=== PATIENT | female | born 1965 | race Caucasian/White ===

== ENCOUNTER 2018-08-03 13:48 | Emergency (ER) | payer MEDICAID, SELFPAY ==
[2018-08-03 13:51] VITALS: BP 125/51; PULSE 68; RESP 16; TEMP 36.7; O2SAT 100
--- NOTE | 2018-08-03 14:12 | DI.CT_ITS ---
SYMPTOMS/DIAGNOSIS: S/P HYSTERECTOMY 07/28 WITH NEW BULGE TO RLQ ABDOMINAL AND PELVIC CT: CT examination of the abdomen and pelvis was performed with a bolus infusion of 100 cc's of Omnipaque 350. The lung bases are clear. The requisition raises the question of an abdominal wall hernia and no significant abdominal wall hernia is seen. Note is made of an IVC filter. There is right hydronephrosis and hydroureter to the level of the distal third of the ureter where there is an obstructing 3 mm stone. No additional urinary tract calcifications seen. No left ureteral obstruction seen. Hepatic parenchyma contains geographic areas of marked heterogeneity involving portions of the right hepatic lobe. There are quite low attenuation areas which appear to approach that of intra-abdominal fat. The findings as described could represent atypical hepatic steatosis, however, the possibility of metastatic disease in a patient with a known history of previous neoplasm would have to be raised. Additionally the possibility of primary hepatocellular carcinoma would have to be considered. Additional evaluation with MRI including pre and post contrast imaging and in and out of phase chemical shift imaging would be recommended. The spleen is unremarkable in appearance. No gross abdominal or pelvic adenopathy. The appendix is normal. No colonic obstruction or diverticulitis. The abdominal aorta is of normal diameter. CONCLUSION: 1. No abdominal wall hernia. 2. Obstructing 3 mm right ureteral calculus. 3. Geographic areas of heterogeneity of hepatic parenchyma predominantly involving right lobe. The differential includes atypical hepatic steatosis or primary vs metastatic neoplasm. Correlation with hepatic MRI recommended as described above.
[2018-08-03 14:25] LABS: Abs Immature Grans 0.12 k/cumm (0.0-0.09); Absolute Basophil Count 0.04 k/cumm (0.0-0.2); Absolute Eosinophil Count 0.34 k/cumm (0.0-0.7); Absolute Lymphocyte Count 1.53 k/cumm (1.2-3.4); Absolute Monocyte Count 0.85 k/cumm (0.11-0.7); Absolute Neutrophil Count 4.73 k/cumm (1.2-6.7); Basophils % 0.5; Eosinophils % 4.5; HCT 35.8 % (36.0-46.0); HGB 11.1 g/dL (12.0-15.5); Immature Grans % 1.6; Lymphocytes % 20.1; Mean Corpuscular Hemoglobin 29.8 pg (27.0-33.0); Mean Platelet Volume 9.1 fL (8.0-11.0); Monocytes % 11.2; Neutrophils % 62.1; Platelet Count 246 x1000/uL (130-400); RBC 3.73 m/cumm (4.00-5.20); RBC Distribution Width 14.7 % (11.7-14.6); White Blood Cell Count 7.61 k/cumm (4.4-10.8)
[2018-08-03 14:34] LABS: ALT 68 U/L (12-78); AST 74 U/L (15-37); Albumin 3.1 g/dL (3.4-5.0); Alkaline Phosphatase 111 U/L (46-116); Anion Gap 8.7 mmol/L (3-11); BUN 18 mg/dL (7-18); Bilirubin, Total 0.4 mg/dL (0.2-1.0); CO2 28.3 mmol/L (21.0-32.0); CREATININE 0.92 mg/dL (0.55-1.02); Calcium 9.2 mg/dL (8.5-10.1); Chloride 104 mmol/L (98-107); Glucose 132 mg/dL (70-100); Sodium 141 mmol/L (136-145); Total Protein 6.6 g/dL (6.4-8.2)
[2018-08-03] MEDS: Omnipaque 350 MG/ML 100 ML BTL IJ (15:12)
--- NOTE | 2018-08-03 15:12 | ED.GENADUL_ITS ---
Discharge Plan Disposition Patient Disposition: HOME Condition: Fair Discharge Details Chief Complaint: Abd Prob Clinical Impression: Right nephrolithiasis, Postoperative abdominal pain Primary Care Provider: Joshua Nunes ED Provider: [place] [facility] Home Meds and New Rx's Prescriptions: Continue blood-glucose meter [OneTouch UltraMini] 1 EACH kit 1 ea Miscellaneous ONCE Qty: 1 RF: 0 acetaminophen [Tylenol Extra Strength] 500 MG tablet 2 tab PO TID RF: 0 lancets [OneTouch UltraSoft Lancets] 1 EACH misc 1 ea Miscellaneous 2-3x/day Qty: 300 RF: 11 dimethicone-zinc oxide [Huan Protect] 57 GM cream 57 gm Topical BID Qty: 1 RF: 12 nystatin 60 GM powder 60 gm Topical DAILY Qty: 60 RF: 6 cetirizine [Zyrtec] 10 MG capsule 10 mg PO DAILY Qty: 90 RF: 4 insulin glargine [Lantus Solostar U-100 Insulin] 100 UNIT/1 ML insulin pen 80 unit SQ QAM Qty: 5 RF: 6 pen needle, diabetic [BD Ultra-Fine Dorie Pen Needle] 1 EACH needle 1 ea Sub-Q QID Qty: 360 RF: 6 ibuprofen 600 MG tablet 600 mg PO BID Qty: 120 RF: 6 metformin 500 MG tablet 500 mg PO BID Qty: 180 RF: 4 rosuvastatin [Crestor] 10 MG tablet 10 mg PO HS Qty: 90 RF: 4 zinc oxide 28 GM ointment 28 gm Topical BID Qty: 1 RF: 1 insulin aspart U-100 [Novolog Flexpen U-100 Insulin] 100 UNIT/1 ML insulin pen 20 u Sub-Q 0800,1200,1700 Qty: 3 RF: 4 doxycycline monohydrate 100 MG capsule 100 mg PO BID Qty: 14 RF: 0 multivitamin 1 EACH tablet 1 ea PO DAILY Qty: 100 RF: 3 famotidine [Pepcid AC] 20 MG tablet 20 mg PO BID PRNQty: 180 RF: 4 lisinopril 10 MG tablet 10 mg PO DAILY Qty: 90 RF: 3 oxybutynin chloride 5 MG tablet 5 mg PO BID Qty: 180 RF: 4 cholecalciferol (vitamin D3) 1,000 UNIT capsule 1,000 unit PO DAILY Qty: 90 RF: 3 bupropion HCl [Wellbutrin XL] 300 MG tablet extended release 24 hr 300 mg PO DAILY Qty: 90 RF: 4 Metoprolol Succinate 25 MG TAB.ER.24H 25 mg PO DAILY Qty: 90 RF: 3 gabapentin 800 MG tablet 800 mg PO BID Qty: 90 RF: 3 ONETOUCH ULTRA TEST STRIPS 1 EACH strip 1 ea Miscellaneous TID Qty: 300 RF: 4 Discharge Instructions Instructions: Kidney Stones (ED), Abdominal Pain (ED) Additional Instructions: You have a right kidney stone. Please encourage water intake. Tylenol as needed for discomfort and pain medication as previously prescribed. I have asked her regular senior care provider to help facilitate follow-up with urologist. If you develop fever/chills, increased pain, change in urinary habits or other new/ worsening symptoms please seek care urgently once again. Surgeon at [facility] feels that the bulge on the right side is a postoperative change and will resolve and is benign. Please keep upcoming appointment with the surgeon. Please follow-up with primary care in 1 week for reevaluation of your abdomen, discuss any ongoing pain and discussed CT findings of your liver. You will likely need further imaging of your liver. Please encourage hydration. Please follow-up with primary care in the next week , please call tomorrow to schedule appointment. Keep upcoming appointment surgeon. respite coordinator will contact you regarding urology follow-up. Referrals: Joshua Nunes DO [Primary Care Provider] - Discharge Data Discharge Date/Time-TO BE ENTERED AT DEPARTURE: 08/03/18 17:44 Medical Decision Making Patient presents today with chief complaint of abdominal pain. Patient underwent total hysterectomy last week at [facility]. Her concern at today's visit is that she developed a bulge on the right side of the abdomen. She does have a notable bulge in the right side of her pannus near the pannus meets the edge of the bed. Patient is nonambulatory at baseline. Symptoms been having some abdominal discomfort since the time of surgery. On exam, she is having fairly diffuse discomfort. She is also endorsing some lower back pain which also began this morning. Lower back pain is low central over the area of the coccyx. No step-off, signs of trauma noted. No discoloration skin. Incisions appear to be healing well with no signs of infection. Plan to obtain laboratory evaluation, CT and consult with [facility]. Review documentation from [facility]. Patient had a robot-assisted hysterectomy with bilateral oophorectomy. They advised postoperative course was complicated briefly by DKA which seemed to resolve on postop day 1. Advised she was tolerating food well and patient was discharged on postop day 3 with [facility]NA care. Patient was discharged on NovoLog which she reports she is still taking CT reviewed by radiologist as well as myself. In particular, I discussed the radiologist I am unable to visualize the area of swelling on the scan secondary to the patient's body habitus and the limitations of the scan. He advised that the findings on the physical exam would need to be in the skin or subcutaneous tissue as there is no acute abnormality noted to support the physical exam findings. He advised that the liver is noted to be heterogeneous advised that this was concerning for fatty infiltrate versus metastasis. He advised MRI with post phase imaging to determine if that versus tumor. Advised that this MRI would need to be completed at [facility] given the limitations of our own equipment. He also advised that there is an obstructing stone on the right side that is 3 mm with associated hydronephrosis. We will obtain a urinalysis to evaluate for the obstructed stone and rule out infected kidney stone. Patient continues to decline CVA tenderness. Has not noted any hematuria. No history of nephrolithiasis. Laboratory evaluation significant for hemoglobin 11.1. This is unchanged from patient's baseline. No leukocytosis. Consulted with Dr. Montanez at [facility]. She reviewed the patient's recent case. 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 No other pathology was noted. She advised that the heterogeneous findings of the liver were non- concerning for metastatic disease given the surgical pathology noted. We discussed the soft bulge noted on exam in the patient's pannus. She advised that this was likely subcu tracking of gas from placement of trocar versus subcutaneous hematoma. She reports that typically the right side is more affected after this type of surgery did not feel that the patient needed any intervention or urgent follow-up. Urinalysis significant for blood, no findings to suggest acute infection. Patient diagnosed with abdominal pain postoperatively, likely associated with subcutaneous tracking of gas or hematoma from trocar placement per surgeon's report. He also noted to have an obstructing right ureteral stone. Stone is 3 mm in diameter. No signs of infection on laboratory evaluation. Patient denies any fevers or chills at home. Also noted to have heterogeneous liver. I did discuss this with the surgeon as there was concern for this potentially being tumor. Surgeon does not believe that this is metastases given the findings on surgical pathology. However, I have recommended the patient discuss this further with primary care. Radiologist did recommend MRI to evaluate this further. Patient will contact primary care to schedule follow-up this week. Encourage hydration. I have asked her regular senior care provider to help facilitate follow-up with urology. Advised she may continue with her Tylenol as needed for discomfort. She was given strict return precautions. All of her questions and concerns were addressed and she is in agreement with this plan. HPI General Mode of arrival: EMS . Date/Time Provider Initiated Documentation: 08/03/18 14:05 . Limitations to Documentation: no limitations . Information obtained by: patient . History of Present Illness 53 year old F presents to the emergency department with the chief complaint of Bulge right side of abdomen, described as severe, with intensity rated at 9. Quality is described as burning, aching and sharp, and is localized to the abdomen. Patient reports radiation to back. Patient started experiencing this hour(s) (3) and it has been constant. No relieving factors improve symptom(s), No exacerbating factors reported . Patient notes no other symptoms.; denies chest pain, cough, fever/chills, loss of appetite, nausea/vomiting, rash and shortness of breath. Patient did receive the following treatments prior to arrival, none Related Data Home Medications Medication Instructions Recorded Confirmed blood-glucose meter [OneTouch #1 kit 10/28/13 UltraMini] acetaminophen [Tylenol Extra 2 tab PO TID 03/09/15 08/03/18 Strength] lancets [OneTouch UltraSoft #300 ea 08/17/15 Lancets] dimethicone-zinc oxide [Huan 57 gm TOPICAL BID #1 tube 06/14/16 08/03/18 Protect] nystatin 60 gm TOPICAL DAILY #60 applic 03/14/17 08/03/18 cetirizine [Zyrtec] 10 mg PO DAILY #90 tab-cap 10/07/17 08/03/18 insulin glargine [Lantus Solostar 80 unit SQ QAM #5 box 12/23/17 08/03/18 U-100 Insulin] pen needle, diabetic [BD #360 pen 01/13/18 Ultra-Fine Dorie Pen Needle] ibuprofen 600 mg PO BID #120 tab-cap 02/27/18 08/03/18 metformin 500 mg PO BID #180 tab-cap 04/28/18 08/03/18 rosuvastatin [Crestor] 10 mg PO HS #90 tab-cap 04/28/18 08/03/18 zinc oxide 28 gm TOPICAL BID #1 tube 05/15/18 08/03/18 insulin aspart U-100 [Novolog 20 u SUB-Q 0800,1200,1700 #3 pen 06/01/18 08/03/18 Flexpen U-100 Insulin] doxycycline monohydrate 100 mg PO BID #14 tab-cap 06/08/18 08/03/18 bupropion HCl [Wellbutrin XL] 300 mg PO DAILY #90 tab-cap 06/23/18 08/03/18 cholecalciferol (vitamin D3) 1,000 unit PO DAILY #90 tab-cap 06/23/18 08/03/18 famotidine [Pepcid AC] 20 mg PO BID PRN #180 tab 06/23/18 08/03/18 gabapentin 800 mg PO BID #90 tab-cap 06/23/18 08/03/18 lisinopril 10 mg PO DAILY #90 tab-cap 06/23/18 08/03/18 multivitamin 1 ea PO DAILY #100 tab-cap 06/23/18 08/03/18 oxybutynin chloride 5 mg PO BID #180 tab-cap 06/23/18 08/03/18 Previous Rx's Medication Instructions Recorded cetirizine [Zyrtec] 10 mg PO DAILY #90 tab-cap 10/07/17 insulin glargine [Lantus Solostar 80 unit SQ QAM #5 box 12/23/17 U-100 Insulin] pen needle, diabetic [BD #360 pen 01/13/18 Ultra-Fine Dorie Pen Needle] ibuprofen 600 mg PO BID #120 tab-cap 02/27/18 metformin 500 mg PO BID #180 tab-cap 04/28/18 rosuvastatin [Crestor] 10 mg PO HS #90 tab-cap 04/28/18 zinc oxide 28 gm TOPICAL BID #1 tube 05/15/18 insulin aspart U-100 [Novolog 20 u SUB-Q 0800,1200,1700 #3 pen 06/01/18 Flexpen U-100 Insulin] doxycycline monohydrate 100 mg PO BID #14 tab-cap 06/08/18 bupropion HCl [Wellbutrin XL] 300 mg PO DAILY #90 tab-cap 06/23/18 cholecalciferol (vitamin D3) 1,000 unit PO DAILY #90 tab-cap 06/23/18 gabapentin 800 mg PO BID #90 tab-cap 06/23/18 lisinopril 10 mg PO DAILY #90 tab-cap 06/23/18 multivitamin 1 ea PO DAILY #100 tab-cap 06/23/18 oxybutynin chloride 5 mg PO BID #180 tab-cap 06/23/18 Allergies Allergy/AdvReac Type Severity Reaction Status Date / Time cefazolin Allergy HIVES Unverified 08/03/18 13:55 oxacillin [Oxacillin] Allergy HIVES Unverified 08/03/18 13:55 Penicillins Allergy HIVES Unverified 08/03/18 13:55 gemfibrozil AdvReac INCREASED Unverified 08/03/18 13:55 LFT'S morphine AdvReac NAUSEA Unverified 08/03/18 13:55 General Stated Complaint: Abd Prob DANIAL: 3 Review of Systems Constitutional Reports as per HPI, Denies chills, Denies fever(s), Denies headache(s) and Reports poor appetite (reports that she has had diminished appetite since the time of surgery, no recent change) ENT Denies headache(s) Cardiovascular Denies chest pain, Denies chest pain with activity, Denies palpitations, Denies dyspnea and Denies dyspnea on exertion Respiratory Denies chest congestion, Denies cough, Denies dyspnea and Denies dyspnea on exertion Gastrointestinal Reports as per HPI, Reports abdominal pain, Denies change in bowel habits, Denies nausea and Denies vomiting Genitourinary Denies dysuria, Denies flank pain and Denies urinary urgency Musculoskeletal Reports back pain (low central back pain, she associates with abdominal pain) Integumentary/Breasts Reports as per HPI (multiple incisions from robot assisted total hysterectomy 6 days ago. Denies erythema, discharge) Neurologic Denies headache(s) Endocrine Denies palpitations PFSH Family History Mother No problems noted. Father No problems noted. Sister No problems noted. Sister No problems noted. Sister No problems noted. Brother No problems noted. Grandfather No problems noted. Grandfather No problems noted. Grandmother No problems noted. Grandmother No problems noted. Son No problems noted. Medical History Amputated right leg Immobility Social History Smoking/Tobacco Use Status: Former Tobacco Use Surgical History Dilation and curettage (06/25/18) Fracture, Open Treatment Replacement of total knee joint (~1998) Exam Const General: cooperative, comfortable and no acute distress Nutritional Appearance: obese Orientation: alert and awake Eyes General: appearance normal, both eyes and all related structures Resp Effort & Inspection: normal respiratory effort, able to speak in complete sentences and no respiratory distress Auscultation: clear to auscultation bilaterally Cardio Rate: regular rate Rhythm: regular rhythm Heart Sounds: S1 normal and S2 normal GI Inspection: abdominal wall ecchymosis (Patient has ecchymosis around incisions and injection sites), no edema, incision (Patient has 4 incisions, appear to be healing well. No surrounding erythema, warmth or drainage), large pannus, obesity, scar and no visible herniation Palpation: soft, no hepatosplenomegaly (none palpable although this is limited from body habitus), not firm, no guarding, no masses (Patient has a visible area of localized swelling to right side of pannus near where pannus meets the edge of the bed. Appears swollen 19cm x 8cm. No discoloration. No definitive area of fluctuace, area is soft. ), not rigid and tender (diffuse discomfort with palpation. Only minmal palpation with over the area of swelling) Auscultation: normal bowel sounds Back/Spine/Pelvis Back: no CVA tenderness and other (patient has discomfort with palpation over the low central back. Pain minimal. No step off, no signs of trauma or deformity) Back/spine/pelvis image: 2 1. Skin General skin exam: ecchymosis, no erythema, no jaundice, no petechiae and scars (fresh incisions which appear to be healing well) Neuro General: alert, awake and oriented x3 Cognition: normal cognition Speech: speech normal Gait: gait abnormal (patient does not ambulate, has a right amp leading to patient being bed bound) Psych Appearance: grossly normal Mental Status: mental status grossly normal Speech and Movement: speech and movement normal Mood: congruent mood Course Vital Signs Temperature 36.7 C 08/03/18 13:51 Pulse 68 08/03/18 13:51 Respiratory Rate 16 08/03/18 13:51 Blood Pressure 125/51 L 08/03/18 13:51 Pulse Oximetry 100 08/03/18 13:51 Temperature 36.7 C 08/03/18 13:51 Temperature Source Skin 08/03/18 13:51 Pulse 68 08/03/18 13:51 Respiratory Rate 16 08/03/18 13:51 Respiratory Effort Non-Labored 08/03/18 13:51 Blood Pressure 125/51 L 08/03/18 13:51 Blood Pressure Position Supine 08/03/18 13:51 Pulse Oximetry 100 08/03/18 13:51 Oxygen Delivery Method Room Air 08/03/18 13:51 Oxygen Flow Rate 0 08/03/18 13:51 Pain Level 10 08/03/18 13:51 Lab/Test Results Lab/Test Results: Laboratory Tests Range/Units 08/03/18 08/03/18 14:15 14:15 WBC (4.4-10.8) k/cumm 7.61 RBC (4.00-5.20) m/cumm 3.73 L Hgb (12.0-15.5) g/dL 11.1 L Hct (36.0-46.0) % 35.8 L MCV (80-95) fL 96.0 H MCH (27.0-33.0) pg 29.8 MCHC (32.0-36.0) g/dL 31.0 L RDW (11.7-14.6) % 14.7 H Plt Count (130-400) x1000/uL 246 MPV (8.0-11.0) fL 9.1 Immature Gran % 1.6 Neutrophils % 62.1 Lymphocytes % 20.1 Monocytes % 11.2 Eosinophils % 4.5 Basophils % 0.5 Absolute Neutrophils (1.2-6.7) k/cumm 4.73 Absolute Lymphocytes (1.2-3.4) k/cumm 1.53 Absolute Monocytes (0.11-0.7) k/cumm 0.85 H Absolute Eosinophils (0.0-0.7) k/cumm 0.34 Absolute Basophils (0.0-0.2) k/cumm 0.04 Sodium (136-145) mmol/L 141 Potassium (3.5-5.1) mmol/L 4.0 Chloride (98-107) mmol/L 104 Carbon Dioxide (21.0-32.0) mmol/L 28.3 Anion Gap (3-11) mmol/L 8.7 BUN (7-18) mg/dL 18 Creatinine (0.55-1.02) mg/dL 0.92 Estimated GFR/1.73 m2 (mL/min/1.73m2) >= 60.00 Glucose (70-100) mg/dL 132 H Calcium (8.5-10.1) mg/dL 9.2 Total Bilirubin (0.2-1.0) mg/dL 0.4 AST (15-37) U/L 74 H ALT (12-78) U/L 68 Alkaline Phosphatase (46-116) U/L 111 Total Protein (6.4-8.2) g/dL 6.6 Albumin (3.4-5.0) g/dL 3.1 L
[2018-08-03] MEDS: Ondansetron 4 MG/2 ML VIAL IVP (16:11)
[2018-08-03 16:19] LABS: Bilirubin Negative (Negative); Blood Moderate (Negative); Clarity Sl Cloudy; Glucose Negative (Negative); Ketones Negative (Negative); Leukocyte Esterase Negative (Negative); Nitrite Negative (Negative); Urobilinogen 0.2 EU/dL (Up TO 0.2); pH 5.5 (5-8)
[2018-08-03] MEDS: Acetaminophen 500 MG TAB 1000 MG (16:25)
[2018-08-03] MEDS: Lidocaine 5% Patch 1 PATCH TP (17:04)
[2018-08-03 17:05] LABS: Bacteria Negative HPF (Negative); C & S Indicated? No/Sq. Contamination; Casts Negative LPF (Negative); Crystals Negative HPF (Negative); Epithelial Cells Many HPF (Negative); Mucus Negative (Negative); Other Cells Moderate Renal (Negative); RBC 20-50 (0-2)
[2018-08-03 17:44] VITALS: BP 125/51; PULSE 68; RESP 16; TEMP 36.7; O2SAT 100
--- NOTE | 2018-08-03 17:45 | NUR.NOTE ---
Nursing Note: Spoke with Brianda, Care Management. Patient is going home via [facility] with a wheelchair from [facility]. [facility] said that they would return the wheelchair tomorrow. Jada Wayne.
--- NOTE | 2018-08-04 10:47 | PDOC.ERCMPRO ---
Care Management Progress Note 08/04/18-Pt seen on 08/03/18 for obstructing kidney stone by MARLEN Muñoz. Referral f/u to Urology.
== END 2018-08-03 17:44 | disposition home or self-care (01) ==
PROVIDERS: Emergency Provider Physician Assistant; PCP Emergency Medicine
DX: N20.0 Calculus of kidney (principal); G89.18 Other acute postprocedural pain; Z90.710 Acquired absence of both cervix and uterus; R93.2 Abnormal findings on diagnostic imaging of liver and biliary tract; E11.8 Type 2 diabetes mellitus with unspecified complications; Z79.4 Long term (current) use of insulin
CPT/HCPCS: 80053; 96374; 99285; 74177; 81003; 81015; 85025; J2405; J3490

== ENCOUNTER 2018-09-18 10:39 | Outpatient (CLI) | payer MEDICAID, SELFPAY ==
[2018-09-18 13:12] LABS: Hemoglobin A1C 6.1 % (4.5-6.2)
== END 2018-09-18 10:59 ==
PROVIDERS: PCP Emergency Medicine; Visit Provider Emergency Medicine
DX: E11.9 Type 2 diabetes mellitus without complications (principal)
CPT/HCPCS: 36415; 83036

== ENCOUNTER 2018-09-20 10:24 | Emergency (ER) | payer MEDICAID, SELFPAY ==
[2018-09-20 10:27] VITALS: BP 149/54; PULSE 65; RESP 18; TEMP 36.8; O2SAT 98
--- NOTE | 2018-09-20 11:01 | W.ED.GENAD ---
Discharge Plan Disposition Patient Disposition: HOME Condition: Improving Discharge Details Chief Complaint: Nausea/Vomit/Diar Clinical Impression: Nausea vomiting and diarrhea Reason For Visit: EZIO Primary Care Provider: Joshua Nunes ED Provider: Yen Shell Home Meds and New Rx's Prescriptions: New prochlorperazine maleate [Compazine] 10 mg tablet 10 mg PO Q8H PRN (Reason: nausea and vomiting) Qty: 4 RF: 0 Continue blood-glucose meter [OneTouch UltraMini] 1 EACH kit 1 ea Miscellaneous ONCE Qty: 1 RF: 0 acetaminophen [Tylenol Extra Strength] 500 MG tablet 2 tab PO TID RF: 0 lancets [OneTouch UltraSoft Lancets] 1 EACH misc 1 ea Miscellaneous 2-3x/day Qty: 300 RF: 11 dimethicone-zinc oxide [Huan Protect] 57 GM cream 57 gm Topical BID Qty: 1 RF: 12 nystatin 60 GM powder 60 gm Topical DAILY Qty: 60 RF: 6 cetirizine [Zyrtec] 10 MG capsule 10 mg PO DAILY Qty: 90 RF: 4 insulin glargine [Lantus Solostar U-100 Insulin] 100 UNIT/1 ML insulin pen 80 unit SQ QAM Qty: 5 RF: 6 pen needle, diabetic [BD Ultra-Fine Dorie Pen Needle] 1 EACH needle 1 ea Sub-Q QID Qty: 360 RF: 6 zinc oxide 28 GM ointment 28 gm Topical BID Qty: 1 RF: 1 insulin aspart U-100 [Novolog Flexpen U-100 Insulin] 100 UNIT/1 ML insulin pen 20 u Sub-Q 0800,1200,1700 Qty: 3 RF: 4 multivitamin 1 EACH tablet 1 ea PO DAILY Qty: 100 RF: 3 famotidine [Pepcid AC] 20 MG tablet 20 mg PO BID PRNQty: 180 RF: 4 lisinopril 10 MG tablet 10 mg PO DAILY Qty: 90 RF: 3 oxybutynin chloride 5 MG tablet 5 mg PO BID Qty: 180 RF: 4 cholecalciferol (vitamin D3) 1,000 UNIT capsule 1,000 unit PO DAILY Qty: 90 RF: 3 bupropion HCl [Wellbutrin XL] 300 MG tablet extended release 24 hr 300 mg PO DAILY Qty: 90 RF: 4 Metoprolol Succinate 25 MG TAB.ER.24H 25 mg PO DAILY Qty: 90 RF: 3 gabapentin 800 MG tablet 800 mg PO BID Qty: 90 RF: 3 ONETOUCH ULTRA TEST STRIPS 1 EACH strip 1 ea Miscellaneous TID Qty: 300 RF: 4 metformin 500 mg tablet 500 mg PO BID Qty: 60 RF: 11 rosuvastatin [Crestor] 10 mg tablet 10 mg PO HS Qty: 30 RF: 11 ibuprofen 600 mg tablet 600 mg PO BID Qty: 120 RF: 6 Discharge Instructions Instructions: Acute Nausea and Vomiting (ED), Acute Diarrhea (ED) Additional Instructions: Drink plenty of fluids and get plenty of rest. Take the Compazine as needed and directed for any nausea or vomiting. Follow a bland diet of bananas, rice, applesauce and toast. Follow up with a primary care doctor in 1 week for reevaluation as needed. Return to the emergency department with any worsening or new concerning symptoms. Discharge Data Discharge Date/Time-TO BE ENTERED AT DEPARTURE: 09/20/18 16:18 Discharge Physician: Yen Shell Medical Decision Making 53yo F with history of diabetes, GERD, hypertension, obesity who presents for vomiting and diarrhea since yesterday. No fever, abdominal pain, urinary symptoms, chest pain, shortness of breath, recent travel, recent antibiotics or sick contacts. Blood pressure mildly hypertensive, otherwise vitals within normal limits. Patient appears nontoxic and in no acute distress. Abdomen soft nontender. Lungs clear to auscultation. Diagnosis includes electrolyte abnormality, DKA, gastroenteritis, dehydration. Will place an IV, bolus IV fluids, labs, urinalysis and give a dose of Compazine. 1300 -- Patient states her nausea is improved. Labs reviewed and note a white blood cell count of 8, magnesium 1.2. Glucose 224. Anion gap 12. Bicarb 26.5. Urinalysis notes positive nitrite but 0-2 WBCs and negative leukocyte esterase. With no UTI symptoms, urine culture sent and will hold on antibiotics at this time. Magnesium repletion ordered. Patient states she feels hungry, will order a tray of food and reassess, if able to tolerate p.o., okay to discharge home. 1500 -- patient feels much better and was able to drink water and eat food and no further nausea or vomiting. Patient feels good to go home. Patient instructed that her symptoms could be viral in nature. I do not see any indication for antibiotics for diarrhea as there is no fever or bloody diarrhea. Will give 2 tabs of Compazine for home and prescription to go. She was instructed to follow-up with the primary care doctor for reevaluation and to return here if worse. HPI General Mode of arrival: ambulatory. Date/Time Provider Initiated Documentation: 09/20/18 10:59. Limitations to Documentation: no limitations. Information obtained by: patient. HPI Narrative: Patient is a 53-year-old female who presents with vomiting and diarrhea since yesterday. States she vomited 3 times total, last this morning which was mainly clear and with some bile. Admits to 3-4 episodes of diarrhea, last occurring this morning, which is been watery and brown but denies any bleeding. She denies known fever, chest pain, shortness of breath, abdominal pain, recent travel, recent antibiotics, sick contacts, recent hospital admission, urinary symptoms or rash. Past medical history: Diabetes, GERD, hypertension, hyperlipidemia, obesity, DVT, chronic pain syndrome Surgical history: Right leg BKA, hip replacement Social history: Former smoker, rare alcohol, denies drugs Medications: See list Allergies: See list Related Data Home Medications Medication Instructions Recorded Confirmed blood-glucose meter [OneTouch #1 kit 10/28/13 09/18/18 UltraMini] acetaminophen [Tylenol Extra 2 tab PO TID 03/09/15 09/18/18 Strength] lancets [OneTouch UltraSoft #300 ea 08/17/15 09/18/18 Lancets] dimethicone-zinc oxide [Huan 57 gm TOPICAL BID #1 tube 06/14/16 09/18/18 Protect] nystatin 60 gm TOPICAL DAILY #60 applic 03/14/17 09/18/18 cetirizine [Zyrtec] 10 mg PO DAILY #90 tab-cap 10/07/17 09/18/18 insulin glargine [Lantus Solostar 80 unit SQ QAM #5 box 12/23/17 09/18/18 U-100 Insulin] pen needle, diabetic [BD #360 pen 01/13/18 09/18/18 Ultra-Fine Dorie Pen Needle] zinc oxide 28 gm TOPICAL BID #1 tube 05/15/18 09/18/18 insulin aspart U-100 [Novolog 20 u SUB-Q 0800,1200,1700 #3 pen 06/01/18 09/18/18 Flexpen U-100 Insulin] bupropion HCl [Wellbutrin XL] 300 mg PO DAILY #90 tab-cap 06/23/18 09/18/18 cholecalciferol (vitamin D3) 1,000 unit PO DAILY #90 tab-cap 06/23/18 09/18/18 famotidine [Pepcid AC] 20 mg PO BID PRN #180 tab 06/23/18 09/18/18 gabapentin 800 mg PO BID #90 tab-cap 06/23/18 09/18/18 lisinopril 10 mg PO DAILY #90 tab-cap 06/23/18 09/18/18 multivitamin 1 ea PO DAILY #100 tab-cap 06/23/18 09/18/18 oxybutynin chloride 5 mg PO BID #180 tab-cap 06/23/18 09/18/18 metformin 500 mg tablet 500 mg PO BID #60 tab-cap 08/04/18 09/18/18 rosuvastatin 10 mg tablet 10 mg PO HS #30 tab-cap 08/04/18 09/18/18 ibuprofen 600 mg tablet 600 mg PO BID #120 tab-cap 08/19/18 09/18/18 prochlorperazine maleate 10 mg PO Q8H PRN #4 tab 09/20/18 [Compazine] Previous Rx's Medication Instructions Recorded cetirizine [Zyrtec] 10 mg PO DAILY #90 tab-cap 10/07/17 insulin glargine [Lantus Solostar 80 unit SQ QAM #5 box 12/23/17 U-100 Insulin] pen needle, diabetic [BD #360 pen 01/13/18 Ultra-Fine Dorie Pen Needle] zinc oxide 28 gm TOPICAL BID #1 tube 05/15/18 insulin aspart U-100 [Novolog 20 u SUB-Q 0800,1200,1700 #3 pen 06/01/18 Flexpen U-100 Insulin] bupropion HCl [Wellbutrin XL] 300 mg PO DAILY #90 tab-cap 06/23/18 cholecalciferol (vitamin D3) 1,000 unit PO DAILY #90 tab-cap 06/23/18 gabapentin 800 mg PO BID #90 tab-cap 06/23/18 lisinopril 10 mg PO DAILY #90 tab-cap 06/23/18 multivitamin 1 ea PO DAILY #100 tab-cap 06/23/18 oxybutynin chloride 5 mg PO BID #180 tab-cap 06/23/18 metformin 500 mg tablet 500 mg PO BID #60 tab-cap 08/04/18 rosuvastatin 10 mg tablet 10 mg PO HS #30 tab-cap 08/04/18 ibuprofen 600 mg tablet 600 mg PO BID #120 tab-cap 08/19/18 prochlorperazine maleate 10 mg PO Q8H PRN #4 tab 09/20/18 [Compazine] Allergies Allergy/AdvReac Type Severity Reaction Status Date / Time cefazolin Allergy HIVES Verified 09/18/18 10:16 oxacillin [Oxacillin] Allergy HIVES Verified 09/18/18 10:16 Penicillins Allergy HIVES Verified 09/18/18 10:16 gemfibrozil AdvReac INCREASED Verified 09/18/18 10:16 LFT'S morphine AdvReac NAUSEA Verified 09/18/18 10:16 General Stated Complaint: Nausea/Vomit/Diar DANIAL: 3 Review of Systems Review of Systems All systems reviewed & are unremarkable except as noted in HPI and below Constitutional Reports as per HPI, Denies chills and Denies fever(s) Eyes Denies blurry vision ENT Denies dizziness, Denies sore throat and Denies throat swelling Cardiovascular Denies chest pain and Denies dyspnea Respiratory Denies dyspnea Gastrointestinal Denies abdominal pain, Reports diarrhea and Reports vomiting Genitourinary Denies hematuria and Denies dysuria Musculoskeletal Denies back pain and Denies numbness Integumentary/Breasts Denies lesions and Denies rash Neurologic Denies dizziness and Denies numbness Allergic/Immunologic Denies throat swelling PFSH Family History Mother No problems noted. Father No problems noted. Sister No problems noted. Sister No problems noted. Sister No problems noted. Brother No problems noted. Grandfather No problems noted. Grandfather No problems noted. Grandmother No problems noted. Grandmother No problems noted. Son No problems noted. Medical History Amputated right leg Immobility Social History Smoking/Tobacco Use Status: Former Tobacco Use Surgical History Dilation and curettage (06/25/18) Fracture, Open Treatment Replacement of total knee joint (~1998) Exam Const General: cooperative and healthy appearing Orientation: alert and awake [facility] Head: normal to inspection Ears: hearing grossly normal bilaterally and external ears normal General nose exam: external nose normal Face and sinus: normal facial exam Mouth: oral mucosae normal Eyes General: appearance normal, both eyes and all related structures Eyelids: eyelids normal EOM: EOM intact bilaterally Neck Neck: normal visual inspection Lymphatic: no lymphadenopathy noted Chest Chest: normal inspection of the chest Resp Effort & Inspection: normal respiratory effort and able to speak in complete sentences Auscultation: clear to auscultation bilaterally Cardio Rate: regular rate Rhythm: regular rhythm GI Inspection: normal to inspection Palpation: soft, not firm, no guarding, no hepatosplenomegaly, no masses and nontender Auscultation: normal bowel sounds Back/Spine/Pelvis Back: no CVA tenderness Skin General skin exam: no rashes or lesions noted Neuro General: alert and awake Cognition: normal cognition Speech: speech normal Gait: normal gait Motor: muscle tone normal throughout Sensory Exam: no sensory deficits noted Extrem General: normal to inspection, full ROM, normal capillary refill and other (R leg amputation) Psych Appearance: grossly normal Mental Status: mental status grossly normal Speech and Movement: speech and movement normal Affect: normal affect Thought Process: normal Course Vital Signs Temperature 98.2 F 09/20/18 10:27 Pulse 65 09/20/18 10:27 Respiratory Rate 18 09/20/18 10:27 Blood Pressure 149/54 H 09/20/18 10:27 Pulse Oximetry 98 09/20/18 10:27 Temperature 98.2 F 09/20/18 10:27 Temperature Source Temporal Artery Scan 09/20/18 10:27 Pulse 65 09/20/18 10:27 Respiratory Rate 18 09/20/18 10:27 Respiratory Effort 09/20/18 10:30 Blood Pressure 149/54 H 09/20/18 10:27 Blood Pressure Position Sitting 09/20/18 10:27 Pulse Oximetry 98 09/20/18 10:27 Oxygen Delivery Method Room Air 09/20/18 10:27 Oxygen Flow Rate 0 09/20/18 10:27 Pain Level 6 09/20/18 10:27
[2018-09-20 11:45] LABS: Abs Immature Grans 0.03 k/cumm (0.0-0.09); Absolute Basophil Count 0.02 k/cumm (0.0-0.2); Absolute Eosinophil Count 0.24 k/cumm (0.0-0.7); Absolute Lymphocyte Count 1.32 k/cumm (1.2-3.4); Absolute Monocyte Count 0.62 k/cumm (0.11-0.7); Absolute Neutrophil Count 5.78 k/cumm (1.2-6.7); Basophils % 0.2; HCT 36.4 % (36.0-46.0); HGB 11.5 g/dL (12.0-15.5); Immature Grans % 0.4; Lymphocytes % 16.5; Mean Corp. HGB Concentration 31.6 g/dL (32.0-36.0); Mean Platelet Volume 9.3 fL (8.0-11.0); Monocytes % 7.7; Neutrophils % 72.2; Platelet Count 265 x1000/uL (130-400); RBC 3.83 m/cumm (4.00-5.20); RBC Distribution Width 15.3 % (11.7-14.6); White Blood Cell Count 8.01 k/cumm (4.4-10.8)
[2018-09-20] MEDS: Normal Saline 1,000 ML 1000 ML IV (11:57)
[2018-09-20] MEDS: Prochlorperazine 10 MG/2 ML VIAL IVP (11:57)
[2018-09-20 12:00] LABS: Bilirubin Negative (Negative); Blood Trace-intact (Negative); Clarity Sl Cloudy; Glucose Negative (Negative); Ketones 15 mg/dL (Negative); Leukocyte Esterase Negative (Negative); Nitrite Positive (Negative); Specific Gravity >= 1.030 (1.005-1.025); Urobilinogen 0.2 EU/dL (Up TO 0.2); pH 5.5 (5-8)
[2018-09-20 12:07] LABS: WBC 0-2 HPF (0-5)
[2018-09-20 12:08] LABS: Epithelial Cells Few HPF (Negative)
[2018-09-20 12:09] LABS: Bacteria Many HPF (Negative); C & S Indicated? Yes; Casts Negative LPF (Negative); Crystals Negative HPF (Negative); Mucus Trace (Negative); Other Cells Few Renal (Negative)
[2018-09-20 12:16] LABS: ALT 37 U/L (12-78); AST 58 U/L (15-37); Albumin 3.9 g/dL (3.4-5.0); Alkaline Phosphatase 100 U/L (46-116); Anion Gap 12.5 mmol/L (3-11); BUN 27 mg/dL (7-18); Bilirubin, Total 0.5 mg/dL (0.2-1.0); CO2 26.5 mmol/L (21.0-32.0); CREATININE 0.97 mg/dL (0.55-1.02); Calcium 9.4 mg/dL (8.5-10.1); Chloride 97 mmol/L (98-107); Estimated GFR 59.62 (mL/min/1.73m2); Glucose 224 mg/dL (70-100); Magnesium 1.2 mg/dL (1.8-2.4); Potassium 4.4 mmol/L (3.5-5.1); Sodium 136 mmol/L (136-145); Total Protein 7.5 g/dL (6.4-8.2)
[2018-09-20 12:21] LABS: Troponin I < 0.02 ng/mL (0.00-0.06)
[2018-09-20] MEDS: MAGNESIUM SULFATE 2 GM/50 ML BAG IVPB (13:00)
[2018-09-20 13:44] VITALS: BP 110/51; PULSE 68; RESP 18; TEMP 36.7; O2SAT 96
[2018-09-20] MEDS: Prochlorperazine 10 MG TAB PO (15:01)
[2018-09-20 15:02] VITALS: BP 136/66; PULSE 64; RESP 16; TEMP 36.8; O2SAT 97
== END 2018-09-20 16:18 | disposition home or self-care (01) ==
PROVIDERS: Emergency Provider Physician Assistant; PCP Emergency Medicine
DX: R11.2 Nausea with vomiting, unspecified (principal); R19.7 Diarrhea, unspecified; I10 Essential (primary) hypertension; E11.9 Type 2 diabetes mellitus without complications; Z79.4 Long term (current) use of insulin
CPT/HCPCS: 36415; 80053; 81025; 87077; 96361; 96365; 96366; 96375; 99284; 81003; 81015; 83735; 84484; 85025; 87086; 87186; J0780

== ENCOUNTER 2018-09-21 15:41 | Emergency (ER) | payer MEDICAID, SELFPAY ==
[2018-09-21] VITALS (74 sets, daily range): BP systolic 112–133; BP diastolic 47–54; PULSE 85–86; RESP 13–16; TEMP 37–37.2; O2SAT 91–98
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
[2018-09-21] MEDS: Normal Saline 1,000 ML 1000 ML IV (17:05)
[2018-09-21 17:07] LABS: Abs Immature Grans 0.11 k/cumm (0.0-0.09); Absolute Basophil Count 0.02 k/cumm (0.0-0.2); Absolute Eosinophil Count 0.04 k/cumm (0.0-0.7); Absolute Monocyte Count 0.75 k/cumm (0.11-0.7); Absolute Neutrophil Count 7.31 k/cumm (1.2-6.7); Basophils % 0.2; Eosinophils % 0.4; HCT 37.3 % (36.0-46.0); Immature Grans % 1.2; Lymphocytes % 12.7; Mean Corp. HGB Concentration 32.2 g/dL (32.0-36.0); Mean Corpuscular Volume 93.3 fL (80-95); Mean Platelet Volume 9.5 fL (8.0-11.0); Neutrophils % 77.5; Platelet Count 307 x1000/uL (130-400); RBC Distribution Width 14.8 % (11.7-14.6); White Blood Cell Count 9.43 k/cumm (4.4-10.8)
[2018-09-21 17:23] LABS: ALT 43 U/L (12-78); AST 51 U/L (15-37); Albumin 4.1 g/dL (3.4-5.0); Alkaline Phosphatase 105 U/L (46-116); Anion Gap 9.5 mmol/L (3-11); BUN 23 mg/dL (7-18); Bilirubin, Total 0.4 mg/dL (0.2-1.0); CO2 29.5 mmol/L (21.0-32.0); CREATININE 0.77 mg/dL (0.55-1.02); Calcium 9.5 mg/dL (8.5-10.1); Chloride 99 mmol/L (98-107); Glucose 112 mg/dL (70-100); Lipase 103 U/L (73-393); Potassium 3.7 mmol/L (3.5-5.1); Sodium 138 mmol/L (136-145); Total Protein 7.9 g/dL (6.4-8.2)
[2018-09-21 17:28] LABS: Bilirubin Negative (Negative); Blood Small (Negative); Clarity Clear; Glucose Negative (Negative); Ketones 80 mg/dL (Negative); Leukocyte Esterase Trace (Negative); Nitrite Positive (Negative)
[2018-09-21 17:34] LABS: Epithelial Cells Few HPF (Negative)
[2018-09-21 17:35] LABS: Bacteria Many HPF (Negative); C & S Indicated? Yes; Casts Negative LPF (Negative); Crystals Negative HPF (Negative); Mucus Heavy (Negative); Other Cells Few Renal (Negative)
[2018-09-21 17:36] LABS: Troponin I < 0.02 ng/mL (0.00-0.06)
--- NOTE | 2018-09-21 18:13 | DI.RAD_ITS ---
SYMPTOM/DIAGNOSIS: VOMITING, R/O ACUTE DISEASE PA AND LATERAL CHEST: The lungs are free of infiltrate. There is chronic elevation of the right hemidiaphragm, unchanged. There is no pleural effusion or pneumothorax. The heart is somewhat enlarged. No bony abnormality is seen. SUMMARY: No evidence of acute cardiopulmonary disease.
--- NOTE | 2018-09-21 18:13 | DI.CT_ITS ---
SYMPTOM/DIAGNOSIS: EPIGASTRIC ABD PAIN, VOMITING, DIARRHEA ABDOMINAL AND PELVIC CT: The study was conducted according to the usual protocol with intravenous contrast enhancement. In the lower chest a small hiatus hernia is demonstrated. No acute finding. In the liver, again demonstrated are a number of small areas of diminished absorption, previously described. The differential includes metastatic disease or hepatocellular malignancy. The pancreas is normal. There is no ductal dilatation. The spleen is normal. The adrenals are normal. Regions of bowel wall thickening in the right colon may represent colitis. Correlation with the patient's clinical status is necessary. There is no evidence of an acute appendix. The bladder is intact. The reproductive organs as visualized are intact. There is no evidence of free air or free fluid in the intraperitoneal space. Note is made of a deformity of the pubic symphysis with internal fixation device affixed to the left hip. Also a healed right inferior pubic ramus fracture is noted. The patient is status post total right hip replacement. Soft tissue densities in the subcutaneous fat may be secondary to recent injection sites. A caval filter is identified and ends at the level of the renal veins. There is no lymphadenopathy. SUMMARY: Bowel wall thickening in the right colon may represent colitis in the appropriate clinical setting. Note is again made of multiple low areas of diminished absorption in the liver which were described on the prior study. The differential does include metastatic disease and/or hepatocellular carcinoma Again noted are low attenuation areas in the left kidney unchanged. These findings to all be correlated with the patient's clinical status and prior imaging results.
[2018-09-21] MEDS: Omnipaque 350 MG/ML 100 ML BTL IJ (19:05)
--- NOTE | 2018-09-21 19:42 | DI.VRAD_ITS ---
EXAM: CT Abdomen and Pelvis With Intravenous Contrast EXAM DATE/TIME: 09/21/2018 6:14 PM CLINICAL HISTORY: 53 years old, female; Pain and signs and symptoms; Vomiting; Abdominal pain; Epigastric; Patient HX: Epigastric abd pain, vomiting, diarrhea; Additional info: R/O acute abd process TECHNIQUE: Axial computed tomography images of the abdomen and pelvis with intravenous contrast. Coronal and sagittal reformatted images were created and reviewed. COMPARISON: CT Abdomen^ROUTINE ABDOMEN PELVIS WITH CONTRAST (Adult) 08/03/2018 2:45 PM FINDINGS: Lower thorax: Small hiatal hernia ABDOMEN: Liver: Again demonstrated are multiple low attenuation areas in the liver. They were described on the prior report. Differential includes metastatic disease and hepatocellular carcinoma. Gallbladder and bile ducts: Normal. No calcified stones. No ductal dilation. Pancreas: Normal. No ductal dilation. Spleen: Normal. No splenomegaly. Adrenals: Normal. No mass. Kidneys and ureters: Again noted are low attenuation areas in the left kidney. They were present on the prior study. Stomach and bowel: Bowel wall thickening in the right colon may represent colitis in the appropriate clinical setting. Appendix: No evidence of appendicitis. PELVIS: Bladder: See Liver Finding. Reproductive: Unremarkable as visualized. ABDOMEN and PELVIS: Intraperitoneal space: Normal. No free air. No significant fluid collection. Bones/joints: Stable deformity in the pubic symphysis bilaterally Internal fixation device in the left hip. Healed right inferior pubic ramus fracture. Right total hip replacement Soft tissues: Soft tissue densities in the subcutaneous fat may be secondary to recent injections . Vasculature: Inferior vena cava filter distal to the renal veins. Lymph nodes: Normal. No enlarged lymph nodes. IMPRESSION: 1. Bowel wall thickening in the right colon may represent colitis in the appropriate clinical setting. 2. Again demonstrated are multiple low attenuation areas in the liver. They were described on the prior report. Differential includes metastatic disease and hepatocellular carcinoma. 3. Again noted are low attenuation areas in the left kidney. They were present on the prior study. Dictated and Authenticated by: Ratna Garcia MD. Ordering:HAWA BLACKBURN MD
--- NOTE | 2018-09-21 19:43 | DI.VRAD_ITS ---
EXAM: XR Chest, 2 Views EXAM DATE/TIME: 09/21/2018 6:14 PM CLINICAL HISTORY: 53 years old, female; Signs and symptoms; Other: Vomiting; Additional info: R/O acute disease TECHNIQUE: XR of the chest, 2 views. COMPARISON: CR (CHEST, RT) 07/05/2016 9:42 PM FINDINGS: Lungs: No focal consolidation. Pleural space: Unremarkable. No pleural effusion. No pneumothorax. Heart/Mediastinum: Cardiomegaly Upper abdomen: Elevated right hemidiaphragm Bones/joints: Unremarkable. IMPRESSION: No focal consolidation. Dictated and Authenticated by: Ratna Garcia MD. Ordering:HAWA BLACKBURN MD
--- NOTE | 2018-09-21 21:16 | NUR.NOTE ---
Nursing Note: unable to verify PT meds. PT does not know any of her meds and reveaves them pre packaged from pharmacy. however med were verified at previous visit 2 days ago
[2018-09-21] MEDS: Ciprofloxacin 250 MG TAB PO ×2 (22:11→22:12)
[2018-09-21] MEDS: Promethazine 25 MG TAB PO (22:47)
== END 2018-09-21 23:02 | disposition home or self-care (01) ==
PROVIDERS: Student in an Organized Health Care Education/Training Program; Emergency Provider Physician Assistant; PCP Emergency Medicine
DX: R10.13 Epigastric pain (principal); R19.7 Diarrhea, unspecified; R11.2 Nausea with vomiting, unspecified; K52.9 Noninfective gastroenteritis and colitis, unspecified; N39.0 Urinary tract infection, site not specified; B96.20 Unspecified Escherichia coli [E. coli] as the cause of diseases classified elsewhere; R93.2 Abnormal findings on diagnostic imaging of liver and biliary tract; E11.9 Type 2 diabetes mellitus without complications; Z79.4 Long term (current) use of insulin; I10 Essential (primary) hypertension
CPT/HCPCS: 36415; 80053; 83690; 87077; 93005; 96360; 96361; 99285; 71046; 74177; 81003; 81015; 84484; 85025; 87086; 87186; 93010; J3490

== ENCOUNTER 2018-10-07 00:29 | Outpatient (CLI) | payer MEDICAID, SELFPAY ==
--- NOTE | 2018-10-07 10:51 | DI.US_ITS ---
SYMPTOMS/DIAGNOSIS: COLITIS, ABNORMAL CT OF LIVER, R93.2 ABDOMINAL ULTRASOUND: Comparison is made with a CT of the abdomen dated September,, which showed multiple low attenuation regions in the liver. The exam is limited by the patient's body habitus. The liver shows fatty infiltration. The lesions noted on CT are not visualized by ultrasound. No biliary dilatation is seen. The gallbladder is unremarkable. The pancreas could not be visualized. The kidneys and spleen are unremarkable. There is no ascites. IMPRESSION: Exam is limited by the patient's body habitus. The liver shows diffuse increased echogenicity consistent with fatty infiltration. The lesions noted on CT in the liver were not visualized by ultrasound. Biopsy could be considered for further evaluation.
== END 2018-10-07 00:49 ==
PROVIDERS: PCP Emergency Medicine; Visit Provider Nurse Practitioner Family
DX: K52.9 Noninfective gastroenteritis and colitis, unspecified (principal); R93.2 Abnormal findings on diagnostic imaging of liver and biliary tract; K76.0 Fatty (change of) liver, not elsewhere classified
CPT/HCPCS: 76700

== ENCOUNTER 2018-10-29 10:08 | Outpatient (REF) | payer MEDICAID, SELFPAY ==
[2018-10-29 12:51] LABS: Anion Gap 12.1 mmol/L (3-11); BUN 35 mg/dL (7-18); CO2 22.9 mmol/L (21.0-32.0); CREATININE 1.05 mg/dL (0.55-1.02); Calcium 9.4 mg/dL (8.5-10.1); Chloride 102 mmol/L (98-107); Cholesterol 163 mg/dL (50-200); Estimated GFR 54.41 (mL/min/1.73m2); Glucose 234 mg/dL (70-100); HDL Cholesterol 43 mg/dL (40-60); LDL CHOLESTEROL 45 mg/dL (<100); Potassium 4.8 mmol/L (3.5-5.1); Sodium 137 mmol/L (136-145); Triglyceride 610 mg/dL (30-150)
== END 2018-10-29 10:28 ==
LOC: LBN 10:08
PROVIDERS: PCP Emergency Medicine; Visit Provider Emergency Medicine
DX: E78.5 Hyperlipidemia, unspecified (principal); E11.9 Type 2 diabetes mellitus without complications; E03.9 Hypothyroidism, unspecified
CPT/HCPCS: 80048; 80061; 83721; 83036

== ENCOUNTER 2018-11-20 09:14 | Emergency (ER) | payer MEDICAID, SELFPAY ==
[2018-11-20 09:16] VITALS: BP 134/51; PULSE 74; RESP 18; TEMP 36.6; O2SAT 97
--- NOTE | 2018-11-20 09:29 | W.ED.GENAD ---
Discharge Plan Disposition Patient Disposition: HOME Condition: Stable Discharge Details Chief Complaint: Nausea/Vomit/Diar Clinical Impression: UTI (urinary tract infection), Nausea vomiting and diarrhea, Abdominal pain Reason For Visit: Andrea Fried Primary Care Provider: Joshua Nunes ED Provider: Srinivas Polk Home Meds and New Rx's Prescriptions: New ciprofloxacin HCl 250 mg tablet 250 mg PO BID Qty: 10 RF: 0 promethazine 25 mg tablet 25 mg PO Q6H PRN (Reason: nausea and vomiting) Qty: 10 RF: 0 Continued fenofibrate nanocrystallized [Tricor] 48 mg tablet 48 mg PO DAILY Qty: 90 RF: 4 blood-glucose meter [MashMe.TVuch UltraMini] 1 EACH kit 1 ea Miscellaneous ONCE Qty: 1 RF: 0 acetaminophen [Tylenol Extra Strength] 500 MG tablet 2 tab PO TID RF: 0 lancets [InsideMapsTouch UltraSoft Lancets] 1 EACH misc 1 ea Miscellaneous 2-3x/day Qty: 300 RF: 11 Huan Protect 57 GM cream 57 gm Topical BID Qty: 1 RF: 12 nystatin 60 GM powder 60 gm Topical DAILY Qty: 60 RF: 6 Lantus Solostar U-100 Insulin 100 UNIT/1 ML insulin pen 80 unit SQ QAM Qty: 5 RF: 6 pen needle, diabetic [BD Ultra-Fine Dorie Pen Needle] 1 EACH needle 1 ea Sub-Q QID Qty: 360 RF: 6 zinc oxide 28 GM ointment 28 gm Topical BID Qty: 1 RF: 1 Novolog Flexpen U-100 Insulin 100 UNIT/1 ML insulin pen 20 u Sub-Q 0800,1200,1700 Qty: 3 RF: 4 multivitamin 1 EACH tablet 1 ea PO DAILY Qty: 100 RF: 3 famotidine [Pepcid AC] 20 MG tablet 20 mg PO BID PRNQty: 180 RF: 4 lisinopril 10 MG tablet 10 mg PO DAILY Qty: 90 RF: 3 oxybutynin chloride 5 MG tablet 5 mg PO BID Qty: 180 RF: 4 cholecalciferol (vitamin D3) 1,000 UNIT capsule 1,000 unit PO DAILY Qty: 90 RF: 3 bupropion HCl [Wellbutrin XL] 300 MG tablet extended release 24 hr 300 mg PO DAILY Qty: 90 RF: 4 Metoprolol Succinate 25 MG TAB.ER.24H 25 mg PO DAILY Qty: 90 RF: 3 gabapentin 800 MG tablet 800 mg PO BID Qty: 90 RF: 3 ONETOUCH ULTRA TEST STRIPS strip .ROUTE .MEDSUPPLY Qty: 400 RF: 4 metformin 500 mg tablet 500 mg PO BID Qty: 60 RF: 11 rosuvastatin [Crestor] 10 mg tablet 10 mg PO HS Qty: 30 RF: 11 ibuprofen 600 mg tablet 600 mg PO BID Qty: 120 RF: 6 Zyrtec 10 mg capsule 10 mg PO DAILY Qty: 90 RF: 4 Blood Glucose Test strip .ROUTE .MEDSUPPLY Qty: 400 RF: 5 prochlorperazine maleate [Compazine] 10 mg tablet 10 mg PO Q8H PRN (Reason: nausea and vomiting) Qty: 4 RF: 0 promethazine 25 mg tablet 25 mg PO Q6H PRN (Reason: nausea and vomiting) Qty: 5 RF: 0 Discharge Instructions Instructions: Urinary Tract Infection in Women (ED), Acute Nausea and Vomiting (ED), Abdominal Pain (ED) Additional Instructions: Please take your medication as prescribed and return to the emergency department for any new or significant worsening symptoms otherwise follow-up with your primary care provider if not improving over the next week. You may advance your diet as tolerated by nausea and vomiting and please take your antibiotics until fully complete and gone. Referrals: Joshua Nunes, [Primary Care Provider] - (As needed for reassessment) Discharge Data Discharge Date/Time-TO BE ENTERED AT DEPARTURE: 11/20/18 15:20 Medical Decision Making Patient presenting to the emergency department for chief complaint of abdominal pain, nausea vomiting diarrhea. Patient states that this is been going on the past couple days. Patient denies any spoiled food intake, other sick contacts, change in medication, or abnormal blood sugars. Home health nurse did call and stated that aide noticed green diarrhea this morning along with one episode of bloody emesis. EMS stated that they were informed that this was bright red but was not observed. Patient denies any further episodes of vomiting, food intake this morning including anything with red coloring, patient denies fever chills or other medical complaints. Physical exam shows a soft initially nontender abdomen but then with further palpation patient states diffuse nonfocal abdominal discomfort. No specific exam findings are noted. Plan to do labs, IV access, give IV fluids, and continue to monitor. Pending results patient stating having some nausea so Phenergan was ordered p.o. Review of labs were overall unremarkable and not much change from patient's baseline. Patient reassessed and stated that she was doing better. Review of urinalysis does show findings worrisome for urinary tract infection. Patient placed up on Cipro and given first dose of p.o. medication in emergency department along with p.o. challenge. Patient did state that she was continuing to do better and tolerating p.o. intake. Pending arrangement of transportation home patient did have an episode of vomiting with movement. Patient was given single dose of ODT Zofran but she still stated that she felt improved and that she would prefer to go home. CT scan reviewed with radiologist and shows no acute findings. Patient reassessed and had one more episode of vomiting without any blood noted on either episode of vomiting in the emergency department and she still prefers to go home. I do feel that patient is able to be safely discharged home with anti-emetics and to continue the Cipro for a UTI which may be causing some of her symptoms of feeling ill. I did discuss patient's case with primary care provider Dr. Nunes and case management contacted [facility]. Patient was informed to return for any new or worsening symptoms otherwise to continue medication. Antiemetic prescribed was Phenergan. After discussion of diagnosis and plan of care patient has no further needs, questions, or concerns and states clear understanding to return to the emergency department for any worsening symptoms. HPI General Mode of arrival: EMS. Date/Time Provider Initiated Documentation: 11/20/18 09:16. Limitations to Documentation: no limitations. Information obtained by: patient, RN/MD and RN notes reviewed. History of Present Illness 53 year old F presents to the emergency department with the chief complaint of Abdominal pain nausea vomiting diarrhea, described as moderate, with intensity rated at 8. Quality is described as aching, and is localized to the abdomen. Patient started experiencing this day(s) (2) and it has been constant. No relieving factors improve symptom(s), No exacerbating factors reported . Patient notes no other symptoms.. Patient did receive the following treatments prior to arrival, none Related Data Home Medications Medication Instructions Recorded Confirmed blood-glucose meter [InsideMapsTouch #1 kit 10/28/13 10/29/18 UltraMini] acetaminophen [Tylenol Extra 2 tab PO TID 03/09/15 11/20/18 Strength] lancets [OneTouch UltraSoft #300 ea 08/17/15 10/29/18 Lancets] Huan Protect 57 gm TOPICAL BID #1 tube 06/14/16 11/20/18 nystatin 60 gm TOPICAL DAILY #60 applic 03/14/17 11/20/18 Lantus Solostar U-100 Insulin 80 unit SQ QAM #5 box 12/23/17 11/20/18 pen needle, diabetic [BD #360 pen 01/13/18 10/29/18 Ultra-Fine Dorie Pen Needle] zinc oxide 28 gm TOPICAL BID #1 tube 05/15/18 11/20/18 Novolog Flexpen U-100 Insulin 20 u SUB-Q 0800,1200,1700 #3 pen 06/01/18 11/20/18 bupropion HCl [Wellbutrin XL] 300 mg PO DAILY #90 tab-cap 06/23/18 11/20/18 cholecalciferol (vitamin D3) 1,000 unit PO DAILY #90 tab-cap 06/23/18 11/20/18 famotidine [Pepcid AC] 20 mg PO BID PRN #180 tab 06/23/18 11/20/18 gabapentin 800 mg PO BID #90 tab-cap 06/23/18 11/20/18 lisinopril 10 mg PO DAILY #90 tab-cap 06/23/18 11/20/18 multivitamin 1 ea PO DAILY #100 tab-cap 06/23/18 11/20/18 oxybutynin chloride 5 mg PO BID #180 tab-cap 06/23/18 11/20/18 metformin 500 mg tablet 500 mg PO BID #60 tab-cap 08/04/18 11/20/18 rosuvastatin 10 mg tablet 10 mg PO HS #30 tab-cap 08/04/18 11/20/18 ibuprofen 600 mg tablet 600 mg PO BID #120 tab-cap 08/19/18 11/20/18 prochlorperazine maleate 10 mg PO Q8H PRN #4 tab 09/20/18 11/20/18 [Compazine] promethazine 25 mg PO Q6H PRN #5 tab 09/21/18 11/20/18 cetirizine 10 mg capsule 10 mg PO DAILY #90 tab-cap 10/13/18 11/20/18 fenofibrate nanocrystallized 48 mg 48 mg PO DAILY #90 tab 10/29/18 11/20/18 tablet blood sugar diagnostic strips #400 each 11/02/18 ciprofloxacin HCl 250 mg PO BID #10 tab 11/20/18 promethazine 25 mg PO Q6H PRN #10 tab 11/20/18 Previous Rx's Medication Instructions Recorded Lantus Solostar U-100 Insulin 80 unit SQ QAM #5 box 12/23/17 pen needle, diabetic [BD #360 pen 01/13/18 Ultra-Fine Dorie Pen Needle] zinc oxide 28 gm TOPICAL BID #1 tube 05/15/18 Novolog Flexpen U-100 Insulin 20 u SUB-Q 0800,1200,1700 #3 pen 06/01/18 bupropion HCl [Wellbutrin XL] 300 mg PO DAILY #90 tab-cap 06/23/18 cholecalciferol (vitamin D3) 1,000 unit PO DAILY #90 tab-cap 06/23/18 gabapentin 800 mg PO BID #90 tab-cap 06/23/18 lisinopril 10 mg PO DAILY #90 tab-cap 06/23/18 multivitamin 1 ea PO DAILY #100 tab-cap 06/23/18 oxybutynin chloride 5 mg PO BID #180 tab-cap 06/23/18 metformin 500 mg tablet 500 mg PO BID #60 tab-cap 08/04/18 rosuvastatin 10 mg tablet 10 mg PO HS #30 tab-cap 08/04/18 ibuprofen 600 mg tablet 600 mg PO BID #120 tab-cap 08/19/18 prochlorperazine maleate 10 mg PO Q8H PRN #4 tab 09/20/18 [Compazine] promethazine 25 mg PO Q6H PRN #5 tab 09/21/18 cetirizine 10 mg capsule 10 mg PO DAILY #90 tab-cap 10/13/18 fenofibrate nanocrystallized 48 mg 48 mg PO DAILY #90 tab 10/29/18 tablet blood sugar diagnostic strips #400 each 11/02/18 ciprofloxacin HCl 250 mg PO BID #10 tab 11/20/18 promethazine 25 mg PO Q6H PRN #10 tab 11/20/18 Allergies Allergy/AdvReac Type Severity Reaction Status Date / Time cefazolin Allergy HIVES Verified 11/20/18 09:21 oxacillin [Oxacillin] Allergy HIVES Verified 11/20/18 09:21 Penicillins Allergy HIVES Verified 11/20/18 09:21 gemfibrozil AdvReac INCREASED Verified 11/20/18 09:21 LFT'S morphine AdvReac NAUSEA Verified 11/20/18 09:21 General Stated Complaint: Nausea/Vomit/Diar DANIAL: 3 Review of Systems Constitutional Denies chills, Denies fatigue, Denies fever(s) and Denies malaise Cardiovascular Denies chest pain, Denies diaphoresis and Denies dyspnea Respiratory Denies cough, Denies hemoptysis and Denies dyspnea Gastrointestinal Reports as per HPI, Reports abdominal pain, Denies melena, Denies hematochezia, Denies coffee ground emesis, Denies constipation, Reports diarrhea, Reports loose stools, Reports nausea, Reports vomiting and Reports hematemesis Genitourinary Denies urinary frequency, Denies urinary incontinence, Denies urinary hesitancy and Denies urinary urgency Musculoskeletal Denies joint swelling Integumentary/Breasts Denies rash Endocrine Denies fatigue [facility] Medical History Amputated right leg Immobility Surgical History Dilation and curettage (06/25/18) Fracture, Open Treatment Replacement of total knee joint (~1998) Family History Mother No problems noted. Father No problems noted. Sister No problems noted. Sister No problems noted. Sister No problems noted. Brother No problems noted. Grandfather No problems noted. Grandfather No problems noted. Grandmother No problems noted. Grandmother No problems noted. Son No problems noted. Social History Smoking/Tobacco Use Status: Former Tobacco Use Exam Const General: cooperative, comfortable and no acute distress Orientation: alert, awake and oriented x3 Neck Neck: normal visual inspection, full ROM, no lymphadenopathy, meningismus present and no JVD Resp Effort & Inspection: normal respiratory effort and able to speak in complete sentences Auscultation: clear to auscultation bilaterally Cardio Rate: regular rate Rhythm: regular rhythm Heart Sounds: S1 normal and S2 normal GI Inspection: normal to inspection Palpation: soft, no hepatosplenomegaly, not firm, no guarding, no hernias, no masses, no pulsatile masses, not rigid and tender other (Diffuse nonfocal); not at McBurney's point, Byrd's sign negative, psoas sign negative, with no rebound tenderness and Rovsing's sign negative Auscultation: normal bowel sounds Rectal Exam - female: visual inspection normal Skin General skin exam: no rashes or lesions noted and dry skin Rashes: no rashes Neuro General: alert and awake Course Vital Signs Temperature 36.6 C 11/20/18 09:16 Pulse 74 11/20/18 09:16 Respiratory Rate 18 11/20/18 09:16 Blood Pressure 134/51 L 11/20/18 09:16 Pulse Oximetry 97 11/20/18 09:16 Temperature 36.6 C 11/20/18 09:16 Temperature Source Temporal Artery Scan 11/20/18 09:16 Pulse 74 11/20/18 09:16 Respiratory Rate 18 11/20/18 09:16 Respiratory Effort Non-Labored 11/20/18 09:20 Blood Pressure 134/51 L 11/20/18 09:16 Blood Pressure Position Supine 11/20/18 09:16 Pulse Oximetry 97 11/20/18 09:16 Oxygen Delivery Method Room Air 11/20/18 09:16 Oxygen Flow Rate 0 11/20/18 09:16 Pain Level 8 11/20/18 09:16
--- NOTE | 2018-11-20 09:34 | ED.GENADUL_ITS ---
Discharge Plan Disposition Patient Disposition: HOME Condition: Stable Discharge Details Chief Complaint: Nausea/Vomit/Diar Clinical Impression: UTI (urinary tract infection), Nausea vomiting and diarrhea, Abdominal pain Reason For Visit: Andrea Fried Primary Care Provider: Joshua Nunes ED Provider: Srinivas Polk Home Meds and New Rx's Prescriptions: New ciprofloxacin HCl 250 mg tablet 250 mg PO BID Qty: 10 RF: 0 promethazine 25 mg tablet 25 mg PO Q6H PRN (Reason: nausea and vomiting) Qty: 10 RF: 0 Continued fenofibrate nanocrystallized [Tricor] 48 mg tablet 48 mg PO DAILY Qty: 90 RF: 4 blood-glucose meter [SweetIQ Analyticsuch UltraMini] 1 EACH kit 1 ea Miscellaneous ONCE Qty: 1 RF: 0 acetaminophen [Tylenol Extra Strength] 500 MG tablet 2 tab PO TID RF: 0 lancets [HipuiTouch UltraSoft Lancets] 1 EACH misc 1 ea Miscellaneous 2-3x/day Qty: 300 RF: 11 Huan Protect 57 GM cream 57 gm Topical BID Qty: 1 RF: 12 nystatin 60 GM powder 60 gm Topical DAILY Qty: 60 RF: 6 Lantus Solostar U-100 Insulin 100 UNIT/1 ML insulin pen 80 unit SQ QAM Qty: 5 RF: 6 pen needle, diabetic [BD Ultra-Fine Dorie Pen Needle] 1 EACH needle 1 ea Sub-Q QID Qty: 360 RF: 6 zinc oxide 28 GM ointment 28 gm Topical BID Qty: 1 RF: 1 Novolog Flexpen U-100 Insulin 100 UNIT/1 ML insulin pen 20 u Sub-Q 0800,1200,1700 Qty: 3 RF: 4 multivitamin 1 EACH tablet 1 ea PO DAILY Qty: 100 RF: 3 famotidine [Pepcid AC] 20 MG tablet 20 mg PO BID PRNQty: 180 RF: 4 lisinopril 10 MG tablet 10 mg PO DAILY Qty: 90 RF: 3 oxybutynin chloride 5 MG tablet 5 mg PO BID Qty: 180 RF: 4 cholecalciferol (vitamin D3) 1,000 UNIT capsule 1,000 unit PO DAILY Qty: 90 RF: 3 bupropion HCl [Wellbutrin XL] 300 MG tablet extended release 24 hr 300 mg PO DAILY Qty: 90 RF: 4 Metoprolol Succinate 25 MG TAB.ER.24H 25 mg PO DAILY Qty: 90 RF: 3 gabapentin 800 MG tablet 800 mg PO BID Qty: 90 RF: 3 ONETOUCH ULTRA TEST STRIPS strip .ROUTE .MEDSUPPLY Qty: 400 RF: 4 metformin 500 mg tablet 500 mg PO BID Qty: 60 RF: 11 rosuvastatin [Crestor] 10 mg tablet 10 mg PO HS Qty: 30 RF: 11 ibuprofen 600 mg tablet 600 mg PO BID Qty: 120 RF: 6 Zyrtec 10 mg capsule 10 mg PO DAILY Qty: 90 RF: 4 Blood Glucose Test strip .ROUTE .MEDSUPPLY Qty: 400 RF: 5 prochlorperazine maleate [Compazine] 10 mg tablet 10 mg PO Q8H PRN (Reason: nausea and vomiting) Qty: 4 RF: 0 promethazine 25 mg tablet 25 mg PO Q6H PRN (Reason: nausea and vomiting) Qty: 5 RF: 0 Discharge Instructions Instructions: Urinary Tract Infection in Women (ED), Acute Nausea and Vomiting (ED), Abdominal Pain (ED) Additional Instructions: Please take your medication as prescribed and return to the emergency department for any new or significant worsening symptoms otherwise follow-up with your primary care provider if not improving over the next week. You may advance your diet as tolerated by nausea and vomiting and please take your antibiotics until fully complete and gone. Referrals: Joshua Nunes, [Primary Care Provider] - (As needed for reassessment) Discharge Data Discharge Date/Time-TO BE ENTERED AT DEPARTURE: 11/20/18 15:20 Medical Decision Making Patient presenting to the emergency department for chief complaint of abdominal pain, nausea vomiting diarrhea. Patient states that this is been going on the past couple days. Patient denies any spoiled food intake, other sick contacts, change in medication, or abnormal blood sugars. Home health nurse did call and stated that aide noticed green diarrhea this morning along with one episode of bloody emesis. EMS stated that they were informed that this was bright red but was not observed. Patient denies any further episodes of vomiting, food intake this morning including anything with red coloring, patient denies fever chills or other medical complaints. Physical exam shows a soft initially nontender abdomen but then with further palpation patient states diffuse nonfocal abdominal discomfort. No specific exam findings are noted. Plan to do labs, IV access, give IV fluids, and continue to monitor. Pending results patient stating having some nausea so Phenergan was ordered p.o. Review of labs were overall unremarkable and not much change from patient's baseline. Patient reassessed and stated that she was doing better. Review of urinalysis does show findings worrisome for urinary tract infection. Patient placed up on Cipro and given first dose of p.o. medication in emergency department along with p.o. challenge. Patient did state that she was continuing to do better and tolerating p.o. intake. Pending arrangement of transportation home patient did have an episode of vomiting with movement. Patient was given single dose of ODT Zofran but she still stated that she felt improved and that she would prefer to go home. CT scan reviewed with radiologist and shows no acute findings. Patient reassessed and had one more episode of vomiting without any blood noted on either episode of vomiting in the emergency department and she still prefers to go home. I do feel that patient is able to be safely discharged home with anti- emetics and to continue the Cipro for a UTI which may be causing some of her symptoms of feeling ill. I did discuss patient's case with primary care provider Dr. Nunes and case management contacted [facility]. Patient was informed to return for any new or worsening symptoms otherwise to continue medication. Antiemetic prescribed was Phenergan. After discussion of diagnosis and plan of care patient has no further needs, questions, or concerns and states clear understanding to return to the emergency department for any worsening symptoms. HPI General Mode of arrival: EMS . Date/Time Provider Initiated Documentation: 11/20/18 09:16 . Limitations to Documentation: no limitations . Information obtained by: patient, RN/MD and RN notes reviewed . History of Present Illness 53 year old F presents to the emergency department with the chief complaint of Abdominal pain nausea vomiting diarrhea, described as moderate, with intensity rated at 8. Quality is described as aching, and is localized to the abdomen. Patient started experiencing this day(s) (2) and it has been constant. No relieving factors improve symptom(s), No exacerbating factors reported . Patient notes no other symptoms.. Patient did receive the following treatments prior to arrival, none Related Data Home Medications Medication Instructions Recorded Confirmed blood-glucose meter [HipuiTouch #1 kit 10/28/13 10/29/18 UltraMini] acetaminophen [Tylenol Extra 2 tab PO TID 03/09/15 11/20/18 Strength] lancets [OneTouch UltraSoft #300 ea 08/17/15 10/29/18 Lancets] Huan Protect 57 gm TOPICAL BID #1 tube 06/14/16 11/20/18 nystatin 60 gm TOPICAL DAILY #60 applic 03/14/17 11/20/18 Lantus Solostar U-100 Insulin 80 unit SQ QAM #5 box 12/23/17 11/20/18 pen needle, diabetic [BD #360 pen 01/13/18 10/29/18 Ultra-Fine Dorie Pen Needle] zinc oxide 28 gm TOPICAL BID #1 tube 05/15/18 11/20/18 Novolog Flexpen U-100 Insulin 20 u SUB-Q 0800,1200,1700 #3 pen 06/01/18 11/20/18 bupropion HCl [Wellbutrin XL] 300 mg PO DAILY #90 tab-cap 06/23/18 11/20/18 cholecalciferol (vitamin D3) 1,000 unit PO DAILY #90 tab-cap 06/23/18 11/20/18 famotidine [Pepcid AC] 20 mg PO BID PRN #180 tab 06/23/18 11/20/18 gabapentin 800 mg PO BID #90 tab-cap 06/23/18 11/20/18 lisinopril 10 mg PO DAILY #90 tab-cap 06/23/18 11/20/18 multivitamin 1 ea PO DAILY #100 tab-cap 06/23/18 11/20/18 oxybutynin chloride 5 mg PO BID #180 tab-cap 06/23/18 11/20/18 metformin 500 mg tablet 500 mg PO BID #60 tab-cap 08/04/18 11/20/18 rosuvastatin 10 mg tablet 10 mg PO HS #30 tab-cap 08/04/18 11/20/18 ibuprofen 600 mg tablet 600 mg PO BID #120 tab-cap 08/19/18 11/20/18 prochlorperazine maleate 10 mg PO Q8H PRN #4 tab 09/20/18 11/20/18 [Compazine] promethazine 25 mg PO Q6H PRN #5 tab 09/21/18 11/20/18 cetirizine 10 mg capsule 10 mg PO DAILY #90 tab-cap 10/13/18 11/20/18 fenofibrate nanocrystallized 48 mg 48 mg PO DAILY #90 tab 10/29/18 11/20/18 tablet blood sugar diagnostic strips #400 each 11/02/18 ciprofloxacin HCl 250 mg PO BID #10 tab 11/20/18 promethazine 25 mg PO Q6H PRN #10 tab 11/20/18 Previous Rx's Medication Instructions Recorded Lantus Solostar U-100 Insulin 80 unit SQ QAM #5 box 12/23/17 pen needle, diabetic [BD #360 pen 01/13/18 Ultra-Fine Dorie Pen Needle] zinc oxide 28 gm TOPICAL BID #1 tube 05/15/18 Novolog Flexpen U-100 Insulin 20 u SUB-Q 0800,1200,1700 #3 pen 06/01/18 bupropion HCl [Wellbutrin XL] 300 mg PO DAILY #90 tab-cap 06/23/18 cholecalciferol (vitamin D3) 1,000 unit PO DAILY #90 tab-cap 06/23/18 gabapentin 800 mg PO BID #90 tab-cap 06/23/18 lisinopril 10 mg PO DAILY #90 tab-cap 06/23/18 multivitamin 1 ea PO DAILY #100 tab-cap 06/23/18 oxybutynin chloride 5 mg PO BID #180 tab-cap 06/23/18 metformin 500 mg tablet 500 mg PO BID #60 tab-cap 08/04/18 rosuvastatin 10 mg tablet 10 mg PO HS #30 tab-cap 08/04/18 ibuprofen 600 mg tablet 600 mg PO BID #120 tab-cap 08/19/18 prochlorperazine maleate 10 mg PO Q8H PRN #4 tab 09/20/18 [Compazine] promethazine 25 mg PO Q6H PRN #5 tab 09/21/18 cetirizine 10 mg capsule 10 mg PO DAILY #90 tab-cap 10/13/18 fenofibrate nanocrystallized 48 mg 48 mg PO DAILY #90 tab 10/29/18 tablet blood sugar diagnostic strips #400 each 11/02/18 ciprofloxacin HCl 250 mg PO BID #10 tab 11/20/18 promethazine 25 mg PO Q6H PRN #10 tab 11/20/18 Allergies Allergy/AdvReac Type Severity Reaction Status Date / Time cefazolin Allergy HIVES Verified 11/20/18 09:21 oxacillin [Oxacillin] Allergy HIVES Verified 11/20/18 09:21 Penicillins Allergy HIVES Verified 11/20/18 09:21 gemfibrozil AdvReac INCREASED Verified 11/20/18 09:21 LFT'S morphine AdvReac NAUSEA Verified 11/20/18 09:21 General Stated Complaint: Nausea/Vomit/Diar DANIAL: 3 Review of Systems Constitutional Denies chills, Denies fatigue, Denies fever(s) and Denies malaise Cardiovascular Denies chest pain, Denies diaphoresis and Denies dyspnea Respiratory Denies cough, Denies hemoptysis and Denies dyspnea Gastrointestinal Reports as per HPI, Reports abdominal pain, Denies melena, Denies hematochezia, Denies coffee ground emesis, Denies constipation, Reports diarrhea, Reports loose stools, Reports nausea, Reports vomiting and Reports hematemesis Genitourinary Denies urinary frequency, Denies urinary incontinence, Denies urinary hesitancy and Denies urinary urgency Musculoskeletal Denies joint swelling Integumentary/Breasts Denies rash Endocrine Denies fatigue [facility] Medical History Amputated right leg Immobility Surgical History Dilation and curettage (06/25/18) Fracture, Open Treatment Replacement of total knee joint (~1998) Family History Mother No problems noted. Father No problems noted. Sister No problems noted. Sister No problems noted. Sister No problems noted. Brother No problems noted. Grandfather No problems noted. Grandfather No problems noted. Grandmother No problems noted. Grandmother No problems noted. Son No problems noted. Social History Smoking/Tobacco Use Status: Former Tobacco Use Exam Const General: cooperative, comfortable and no acute distress Orientation: alert, awake and oriented x3 Neck Neck: normal visual inspection, full ROM, no lymphadenopathy, meningismus present and no JVD Resp Effort & Inspection: normal respiratory effort and able to speak in complete sentences Auscultation: clear to auscultation bilaterally Cardio Rate: regular rate Rhythm: regular rhythm Heart Sounds: S1 normal and S2 normal GI Inspection: normal to inspection Palpation: soft, no hepatosplenomegaly, not firm, no guarding, no hernias, no masses, no pulsatile masses, not rigid and tender other (Diffuse nonfocal); not at McBurney's point, Byrd's sign negative, psoas sign negative, with no rebound tenderness and Rovsing's sign negative Auscultation: normal bowel sounds Rectal Exam - female: visual inspection normal Skin General skin exam: no rashes or lesions noted and dry skin Rashes: no rashes Neuro General: alert and awake Course Vital Signs Temperature 36.6 C 11/20/18 09:16 Pulse 74 11/20/18 09:16 Respiratory Rate 18 11/20/18 09:16 Blood Pressure 134/51 L 11/20/18 09:16 Pulse Oximetry 97 11/20/18 09:16 Temperature 36.6 C 11/20/18 09:16 Temperature Source Temporal Artery Scan 11/20/18 09:16 Pulse 74 11/20/18 09:16 Respiratory Rate 18 11/20/18 09:16 Respiratory Effort Non-Labored 11/20/18 09:20 Blood Pressure 134/51 L 11/20/18 09:16 Blood Pressure Position Supine 11/20/18 09:16 Pulse Oximetry 97 11/20/18 09:16 Oxygen Delivery Method Room Air 11/20/18 09:16 Oxygen Flow Rate 0 11/20/18 09:16 Pain Level 8 11/20/18 09:16
[2018-11-20 09:47] LABS: Abs Immature Grans 0.06 k/cumm (0.0-0.09); Absolute Basophil Count 0.01 k/cumm (0.0-0.2); Absolute Eosinophil Count 0.02 k/cumm (0.0-0.7); Absolute Lymphocyte Count 0.82 k/cumm (1.2-3.4); Absolute Monocyte Count 0.86 k/cumm (0.11-0.7); Absolute Neutrophil Count 8.55 k/cumm (1.2-6.7); Basophils % 0.1; Eosinophils % 0.2; HCT 36.7 % (36.0-46.0); HGB 11.8 g/dL (12.0-15.5); Immature Grans % 0.6; Lymphocytes % 7.9; Mean Corp. HGB Concentration 32.2 g/dL (32.0-36.0); Mean Corpuscular Hemoglobin 30.2 pg (27.0-33.0); Mean Corpuscular Volume 93.9 fL (80-95); Mean Platelet Volume 9.5 fL (8.0-11.0); Monocytes % 8.3; Neutrophils % 82.9; Platelet Count 291 x1000/uL (130-400); RBC 3.91 m/cumm (4.00-5.20); RBC Distribution Width 13.8 % (11.7-14.6); White Blood Cell Count 10.32 k/cumm (4.4-10.8)
[2018-11-20] MEDS: Normal Saline 1,000 ML 1000 ML IV (09:47)
[2018-11-20 09:51] LABS: Bilirubin Small (Negative); Blood Negative (Negative); Clarity Cloudy; Glucose Negative (Negative); Ketones 40 mg/dL (Negative); Leukocyte Esterase Small (Negative); Nitrite Negative (Negative); Specific Gravity 1.025 (1.005-1.025)
--- NOTE | 2018-11-20 09:53 | NUR.NOTE ---
Nursing Note: Pt in no acute distress. awaiting results of labs and urine. pt resting comfortably in bed listening to therapy music provided by hospital. no loose stool noted on exam. abdomen obese non-tender, reports vomiting at home no episodes here in ER thus far. groin area reddened, cleaned by staff. will continue to monitor, IVF infusing, call light in reach.
[2018-11-20 10:03] LABS: WBC >50 HPF (0-5)
[2018-11-20 10:03] LABS: ALT 28 U/L (12-78); AST 34 U/L (15-37); Albumin 3.7 g/dL (3.4-5.0); Alkaline Phosphatase 99 U/L (46-116); Anion Gap 11.8 mmol/L (3-11); BUN 32 mg/dL (7-18); Bilirubin, Total 0.3 mg/dL (0.2-1.0); CO2 29.2 mmol/L (21.0-32.0); CREATININE 0.94 mg/dL (0.55-1.02); Calcium 9.7 mg/dL (8.5-10.1); Chloride 98 mmol/L (98-107); Glucose 233 mg/dL (70-100); Lipase 91 U/L (73-393); Magnesium 1.6 mg/dL (1.8-2.4); Potassium 3.7 mmol/L (3.5-5.1); Sodium 139 mmol/L (136-145); Total Protein 7.4 g/dL (6.4-8.2)
[2018-11-20 10:04] LABS: Bacteria Many HPF (Negative); C & S Indicated? Yes; Casts 3-5 Coarse Granular LPF (Negative); Crystals Negative HPF (Negative); Epithelial Cells Few HPF (Negative); Mucus Negative (Negative)
[2018-11-20 10:33] VITALS: BP 144/53; PULSE 73; RESP 18; TEMP 37.1; O2SAT 96
--- NOTE | 2018-11-20 10:33 | DI.CT_ITS ---
SYMPTOMS/DIAGNOSIS: ABD PAIN, NAUSEA, VOMITING CT SCAN OF THE ABDOMEN AND PELVIS: CT scan of the abdomen and pelvis was performed following the uneventful administration of intravenous contrast material. Comparison examination is 09/21/18. The visualized lung bases show no acute abnormality. There are again seen multiple low attenuation lesions within the liver which appear grossly unchanged. They are described on the prior examination. No new hepatic lesions are seen. The portal, superior mesenteric and splenic veins are patent. The gallbladder is negative. No biliary ductal dilatation is seen. The pancreas, spleen and adrenal glands are unremarkable. The kidneys show normal and symmetric enhancement. There are left renal cysts again noted. No solid mass is seen in the kidneys. The urinary bladder is intact. The reproductive organs are grossly unremarkable as visualized. The bowel shows no evidence of obstruction or inflammation. There is a normal appendix present. The abdominal aorta is of normal caliber. No aneurysmal dilatation is seen. There is atherosclerosis present. There is an IVC filter in place. No significant abdominal or pelvic adenopathy, ascites or pneumoperitoneum is present. There is again seen a right total hip replacement. Orthopedic hardware with screws and intramedullary nail are seen in the proximal left femur. Degenerative changes are seen in the spine. IMPRESSION: 1. No acute abnormality. 2. Chronic findings in the abdomen and pelvis as described above. The findings were discussed with Ortiz Polk NP of the emergency department on the date of the examination.
[2018-11-20] MEDS: Omnipaque 350 MG/ML 100 ML BTL IJ (11:03)
[2018-11-20] MEDS: Ciprofloxacin 250 MG TAB PO (12:18)
[2018-11-20 12:19] VITALS: BP 131/57; PULSE 75; RESP 18; TEMP 37.2; O2SAT 95
--- NOTE | 2018-11-20 12:52 | NUR.NOTE ---
Nursing Note: Meal tray ordered, no changes. cleaned of urinary incontinence
--- NOTE | 2018-11-20 13:52 | PDOC.ERCMPRO ---
Care Management Progress Note 11/20-Pushpa needs transportation home. She uses [facility] van for transport. Called [facility] and spoke with Nilda. Nilda stated they would pick Pushpa up at 2:30 to transport home. Dee RN and Ortiz HERNÁNDEZ are aware of the above.
[2018-11-20] MEDS: Promethazine 25 MG TAB PO (14:07)
[2018-11-20 14:08] VITALS: PULSE 90; RESP 18; TEMP 37.4; O2SAT 95
[2018-11-20] MEDS: Ondansetron O.D.T. 4 MG TABEF PO (15:13)
[2018-11-20 15:15] VITALS: PULSE 89; RESP 18; TEMP 37.2; O2SAT 95
[2018-11-20 15:17] VITALS: PULSE 89; RESP 18; TEMP 37.2; O2SAT 95
== END 2018-11-20 15:20 | disposition home or self-care (01) ==
PROVIDERS: Emergency Provider Nurse Practitioner Family; PCP Emergency Medicine
DX: N39.0 Urinary tract infection, site not specified (principal); R11.0 Nausea; R19.7 Diarrhea, unspecified; R10.9 Unspecified abdominal pain; B96.20 Unspecified Escherichia coli [E. coli] as the cause of diseases classified elsewhere
CPT/HCPCS: 80053; 83690; 87077; 96360; 99285; 74177; 81003; 81015; 83735; 85025; 87086; 87186; 99284; J3490

== ENCOUNTER 2018-12-15 11:37 | Outpatient (CLI) | payer MEDICAID, SELFPAY ==
[2018-12-15 13:10] LABS: Cholesterol 164 mg/dL (50-200); HDL Cholesterol 43 mg/dL (40-60); LDL CHOLESTEROL 44 mg/dL (<100); Triglyceride 625 mg/dL (30-150)
== END 2018-12-15 11:57 ==
PROVIDERS: PCP Emergency Medicine; Visit Provider Emergency Medicine
DX: E11.9 Type 2 diabetes mellitus without complications (principal)
CPT/HCPCS: 36415; 80061; 83721

== ENCOUNTER 2018-12-21 11:45 | Outpatient (REF) | payer MEDICAID, SELFPAY ==
[2018-12-21 13:15] LABS: Triglyceride 620 mg/dL (30-150)
== END 2018-12-21 12:05 ==
LOC: LBN 11:45
PROVIDERS: PCP Emergency Medicine; Visit Provider Emergency Medicine
DX: E78.5 Hyperlipidemia, unspecified (principal)
CPT/HCPCS: 84478

== ENCOUNTER 2019-01-18 18:37 | Emergency (ER) | payer MEDICAID, SELFPAY ==
[2019-01-18] VITALS (23 sets, daily range): BP systolic 118–133; BP diastolic 50–63; PULSE 87–99; RESP 15–21; TEMP 37.1–37.2; O2SAT 96
--- NOTE | 2019-01-18 18:55 | W.ED.GENAD ---
Discharge Plan Disposition Patient Disposition: HOME Condition: Improving Discharge Details Chief Complaint: Nausea/Vomit/Diar Clinical Impression: Urinary tract infection Reason For Visit: EZIO Primary Care Provider: Joshua Nunes ED Provider: Tho Carcamo Home Meds and New Rx's Prescriptions: New ciprofloxacin HCl [Cipro] 250 mg tablet 250 mg PO BID Qty: 10 RF: 0 Continued cholecalciferol (vitamin D3) 1,000 unit capsule 1,000 unit PO DAILY Qty: 28 RF: 5 famotidine [Pepcid AC] 20 mg tablet 20 mg PO BID Qty: 56 RF: 5 Lantus Solostar U-100 Insulin 100 unit/mL (3 mL) insulin pen 80 unit subcut QAM Qty: 5 RF: 5 Novolog Flexpen U-100 Insulin 100 unit/mL insulin pen 20 unit Sub-Q 0800,1200,1700 Qty: 3 RF: 5 metformin 500 mg tablet 500 mg PO BID Qty: 56 RF: 5 oxybutynin chloride 5 mg tablet 5 mg PO BID Qty: 56 RF: 5 rosuvastatin [Crestor] 10 mg tablet 10 mg PO HS Qty: 28 RF: 5 bupropion HCl [Wellbutrin XL] 300 mg tablet extended release 24 hr 300 mg PO DAILY Qty: 28 RF: 5 lisinopril 10 mg tablet 10 mg PO DAILY Qty: 28 RF: 5 metoprolol succinate 25 mg tablet extended release 24 hr 25 mg PO DAILY Qty: 28 RF: 5 multivitamin tablet 1 tab PO DAILY Qty: 28 RF: 5 blood-glucose meter [OneTouch UltraMini] 1 EACH kit 1 ea Miscellaneous ONCE Qty: 1 RF: 0 acetaminophen [Tylenol Extra Strength] 500 MG tablet 2 tab PO TID RF: 0 lancets [OneTouch UltraSoft Lancets] 1 EACH misc 1 ea Miscellaneous 2-3x/day Qty: 300 RF: 11 Huan Protect 57 GM cream 57 gm Topical BID Qty: 1 RF: 12 nystatin 60 GM powder 60 gm Topical DAILY Qty: 60 RF: 6 pen needle, diabetic [BD Ultra-Fine Dorie Pen Needle] 1 EACH needle 1 ea Sub-Q QID Qty: 360 RF: 6 zinc oxide 28 GM ointment 28 gm Topical BID Qty: 1 RF: 1 gabapentin 800 MG tablet 800 mg PO BID Qty: 90 RF: 3 ONETOUCH ULTRA TEST STRIPS strip .Route .MEDSUPPLY Qty: 400 RF: 4 ibuprofen 600 mg tablet 600 mg PO BID Qty: 120 RF: 6 Zyrtec 10 mg capsule 10 mg PO DAILY Qty: 90 RF: 4 Blood Glucose Test strip .ROUTE .MEDSUPPLY Qty: 400 RF: 5 fenofibrate nanocrystallized [Tricor] 48 mg tablet 48 mg PO BID Qty: 180 RF: 4 prochlorperazine maleate [Compazine] 10 mg tablet 10 mg PO Q8H PRN (Reason: nausea and vomiting) Qty: 4 RF: 0 promethazine 25 mg tablet 25 mg PO Q6H PRN (Reason: nausea and vomiting) Qty: 10 RF: 0 Discharge Instructions Instructions: Urinary Tract Infection in Women (ED) Additional Instructions: Please follow-up with Dr. Nunes for recheck in the next 3-5 days time. Call for an appointment. Take medications as prescribed and continue your regular medications. Return to the emergency department for any acute concern. Medical Decision Making 53-year-old female presents from home with 2 episodes of nausea and vomiting today with associated dark urine. She arrives with normal vital signs, her abdominal exam is reassuring. She does appear mildly dehydrated and has not been able to take liquids by mouth. Therefore, IV placed, labs obtained, patient given antiemetic and fluids. Referred for laboratory testing. Labs reveal white count 9, hematocrit 35, platelets 242. Sodium 133, potassium 4.6, BUN 30, creatinine 1.0, LFTs unremarkable. Magnesium 1.5 and supplemented in the emergency department. Urine consistent with acute urinary tract infection. Reviewed recent culture results that show E. coli sensitive to most antibiotics except nitrofurantoin. Patient with allergies to cefazolin and penicillins. Patient given ciprofloxacin IV. She did have some improvement with fluids. Taking liquids by mouth. I will place her on a course of ciprofloxacin. She is stable for outpatient management Lab Data Lab results reviewed: Yes I reviewed the patient's lab results. Laboratory Results - last 24 hr 01/18/19 01/18/19 19:13 19:13 WBC 9.75 RBC 3.76 L Hgb 11.1 L Hct 35.4 L MCV 94.1 MCH 29.5 MCHC 31.4 L RDW 14.1 Plt Count 242 MPV 9.6 Immature Gran % 0.5 Neutrophils % 85.0 Lymphocytes % 6.3 Monocytes % 7.7 Eosinophils % 0.3 Basophils % 0.2 Absolute Neutrophils 8.29 H Absolute Lymphocytes 0.61 L Absolute Monocytes 0.75 H Absolute Eosinophils 0.03 Absolute Basophils 0.02 Sodium 133 L Potassium 4.6 Chloride 99 Carbon Dioxide 24.7 Anion Gap 9.3 BUN 30 H Creatinine 1.09 H Estimated GFR/1.73 m2 52.11 Glucose 243 H Calcium 9.5 Magnesium 1.5 L Total Bilirubin 0.4 AST 46 H ALT 31 Alkaline Phosphatase 81 Troponin I < 0.02 Total Protein 7.5 Albumin 3.7 Lipase 114 ECG Data Attestation: I personally reviewed and interpreted this ECG (s) as follows: Interpretation: Normal sinus rhythm with a rate of 91, there is ST segments that are flat with nonspecific changes to the T waves throughout. HPI General Mode of arrival: ambulatory. Date/Time Provider Initiated Documentation: 01/18/19 18:46. Limitations to Documentation: no limitations. Information obtained by: patient. History of Present Illness 53 year old F presents to the emergency department with the chief complaint of Nausea and vomiting x2, dark urine, described as moderate, Quality is described as dull, and is localized to the abdomen. Patient reports no radiation. Patient started experiencing this hour(s) and it has been intermittent. No relieving factors improve symptom(s), No exacerbating factors reported . Patient notes nausea/vomiting. Patient did receive the following treatments prior to arrival, none Related Data Home Medications Medication Instructions Recorded Confirmed blood-glucose meter [OneTouch #1 kit 10/28/13 12/15/18 UltraMini] acetaminophen [Tylenol Extra 2 tab PO TID 03/09/15 12/15/18 Strength] lancets [OneTouch UltraSoft #300 ea 08/17/15 12/15/18 Lancets] Huan Protect 57 gm TOPICAL BID #1 tube 06/14/16 12/15/18 nystatin 60 gm TOPICAL DAILY #60 applic 03/14/17 01/18/19 pen needle, diabetic [BD #360 pen 01/13/18 12/15/18 Ultra-Fine Dorie Pen Needle] zinc oxide 28 gm TOPICAL BID #1 tube 05/15/18 01/18/19 gabapentin 800 mg PO BID #90 tab-cap 06/23/18 01/18/19 ibuprofen 600 mg tablet 600 mg PO BID #120 tab-cap 08/19/18 01/18/19 prochlorperazine maleate 10 mg PO Q8H PRN #4 tab 09/20/18 12/15/18 [Compazine] cetirizine 10 mg capsule 10 mg PO DAILY #90 tab-cap 10/13/18 12/15/18 blood sugar diagnostic strips #400 each 11/02/18 12/15/18 promethazine 25 mg PO Q6H PRN #10 tab 11/20/18 12/15/18 bupropion HCl XL 300 mg 24 hr 300 mg PO DAILY #28 tab-cap 12/16/18 12/16/18 tablet, extended release cholecalciferol (vitamin D3) 1,000 1,000 unit PO DAILY #28 cap 12/16/18 12/16/18 unit capsule famotidine 20 mg tablet 20 mg PO BID #56 tab 12/16/18 01/18/19 insulin aspart U- 100 100 unit/mL 20 unit SUB-Q 0800,1200,1700 #3 ml 12/16/18 01/18/19 subcutaneous pen insulin glargine (U-100) 100 80 unit SUBCUT QAM #5 box 12/16/18 01/18/19 unit/mL (3 mL) subcutaneous pen lisinopril 10 mg tablet 10 mg PO DAILY #28 tab-cap 12/16/18 01/18/19 metformin 500 mg tablet 500 mg PO BID #56 tab-cap 12/16/18 01/18/19 metoprolol succinate ER 25 mg 25 mg PO DAILY #28 tab 12/16/18 01/18/19 tablet,extended release 24 hr multivitamin tablet 1 tab PO DAILY #28 tab-cap 12/16/18 01/18/19 oxybutynin chloride 5 mg tablet 5 mg PO BID #56 tab-cap 12/16/18 01/18/19 rosuvastatin 10 mg tablet 10 mg PO HS #28 tab-cap 12/16/18 01/18/19 fenofibrate nanocrystallized 48 mg 48 mg PO BID #180 tab 12/22/18 tablet ciprofloxacin HCl [Cipro] 250 mg PO BID #10 tab 01/18/19 Previous Rx's Medication Instructions Recorded pen needle, diabetic [BD #360 pen 01/13/18 Ultra-Fine Dorie Pen Needle] zinc oxide 28 gm TOPICAL BID #1 tube 05/15/18 gabapentin 800 mg PO BID #90 tab-cap 06/23/18 ibuprofen 600 mg tablet 600 mg PO BID #120 tab-cap 08/19/18 prochlorperazine maleate 10 mg PO Q8H PRN #4 tab 09/20/18 [Compazine] cetirizine 10 mg capsule 10 mg PO DAILY #90 tab-cap 10/13/18 blood sugar diagnostic strips #400 each 11/02/18 promethazine 25 mg PO Q6H PRN #10 tab 11/20/18 bupropion HCl XL 300 mg 24 hr 300 mg PO DAILY #28 tab-cap 12/16/18 tablet, extended release cholecalciferol (vitamin D3) 1,000 1,000 unit PO DAILY #28 cap 12/16/18 unit capsule famotidine 20 mg tablet 20 mg PO BID #56 tab 12/16/18 insulin aspart U- 100 100 unit/mL 20 unit SUB-Q 0800,1200,1700 #3 ml 12/16/18 subcutaneous pen insulin glargine (U-100) 100 80 unit SUBCUT QAM #5 box 12/16/18 unit/mL (3 mL) subcutaneous pen lisinopril 10 mg tablet 10 mg PO DAILY #28 tab-cap 12/16/18 metformin 500 mg tablet 500 mg PO BID #56 tab-cap 12/16/18 metoprolol succinate ER 25 mg 25 mg PO DAILY #28 tab 12/16/18 tablet,extended release 24 hr multivitamin tablet 1 tab PO DAILY #28 tab-cap 12/16/18 oxybutynin chloride 5 mg tablet 5 mg PO BID #56 tab-cap 12/16/18 rosuvastatin 10 mg tablet 10 mg PO HS #28 tab-cap 12/16/18 fenofibrate nanocrystallized 48 mg 48 mg PO BID #180 tab 12/22/18 tablet ciprofloxacin HCl [Cipro] 250 mg PO BID #10 tab 01/18/19 Allergies Allergy/AdvReac Type Severity Reaction Status Date / Time cefazolin Allergy HIVES Verified 01/18/19 18:46 oxacillin [Oxacillin] Allergy HIVES Verified 01/18/19 18:46 Penicillins Allergy HIVES Verified 01/18/19 18:46 gemfibrozil AdvReac INCREASED Verified 01/18/19 18:46 LFT'S morphine AdvReac NAUSEA Verified 01/18/19 18:46 General Stated Complaint: Nausea/Vomit/Diar DANIAL: 3 Review of Systems Review of Systems Dark colored urine, no diarrhea, no known sick contacts. 6 systems reviewed and otherwise - [facility] Medical History Amputated right leg Immobility Surgical History Dilation and curettage (06/25/18) Fracture, Open Treatment Replacement of total knee joint (~1998) Family History Mother No problems noted. Father No problems noted. Sister No problems noted. Sister No problems noted. Sister No problems noted. Brother No problems noted. Grandfather No problems noted. Grandfather No problems noted. Grandmother No problems noted. Grandmother No problems noted. Son No problems noted. Social History Smoking/Tobacco Use Status: Former Tobacco Use Drug use: Never Do you feel safe in your relationship?: Yes Exam Narrative Exam Narrative: GEN: awake, alert, oriented 3. Pleasant, well groomed, interactive. HEAD: Normocephalic, atraumatic ENT: Mucous membranes dry, oropharynx unremarkable, External ear exam unremarkable EYES: PERRL, EOMI NECK: Full ROM, no JIM, no menigismus CHEST/RESP: Nontender, clear to auscultation bilateral, no wheeze/rhonchi/rales CARDIOVASCULAR: RRR, no murmur, rub carlito. 2+ Rad pulse bilateral ABDOMEN: Soft, nontender, no mass. +Bowel sounds EXT right [id number] amputation. Left lower extremity nontender Neuro: Grossly normal neurologic exam, conversant, interactive. Psych: Speech fluent, thoughts congruent, affect normal Course Vital Signs Temperature 37.1 C 01/18/19 18:44 Pulse 89 01/18/19 18:44 Respiratory Rate 18 01/18/19 18:44 Blood Pressure 133/63 01/18/19 18:44 Pulse Oximetry 96 01/18/19 18:44 Temperature 37.1 C 01/18/19 18:44 Temperature Source Skin 01/18/19 18:44 Pulse 89 01/18/19 18:44 Respiratory Rate 18 01/18/19 18:44 Blood Pressure 133/63 01/18/19 18:44 Blood Pressure Position Sitting 01/18/19 18:44 Pulse Oximetry 96 01/18/19 18:44 Oxygen Delivery Method Room Air 01/18/19 18:44 Oxygen Flow Rate 0 01/18/19 18:44 Pain Level 10 01/18/19 18:44 Comment 01/18/19 18:44
[2019-01-18] MEDS: Normal Saline 1,000 ML 150 ML IV (19:14)
[2019-01-18] MEDS: Ondansetron 4 MG/2 ML VIAL IVP (19:14)
[2019-01-18 19:38] LABS: Abs Immature Grans 0.05 k/cumm (0.0-0.09); Absolute Basophil Count 0.02 k/cumm (0.0-0.2); Absolute Eosinophil Count 0.03 k/cumm (0.0-0.7); Absolute Lymphocyte Count 0.61 k/cumm (1.2-3.4); Absolute Monocyte Count 0.75 k/cumm (0.11-0.7); Absolute Neutrophil Count 8.29 k/cumm (1.2-6.7); Basophils % 0.2; Eosinophils % 0.3; HCT 35.4 % (36.0-46.0); HGB 11.1 g/dL (12.0-15.5); Immature Grans % 0.5; Lymphocytes % 6.3; Mean Corp. HGB Concentration 31.4 g/dL (32.0-36.0); Mean Corpuscular Hemoglobin 29.5 pg (27.0-33.0); Mean Corpuscular Volume 94.1 fL (80-95); Mean Platelet Volume 9.6 fL (8.0-11.0); Monocytes % 7.7; Platelet Count 242 x1000/uL (130-400); RBC 3.76 m/cumm (4.00-5.20); RBC Distribution Width 14.1 % (11.7-14.6); White Blood Cell Count 9.75 k/cumm (4.4-10.8)
[2019-01-18 19:43] LABS: ALT 31 U/L (12-78); AST 46 U/L (15-37); Albumin 3.7 g/dL (3.4-5.0); Alkaline Phosphatase 81 U/L (46-116); Anion Gap 9.3 mmol/L (3-11); BUN 30 mg/dL (7-18); Bilirubin, Total 0.4 mg/dL (0.2-1.0); CO2 24.7 mmol/L (21.0-32.0); CREATININE 1.09 mg/dL (0.55-1.02); Calcium 9.5 mg/dL (8.5-10.1); Chloride 99 mmol/L (98-107); Estimated GFR 52.11 (mL/min/1.73m2); Glucose 243 mg/dL (70-100); Lipase 114 U/L (73-393); Magnesium 1.5 mg/dL (1.8-2.4); Potassium 4.6 mmol/L (3.5-5.1); Sodium 133 mmol/L (136-145); Total Protein 7.5 g/dL (6.4-8.2); Troponin I < 0.02 ng/mL (0.00-0.06)
[2019-01-18] MEDS: MAGNESIUM SULFATE 1 GM/100 ML BAG IVPB (20:18)
[2019-01-18 20:23] LABS: Bilirubin Negative (Negative); Blood Moderate (Negative); Clarity Cloudy; Glucose 100 mg/dL (Negative); Ketones 15 mg/dL (Negative); Leukocyte Esterase Large (Negative); Nitrite Positive (Negative); Specific Gravity 1.025 (1.005-1.025); Urobilinogen 0.2 EU/dL (Up TO 0.2); pH 6.5 (5-8)
[2019-01-18 20:29] LABS: Bacteria Many HPF (Negative); C & S Indicated? Yes; Casts Negative LPF (Negative); Crystals Negative HPF (Negative); Epithelial Cells Negative HPF (Negative); Mucus Negative (Negative); RBC >50 (0-2); WBC >50 HPF (0-5)
[2019-01-18] MEDS: CIPROFLOXACIN 400 MG/200 ML BAG 200 MG IVPB (21:05)
[2019-01-18] MEDS: Gabapentin 800 MG TAB PO (22:36)
== END 2019-01-18 22:48 | disposition home or self-care (01) ==
PROVIDERS: Emergency Provider Emergency Medicine; PCP Emergency Medicine
DX: N39.0 Urinary tract infection, site not specified (principal); B96.89 Other specified bacterial agents as the cause of diseases classified elsewhere; Z16.29 Resistance to other single specified antibiotic; Z88.0 Allergy status to penicillin; Z88.1 Allergy status to other antibiotic agents
CPT/HCPCS: 36415; 80053; 83690; 87077; 93005; 96361; 96365; 96368; 96375; 99284; 81003; 81015; 83735; 84484; 85025; 87086; 87186; 93010; 99283; J0744; J2405; J3475

== ENCOUNTER 2019-03-13 09:28 | Emergency (ER) | payer MEDICAID, SELFPAY ==
[2019-03-13 09:28] VITALS: BP 159/59; PULSE 93; RESP 15; TEMP 36.5; O2SAT 97
--- NOTE | 2019-03-13 09:54 | W.ED.GENAD ---
Discharge Plan Disposition Patient Disposition: HOME Condition: Improving Discharge Details Chief Complaint: Nausea/Vomit/Diar Clinical Impression: UTI (urinary tract infection), Acute hyperglycemia, Vomiting, Diarrhea Primary Care Provider: Joshua Nunes ED Provider: Lamin Drake Home Meds and New Rx's Prescriptions: No Action cholecalciferol (vitamin D3) 1,000 unit capsule 1,000 unit PO DAILY Qty: 28 RF: 5 famotidine [Pepcid AC] 20 mg tablet 20 mg PO BID Qty: 56 RF: 5 Lantus Solostar U-100 Insulin 100 unit/mL (3 mL) insulin pen 80 unit subcut QAM Qty: 5 RF: 5 Novolog Flexpen U-100 Insulin 100 unit/mL insulin pen 20 unit Sub-Q 0800,1200,1700 Qty: 3 RF: 5 metformin 500 mg tablet 500 mg PO BID Qty: 56 RF: 5 oxybutynin chloride 5 mg tablet 5 mg PO BID Qty: 56 RF: 5 rosuvastatin [Crestor] 10 mg tablet 10 mg PO HS Qty: 28 RF: 5 bupropion HCl [Wellbutrin XL] 300 mg tablet extended release 24 hr 300 mg PO DAILY Qty: 28 RF: 5 lisinopril 10 mg tablet 10 mg PO DAILY Qty: 28 RF: 5 metoprolol succinate 25 mg tablet extended release 24 hr 25 mg PO DAILY Qty: 28 RF: 5 multivitamin tablet 1 tab PO DAILY Qty: 28 RF: 5 blood-glucose meter [OneTouch UltraMini] 1 EACH kit 1 ea Miscellaneous ONCE Qty: 1 RF: 0 acetaminophen [Tylenol Extra Strength] 500 MG tablet 2 tab PO TID RF: 0 lancets [OneTouch UltraSoft Lancets] 1 EACH misc 1 ea Miscellaneous 2-3x/day Qty: 300 RF: 11 Huan Protect 57 GM cream 57 gm Topical BID Qty: 1 RF: 12 nystatin 60 GM powder 60 gm Topical DAILY Qty: 60 RF: 6 pen needle, diabetic [BD Ultra-Fine Dorie Pen Needle] 1 EACH needle 1 ea Sub-Q QID Qty: 360 RF: 6 zinc oxide 28 GM ointment 28 gm Topical BID Qty: 1 RF: 1 gabapentin 800 MG tablet 800 mg PO BID Qty: 90 RF: 3 NanochipTOUCH ULTRA TEST STRIPS strip .Route .MEDSUPPLY Qty: 400 RF: 4 ibuprofen 600 mg tablet 600 mg PO BID Qty: 120 RF: 6 Zyrtec 10 mg capsule 10 mg PO DAILY Qty: 90 RF: 4 Blood Glucose Test strip .ROUTE .MEDSUPPLY Qty: 400 RF: 5 fenofibrate nanocrystallized [Tricor] 48 mg tablet 48 mg PO BID Qty: 180 RF: 4 prochlorperazine maleate [Compazine] 10 mg tablet 10 mg PO Q8H PRN (Reason: nausea and vomiting) Qty: 4 RF: 0 promethazine 25 mg tablet 25 mg PO Q6H PRN (Reason: nausea and vomiting) Qty: 10 RF: 0 ciprofloxacin HCl [Cipro] 250 mg tablet 250 mg PO BID Qty: 10 RF: 0 Discharge Instructions Additional Instructions: Her is going to [facility] medications [facility] please begin taking all of your medications as directed. Please return for inability to tolerate oral fluids persistent vomiting shortness of breath chest pain or any other complaint or concern. Referrals: Joshua Nunes DO [Primary Care Provider] - Medical Decision Making 53-year-old female with multiple medical problems and poor baseline functional capacity at home presents with nausea vomiting and diarrhea patient nontoxic in ED tolerating minimal p.o. on arrival concern for gastroenteritis less likely acute abdominal process urinary tract infection versus less likely DKA hyperosmolar syndrome. Will check basic labs give IV fluids check a UA and reassess. 1122 am patient resting comfortably tolerating p.o. labs significant for a small anion gap positive positive ketonuria and hyperglycemia some concern initially for mild DKA but patient appearing well VBG shows no evidence of acidosis . PT hydrated no vomiting in ER no further diarrhea UA positive for infection will begin Keflex today care management will be seeing the patient to help with medication resources. Patient seen by care management her medications are waiting for her [facility] pharmacy $17 and her is agreed to pick them up and pay for them. Will DC patient home with strict return instructions patient understands and agrees to plan and will return for any new or worsening symptoms. ECG Data Attestation: I personally reviewed and interpreted this ECG (s) as follows: (Regular sinus rhythm rate of 81 no axis no ectopy normal intervals no STEMI Non specific t wave inversions) LAURA Pushpa Kelly is a 53-year-old female with a complex medical history that includes hypertension diabetes right lower extremity amputation morbid obesity hyperlipidemia presents with 2 episodes of vomiting and 3-4 episodes of diarrhea that began early a.m. today patient has had similar symptoms in the past few months that she associated with a urinary tract infection. Patient also notes that she has been unable to take her prescription medications including her insulin and oral diabetes medications but believes she will be able to afford them in the next few days. No shortness of breath no chest pain no loss of consciousness no trauma no new medications no other complaints patient's visiting aide sent patient into the ED today for further evaluation. No abdominal pain symptoms are acute intermittent nothing is made them better or worse patient has tolerated p.o. intermittently this morning General Date/Time Provider Initiated Documentation: 03/13/19 09:42. Related Data Home Medications Medication Instructions Recorded Confirmed blood-glucose meter [OneWed (Formerly Nearlyweds)Touch #1 kit 10/28/13 03/13/19 UltraMini] acetaminophen [Tylenol Extra 2 tab PO TID 03/09/15 03/13/19 Strength] lancets [OneWed (Formerly Nearlyweds)Touch UltraSoft #300 ea 08/17/15 03/13/19 Lancets] Huan Protect 57 gm TOPICAL BID #1 tube 06/14/16 03/13/19 nystatin 60 gm TOPICAL DAILY #60 applic 03/14/17 03/13/19 pen needle, diabetic [BD #360 pen 01/13/18 03/13/19 Ultra-Fine Dorie Pen Needle] zinc oxide 28 gm TOPICAL BID #1 tube 05/15/18 03/13/19 gabapentin 800 mg PO BID #90 tab-cap 06/23/18 03/13/19 ibuprofen 600 mg tablet 600 mg PO BID #120 tab-cap 08/19/18 03/13/19 prochlorperazine maleate 10 mg PO Q8H PRN #4 tab 09/20/18 03/13/19 [Compazine] cetirizine 10 mg capsule 10 mg PO DAILY #90 tab-cap 10/13/18 03/13/19 blood sugar diagnostic strips #400 each 11/02/18 03/13/19 promethazine 25 mg PO Q6H PRN #10 tab 11/20/18 03/13/19 bupropion HCl XL 300 mg 24 hr 300 mg PO DAILY #28 tab-cap 12/16/18 03/13/19 tablet, extended release cholecalciferol (vitamin D3) 1,000 1,000 unit PO DAILY #28 cap 12/16/18 03/13/19 unit capsule famotidine 20 mg tablet 20 mg PO BID #56 tab 12/16/18 03/13/19 insulin aspart U- 100 100 unit/mL 20 unit SUB-Q 0800,1200,1700 #3 ml 12/16/18 03/13/19 subcutaneous pen insulin glargine (U-100) 100 80 unit SUBCUT QAM #5 box 12/16/18 03/13/19 unit/mL (3 mL) subcutaneous pen lisinopril 10 mg tablet 10 mg PO DAILY #28 tab-cap 12/16/18 03/13/19 metformin 500 mg tablet 500 mg PO BID #56 tab-cap 12/16/18 03/13/19 metoprolol succinate ER 25 mg 25 mg PO DAILY #28 tab 12/16/18 03/13/19 tablet,extended release 24 hr multivitamin tablet 1 tab PO DAILY #28 tab-cap 12/16/18 03/13/19 oxybutynin chloride 5 mg tablet 5 mg PO BID #56 tab-cap 12/16/18 03/13/19 rosuvastatin 10 mg tablet 10 mg PO HS #28 tab-cap 12/16/18 03/13/19 fenofibrate nanocrystallized 48 mg 48 mg PO BID #180 tab 12/22/18 03/13/19 tablet ciprofloxacin HCl [Cipro] 250 mg PO BID #10 tab 01/18/19 03/13/19 Previous Rx's Medication Instructions Recorded pen needle, diabetic [BD #360 pen 01/13/18 Ultra-Fine Dorie Pen Needle] zinc oxide 28 gm TOPICAL BID #1 tube 05/15/18 gabapentin 800 mg PO BID #90 tab-cap 06/23/18 ibuprofen 600 mg tablet 600 mg PO BID #120 tab-cap 08/19/18 prochlorperazine maleate 10 mg PO Q8H PRN #4 tab 09/20/18 [Compazine] cetirizine 10 mg capsule 10 mg PO DAILY #90 tab-cap 10/13/18 blood sugar diagnostic strips #400 each 11/02/18 promethazine 25 mg PO Q6H PRN #10 tab 11/20/18 bupropion HCl XL 300 mg 24 hr 300 mg PO DAILY #28 tab-cap 12/16/18 tablet, extended release cholecalciferol (vitamin D3) 1,000 1,000 unit PO DAILY #28 cap 12/16/18 unit capsule famotidine 20 mg tablet 20 mg PO BID #56 tab 12/16/18 insulin aspart U- 100 100 unit/mL 20 unit SUB-Q 0800,1200,1700 #3 ml 12/16/18 subcutaneous pen insulin glargine (U-100) 100 80 unit SUBCUT QAM #5 box 12/16/18 unit/mL (3 mL) subcutaneous pen lisinopril 10 mg tablet 10 mg PO DAILY #28 tab-cap 12/16/18 metformin 500 mg tablet 500 mg PO BID #56 tab-cap 12/16/18 metoprolol succinate ER 25 mg 25 mg PO DAILY #28 tab 12/16/18 tablet,extended release 24 hr multivitamin tablet 1 tab PO DAILY #28 tab-cap 12/16/18 oxybutynin chloride 5 mg tablet 5 mg PO BID #56 tab-cap 12/16/18 rosuvastatin 10 mg tablet 10 mg PO HS #28 tab-cap 12/16/18 fenofibrate nanocrystallized 48 mg 48 mg PO BID #180 tab 12/22/18 tablet ciprofloxacin HCl [Cipro] 250 mg PO BID #10 tab 01/18/19 Allergies Allergy/AdvReac Type Severity Reaction Status Date / Time cefazolin Allergy HIVES Verified 03/13/19 09:33 oxacillin [Oxacillin] Allergy HIVES Verified 03/13/19 09:33 Penicillins Allergy HIVES Verified 03/13/19 09:33 gemfibrozil AdvReac INCREASED Verified 03/13/19 09:33 LFT'S morphine AdvReac NAUSEA Verified 03/13/19 09:33 General Stated Complaint: Nausea/Vomit/Diar DANIAL: 3 Review of Systems Review of Systems All systems reviewed & are unremarkable except as noted in HPI and below PFSH Social History Smoking/Tobacco Use Status: Former Tobacco Use Alcohol Intake: former Drug use: Never Substance use type: does not use Do you feel safe at home: Yes Do you feel safe in your relationship?: Yes Exam Narrative Exam Narrative: Pulse oximetry reviewed by me and is normal [] Constitutional: Pt is in no acute distress. she is well appearing. she oriented to person, place, and time. Eyes: conjunctivae are normal. Pupils are equal, round, and reactive to light. No scleral icterus. extraocular muscles are intact Ears/Nose/Mouth/Throat: mucus membranes are moist. Musculoskeletal: neck is supple. normal range of motion in all extremities. +1 left lower extremity pitting edema right lower extremity amputation Cardiovascular: Normal rate and rhythm. No lower extremity edema RRR [] Respiratory: effort is normal . pt exhibits no stridor or respiratory distress. [] L CTA GastrointestinaI: abdomen soft, +BS, nontender, -rebound, -guarding. Neurological: alert and oriented to person, place, and time. he has normal strength, no tremor. Skin: Skin is warm and dry. he is not diaphoretic. Distal perfusion in tact, warm extremities, cap refill ? 2 seconds. Hem/Lymph/Imm: No cervical LAD, no goiter, no conjunctival pallor Psych: normal mood and affect. behavior is normal Triage and nurse notes reviewed.[] Course Vital Signs Temperature 36.5 C 03/13/19 09:28 Pulse 93 H 03/13/19 09:28 Respiratory Rate 15 03/13/19 09:28 Blood Pressure 159/59 H 03/13/19 09:28 Pulse Oximetry 97 03/13/19 09:28 Temperature 36.5 C 03/13/19 09:28 Temperature Source Temporal Artery Scan 03/13/19 09:28 Pulse 93 H 03/13/19 09:28 Respiratory Rate 15 03/13/19 09:28 Respiratory Effort Non-Labored 03/13/19 09:28 Blood Pressure 159/59 H 03/13/19 09:28 Blood Pressure Position Sitting 03/13/19 09:28 Pulse Oximetry 97 03/13/19 09:28 Oxygen Delivery Method Room Air 03/13/19 09:28 Oxygen Flow Rate 0 03/13/19 09:28 Pain Level 5 03/13/19 09:28
[2019-03-13 10:11] LABS: Abs Immature Grans 0.05 k/cumm (0.0-0.09); Absolute Basophil Count 0.03 k/cumm (0.0-0.2); Absolute Eosinophil Count 0.14 k/cumm (0.0-0.7); Absolute Lymphocyte Count 1.57 k/cumm (1.2-3.4); Absolute Monocyte Count 0.83 k/cumm (0.11-0.7); Absolute Neutrophil Count 8.78 k/cumm (1.2-6.7); Basophils % 0.3; Eosinophils % 1.2; HCT 36.3 % (36.0-46.0); HGB 11.5 g/dL (12.0-15.5); Immature Grans % 0.4; Lymphocytes % 13.8; Mean Corp. HGB Concentration 31.7 g/dL (32.0-36.0); Mean Corpuscular Hemoglobin 29.7 pg (27.0-33.0); Mean Corpuscular Volume 93.8 fL (80-95); Mean Platelet Volume 9.8 fL (8.0-11.0); Monocytes % 7.3; Platelet Count 257 x1000/uL (130-400); RBC 3.87 m/cumm (4.00-5.20); RBC Distribution Width 13.9 % (11.7-14.6)
[2019-03-13 10:12] LABS: Bilirubin Negative (Negative); Blood Small (Negative); Clarity Cloudy; Glucose 500 mg/dL (Negative); Ketones 15 mg/dL (Negative); Leukocyte Esterase Moderate (Negative); Nitrite Positive (Negative); Specific Gravity 1.025 (1.005-1.025); Urobilinogen 0.2 EU/dL (Up TO 0.2)
[2019-03-13] MEDS: Normal Saline 1,000 ML 1000 ML IV (10:12)
[2019-03-13 10:23] LABS: ALT 29 U/L (12-78); AST 20 U/L (15-37); Albumin 3.7 g/dL (3.4-5.0); Alkaline Phosphatase 75 U/L (46-116); Anion Gap 11.7 mmol/L (3-11); BUN 23 mg/dL (7-18); Bilirubin, Total 0.5 mg/dL (0.2-1.0); CO2 25.3 mmol/L (21.0-32.0); CREATININE 0.93 mg/dL (0.55-1.02); Calcium 9.2 mg/dL (8.5-10.1); Chloride 98 mmol/L (98-107); Glucose 277 mg/dL (70-100); Lipase 160 U/L (73-393); Magnesium 1.5 mg/dL (1.8-2.4); Potassium 4.3 mmol/L (3.5-5.1); Sodium 135 mmol/L (136-145); Total Protein 7.5 g/dL (6.4-8.2)
[2019-03-13 10:27] LABS: Epithelial Cells Moderate HPF (Negative); RBC 20-50 (0-2); WBC >50 HPF (0-5)
[2019-03-13 10:28] LABS: Bacteria Many HPF (Negative); C & S Indicated? Yes; Casts Negative LPF (Negative); Crystals Negative HPF (Negative); Mucus Negative (Negative)
[2019-03-13 10:49] LABS: BE (Venous) 1.2 mmol/L (-3-3); HCO3 (Venous) 26 mmol/L (22-28); O2 Sat (Venous) 70 % (70-80); TCO2 (Venous) 25 mmol/L (22-29); pCO2 (Venous) 42 mm/Hg (34-47); pO2 (Venous) 35 mm/Hg (28-44)
[2019-03-13] MEDS: Lactated Ringers 1,000 ML 1000 ML IV (10:52)
--- NOTE | 2019-03-13 10:58 | NUR.NOTE ---
Nursing Note: Patient states she is unable to obtain her medication due to costs until the . She stated she had been unable to call [facility]. Has been without medications for a couple days already including blood pressure and diabetic medications. Bgl was 258 by EMS. MD asked for care management to be contacted for assistance. Care management aviation electrical technician informed us that there was nothing the hospital could do at this time and that the patient should contact [facility] on Friday. If patient is discharged, we should send patient home with critical medications to get her through Friday until [facility] can be contacted. Pt's name added to list for [facility] referral on Friday.
--- NOTE | 2019-03-13 11:24 | NUR.NOTE ---
Nursing Note: Patient's will be picking up her medication at [facility].
--- NOTE | 2019-03-13 11:28 | NUR.NOTE ---
Nursing Note: Called in RX for Keflex 500mg po BID x7 days per Dr. Drake to [facility]
[2019-03-13] MEDS: Sulfameth/Trimeth DS TAB 1 TAB PO (12:02)
[2019-03-13 12:08] VITALS: PULSE 87; RESP 16; O2SAT 97
== END 2019-03-13 12:10 | disposition home or self-care (01) ==
PROVIDERS: Emergency Provider Emergency Medicine; PCP Emergency Medicine
DX: N39.0 Urinary tract infection, site not specified (principal); E11.65 Type 2 diabetes mellitus with hyperglycemia; Z79.4 Long term (current) use of insulin; R11.2 Nausea with vomiting, unspecified; R19.7 Diarrhea, unspecified; T50.906A Underdosing of unspecified drugs, medicaments and biological substances, initial encounter; Z91.120 Patient's intentional underdosing of medication regimen due to financial hardship; I10 Essential (primary) hypertension; E66.01 Morbid (severe) obesity due to excess calories; Z68.41 Body mass index [BMI] 40.0-44.9, adult
CPT/HCPCS: 36415; 51701; 80053; 82805; 83690; 93005; 96361; 99284; 81003; 81015; 83735; 85025; 87086; 93010; 99285

== ENCOUNTER 2020-02-07 20:29 | Outpatient (REF) | payer MEDICAID, SELFPAY ==
[2020-02-07 19:45] LABS: Bilirubin Negative (Negative); Blood Negative (Negative); Clarity Cloudy (Clear); Glucose 500 mg/dL (Negative); Ketones Negative (Negative); Leukocyte Esterase Trace (Negative); Nitrite Positive (Negative); Specific Gravity >= 1.030 (1.005-1.025); Urobilinogen 0.2 EU/dL (Up TO 0.2); pH 5.5 (5-8)
[2020-02-07 19:56] LABS: Bacteria Many HPF (Negative); C & S Indicated? Yes; Casts Negative LPF (Negative); Crystals Many Amorphous HPF (Negative); Epithelial Cells Negative HPF (Negative); Mucus Negative (Negative); Other Cells Negative (Negative); RBC Negative HPF (0-2)
== END 2020-02-07 20:49 ==
LOC: LBN 20:29
PROVIDERS: PCP Emergency Medicine; Visit Provider Emergency Medicine
DX: R30.0 Dysuria (principal)
CPT/HCPCS: 87077; 81003; 81015; 87086; 87186

== ENCOUNTER 2020-08-09 10:22 | Inpatient (IN) | payer MEDICAID, SELFPAY ==
[2020-08-09] VITALS (7 sets, daily range): BP systolic 106–120; BP diastolic 60–70; PULSE 84–104; RESP 18–20; TEMP 36.4–38.1; O2SAT 92–100
--- NOTE | 2020-08-09 11:23 | ED.GENADUL_ITS ---
Discharge Plan Disposition Patient Disposition: [facility] INPATIENT Condition: Stable Discharge Details Clinical Impression: Pyelonephritis, Bladder stone, Hydronephrosis Admit Date/Time: 08/09/20 14:23 Admit Provider: Parrish Merino Attending Provider: Parrish Merino Primary Care Provider: Joshua Nunes ED Provider: Yen Shell Discharge Data Discharge Date/Time-TO BE ENTERED AT DEPARTURE: 08/09/20 15:24 Medical Decision Making 1100 -- 55-year-old female with a history of morbid obesity, diabetes, chronic pain syndrome and amputation to right leg who presents for fatigue, generalized weakness and diarrhea for the past few days. Vitals within normal limits. She appears nontoxic. She has tenderness to palpation in the right upper quadrant. Differential diagnosis includes dehydration, UTI, pyelonephritis, cholelithiasis, cholecystitis, electrolyte normality. Will place an IV, bolus IV fluids, screening labs, urinalysis, gallbladder ultrasound and CT abdomen and pelvis and give IV Tylenol and Zofran and reassess. 1220 --labs reviewed. White blood cell count 12. Hemoglobin 10, near baseline. Mag 1.4, will replete. Urinalysis notes UTI. Will treat with antibiotics. Patient reassessed and she still feels fatigued and weak. She states she would prefer to stay in the hospital. Case discussed with Lena from urology and she agrees with plan for treatment for pyelonephritis. No other acute recommendations for possibility of recently passed infected stone. Agrees with plan for admission if patient still not feeling well. Case discussed with hospitalist who accepts patient for admission. Medical Records Medical records reviewed: Yes I reviewed the patient's medical records. Imaging Data Radiologic Study: Radiologist's impression: US ABDOMEN LIMITED CLINICAL HISTORY: RUQ abd pain, nausea, r/o cholecystitis TECHNIQUE: Ultrasound performed using standard protocol. COMPARISON: US US ABDOMEN from 10/07/2018 FINDINGS: Limited scan was obtained due to the patient's acute discomfort. There is min imal gallbladder sludge without evidence of cholelithiasis. No gallbladder wall thickening or pericholecystic fluid collection. No biliary dilatation. IMPRESSION: No evidence of cholelithiasis. No evidence of acute cholecystitis. CT ABDOMEN PELVIS W CLINICAL HISTORY: RUQ abd pain, fatigue, diarrhea, r/o colitis TECHNIQUE: FINDINGS: CT examination abdomen and pelvis was performed with bolus infusion of 100 cc of Omnipaque 350. Images obtained through the lung bases are unremarkable. The liver and spleen appear normal except for question mild hepatic steatosis. Gallbladder and bile ducts are not well visualized due to motion artifact no gross cholelithiasis or biliary dilatation is seen. Pancreas poorly visualized but grossly. Adrenals appear normal. Abdominal aorta and major visceral branches appear intact. There is an IVC filter place. No abdominal or pelvic adenopathy. No significant hernia seen. No evidence of appendicitis or diverticulitis. No focal bowel pathology or evidence of bowel obstruction. No evidence of colitis. Left kidney contains a small non-obstructing stone. No left hydronephrosis. No left ureteral lithiasis. Right kidney shows a perinephric fat edema and the right kidney is slightly larger than the left. There is mild right hydronephrosis and hydroureter to the level of the distal ureter without and evident obstructing stone. There is a small stone in the urinary bladder which could represent recently passed stone. There is mild enhancement of the right ureter which could reflect infectious process. IMPRESSION: Findings suggesting recently passed right ureteral stone with mild residual right hydronephrosis and hydroureter. In the setting of apparent infectious process, possibility of right pyelonephritis is also raised. Lab Data Lab results reviewed: Yes I reviewed the patient's lab results. Labs: 08/09/20 11:55 Urine - Reflex from Ua Urine Culture - Pending Laboratory Tests Range/Units 08/09/20 08/09/20 08/09/20 11:27 11:27 11:27 WBC (4.4-10.8) 10^3/uL 12.87 H RBC (3.93-5.22) 10^6/uL 3.55 L Hgb (11.2-15.7) g/dL 10.6 L Hct (36.0-46.0) % 33.2 L MCV (80-95) fL 93.5 MCH (27.0-33.0) pg 29.9 MCHC (32.0-36.0) % 31.9 L RDW (11.7-14.6) % 14.1 Plt Count (130-400) 10^3/uL 200 MPV (8.0-11.0) fL 8.9 Immature Gran % 0.7 Neutrophils % 86.3 Lymphocytes % 5.7 Monocytes % 6.9 Eosinophils % 0.2 Basophils % 0.2 Nucleated RBC % % 0 Absolute Neutrophils (1.2-6.7) 10^3/uL 11.11 H Absolute Lymphocytes (1.2-3.4) 10^3/uL 0.73 L Absolute Monocytes (0.1-0.8) 10^3/uL 0.89 H Absolute Eosinophils (0.0-0.7) 10^3/uL 0.03 Absolute Basophils (0.0-0.2) 10^3/uL 0.03 PT (9.3-11.0) sec 10.8 INR (0.9-1.1) 1.1 APTT (21.0-31.4) sec 25.0 Sodium (136-145) mmol/L 139 Potassium (3.5-5.1) mmol/L 4.4 Chloride (98-107) mmol/L 103 Carbon Dioxide (21.0-32.0) mmol/L 23.4 Anion Gap (3-11) mmol/L 12.6 H BUN (7-18) mg/dL 24 H Creatinine (0.55-1.02) mg/dL 1.15 H Estimated GFR/1.73 m2 (mL/min/1.73m2) 48.64 Glucose (74-106) mg/dL 241 H Hemoglobin A1c (<5.7) % Calcium (8.5-10.1) mg/dL 9.0 Magnesium (1.8-2.4) mg/dL 1.4 L Total Bilirubin (0.2-1.0) mg/dL 0.4 AST (15-37) U/L 29 ALT (14-59) U/L 31 Alkaline Phosphatase (46-116) U/L 64 Troponin I (<0.06) ng/mL < 0.05 Total Protein (6.4-8.2) g/dL 6.7 Albumin (3.4-5.0) g/dL 3.4 Urine Color (Yellow) Urine Clarity (Clear) Urine pH (5-8) Ur Specific [place] (1.005-1.025) Urine Protein (Negative) mg/dL Urine Ketones (Negative) mg/dL Urine Blood (Negative) Urine Nitrite (Negative) Urine Bilirubin (Negative) Urine Urobilinogen (Up TO 0.2) EU/dL Ur Leukocyte Esterase (Negative) Urine RBC (0-2) HPF Urine WBC (0-5) HPF Ur Epithelial Cells Urine Crystals Urine Bacteria (Negative) HPF Urine Mucus (Negative) Ur Culture Indicated? Urine Glucose (Negative) mg/dL Range/Units 08/09/20 08/09/20 11:27 11:55 WBC (4.4-10.8) 10^3/uL RBC (3.93-5.22) 10^6/uL Hgb (11.2-15.7) g/dL Hct (36.0-46.0) % MCV (80-95) fL MCH (27.0-33.0) pg MCHC (32.0-36.0) % RDW (11.7-14.6) % Plt Count (130-400) 10^3/uL MPV (8.0-11.0) fL Immature Gran % Neutrophils % Lymphocytes % Monocytes % Eosinophils % Basophils % Nucleated RBC % % Absolute Neutrophils (1.2-6.7) 10^3/uL Absolute Lymphocytes (1.2-3.4) 10^3/uL Absolute Monocytes (0.1-0.8) 10^3/uL Absolute Eosinophils (0.0-0.7) 10^3/uL Absolute Basophils (0.0-0.2) 10^3/uL PT (9.3-11.0) sec INR (0.9-1.1) APTT (21.0-31.4) sec Sodium (136-145) mmol/L Potassium (3.5-5.1) mmol/L Chloride (98-107) mmol/L Carbon Dioxide (21.0-32.0) mmol/L Anion Gap (3-11) mmol/L BUN (7-18) mg/dL Creatinine (0.55-1.02) mg/dL Estimated GFR/1.73 m2 (mL/min/1.73m2) Glucose (74-106) mg/dL Hemoglobin A1c (<5.7) % 7.0 H Calcium (8.5-10.1) mg/dL Magnesium (1.8-2.4) mg/dL Total Bilirubin (0.2-1.0) mg/dL AST (15-37) U/L ALT (14-59) U/L Alkaline Phosphatase (46-116) U/L Troponin I (<0.06) ng/mL Total Protein (6.4-8.2) g/dL Albumin (3.4-5.0) g/dL Urine Color (Yellow) Yellow Urine Clarity (Clear) Cloudy Urine pH (5-8) 5.5 Ur Specific [place] (1.005-1.025) 1.025 Urine Protein (Negative) mg/dL Trace H Urine Ketones (Negative) mg/dL Negative Urine Blood (Negative) Moderate H Urine Nitrite (Negative) Positive H Urine Bilirubin (Negative) Negative Urine Urobilinogen (Up TO 0.2) EU/dL 0.2 Ur Leukocyte Esterase (Negative) Large H Urine RBC (0-2) HPF >50 H Urine WBC (0-5) HPF >50 H Ur Epithelial Cells Not Applicable Urine Crystals Not Applicable Urine Bacteria (Negative) HPF Many Urine Mucus (Negative) Heavy Ur Culture Indicated? Yes Urine Glucose (Negative) mg/dL 100 ECG Data Attestation: I personally reviewed and interpreted this ECG (s) as follows: Interpretation: rate of 90, sinus, no acute ST elevation or depression. DE 136. QRS 95. QTc 437. HPI General Mode of arrival: EMS . Date/Time Provider Initiated Documentation: 08/09/20 10:51 . Limitations to Documentation: no limitations . Information obtained by: patient . HPI Narrative: Patient is a 55-year-old female with multiple medical problems including diabetes, morbid obesity, chronic pain syndrome and right leg amputation who presents to the ED with a complaint of fatigue, generalized weakness, nausea and diarrhea for the past few days. She states she has these symptoms when she usually has a urinary tract infection. She states she has intermittent chronic right leg phantom pain. She states she has had 2 episodes of watery brown diarrhea over the past few days. She denies any fever, vomiting, chest pain, shortness of breath. She does also admit to sharp 10/10 right upper quadrant abdominal pain. She also states she is had decreased appetite. Related Data Home Medications Medication Instructions Recorded Confirmed blood-glucose meter [OneTouch #1 kit 10/28/13 08/09/20 UltraMini] acetaminophen [Tylenol Extra 2 tab PO TID 03/09/15 08/09/20 Strength] blood sugar diagnostic #400 each 11/02/18 08/09/20 cetirizine 10 mg capsule 10 mg PO DAILY #90 tab-cap 12/21/19 08/09/20 fenofibrate nanocrystallized 48 mg 48 mg PO BID #180 tab 12/21/19 08/09/20 tablet pen needle, diabetic 32 gauge x #360 pen 12/21/19 08/09/20 prochlorperazine maleate 10 mg 10 mg PO Q8H PRN #4 tab 12/21/19 08/09/20 tablet promethazine 25 mg tablet 25 mg PO Q6H PRN #10 tab 12/21/19 08/09/20 lancets #300 ea 12/23/19 08/09/20 lisinopril 10 mg tablet 10 mg PO DAILY #28 tab-cap 12/23/19 08/09/20 metformin 500 mg tablet 500 mg PO BID #56 tab-cap 12/23/19 08/09/20 metoprolol succinate 25 mg 25 mg PO DAILY #28 tab 12/23/19 08/09/20 tablet,extended release 24 hr ondansetron 8 mg disintegrating 8 mg PO Q8H PRN #20 tab 02/08/20 08/09/20 tablet famotidine 40 mg tablet 40 mg PO DAILY #90 tab 02/09/20 08/09/20 insulin glargine 100 unit/mL (3 80 unit SUBCUT QAM #5 box 04/18/20 08/09/20 mL) subcutaneous pen cholecalciferol (vitamin D3) 25 1,000 unit PO DAILY #28 cap 06/02/20 08/09/20 mcg (1,000 unit) capsule ibuprofen 600 mg tablet 600 mg PO BID PRN #180 tab-cap 06/02/20 08/09/20 multivitamin 1 tab PO DAILY #28 tab-cap 06/02/20 08/09/20 oxybutynin chloride 5 mg tablet 5 mg PO BID #56 tab-cap 06/02/20 08/09/20 rosuvastatin 10 mg tablet 10 mg PO HS #28 tab-cap 06/02/20 08/09/20 bupropion HCl 300 mg 24 hr tablet, 300 mg PO DAILY #28 tab-cap 06/05/20 08/09/20 extended release melatonin 10 mg capsule 10 mg PO HS PRN 06/20/20 08/09/20 gabapentin 800 mg tablet 800 mg PO BID #180 tab-cap 06/30/20 08/09/20 insulin aspart U-100 100 unit/mL 20 unit SUB-Q 0800,1200,1700 #3 ml 08/08/20 08/09/20 (3 mL) subcutaneous pen Previous Rx's Medication Instructions Recorded blood sugar diagnostic #400 each 11/02/18 cetirizine 10 mg capsule 10 mg PO DAILY #90 tab-cap 12/21/19 fenofibrate nanocrystallized 48 mg 48 mg PO BID #180 tab 12/21/19 tablet pen needle, diabetic 32 gauge x #360 pen 12/21/19 prochlorperazine maleate 10 mg 10 mg PO Q8H PRN #4 tab 12/21/19 tablet promethazine 25 mg tablet 25 mg PO Q6H PRN #10 tab 12/21/19 lancets #300 ea 12/23/19 lisinopril 10 mg tablet 10 mg PO DAILY #28 tab-cap 12/23/19 metformin 500 mg tablet 500 mg PO BID #56 tab-cap 12/23/19 metoprolol succinate 25 mg 25 mg PO DAILY #28 tab 12/23/19 tablet,extended release 24 hr ondansetron 8 mg disintegrating 8 mg PO Q8H PRN #20 tab 02/08/20 tablet famotidine 40 mg tablet 40 mg PO DAILY #90 tab 02/09/20 insulin glargine 100 unit/mL (3 80 unit SUBCUT QAM #5 box 04/18/20 mL) subcutaneous pen cholecalciferol (vitamin D3) 25 1,000 unit PO DAILY #28 cap 06/02/20 mcg (1,000 unit) capsule ibuprofen 600 mg tablet 600 mg PO BID PRN #180 tab-cap 06/02/20 multivitamin 1 tab PO DAILY #28 tab-cap 06/02/20 oxybutynin chloride 5 mg tablet 5 mg PO BID #56 tab-cap 06/02/20 rosuvastatin 10 mg tablet 10 mg PO HS #28 tab-cap 06/02/20 bupropion HCl 300 mg 24 hr tablet, 300 mg PO DAILY #28 tab-cap 06/05/20 extended release gabapentin 800 mg tablet 800 mg PO BID #180 tab-cap 06/30/20 insulin aspart U-100 100 unit/mL 20 unit SUB-Q 0800,1200,1700 #3 ml 08/08/20 (3 mL) subcutaneous pen Allergies Allergy/AdvReac Type Severity Reaction Status Date / Time cefazolin Allergy HIVES Verified 08/09/20 12:57 oxacillin [Oxacillin] Allergy HIVES Verified 08/09/20 12:57 Penicillins Allergy HIVES Verified 08/09/20 12:57 gemfibrozil AdvReac INCREASED Verified 08/09/20 12:57 LFT'S morphine AdvReac NAUSEA Verified 08/09/20 12:57 General Stated Complaint: GenMedical DANIAL: 3 Review of Systems All systems reviewed & are unremarkable except as noted in HPI and below Constitutional Constitutional: Reports as per HPI, Denies chills, Denies fever(s) and Reports weakness Eyes Eyes: Denies blurry vision ENT Ears, Nose, Mouth, and Throat: Reports dizziness, Denies sore throat and Denies throat swelling Cardiovascular Cardiovascular: Denies chest pain and Denies dyspnea Respiratory Respiratory: Denies cough and Denies dyspnea Gastrointestinal Gastrointestinal: Reports abdominal pain, Reports diarrhea and Denies vomiting Genitourinary Genitourinary: Denies hematuria and Denies dysuria Musculoskeletal Musculoskeletal: Denies back pain and Denies numbness Integumentary/Breasts Skin/Breast: Denies lesions and Denies rash Neurologic Neurologic: Reports dizziness, Denies localized weakness, Denies numbness and Reports weakness Allergic/Immunologic Allergic/Immunologic: Denies throat swelling [facility] Medical History (Updated 08/09/20 @ 18:16 by Yen Shell DO) Amputated right leg Immobility Wheelchair bound uses Marilyn lift for any transfers. Surgical History Dilation and curettage (06/25/18) with diagnostic hysteroscopy. aoc Fracture, Open Treatment left leg; trimalleolar fx-screw and fixation plate Replacement of total knee joint (~1998) right Family History Mother No problems noted. Father No problems noted. Sister No problems noted. Sister No problems noted. Sister No problems noted. Brother No problems noted. Grandfather No problems noted. Grandfather No problems noted. Grandmother No problems noted. Grandmother No problems noted. Son No problems noted. Social History Smoking/Tobacco Use Status: Former Tobacco Use Alcohol Intake: former Drug use: Never Substance use type: does not use Do you feel safe at home: Yes Do you feel safe in your relationship?: Yes Exam Const General: cooperative and no acute distress HENMT Head: normal to inspection Face and sinus: normal facial exam Eyes General: appearance normal, both eyes and all related structures EOM: EOM intact bilaterally Neck Neck: normal visual inspection and No submandibular swelling Lymphatic: no lymphadenopathy noted Chest Chest: normal inspection of the chest and no tenderness Resp Effort & Inspection: normal respiratory effort and able to speak in complete sentences Auscultation: clear to auscultation bilaterally Cardio Rate: regular rate Rhythm: regular rhythm GI Inspection: normal to inspection and obesity Palpation: soft, not firm, not rigid and tender in the RUQ Auscultation: normal bowel sounds Skin General skin exam: no rashes or lesions noted Neuro General: patient alert, patient awake and patient oriented x3 Cognition: normal cognition Speech: speech normal Motor: muscle tone normal throughout Sensory Exam: no sensory deficits noted Extrem Other: Right leg [id number] amputation. Left leg no edema. Psych Appearance: grossly normal Mental Status: mental status grossly normal Speech and Movement: speech and movement normal Affect: normal affect Course Vital Signs Vital signs: Vital Signs Temperature 97.5 F L 08/09/20 10:26 Pulse 96 H 08/09/20 10:26 Respiratory Rate 18 08/09/20 10:26 Blood Pressure 120/60 08/09/20 10:26 Pulse Oximetry 96 08/09/20 10:26 Temperature 97.5 F L 08/09/20 10:26 Temperature Source Temporal Artery Scan 08/09/20 10:26 Pulse 96 H 08/09/20 10:26 Respiratory Rate 18 08/09/20 10:26 Respiratory Effort 08/09/20 10:33 Blood Pressure 120/60 08/09/20 10:26 Blood Pressure Position Supine 08/09/20 10:26 Pulse Oximetry 96 08/09/20 10:26 Oxygen Delivery Method Room Air 08/09/20 10:26 Oxygen Flow Rate 0 08/09/20 10:26 Pain Level 8 08/09/20 10:26
--- NOTE | 2020-08-09 11:30 | DI.US_ITS ---
EXAM: US ABDOMEN LIMITED CLINICAL HISTORY: RUQ abd pain, nausea, r/o cholecystitis TECHNIQUE: Ultrasound performed using standard protocol. COMPARISON: US US ABDOMEN from 10/07/2018 FINDINGS: Limited scan was obtained due to the patient's acute discomfort. There is minimal gallbladder sludge without evidence of cholelithiasis. No gallbladder wall thickening or pericholecystic fluid collect ion. No biliary dilatation. IMPRESSION: No evidence of cholelithiasis. No evidence of acute cholecystitis. DATA REPOSITORY:
--- NOTE | 2020-08-09 11:30 | DI.CT_ITS ---
EXAM: CT ABDOMEN PELVIS W CLINICAL HISTORY: RUQ abd pain, fatigue, diarrhea, r/o colitis TECHNIQUE: FINDINGS: CT examination abdomen and pelvis was performed with bolus infusion of 100 cc of Omnipaque 350. Imag es obtained through the lung bases are unremarkable. The liver and spleen appear normal except for question mild hepatic steatosis. Gallbladder and bile ducts are not well visualized due to motion artifact no gross cholelithiasis or biliary dilatation is seen. Pancreas poorly visualized but grossly. Adrenals appear normal. Abdominal aorta and major v isceral branches appear intact. There is an IVC filter place. No abdominal or pelvic adenopathy. No significant hernia seen. No evidence of appendicitis or diverticulitis. No focal bowel pathology or evidence of bowel obstruc tion. No evidence of colitis. Left kidney contains a small non-obstructing stone. No left hydronephrosis. No left ureteral lithia sis. Right kidney shows a perinephric fat edema and the right kidney is slightly larger than the left. Th ere is mild right hydronephrosis and hydroureter to the level of the distal ureter without and eviden t obstructing stone. There is a small stone in the urinary bladder which could represent recently pa ssed stone. There is mild enhancement of the right ureter which could reflect infectious process. IMPRESSION: Findings suggesting recently passed right ureteral stone with mild residual right hydronephrosis and hydroureter. In the setting of apparent infectious process, possibility of right pyelonephritis is a lso raised. RADIATION DOSE DELIVERED: 1,565.43mGy.cm Total DLP
[2020-08-09 11:35] LABS: Abs Immature Grans 0.09 10^3/uL (0.0-0.06); Absolute Basophil Count 0.03 10^3/uL (0.0-0.2); Absolute Lymphocyte Count 0.73 10^3/uL (1.2-3.4); Absolute Monocyte Count 0.89 10^3/uL (0.1-0.8); Absolute Neutrophil Count 11.11 10^3/uL (1.2-6.7); Basophils % 0.2; Eosinophils % 0.2; HCT 33.2 % (36.0-46.0); HGB 10.6 g/dL (11.2-15.7); Immature Grans % 0.7; Lymphocytes % 5.7; MCH 29.9 pg (27.0-33.0); MCHC 31.9 % (32.0-36.0); MCV 93.5 fL (80-95); MPV 8.9 fL (8.0-11.0); Monocytes % 6.9; Neutrophils % 86.3; Nucleated RBC 0 %; Platelet Count 200 10^3/uL (130-400); RBC 3.55 10^6/uL (3.93-5.22); RDW 14.1 % (11.7-14.6); RDW-SD 47.9 fL; WBC 12.87 10^3/uL (4.4-10.8)
[2020-08-09 11:41] LABS: Absolute Eosinophil Count 0.03 10^3/uL (0.0-0.7)
--- NOTE | 2020-08-09 11:45 | RT.EKG_ITS ---
APPROVED REPORT Exam: Resting ECG Patient Location: E HR:90 bpm ECG Measurements Heart Rate 90 AXIS MN 136 P 35 QRSd 95 QRS -10 QT 356 T -11 QTc 437 Conclusion Sinus rhythm...normal P axis, V-rate 60- 99 Low voltage, precordial leads...precordial leads <1.0mV I have reviewed and interpreted ECG and agree with software generated interpretation.
[2020-08-09 11:49] LABS: INR 1.1 (0.9-1.1); Prothrombin Time 10.8 sec (9.3-11.0)
[2020-08-09 11:51] LABS: ALT 31 U/L (14-59); AST 29 U/L (15-37); Albumin 3.4 g/dL (3.4-5.0); Alkaline Phosphatase 64 U/L (46-116); Anion Gap 12.6 mmol/L (3-11); BUN 24 mg/dL (7-18); Bilirubin, Total 0.4 mg/dL (0.2-1.0); CO2 23.4 mmol/L (21.0-32.0); CREATININE 1.15 mg/dL (0.55-1.02); Chloride 103 mmol/L (98-107); Estimated GFR 48.64 (mL/min/1.73m2); Glucose 241 mg/dL (74-106); Magnesium 1.4 mg/dL (1.8-2.4); Potassium 4.4 mmol/L (3.5-5.1); Sodium 139 mmol/L (136-145); Total Protein 6.7 g/dL (6.4-8.2); Troponin I < 0.05 ng/mL (<0.06)
[2020-08-09 11:59] LABS: Bilirubin Negative (Negative); Blood Moderate (Negative); Clarity Cloudy (Clear); Glucose 100 mg/dL (Negative); Ketones Negative (Negative); Leukocyte Esterase Large (Negative); Nitrite Positive (Negative); Specific Gravity 1.025 (1.005-1.025); Urobilinogen 0.2 EU/dL (Up TO 0.2); pH 5.5 (5-8)
[2020-08-09] MEDS: ACETAMINOPHEN 1,000 MG/100 ML BTL 400 MG IVPB (12:04)
[2020-08-09] MEDS: Normal Saline 500 ML IV ×2 (12:05→13:28)
[2020-08-09] MEDS: Ondansetron 4 MG/2 ML VIAL IVP (12:05)
[2020-08-09 12:07] LABS: Bacteria Many HPF (Negative); RBC >50 HPF (0-2)
[2020-08-09 12:08] LABS: Mucus Heavy (Negative)
[2020-08-09 12:09] LABS: C & S Indicated? Yes; WBC >50 HPF (0-5)
[2020-08-09] MEDS: Omnipaque 350 MG/ML 100 ML BTL IJ (13:12)
[2020-08-09] MEDS: Normal Saline - Diluent 50 ML VIAL IV (13:13)
[2020-08-09] MEDS: levoFLOXacin 750 MG/150 ML BAG 100 MG IVPB (13:28)
--- NOTE | 2020-08-09 14:11 | W.PM.HP.N ---
Date of service: 08/09/20 Time of Service: 14:11 Assessment and Plan Assessment and plan (1) UTI (urinary tract infection): Status: Acute Assessment and plan: Day 1 levaquin. cultures are pending. CT with evidence of pyelonephritis vs passage of stone urology consult, Dr Marquez notified and will be following. (2) Type 2 diabetes mellitus with obesity: Status: Acute Assessment and plan: continue diabetic diet, home medications, sliding scale coverage ac/hs add A1C (3) Amputated right leg: Status: Acute Assessment and plan: stable, routine care. PT/OT to evaluate (4) Hyperlipidemia: Status: Acute Assessment and plan: continue rosuvastatin (5) Overactive bladder: Status: Acute Assessment and plan: stable, continue oxybutynin (6) Discharge planning issues: Status: Acute Assessment and plan: case management consultation. will return home with resumption of services, has highest needs. discussed with Dr Merino who is in agreement with plan History of Present Illness Narrative: This is a 55-year-old female with a history of morbid obesity, diabetes, chronic pain syndrome and amputation to right leg who presented to the ED by EMS for fatigue, generalized weakness and diarrhea for the past few days. work up concerning for UTI with pyelonephritis vs passed infected kidney stone per CT scan. She was given levaquin in the ED based on allergy profile and past urine culture reports/sensitivities. her case was discussed with A Akin PLASCENCIA from Dr Marquez's office who is in agreement with plan and will follow her outpatient. She is being referred to observation for IV hydration and monitoring. Review of Systems Constitutional Constitutional: Denies body ache(s), Reports fatigue, Denies fever(s), Reports lethargy, Reports poor appetite and Reports weakness ENT Ears, Nose, Mouth, and Throat: Denies dizziness Cardiovascular Cardiovascular: Denies chest pain and Denies dyspnea Respiratory Respiratory: Denies cough and Denies dyspnea Gastrointestinal Gastrointestinal: Denies constipation and Reports fecal incontinence (chronically) Genitourinary Genitourinary: Reports dysuria, Reports urinary incontinence (chronically), Reports urinary urgency and Reports other (right flank pain) Musculoskeletal Musculoskeletal: Reports other (s/p right lower ext amputation) Integumentary/Breasts Skin/Breast: Denies rash Neurologic Neurologic: Denies dizziness, Reports weakness and Reports other (marilyn lift for transfers) Endocrine Endocrine: Reports fatigue [facility] Medical History (Updated 08/09/20 @ 14:20 by Julia Miles NP) Amputated right leg Immobility Wheelchair bound uses Marilyn lift for any transfers. Surgical History Dilation and curettage (06/25/18) with diagnostic hysteroscopy. aoc Fracture, Open Treatment left leg; trimalleolar fx-screw and fixation plate Replacement of total knee joint (~1998) right Family History Mother No problems noted. Father No problems noted. Sister No problems noted. Sister No problems noted. Sister No problems noted. Brother No problems noted. Grandfather No problems noted. Grandfather No problems noted. Grandmother No problems noted. Grandmother No problems noted. Son No problems noted. Social History Smoking/Tobacco Use Status: Former Tobacco Use Alcohol Intake: former Drug use: Never Substance use type: does not use Do you feel safe at home: Yes Do you feel safe in your relationship?: Yes Meds Home Medications and Allergies Home Medications Medication Instructions Recorded Confirmed Type blood-glucose meter [OneTouch #1 kit 10/28/13 08/09/20 History UltraMini] acetaminophen [Tylenol Extra 2 tab PO TID 03/09/15 08/09/20 History Strength] Onetouch Ultra Test Strips #400 each 07/02/18 08/09/20 Clinic blood sugar diagnostic #400 each 11/02/18 08/09/20 Rx cetirizine 10 mg capsule 10 mg PO DAILY #90 tab-cap 12/21/19 08/09/20 Rx fenofibrate nanocrystallized 48 mg 48 mg PO BID #180 tab 12/21/19 08/09/20 Rx tablet pen needle, diabetic 32 gauge x #360 pen 12/21/19 08/09/20 Rx prochlorperazine maleate 10 mg 10 mg PO Q8H PRN #4 tab 12/21/19 08/09/20 Rx tablet promethazine 25 mg tablet 25 mg PO Q6H PRN #10 tab 12/21/19 08/09/20 Rx lancets #300 ea 12/23/19 08/09/20 Rx lisinopril 10 mg tablet 10 mg PO DAILY #28 tab-cap 12/23/19 08/09/20 Rx metformin 500 mg tablet 500 mg PO BID #56 tab-cap 12/23/19 08/09/20 Rx metoprolol succinate 25 mg 25 mg PO DAILY #28 tab 12/23/19 08/09/20 Rx tablet,extended release 24 hr ondansetron 8 mg disintegrating 8 mg PO Q8H PRN #20 tab 02/08/20 08/09/20 Rx tablet famotidine 40 mg tablet 40 mg PO DAILY #90 tab 02/09/20 08/09/20 Rx insulin glargine 100 unit/mL (3 80 unit SUBCUT QAM #5 box 04/18/20 08/09/20 Rx mL) subcutaneous pen cholecalciferol (vitamin D3) 25 1,000 unit PO DAILY #28 cap 06/02/20 08/09/20 Rx mcg (1,000 unit) capsule ibuprofen 600 mg tablet 600 mg PO BID PRN #180 tab-cap 06/02/20 08/09/20 Rx multivitamin 1 tab PO DAILY #28 tab-cap 06/02/20 08/09/20 Rx oxybutynin chloride 5 mg tablet 5 mg PO BID #56 tab-cap 06/02/20 08/09/20 Rx rosuvastatin 10 mg tablet 10 mg PO HS #28 tab-cap 06/02/20 08/09/20 Rx bupropion HCl 300 mg 24 hr tablet, 300 mg PO DAILY #28 tab-cap 06/05/20 08/09/20 Rx extended release melatonin 10 mg capsule 10 mg PO HS PRN 06/20/20 08/09/20 History gabapentin 800 mg tablet 800 mg PO BID #180 tab-cap 06/30/20 08/09/20 Rx insulin aspart U-100 100 unit/mL 20 unit SUB-Q 0800,1200,1700 #3 ml 08/08/20 08/09/20 Rx (3 mL) subcutaneous pen Allergies Allergy/AdvReac Type Severity Reaction Status Date / Time cefazolin Allergy HIVES Verified 08/09/20 12:57 oxacillin [Oxacillin] Allergy HIVES Verified 08/09/20 12:57 Penicillins Allergy HIVES Verified 08/09/20 12:57 gemfibrozil AdvReac INCREASED Verified 08/09/20 12:57 LFT'S morphine AdvReac NAUSEA Verified 08/09/20 12:57 Exam Const General: cooperative, frail appearing and ill appearing chronically Nutritional Appearance: obese Orientation: alert, awake and oriented x3 HENMT Head: normal to inspection, normocephalic and atraumatic Mouth: oral mucosae normal Resp Effort & Inspection: normal respiratory effort Auscultation: clear to auscultation bilaterally and diminished lung sounds (bases) bilaterally Cardio Rate: regular rate Rhythm: regular rhythm GI Inspection: obesity Palpation: soft Auscultation: normal bowel sounds Neuro General: patient alert, patient awake and patient oriented x3 Cranial Nerves: CN's II-XI intact bilaterally Extrem General: normal to inspection, no pedal edema and amputation noted Above the knee: right Results Labs Result diagrams: 08/09/20 11:27 08/09/20 11:27 Labs: Laboratory Results - last 24 hr 08/09/20 08/09/20 08/09/20 11:27 11:27 11:27 WBC 12.87 H RBC 3.55 L Hgb 10.6 L Hct 33.2 L MCV 93.5 MCH 29.9 MCHC 31.9 L RDW 14.1 Plt Count 200 MPV 8.9 Immature Gran % 0.7 Neutrophils % 86.3 Lymphocytes % 5.7 Monocytes % 6.9 Eosinophils % 0.2 Basophils % 0.2 Nucleated RBC % 0 Absolute Neutrophils 11.11 H Absolute Lymphocytes 0.73 L Absolute Monocytes 0.89 H Absolute Eosinophils 0.03 Absolute Basophils 0.03 PT 10.8 INR 1.1 APTT 25.0 Sodium 139 Potassium 4.4 Chloride 103 Carbon Dioxide 23.4 Anion Gap 12.6 H BUN 24 H Creatinine 1.15 H Estimated GFR/1.73 m2 48.64 Glucose 241 H Calcium 9.0 Magnesium 1.4 L Total Bilirubin 0.4 AST 29 ALT 31 Alkaline Phosphatase 64 Troponin I < 0.05 Total Protein 6.7 Albumin 3.4 Urine Color Urine Clarity Urine pH Ur Specific [place] Urine Protein Urine Ketones Urine Blood Urine Nitrite Urine Bilirubin Urine Urobilinogen Ur Leukocyte Esterase Urine RBC Urine WBC Ur Epithelial Cells Urine Crystals Urine Bacteria Urine Mucus Ur Culture Indicated? Urine Glucose 08/09/20 11:55 WBC RBC Hgb Hct MCV MCH MCHC RDW Plt Count MPV Immature Gran % Neutrophils % Lymphocytes % Monocytes % Eosinophils % Basophils % Nucleated RBC % Absolute Neutrophils Absolute Lymphocytes Absolute Monocytes Absolute Eosinophils Absolute Basophils PT INR APTT Sodium Potassium Chloride Carbon Dioxide Anion Gap BUN Creatinine Estimated GFR/1.73 m2 Glucose Calcium Magnesium Total Bilirubin AST ALT Alkaline Phosphatase Troponin I Total Protein Albumin Urine Color Yellow Urine Clarity Cloudy Urine pH 5.5 Ur Specific [place] 1.025 Urine Protein Trace H Urine Ketones Negative Urine Blood Moderate H Urine Nitrite Positive H Urine Bilirubin Negative Urine Urobilinogen 0.2 Ur Leukocyte Esterase Large H Urine RBC >50 H Urine WBC >50 H Ur Epithelial Cells Not Applicable Urine Crystals Not Applicable Urine Bacteria Many Urine Mucus Heavy Ur Culture Indicated? Yes Urine Glucose 100 Last Vital Signs Temp 36.4 C L 08/09/20 10:26 Pulse 96 H 08/09/20 10:26 Resp 20 08/09/20 11:22 BP 120/60 08/09/20 10:26 Pulse Ox 96 08/09/20 10:26 COVID-19 Screening Have you,or household,traveled outside [place] in last 14 days?: No Had IN PERSON contact w/suspected or confirmed C-19 person: No
[2020-08-09] MEDS: Normal Saline Flush 10 ML SYR IVP (16:44)
[2020-08-09] MEDS: MAGNESIUM SULFATE 2 GM/50 ML BAG IVPB (16:45)
[2020-08-09] MEDS: Normal Saline 1,000 ML 75 ML IV (16:45)
[2020-08-09] MEDS: Insulin Aspart 300 UNITS/3 ML PEN SC (17:25)
[2020-08-09] MEDS: Ibuprofen 600 MG TAB PO (18:33)
[2020-08-09] MEDS: Gabapentin 800 MG TAB PO (19:10)
[2020-08-09] MEDS: Lactobacillus Acidophilus CAP 1 CAP PO (19:10)
[2020-08-09] MEDS: Melatonin 3 MG TAB 9 MG PO (21:12)
[2020-08-09] MEDS: Acetaminophen 500 MG TAB 1000 MG PO (21:17)
[2020-08-10 02:07] LABS: COVID-19 RT-PCR UVMMC Result Negative (Negative)
[2020-08-10] MEDS: Ibuprofen 600 MG TAB PO (06:12)
[2020-08-10 06:50] LABS: Abs Immature Grans 0.08 10^3/uL (0.0-0.06); Absolute Basophil Count 0.02 10^3/uL (0.0-0.2); Absolute Eosinophil Count 0.08 10^3/uL (0.0-0.7); Absolute Lymphocyte Count 0.58 10^3/uL (1.2-3.4); Absolute Monocyte Count 0.74 10^3/uL (0.1-0.8); Basophils % 0.2; Eosinophils % 0.7; HCT 33.8 % (36.0-46.0); HGB 10.5 g/dL (11.2-15.7); Immature Grans % 0.7; Lymphocytes % 5.1; MCH 29.7 pg (27.0-33.0); MCHC 31.1 % (32.0-36.0); MCV 95.5 fL (80-95); MPV 9.6 fL (8.0-11.0); Monocytes % 6.5; Neutrophils % 86.8; Nucleated RBC 0 %; Platelet Count 183 10^3/uL (130-400); RBC 3.54 10^6/uL (3.93-5.22); RDW 14.5 % (11.7-14.6); RDW-SD 50.5 fL; WBC 11.41 10^3/uL (4.4-10.8)
[2020-08-10 07:00] LABS: Anion Gap 11.4 mmol/L (3-11); BUN 24 mg/dL (7-18); CO2 24.6 mmol/L (21.0-32.0); CREATININE 1.32 mg/dL (0.55-1.02); Calcium 9.5 mg/dL (8.5-10.1); Chloride 102 mmol/L (98-107); Estimated GFR 41.48 (mL/min/1.73m2); Glucose 215 mg/dL (74-106); Potassium 4.4 mmol/L (3.5-5.1); Sodium 138 mmol/L (136-145)
--- NOTE | 2020-08-10 07:43 | OT.INIE ---
Occupational Therapy Notes Inpatient Occupational Therapy Evaluation Date: 08/10/20 Referring Doctor:Julia Miles NP OT Orders: Non-Urgent Precautions: Fall, Standard, Full PATIENT PROFILE/ADMITTING DIAGNOSIS: Pt is a 55 year old female who presented to the ER on 08/09/20 with a clinical impression of pyelonephritis, bladder stones, and hydronephrosis. She was admitted due to her overall weakness and fatigue and reporting that she did not feel that she could return home at this time with a dx of DM II, UTI, hyperlipidemia, overactive bladder, amputated (R) LE, pyelonephritis, bladder stones, and hydronephrosis. Past Medical History- Medical History (Updated 08/09/20 @ 14:20 by Julia Miles NP) Amputated right leg Immobility Wheelchair bound uses Marilyn lift for any transfers. Surgical History Dilation and curettage (06/25/18) with diagnostic hysteroscopy. aoc Fracture, Open Treatment left leg; trimalleolar fx-screw and fixation plate Replacement of total knee joint (~1998) right Social History/Home Situation: Pt lives in a private home with her and son. She states that she has HH services come into her home 3 times per day. She states that she utilizes a marilyn lift and wheelchair at home. She states that she needs (A) With bathing, dressing and functional mobility. She states that she has a roll in shower and a shower chair. She attends [employer] 4 days per week and states that this has been on hold since [facility]. She notes that her baseline is (A) with all aspects of her ADLs and that she does not perform her ADLs (I) at home. Equipment owned/DME: marilyn lift, shower chair, wheel chair, grab bars SUBJECTIVE: Pt was sitting in bed when OT arrived. She was agreeable to OT session and notes that she doesn't do anything (I) at home but states she is interested in working with OT to see if there is anything that can help her. OBJECTIVE: General Observation: Pleasant, (R) LE amputation, IV (R) UE, fused (L) elbow to 90*, scars on (L) UE from fusion, bandage on Abdomen in middle. Mental Status: A&Ox2 Pain: 10/10 pain in (R) LE due to phantom limb pain which she reports has been getting worse over the past 2 weeks. ROM: RUE AROM WFL L UE (L) elbow fused to 90*, shoulder WFL, wrist and digits WFL STRENGTH: RUE Shoulder 3/5, bicep/tricep 4/5, engineering design supervisor is symmetrical LUE engineering design supervisor is symmetrical Pt is (R) hand dominant. FUNCTIONAL MOBILITY/ADLS: Transfers via Marilyn lift BATHING sitting in bed with max(A) Set up/clean up Bathing UE (I) with (L) UE to wash her (R) UE, requires max (A) for (R) UE due to lack of ROM of her (L) elbow, (I) abdomen, (I) face Bathing LE (I) to (B) knees and all of (R) LE DRESSING sitting in bed Dressing UE Mod (A) [facility] gown GROOMING REquires (A) with her hair and set up (A) for teeth brushing. TOILETING Incontinent and utilizes a depends. EATING Pt reports that she requires (A) at baseline with cutting her food but is (I) with hand to mouth translation and reports no issues with chewing or swallowing. BALANCE: Static sitting Normal Dynamic Sitting Normal SPECIAL TESTS: Daily Activity Limitations Standardized Measure [facility] AM -PAC ?6 clicks? Daily Activity Inpatient Short Form: Raw score: 10 Standardized score: 25.33 CMS score: 79.59% INFORMED CONSENT/EDUCATION: Pt instructed in purpose of OT Consult and plan of care. ASSESSMENT: Patient is a 55-year-old female referred to occupational therapy services with diagnosis of DM II, UTI, hyperlipidemia, overactive bladder, amputated (R) LE, pyelonephritis, bladder stones, and hydronephrosis. Patient presents with clinical signs and symptoms consistent with dx. OT saw pt for initial consult which pt reported that she feels that she is at her baseline level of function. She states that she requires (A) with HH and notes that she does not feel that she is declined in her functional activities at this time. She does not feel that she will need OT services in the hospital and would like to return home with her HH services as her baseline requires her to have (A) for all aspects of her ADLs. Patient is assessed as a Moderate 08417 complexity based on the following: History: see above Examination: see functional limitations as noted above Presentation: evolving Decision Making: AMPAC score 10 GOALS N/A pt was seen for OT consult only. PLAN OF CARE/TREATMENT PLAN: Discharge from skilled OT services. Pt was seen for OT consult and feels that she has not had a decline in her functional activities and is still at her baseline level of function besides not feeling well. Based on this, pt does feel that she would gain any increased functional activity from OT services and feels that her main concerns at this time are her medical issues. DISCHARGE RECOMMENDATIONS Return home with services. TREATMENT TIME/MINUTES/CODES 49508, [id number], 35 minutes (07:05) Meredith Tai, OTR/L [facility]
[2020-08-10 07:44] VITALS: BP 144/78; PULSE 103; RESP 18; TEMP 39; O2SAT 96
[2020-08-10] MEDS: Enoxaparin 40 MG/0.4 ML SYR SC (07:56)
[2020-08-10 07:57] VITALS: TEMP 39
[2020-08-10] MEDS: Lactobacillus Acidophilus CAP 1 CAP PO ×3 (07:57→19:51)
[2020-08-10] MEDS: Acetaminophen 500 MG TAB 1000 MG PO ×3 (07:57→22:08)
[2020-08-10] MEDS: Gabapentin 800 MG TAB PO (07:57)
[2020-08-10] MEDS: Insulin Aspart 300 UNITS/3 ML PEN SC ×3 (07:58→17:38)
--- NOTE | 2020-08-10 08:34 | PGE_ITS ---
Date of Service Date of service: 08/10/20 Time of Service: 08:35 Assessment and Plan Assessment and plan (1) Acute kidney injury: Status: Acute Assessment and plan: creatinine up today. will continue IV fluids, bladder scan post void. renal dosing of meds, avoid nephrotoxic drugs. follow kidney functions closely (2) UTI (urinary tract infection): Status: Acute Assessment and plan: febrile today up to 39.0, will check blood cultures. Day 2 levaquin based on previous cultures. cultures are pending. CT with evidence of pyelonephritis vs passage of stone urology consult, Dr Marquez notified and will be following. (3) Type 2 diabetes mellitus with obesity: Status: Acute Assessment and plan: continue diabetic diet, home medications, sliding scale coverage ac/hs add A1C (4) Amputated right leg: Status: Acute Assessment and plan: stable, routine care. PT/OT to evaluate (5) Hyperlipidemia: Status: Acute Assessment and plan: continue rosuvastatin (6) Overactive bladder: Status: Acute Assessment and plan: stable, continue oxybutynin (7) Chronic pain syndrome: Status: Acute Assessment and plan: will stick to home pain regimen, apap, motrin and gabapentin. (8) Discharge planning issues: Status: Acute Assessment and plan: case management consultation. will return home with resumption of services, has highest needs. discussed with Dr Merino who is in agreement with plan Subjective Subjective Patient reports: still having pain (chronic pain- phantom pain), tolerating liquids well and tolerating a regular diet Exam Const General: cooperative, frail appearing and ill appearing chronically Nutritional Appearance: obese Orientation: alert, awake and oriented x3 HENDC Head: normal to inspection, normocephalic and atraumatic Mouth: oral mucosae normal Resp Effort & Inspection: normal respiratory effort Auscultation: clear to auscultation bilaterally and diminished lung sounds (bases) bilaterally Cardio Rate: regular rate Rhythm: regular rhythm GI Inspection: obesity Palpation: soft Auscultation: normal bowel sounds Neuro General: patient alert, patient awake and patient oriented x3 Cranial Nerves: CN's II-XI intact bilaterally Extrem General: normal to inspection, no pedal edema and amputation noted Above the knee: right Objective Last Vital Signs Temp 39 C H 08/10/20 07:57 Pulse 103 H 08/10/20 07:44 Resp 18 08/10/20 07:44 BP 144/78 H 08/10/20 07:44 Pulse Ox 96 08/10/20 07:44 Laboratory Results - last 24 hr 08/09/20 08/09/20 08/09/20 11:27 11:27 11:27 WBC 12.87 H RBC 3.55 L Hgb 10.6 L Hct 33.2 L MCV 93.5 MCH 29.9 MCHC 31.9 L RDW 14.1 Plt Count 200 MPV 8.9 Immature Gran % 0.7 Neutrophils % 86.3 Lymphocytes % 5.7 Monocytes % 6.9 Eosinophils % 0.2 Basophils % 0.2 Nucleated RBC % 0 Absolute Neutrophils 11.11 H Absolute Lymphocytes 0.73 L Absolute Monocytes 0.89 H Absolute Eosinophils 0.03 Absolute Basophils 0.03 PT 10.8 INR 1.1 APTT 25.0 Sodium 139 Potassium 4.4 Chloride 103 Carbon Dioxide 23.4 Anion Gap 12.6 H BUN 24 H Creatinine 1.15 H Estimated GFR/1.73 m2 48.64 Glucose 241 H Hemoglobin A1c Calcium 9.0 Magnesium 1.4 L Total Bilirubin 0.4 AST 29 ALT 31 Alkaline Phosphatase 64 Troponin I < 0.05 Total Protein 6.7 Albumin 3.4 Urine Color Urine Clarity Urine pH Ur Specific [place] Urine Protein Urine Ketones Urine Blood Urine Nitrite Urine Bilirubin Urine Urobilinogen Ur Leukocyte Esterase Urine RBC Urine WBC Ur Epithelial Cells Urine Crystals Urine Bacteria Urine Mucus Ur Culture Indicated? Urine Glucose COVID-19 PCR Nasopharyn COVID-19 PCR Ref Test Perform Site 08/09/20 08/09/20 08/09/20 11:27 11:55 15:05 WBC RBC Hgb Hct MCV MCH MCHC RDW Plt Count MPV Immature Gran % Neutrophils % Lymphocytes % Monocytes % Eosinophils % Basophils % Nucleated RBC % Absolute Neutrophils Absolute Lymphocytes Absolute Monocytes Absolute Eosinophils Absolute Basophils PT INR APTT Sodium Potassium Chloride Carbon Dioxide Anion Gap BUN Creatinine Estimated GFR/1.73 m2 Glucose Hemoglobin A1c 7.0 H Calcium Magnesium Total Bilirubin AST ALT Alkaline Phosphatase Troponin I Total Protein Albumin Urine Color Yellow Urine Clarity Cloudy Urine pH 5.5 Ur Specific [place] 1.025 Urine Protein Trace H Urine Ketones Negative Urine Blood Moderate H Urine Nitrite Positive H Urine Bilirubin Negative Urine Urobilinogen 0.2 Ur Leukocyte Esterase Large H Urine RBC >50 H Urine WBC >50 H Ur Epithelial Cells Not Applicable Urine Crystals Not Applicable Urine Bacteria Many Urine Mucus Heavy Ur Culture Indicated? Yes Urine Glucose 100 COVID-19 PCR Cancelled Nasopharyn COVID-19 PCR Cancelled Ref Test Perform Site Cancelled 08/09/20 08/10/20 08/10/20 15:05 06:25 06:25 WBC RBC Hgb Hct MCV MCH MCHC RDW Plt Count MPV Immature Gran % Neutrophils % Lymphocytes % Monocytes % Eosinophils % Basophils % Nucleated RBC % Absolute Neutrophils Absolute Lymphocytes Absolute Monocytes Absolute Eosinophils Absolute Basophils PT INR APTT Sodium 138 Potassium 4.4 Chloride 102 Carbon Dioxide 24.6 Anion Gap 11.4 H BUN 24 H Creatinine 1.32 H Estimated GFR/1.73 m2 41.48 Glucose 215 H Hemoglobin A1c Calcium 9.5 Magnesium 2.0 Total Bilirubin AST ALT Alkaline Phosphatase Troponin I Total Protein Albumin Urine Color Urine Clarity Urine pH Ur Specific [place] Urine Protein Urine Ketones Urine Blood Urine Nitrite Urine Bilirubin Urine Urobilinogen Ur Leukocyte Esterase Urine RBC Urine WBC Ur Epithelial Cells Urine Crystals Urine Bacteria Urine Mucus Ur Culture Indicated? Urine Glucose COVID-19 PCR Negative Nasopharyn COVID-19 PCR Not Applicable Ref Test Perform Site [place] [facility] 08/10/20 06:25 WBC 11.41 H RBC 3.54 L Hgb 10.5 L Hct 33.8 L MCV 95.5 H MCH 29.7 MCHC 31.1 L RDW 14.5 Plt Count 183 MPV 9.6 Immature Gran % 0.7 Neutrophils % 86.8 Lymphocytes % 5.1 Monocytes % 6.5 Eosinophils % 0.7 Basophils % 0.2 Nucleated RBC % 0 Absolute Neutrophils 9.90 H Absolute Lymphocytes 0.58 L Absolute Monocytes 0.74 Absolute Eosinophils 0.08 Absolute Basophils 0.02 PT INR APTT Sodium Potassium Chloride Carbon Dioxide Anion Gap BUN Creatinine Estimated GFR/1.73 m2 Glucose Hemoglobin A1c Calcium Magnesium Total Bilirubin AST ALT Alkaline Phosphatase Troponin I Total Protein Albumin Urine Color Urine Clarity Urine pH Ur Specific [place] Urine Protein Urine Ketones Urine Blood Urine Nitrite Urine Bilirubin Urine Urobilinogen Ur Leukocyte Esterase Urine RBC Urine WBC Ur Epithelial Cells Urine Crystals Urine Bacteria Urine Mucus Ur Culture Indicated? Urine Glucose COVID-19 PCR Nasopharyn COVID-19 PCR Ref Test Perform Site
--- NOTE | 2020-08-10 09:21 | PHACLINREV_ITS ---
Pharmacy Admission Review - Admission Clinical Review (Last Reviewed 04/10/20 @ 19:34 by Glory Blankenship NP) Acute kidney injury (Acute) Pyelonephritis (Acute) Bladder stone (Acute) Hydronephrosis (Acute) Discharge planning issues (Acute) Type 2 diabetes mellitus with obesity (Acute) UTI (urinary tract infection) (Acute) Hyperlipidemia (Acute) Chronic pain syndrome (Acute) Overactive bladder (Acute) Amputated right leg (Acute 10/29/16) cefazolin Allergy (Verified 08/09/20 12:57) HIVES oxacillin [Oxacillin] Allergy (Verified 08/09/20 12:57) HIVES Penicillins Allergy (Verified 08/09/20 12:57) HIVES gemfibrozil Adverse Reaction (Verified 08/09/20 12:57) INCREASED LFT'S morphine Adverse Reaction (Verified 08/09/20 12:57) NAUSEA Height 5 ft 4 in Weight 108.862 kg - Renal Dosing Renal Dosing: BUN 24 mg/dL (7-18) H 08/10/20 06:25 Creatinine 1.32 mg/dL (0.55-1.02) H 08/10/20 06:25 Medications needing adjustments: Reviewed List of meds needing interventions: current meds ok, crcl using ABW is 56. 6ml/min - Anticoagulation Anticoagulation: Hgb 10.5 g/dL (11.2-15.7) L 08/10/20 06:25 Hct 33.8 % (36.0-46.0) L 08/10/20 06:25 Plt Count 183 10^3/uL (130-400) 08/10/20 06:25 INR 1.1 (0.9-1.1) 08/09/20 11:27 Creatinine 1.32 mg/dL (0.55-1.02) H 08/10/20 06:25 DVT Prohphylaxis: Reviewed Medications: Enoxaparin - Opiate Usage Evaluate Pain Scale/Pains Meds: N/A - Relevant Labs Sodium 138 mmol/L (136-145) 08/10/20 06:25 Potassium 4.4 mmol/L (3.5-5.1) 08/10/20 06:25 Chloride 102 mmol/L (98-107) 08/10/20 06:25 Magnesium 2.0 mg/dL (1.8-2.4) 08/10/20 06:25 Electrolytes, C-Reactive P, ESR: Reviewed (received 2 gm of IV Mag yesterday) - DM Control DM Control: Glucose 215 mg/dL (74-106) H 08/10/20 06:25 Hemoglobin A1c 7.0 % (<5.7) H 08/09/20 11:27 Finger Stick Blood Glucose 263 Finger Stick Blood Glucose 263 Insulin Dosing: Intervened (Home basal insulin not ordered yet - Lantus 80U daily, aspart per SS scale ordered but uses 20U with meals at home) - Heart Failure/[place] Heart Failure/[place]: Troponin I < 0.05 ng/mL (<0.06) 08/09/20 11:27 EF%, SANTI's, B-Blockers, Diuretics: Reviewed (lisinopril, metoprolol) - BP Control BP Control: Blood Pressure 144/78 Blood Pressure 110/70 - Qtc Review If Elevated: Reviewed List meds needing interventions: QTc 437 - IV to PO Switch IV Medications: Reviewed - Home Meds Home Med List reviewed: Reviewed Relevent Home Meds Not ordered & why?: buproprion, cetirizine, vitamin d, famotidine, fenofibrate, insulin glargine, lisinopril (elvira), metformin, MVI, oxybutynin, rosuvastatin - Current meds Current Medication Order Review: Intervened (Only received 1 time dose of levofloxacin in the ED 08/09 @ 1200 - order dc'd as it was put in as a NOW ONE order - will notify in AM meeting to renew)
--- NOTE | 2020-08-10 10:18 | IN_ITS ---
Date of service: 08/10/20 Time of Service: 10:18 PT Notes Visit Reasons: Urinary tract infection Physical Therapy Inpatient Initial Evaluation Date: 08/10/2020 Referring Doctor: Julia Miles NP PT Orders: PT CONSULT: Eval/Treat Precautions: Fall. Standard. Non-ambulatory. Activity as tolerated. Patient Profile/Admitting Diagnosis: Pushpa is a 55-year-old lady with type II DM and right transfemoral limb loss who presented to the ED on 08/09/2020 with chief complaints of fatigue, generalized weakness, and diarrhea. She is diagnosed with urinary tract infection, hyperlipidemia, and overactive bladder. PMHX: Medical History (Updated 08/09/20 @ 14:20 by Julia Miles NP) Amputated right leg Immobility Wheelchair bound uses Marilyn lift for any transfers Surgical History Dilation and curettage (06/25/18) with diagnostic hysteroscopy. aoc Fracture, Open Treatment left leg; trimalleolar fx-screw and fixation plate Replacement of total knee joint (~1998) right Social History/Home Situation: Lives with in a private home in [place], [place]. Receives home health aide every day at least twice a day for all self-care, meals, medication preapration. Mobilizes indoors and outdoors using motorized wheelchair. Does all transfers using mechanical lift. Equipment Owned/DME: Motorized wheelchair, mechanical lift Subjective: Agreeable to PT consult. States I need to get stronger. Reports that she has all the help she needs at home. She states that her came back from [place] after being gone for four years leaving her alone under the [place] [facility] caregivers. She complains of pain in her phantom thigh, knee, leg, and foot for the past 7 years since she had the amputation. 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 Objective: General Observation: R transfermoral limb loss. L great toe amputation. L elbow fused with forearm at 90 degrees of flexion. IV in R UE. Mental Status: Alert and oriented x4 Pain: 9-10/10 in R transfermoral limb that is intermittent ROM: Right Upper Extremity: Shoulder Flexion WFL. Shoulder abduction WFL. Elbow flexion WFL. Wrist flexion WFL. Opening and closing of hand WFL. Left Upper Extremity: Shoulder flexion only has less than 50% available range. Shoulder abduction only has less than 50% available range. Elbow flexion fixed at about 90 degrees. Wrist flexion WFL. Opening and closing of hand WFL. Right Lower Extremity: Hip flexion allows 60 degrees. Hip extension only to neutral. Hip abduction allows about 20 degrees. Left Lower Extremity: Hip flexion allows 60 degrees. Hip abduction allows 20 degrees. Knee flexion allows 90 degrees. Ankle dorsiflexion only to neutral. Ankle plantarflexion allows 10 degrees. Strength: Right Upper Extremity: Shoulder flexors 3+/5. Shoulder abductors 3+/5. Elbow flexors 4-/5. Elbow extensors 3+/5. Emblem Drawer In strong. Left Upper Extremity: Shoulder flexors 3-/5. Shoulder abductors 3-/5. Elbow flexors 1/5. Elbow extensors 1/5. Emblem Drawer In strong. Right Lower Extremity: Hip flexors 3-/5. Hip abductors 3-/5. Knee flexors 3-/5. Left Lower Extremity: Hip flexors 3-/5. Hip abductors 3-/5. Knee flexors 3-/5. Knee extensors 3-/5. Ankle dorsiflexors 3-/5. Ankle plantarflexors 3-/5. Sensation: Intact as to pain and pressure on bilateral lower extremities. Bed Mobility/Transfers: Rolling moderate assist Supine to sit mechanical lift only Sit to supine mechanical lift only Sit to stand mechanical lift only Stand to sit mechanical lift only Bed to chair mechanical lift only Chair to bed mechanical lift only Gait: Non-ambulatory Balance: Static Sitting: NT Dynamic Sitting: NT Static Standing: NT Dynamic Standing: NT Special Tests: Mobility Limitations Standardized Measure [facility] AM-PAC 6 clicks Basic Mobility Inpatient Short Form: Raw Score: 6 CMS Score: 100% deficit Informed Consent/Education: Patient instructed in purpose of PT consult and plan of care. THERA EX: Initiated UE/LE exercises with patient for this session. Assessment: Pushpa has been non-ambulatory for over 7 years now and uses a motorized wheelchair for all mobility tasks. She has caregivers at home who has been helping her with all self-care tasks, bathing, and dressing. She is agreeable to doing strengthenng exercises for her UE, LE and core while she is here. Patient presents with clinical signs and symptoms consistent with current/admitting diagnoses that have resulted to mobility limitations, gait instability, generalized weakness, and impairment of motor control as demonstrated by the following impairment level findings: 1. Decreased strength to B UE/LE major muscle groups 2. Impaired sitting/standing balance 3. Impaired activity tolerance 4. Limitation of joint range of motion in L shoulder and B hips Impairments are contributing to the following functional limitations: 1. Dependent bed mobility skills 2. Increased dependence with transfers 3. Inability to safely ambulate without assistive device and physical assistance 4. Increase completion time for mobility ADL performance 5. Increased fall risk 6. Inability to negotiate steps alone safely Patient is assessed as a 87964 high complexity based on the following: History: 55-year-old female with impairment level findings, functional limitations, and past medical history as indicated above Examination: Demonstrable impairment in strength, balance, and mobility level with underlying impairments and functional limitations as documented above Presentation:Evolving Decision Makin highomplexity Goals: Goals X3 sessions 1. Patient will demonstrate 100% mastery of B UE, LE, and core exercises prior to home discharge. Plan of Care/Treatment Plan: 1-2x/day, 7 days/week x 1 week. Plan of care has been reviewed with the [facility] providing the service under Physical Therapy direction. Initiate Physical Therapy intervention for strengthening, bed mobility, transfers, gait, stairs, balance training, use of assistive device. DISCHARGE RECOMMENDATIONS: Resume HH services as previously. HH PT for exercise progression. TREATMENT CODE/TIME: 62515 x 30 minutes, 34425 x 14 minutes beginning at 10:18 AM. Thank you for the opportunity to participate in the care of this patient. Maricarmen Jordan PT, DPT, CLT [facility] [place], [place]
--- NOTE | 2020-08-10 10:56 | PDOC.CMIN ---
- If Service Date Differs Date of service: 08/10/20 Time of Service: 14:44 Care Management Initial Assess REASON FOR HOSPITALIZATION:: UTI PAST MEDICAL HISTORY/PAST SURGICAL HISTORY:: Amputated right leg, immobility, dilation and curettage, left leg fracture open treatment, right TKA PREVIOUS FUNCTIONAL STATUS/SOCIAL/FAMILY SUPPORTS:: Pushpa resides in [place], her resides upstairs but does not provide support. She receives the majority of support in the community from [facility]. Pushpa has sisters whom at times are supportive, though do not provide any care in the community. Pushpa does not drive and depends on [facility] for transportation. She does utilize her motorized W/C to venture into the community for supplies and to get take out from local restaurants. CURRENT FUNCTIONAL STATUS:: Pushpa is lying in bed, quite conversant, open to engaging with this telegraphic typewriter operator and forthcoming with information. ADVANCE DIRECTIVES:: None on file at [facility]. Has patient been provided with info about the portal/API?: Yes Did the patient sign up for the portal?: No CODE STATUS:: Full Code INSURANCE COVERAGE / FINANCIAL ISSUES:: Medicaid; LTC. CURRENT HOME/COMMUNITY SERVICES/EQUIPMENT:: Pushpa has [facility] services in the community, Mercedes Fairbanks is her CM. CM spoke with Chelsi at [facility] whom states that Pushpa receives SN 1x/wk and MANAGER QUALITY's twice daily as she is unable to care for herself. Pushpa previously attended [place] [facility] program 4-5x/week for the day. Pushpa has a motorized w/c, hector lift, shower bench, hospital bed, bedside commode, grab bars, hand held shower, ramp, and glucometer. She utilizes [employer] van for transportation. PRIMARY CARE PHYSICIAN:: Joshua Nunes DO POTENTIAL DISCHARGE NEEDS:: Coordination of resumption of care with [facility], transportation coordination via [facility], follow up appointment with PCP, PT/OT consults. PATIENT/FAMILY EDUCATION NEEDS:: Review discharge instructions, discuss Ask Me Three. ANTICIPATED BARRIERS TO DISCHARGE:: None identified at this time. TRANSPORTATION:: Via [employer] W[employer] van, coordinated by CM. PLAN:: Pushpa will return home when ready per MD. She will be evaluated by PT/OT to determine recommended services upon discharge. She will resume community based services including RN, mixing place supervisor and [employer] high/highest support. Pushpa will transport via [facility] W/C Van coordinated by DAGOBERTO. CM continues to follow.
[2020-08-10 11:13] VITALS: TEMP 37.4
[2020-08-10] MEDS: Normal Saline 1,000 ML 75 ML IV (11:18)
[2020-08-10] MEDS: levoFLOXacin 750 MG/150 ML BAG 100 MG IVPB (12:09)
--- NOTE | 2020-08-10 13:15 | W.INDIABCONS ---
Date of service: 08/10/20 Time of Service: 13:15 Diabetes Inpatient Consult DESCRIPTION/ASSESSMENT: 55 year old female admitted with acute kidney injury, pyelonephritis, UTI with long hx of Dm2 with complications including above knee amputation. BMI 41. Home Meds include: U-100 insulin 20 u at meals, glargine 80 units PM. Met with Pushpa today. She reports that she has home health nurses at her home twice daily. They take her BS which typically run > 200mg/dl. Recent A1C(08/09/20) 7%- indicating adequately controlled BS. She was not interested in diet education at this time. She states she will drink soda and eat [place] islander food as she wishes. Following Diabetic Diet with adequate intake. INTERVENTION: Declined diabetes inpatient education, declined weight management education PLAN: Continue diabetic Diet will monitor po intake, labs and weight Time Spent in Nutritional Counseling and Treatment: 10 min spent face to face
--- NOTE | 2020-08-10 15:09 | CHAPLAIN ---
Pushpa was pleasant and engaged in a conversation with me. She said she has been in touch with her by phone, but he is blind and will not be able to visit her while she's here. I explained my role and offered support.
[2020-08-10 15:20] VITALS: BP 109/70; PULSE 93; RESP 19; TEMP 37.2; O2SAT 97
--- NOTE | 2020-08-10 15:31 | PT.INTREAT ---
Date of service: 08/10/20 Time of Service: 15:41 PT Notes Visit Reasons: Urinary tract infection Physical Therapy Inpatient Treatment Note Date: 08/10/2020 Precautions: Fall. Standard. Non-ambulatory. Activity as tolerated. Subjective: My R leg hurts like a mother and then some. I also am freezing. I puked earlier before you came and the nurse came in to help clean me. Objective: General Observation: Pallor in lips. L hand shaky. Mental Status: Alert and oriented x4 Pain: 10/10 in R transfermoral limb that is intermittent THERA EX: Continued UE/LE exercises with patient for this session as indicated in the treatment sheet. Assessment: Only tolerated minimal bed level exercises due to R LE phantom pain complaint of 10/10 which nurse Willow was informed about. Will continue to educate and train on HEP for 1-2 more sessions as tolerated. Goals: Goals X3 sessions 1. Patient will demonstrate 100% mastery of B UE, LE, and core exercises prior to home discharge. DISCHARGE RECOMMENDATIONS: Resume HH services as previously. PT for exercise progression. TREATMENT CODE/TIME: 08662 x 18 minutes beginning at 15:41 PM.
--- NOTE | 2020-08-10 18:56 | NUR.NOTE ---
Promethazine ordered for patient after patient vomited today and patient declined this and stated she was no longer nauseous. infant lead teacher Chris notified.
[2020-08-10 19:00] VITALS: BP 128/78; PULSE 94; RESP 19; TEMP 37.7; O2SAT 96
[2020-08-10] MEDS: Gabapentin 400 MG CAP PO (19:51)
[2020-08-10] MEDS: Melatonin 3 MG TAB 9 MG PO (22:09)
--- NOTE | 2020-08-11 | DI.US_ITS ---
EXAM: US RENAL CLINICAL HISTORY: r/o hydronephrosis TECHNIQUE: Ultrasound performed using standard protocol. COMPARISON: US US ABDOMEN LIMITED from 08/09/2020 FINDINGS: Kidneys are normal in size and shape. There is no evidence of a renal mass, hydronephrosis, or nephr olithiasis. Urinary bladder contains 90 cc. The patient was unable to void. Ureteral jets were not visualized. IMPRESSION: No evidence of hydronephrosis. DATA REPOSITORY:
[2020-08-11] MEDS: Normal Saline 1,000 ML 75 ML IV (01:45)
[2020-08-11 04:08] VITALS: BP 134/75; PULSE 91; RESP 18; TEMP 36.8; O2SAT 94
[2020-08-11 06:23] LABS: Absolute Basophil Count 0.01 10^3/uL (0.0-0.2); Basophils % 0.2; MCV 93.2 fL (80-95); Nucleated RBC 0 %
[2020-08-11 07:26] LABS: Abs Immature Grans 0.05 10^3/uL (0.0-0.06); Absolute Lymphocyte Count 0.56 10^3/uL (1.2-3.4); Absolute Monocyte Count 0.49 10^3/uL (0.1-0.8); HCT 27.5 % (36.0-46.0); HGB 8.8 g/dL (11.2-15.7); Lymphocytes % 10.7; MCH 29.8 pg (27.0-33.0); MPV 9.8 fL (8.0-11.0); Monocytes % 9.4; Neutrophils % 78.7; Platelet Count 156 10^3/uL (130-400); RBC 2.95 10^6/uL (3.93-5.22); RDW 14.1 % (11.7-14.6); WBC 5.21 10^3/uL (4.4-10.8)
[2020-08-11 07:29] VITALS: BP 146/77; PULSE 87; RESP 18; TEMP 38; O2SAT 94
[2020-08-11 08:25] VITALS: TEMP 38
[2020-08-11] MEDS: Gabapentin 400 MG CAP PO ×2 (08:25→20:15)
[2020-08-11] MEDS: Lactobacillus Acidophilus CAP 1 CAP PO (08:25)
[2020-08-11] MEDS: Acetaminophen 500 MG TAB 1000 MG PO ×3 (08:25→20:15)
[2020-08-11] MEDS: Enoxaparin 40 MG/0.4 ML SYR SC (08:25)
[2020-08-11] MEDS: Insulin Aspart 300 UNITS/3 ML PEN SC ×3 (08:33→17:24)
[2020-08-11 08:37] LABS: Iron 13 ug/dL (50-170); Total Iron Binding Capacity 221 ug/dL (250-450); Transferrin Sat 6 % (15-50)
[2020-08-11 09:04] LABS: Anion Gap 12.9 mmol/L (3-11); BUN 19 mg/dL (7-18); CO2 23.1 mmol/L (21.0-32.0); CREATININE 1.07 mg/dL (0.55-1.02); Calcium 8.3 mg/dL (8.5-10.1); Chloride 101 mmol/L (98-107); Estimated GFR 52.86 (mL/min/1.73m2); Ferritin 204 ng/mL (8-252); Glucose 235 mg/dL (74-106); Potassium 3.9 mmol/L (3.5-5.1); Sodium 137 mmol/L (136-145); Vitamin B12 347 pg/mL (193-986)
[2020-08-11 09:05] LABS: Folate > 20.0 ng/mL (8.6-20.0)
--- NOTE | 2020-08-11 10:15 | PDOC.CMPRO ---
Care Management Progress Note S/O: Per MD, blood culture results are positive, awaiting sensitivities to determine ABX route, frequency and duration. CM notified [facility] that Pushpa would not be discharging as anticipated. Emmanuel of intake reported that Pushpa would not require new orders upon discharge but will need resumption orders noted in discharge. Pushpa was lying in bed when CM met with her, she reported not sleeping well because of nausea and vomiting. She reported consistently vomiting since prior to admission. She did report eating a banana this morning and letting it settle. She reported positive remarks about her stay thus far. CM reviewed CART options; Pushpa requested word search booklets which CM provided. CM continues to follow. A: 55 year old female admitted to [facility] 08/09/20 for UTI P: Pushpa will return home when ready per MD. She will be evaluated by PT/OT to determine recommended services upon discharge. She will resume community based services including a resumption of VNA RN, bone tender and CFC high/highest support. Pushpa will transport via [facility] W[facility]C Van coordinated by DAGOBERTO. DAGOBERTO continues to follow.
--- NOTE | 2020-08-11 10:29 | W.PM.PROGNOT ---
Date of Service Date of service: 08/11/20 Time of Service: 10:29 Assessment and Plan Assessment and plan (1) Gram positive bacterial infection: Start date: 08/11/20 Start time: 10:39 Status: Acute Assessment and plan: Blood culture from 08/10 preliminary positive for gram positive cocci. Vanco initiated. Will continue levaquin. She is allergic to PCN's and multiple PCN based antbx. Urine cx with ecoli sensitive to levaquin will continue Repeat blood cultures Echo for Friday. History of hardware with hip replacement. Febrile overnight. Continue to monitor. (2) Acute kidney injury: Start date: 08/11/20 Start time: 10:35 Status: Acute Assessment and plan: Improving. Creatinine 1.07. continue to avoid nephrotoxic drugs. Will repeat BMP in am. (3) Anemia: Start date: 08/11/20 Start time: 10:41 Status: Chronic Assessment and plan: h/h low, iron studies showing Low iron levels with low TIBC Started on Iron with vitamin C Monitor h/h No signs of bleeding. (4) UTI (urinary tract infection): Start date: 08/11/20 Start time: 10:42 Status: Acute Assessment and plan: Day 3 levaquin. Positive blood culture Febrile overnight though improved. See above (5) Type 2 diabetes mellitus with obesity: Start date: 08/11/20 Start time: 10:43 Status: Acute Assessment and plan: continue diabetic diet, home medications, sliding scale coverage ac/hs add A1C (6) Amputated right leg: Start date: 08/11/20 Start time: 10:43 Status: Acute Assessment and plan: stable, routine care. PT/OT to evaluate (7) Hyperlipidemia: Start date: 08/11/20 Start time: 10:43 Status: Acute Assessment and plan: continue rosuvastatin (8) Overactive bladder: Start date: 08/11/20 Start time: 10:43 Status: Acute Assessment and plan: stable, continue oxybutynin (9) Chronic pain syndrome: Start date: 08/11/20 Start time: 10:43 Status: Acute Assessment and plan: will stick to home pain regimen, apap, motrin and gabapentin. (10) Discharge planning issues: Start date: 08/11/20 Start time: 10:43 Status: Acute Assessment and plan: case management consultation. will return home with resumption of services, has highest needs. discussed with Dr Merino who is in agreement with plan Subjective Subjective Patient reports: still having pain Interval history since last seen: Continues to have right flank pain, one set blood cultures from 08/10 positive with gram positive cocci. Febrile overnight though improving, overall. She endorses vomiting overnight. Per nursing she did have 3 episodes in the early evening. Will place on clear liquid with renal u/s. She denies Cp, SOB, nvd Exam Const General: cooperative and ill appearing chronically Nutritional Appearance: obese Orientation: alert, awake and oriented x3 HENMA Head: normal to inspection, normocephalic and atraumatic Ears: hearing grossly normal bilaterally Mouth: oral mucosae normal and moist mucous membranes Eyes Pupils: PERRL EOM: EOM intact bilaterally Resp Effort & Inspection: normal respiratory effort Auscultation: clear to auscultation bilaterally and diminished lung sounds (bases) bilaterally Cardio Rate: regular rate Rhythm: regular rhythm Heart Sounds: S1 normal and S2 normal GI Inspection: obesity Palpation: soft Auscultation: normal bowel sounds Skin Other: AKA to right side. No open areas to skin, Neuro General: patient alert, patient awake and patient oriented x3 Cranial Nerves: CN's II-XI intact bilaterally Extrem General: normal to inspection, no pedal edema and amputation noted Above the knee: right Objective Last Vital Signs Temp 38 C H 08/11/20 08:25 Pulse 87 08/11/20 07:29 Resp 18 08/11/20 07:29 BP 146/77 H 08/11/20 07:29 Pulse Ox 94 08/11/20 07:29 Laboratory Results - last 24 hr 08/11/20 08/11/20 08/11/20 06:05 06:05 06:05 WBC 5.21 D RBC 2.95 L Hgb 8.8 L Hct 27.5 L MCV 93.2 MCH 29.8 MCHC 32.0 RDW 14.1 Plt Count 156 MPV 9.8 Immature Gran % 1.0 Neutrophils % 78.7 Lymphocytes % 10.7 Monocytes % 9.4 Eosinophils % 0.0 Basophils % 0.2 Nucleated RBC % 0 Absolute Neutrophils 4.10 Absolute Lymphocytes 0.56 L Absolute Monocytes 0.49 Absolute Eosinophils 0.00 Absolute Basophils 0.01 Sodium 137 Potassium 3.9 Chloride 101 Carbon Dioxide 23.1 Anion Gap 12.9 H BUN 19 H Creatinine 1.07 H Estimated GFR/1.73 m2 52.86 Glucose 235 H Calcium 8.3 L Iron 13 L TIBC 221 L Transferrin % Sat 6 L Ferritin 204 Vitamin B12 347 Folate > 20.0 H
[2020-08-11 10:43] LABS: C-Reactive Protein > 25.00 mg/dL (0.0-0.3)
[2020-08-11 11:01] LABS: Procalcitonin 1.1 ng/mL
[2020-08-11] MEDS: Ferrous Sulfate 325 MG TAB PO ×2 (11:07→20:14)
[2020-08-11] MEDS: Ascorbic Acid 500 MG TAB PO ×2 (11:07→20:15)
[2020-08-11] MEDS: levoFLOXacin 750 MG/150 ML BAG 100 MG IVPB (11:46)
--- NOTE | 2020-08-11 12:21 | PT.INTREAT ---
Date of service: 08/11/20 Time of Service: 09:22 PT Notes Visit Reasons: Urinary tract infection Physical Therapy Inpatient Treatment Note Date: 08/11/2020 Precautions: Fall. Standard. Non-ambulatory. Activity as tolerated. Subjective: Reports that she has been vomiting x 3 last night and had a fever this morning. Agreeable to being transferred to the recliner and to doing low level strengthening exercises. In the afternoon, she staes that she feels she is going to puke. Nurse was informed about symptom and about visibly red face. Treatment session deferred. Objective: General Observation: Pallor in lips. L hand shaky. Mental Status: Alert and oriented x4 Pain: None reported THERA EX: Continued UE/LE exercises with patient for this session as indicated in the treatment sheet. THERA ACT: Provided positioning needs using dual-layer grid gel cushion on bedside recliner. Added three rolled thin bed sheet on both sides and at the back to even out all edges of the seat. A pillow was placed behind patient to ensure maximum comfort. Assessment: Patient will benefit from sitting on bedside recliner for meals and two hours thereafter in order to maximize cardiorespiratory function while minimizing skin breakdown. Patient has been using a mechanical lift at home for the past seven years and HH LNAs have been assisting her with all transfers. In the afternoon, treatment session was deferred as patient was nauseated and feels like she was going to vomit. PLAN: Will see patient 1-2x/day for 1 week to continue with education and training with B UE/LE and core strengthening to maximize wheelchair positioning and safety. DISCHARGE RECOMMENDATIONS: Resume HH services as previously. PT for exercise progression. TREATMENT CODE/TIME: Session1--48900 x 18 minutes, 71800 x 30 minutes beginning at 9:22 AM. Session 2--deferred.
[2020-08-11] MEDS: Normal Saline Flush 10 ML SYR IVP (13:26)
[2020-08-11] MEDS: diphenhydrAMINE 50 MG/ML VIAL IVP (13:26)
[2020-08-11] MEDS: FAMOTIDINE 20 MG/50 ML BAG 200 MG IVPB (13:27)
[2020-08-11] MEDS: DAPTOmycin 500 MG in Normal Saline 50 ML 100 MG IVPB (14:41)
[2020-08-11 16:45] VITALS: BP 138/95; PULSE 70; RESP 17; TEMP 37.4; O2SAT 95
[2020-08-11] MEDS: Melatonin 3 MG TAB 9 MG PO (20:16)
[2020-08-11 23:08] VITALS: BP 145/77; PULSE 78; RESP 18; TEMP 37.9; O2SAT 95
[2020-08-11 23:14] VITALS: TEMP 36.8
[2020-08-12] MEDS: Normal Saline 1,000 ML 75 ML IV ×2 (02:10→17:58)
[2020-08-12] MEDS: Acetaminophen 500 MG TAB 1000 MG PO ×4 (02:34→20:07)
[2020-08-12 06:46] LABS: Abs Immature Grans 0.09 10^3/uL (0.0-0.06); Absolute Basophil Count 0.01 10^3/uL (0.0-0.2); Absolute Eosinophil Count 0.02 10^3/uL (0.0-0.7); Absolute Lymphocyte Count 0.75 10^3/uL (1.2-3.4); Absolute Monocyte Count 0.72 10^3/uL (0.1-0.8); Absolute Neutrophil Count 5.32 10^3/uL (1.2-6.7); Basophils % 0.1; Eosinophils % 0.3; HCT 27.2 % (36.0-46.0); HGB 8.9 g/dL (11.2-15.7); Immature Grans % 1.3; Lymphocytes % 10.9; MCH 29.7 pg (27.0-33.0); MCHC 32.7 % (32.0-36.0); MCV 90.7 fL (80-95); MPV 9.5 fL (8.0-11.0); Monocytes % 10.4; Nucleated RBC 0 %; Platelet Count 180 10^3/uL (130-400); RDW 13.6 % (11.7-14.6); RDW-SD 45.4 fL; WBC 6.91 10^3/uL (4.4-10.8)
[2020-08-12 06:49] LABS: Anion Gap 12.5 mmol/L (3-11); BUN 16 mg/dL (7-18); CO2 22.5 mmol/L (21.0-32.0); CREATININE 1.05 mg/dL (0.55-1.02); Calcium 9.1 mg/dL (8.5-10.1); Chloride 101 mmol/L (98-107); Estimated GFR 54.02 (mL/min/1.73m2); Glucose 249 mg/dL (74-106); Potassium 3.4 mmol/L (3.5-5.1); Sodium 136 mmol/L (136-145)
[2020-08-12 07:44] VITALS: BP 154/75; PULSE 76; RESP 18; TEMP 37.4; O2SAT 95
[2020-08-12] MEDS: Ferrous Sulfate 325 MG TAB PO ×2 (07:59→20:07)
[2020-08-12] MEDS: Ascorbic Acid 500 MG TAB PO ×2 (07:59→20:06)
[2020-08-12] MEDS: Insulin Aspart 300 UNITS/3 ML PEN SC ×3 (07:59→16:30)
[2020-08-12] MEDS: Gabapentin 400 MG CAP PO ×2 (07:59→20:06)
[2020-08-12] MEDS: Enoxaparin 40 MG/0.4 ML SYR SC (07:59)
[2020-08-12] MEDS: Potassium Chloride 20 MEQ TABCR 40 MEQ PO (09:12)
--- NOTE | 2020-08-12 11:06 | W.PM.PROGNOT ---
Date of Service Date of service: 08/12/20 Time of Service: 11:06 Assessment and Plan Assessment and plan (1) Gram positive bacterial infection: Start date: 08/12/20 Start time: 11:13 Status: Acute Assessment and plan: Blood culture from 08/10 preliminary positive for gram positive cocci Initiated on Vanco however had a reaction to this so she was switched to daptomycin [place] 2 [place] [id number] and procal 1.1, will repeat in am and trend. Repeat blood cultures pending. Echo for Friday Day 4 of levaquin. Will keep this due to allergy to of PCN. Consult with ID on Friday with plan for treatment following echo Renal ultrasound negative for hydronephrosis (2) UTI (urinary tract infection): Start date: 08/12/20 Start time: 11:16 Status: Acute Assessment and plan: Day 4 levaquin. Positive blood culture Fevers defervesced. See above (3) Acute kidney injury: Start date: 08/12/20 Start time: 11:15 Status: Acute Assessment and plan: Improving from admission. Creatinine 1.05. continue to avoid nephrotoxic drugs. Will repeat BMP in am. (4) Anemia: Start date: 08/12/20 Start time: 11:15 Status: Chronic Assessment and plan: h/h low, iron studies showing Low iron levels with low TIBC Started on Iron with vitamin C Monitor h/h No signs of bleeding. (5) Type 2 diabetes mellitus with obesity: Start date: 08/12/20 Start time: 11:16 Status: Acute Assessment and plan: continue diabetic diet, home medications, sliding scale coverage ac/hs add A1C (6) Amputated right leg: Start date: 08/12/20 Start time: 11:17 Status: Acute Assessment and plan: stable, routine care. PT/OT to evaluate (7) Hyperlipidemia: Start date: 08/12/20 Start time: 11:17 Status: Acute Assessment and plan: continue rosuvastatin (8) Overactive bladder: Start date: 08/12/20 Start time: 11:17 Status: Acute Assessment and plan: stable, continue oxybutynin (9) Chronic pain syndrome: Start date: 08/12/20 Start time: 11:17 Status: Acute Assessment and plan: will stick to home pain regimen, apap and gabapentin. (10) Discharge planning issues: Start date: 08/12/20 Start time: 11:18 Status: Acute Assessment and plan: case management consultation. will return home with resumption of services, has highest needs. discussed with Dr Muñiz who is in agreement with plan Subjective Subjective Patient reports: other Interval history since last seen: Patient states doing ok. States she vomited overnight. CRP greater than 25, procal 1.1, she did have a reaction to Vancomycin yesterday, she became red to face with petechia, itching and hives. She was then switched to Dapto, which she appears to be tolerating. Echo on Friday. Await blood cultures from 08/10 to continue growing out. Will call ID after echo Friday for recommendation on antibx. Repeat BC pending. She does not appear toxic at this time. Fevers defervesced. Will continue to monitor. She may need SB status to finish antibx regiemen. Exam Const General: cooperative and ill appearing chronically Nutritional Appearance: obese Orientation: alert, awake and oriented x3 HENMT Head: normal to inspection, normocephalic and atraumatic Ears: hearing grossly normal bilaterally Mouth: oral mucosae normal and moist mucous membranes Eyes Pupils: PERRL EOM: EOM intact bilaterally Resp Effort & Inspection: normal respiratory effort Auscultation: clear to auscultation bilaterally and diminished lung sounds (bases) bilaterally Cardio Rate: regular rate Rhythm: regular rhythm Heart Sounds: S1 normal and S2 normal GI Inspection: obesity Palpation: soft Auscultation: normal bowel sounds Neuro General: patient alert, patient awake and patient oriented x3 Cranial Nerves: CN's II-XI intact bilaterally Extrem General: normal to inspection, no pedal edema and amputation noted Above the knee: right Objective Last Vital Signs Temp 37.4 C 08/12/20 07:44 Pulse 76 08/12/20 07:44 Resp 18 08/12/20 07:44 BP 154/75 H 08/12/20 07:44 Pulse Ox 95 08/12/20 07:44 Laboratory Results - last 24 hr 08/12/20 08/12/20 06:10 06:10 WBC 6.91 D RBC 3.00 L Hgb 8.9 L Hct 27.2 L MCV 90.7 MCH 29.7 MCHC 32.7 RDW 13.6 Plt Count 180 MPV 9.5 Immature Gran % 1.3 Neutrophils % 77.0 Lymphocytes % 10.9 Monocytes % 10.4 Eosinophils % 0.3 Basophils % 0.1 Nucleated RBC % 0 Absolute Neutrophils 5.32 Absolute Lymphocytes 0.75 L Absolute Monocytes 0.72 Absolute Eosinophils 0.02 Absolute Basophils 0.01 Sodium 136 Potassium 3.4 L Chloride 101 Carbon Dioxide 22.5 Anion Gap 12.5 H BUN 16 Creatinine 1.05 H Estimated GFR/1.73 m2 54.02 Glucose 249 H Calcium 9.1
--- NOTE | 2020-08-12 11:30 | CMPROGNOTE_ITS ---
- If Service Date Differs Date of service: 08/12/20 Time of Service: 11:30 Care Management Progress Note S/O:Pushpa remains acute today, she will have an echo on Friday r/t positive blood cultures. She remains on IV abx to treat bactereimia. Provider will contact I&D on Friday to determine length of treatment. Pushpa continues to need close monitoring and trending labs. A: 55 year old female admitted to [facility] 08/09/20 for UTI, positive blood cultures, with a history of DM, R BKA, and wheelchair bound. P: Pushpa will return home when ready per MD. She will be evaluated by PT/OT to determine recommended services upon discharge. She will resume community based services including a resumption of VNA RN, professional tutor and [employer] high/highest support. Pushpa will transport via [facility] W/C Van coordinated by DAGOBERTO. CM continues to follow.
[2020-08-12] MEDS: levoFLOXacin 750 MG/150 ML BAG 100 MG IVPB (11:52)
--- NOTE | 2020-08-12 11:54 | PT.INTREAT ---
Date of service: 08/12/20 Time of Service: 09:55 PT Notes Visit Reasons: Urinary tract infection Inpatient Physical Therapy Treatment Note [facility] Date: 08/12/2020 PRECAUTIONS:Fall, Standard, Activities as tolerated SUBJECTIVE: Still not feeling well today, vomited earlier today. Preferred to stay in her bed for now. OBJECTIVE: PAIN: Stomach irritation BED MOBILITY/TRANSFERS All exercises performed in supine in bed today. THEREX: See flow sheet, focused on education in HEP that she had been given earlier in week. This included SLR on the left, SAQs on the left, glut sets, supine hip abd/adduction and marching for 5 reps each. Bilateral UE exercises included yellow t-band horizontal abduction, shoulder flexion within pain free ROM, ER and lat pull downs for 10 reps each. ASSESSMENT: Tolerated today session well with good effort given, despite stomach irritation. PLAN: Continue with current plan of care. Advancing activities as able to tolerate. TREATMENT CODE/TIME: [id number], 9:55 to 10:25 am (30')
[2020-08-12] MEDS: DAPTOmycin 500 MG in Normal Saline 50 ML 100 MG IVPB (14:04)
[2020-08-12 15:20] VITALS: BP 122/63; PULSE 74; RESP 18; TEMP 37.2; O2SAT 93
[2020-08-12] MEDS: Melatonin 3 MG TAB 9 MG PO (20:07)
[2020-08-13 03:55] VITALS: BP 146/76; PULSE 74; RESP 16; TEMP 37.5; O2SAT 96
[2020-08-13] MEDS: Normal Saline 1,000 ML 75 ML IV (06:25)
[2020-08-13 07:28] LABS: Abs Immature Grans 0.32 10^3/uL (0.0-0.06); Absolute Basophil Count 0.03 10^3/uL (0.0-0.2); Absolute Lymphocyte Count 1.09 10^3/uL (1.2-3.4); Absolute Monocyte Count 0.84 10^3/uL (0.1-0.8); Absolute Neutrophil Count 4.99 10^3/uL (1.2-6.7); Basophils % 0.4; Eosinophils % 1.4; HCT 27.5 % (36.0-46.0); HGB 8.9 g/dL (11.2-15.7); Immature Grans % 4.3; Lymphocytes % 14.8; MCH 29.3 pg (27.0-33.0); MCHC 32.4 % (32.0-36.0); MCV 90.5 fL (80-95); Monocytes % 11.4; Neutrophils % 67.7; Nucleated RBC 0 %; Platelet Count 201 10^3/uL (130-400); RBC 3.04 10^6/uL (3.93-5.22); RDW 13.7 % (11.7-14.6); RDW-SD 45.1 fL; WBC 7.37 10^3/uL (4.4-10.8)
[2020-08-13 07:37] LABS: Anion Gap 12.9 mmol/L (3-11); BUN 13 mg/dL (7-18); C-Reactive Protein 12.93 mg/dL (0.0-0.3); CO2 22.1 mmol/L (21.0-32.0); CREATININE 0.94 mg/dL (0.55-1.02); Calcium 8.8 mg/dL (8.5-10.1); Chloride 103 mmol/L (98-107); Glucose 222 mg/dL (74-106); Potassium 3.2 mmol/L (3.5-5.1); Sodium 138 mmol/L (136-145)
[2020-08-13] MEDS: Ferrous Sulfate 325 MG TAB PO ×2 (08:05→20:39)
[2020-08-13] MEDS: Enoxaparin 40 MG/0.4 ML SYR SC (08:05)
[2020-08-13] MEDS: Gabapentin 400 MG CAP PO ×2 (08:05→20:39)
[2020-08-13] MEDS: Ascorbic Acid 500 MG TAB PO ×2 (08:05→20:39)
[2020-08-13] MEDS: Acetaminophen 500 MG TAB 1000 MG PO ×3 (08:05→20:40)
[2020-08-13] MEDS: Insulin Aspart 300 UNITS/3 ML PEN SC ×3 (08:06→17:14)
--- NOTE | 2020-08-13 08:20 | CMPROGNOTE_ITS ---
- If Service Date Differs Date of service: 08/13/20 Time of Service: 08:20 Care Management Progress Note S/O:Pushpa remains acute today, she will have an echo on Friday r/t positive blood cultures. She remains on IV abx to treat bactereimia.CM reviewed clinical chart and patietn presented at morning rounds. Recent blood cultures are negative to date. Provider will contact I&D on Friday to determine length of treatment. Pushpa continues to need close monitoring and trending labs. A: 55 year old female admitted to [facility] 08/09/20 for UTI, positive blood cultures, with a history of DM, R BKA, and wheelchair bound. P: Pushpa will return home when ready per MD. She will be evaluated by PT/OT to determine recommended services upon discharge. 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 Pushpa will transport via [facility] W/C Van coordinated by DAGOBERTO. DAGOBERTO continues to follow.
[2020-08-13] MEDS: Potassium Chloride 20 MEQ TABCR 40 MEQ PO (08:43)
[2020-08-13 08:51] VITALS: BP 150/77; PULSE 74; RESP 20; TEMP 37.2; O2SAT 95
--- NOTE | 2020-08-13 09:07 | W.PM.PROGNOT ---
Date of Service Date of service: 08/13/20 Time of Service: 09:07 Assessment and Plan Assessment and plan (1) Gram positive bacterial infection: Start date: 08/13/20 Start time: 09:11 Status: Acute Assessment and plan: Blood culture from 08/10 preliminary 2 positive gram cocci in aerobic bottle, possible contaminate, however fevers defervesced with addition of dapto afebrile since 08/11. daptomycin day 3 CRP down to 12 continue to trend Repeat blood cultures no growth to date. Echo for Friday Day 5 of levaquin. Will keep this due to allergy to of PCN. Consult with ID on Friday with plan for treatment following echo Renal ultrasound negative for hydronephrosis (2) UTI (urinary tract infection): Start date: 08/13/20 Start time: 09:14 Status: Acute Assessment and plan: Day 5 levaquin. Positive blood culture possible contaminate, as above Afebrile since 08/11 See above (3) Acute kidney injury: Start date: 08/13/20 Start time: 09:16 Status: Resolved Assessment and plan: resolved. Bun Creatinine normalized. (4) Anemia: Start date: 08/13/20 Start time: 09:16 Status: Chronic Assessment and plan: h/h low, iron studies showing Low iron levels with low TIBC Started on Iron with vitamin C H/H stable No signs of bleeding. Hematest stools negative, will discontinue (5) Type 2 diabetes mellitus with obesity: Start date: 08/13/20 Start time: 09:17 Status: Acute Assessment and plan: continue diabetic diet, home medications, sliding scale coverage ac/hs A1C 7.0 (6) Amputated right leg: Start date: 08/13/20 Start time: 09:18 Status: Acute Assessment and plan: stable, routine care. PT/OT to evaluate (7) Hyperlipidemia: Start date: 08/13/20 Start time: 09:18 Status: Acute Assessment and plan: continue rosuvastatin (8) Overactive bladder: Start date: 08/13/20 Start time: 09:18 Status: Acute Assessment and plan: stable, continue oxybutynin (9) Chronic pain syndrome: Start date: 08/13/20 Start time: 09:19 Status: Acute Assessment and plan: will stick to home pain regimen, apap and gabapentin. (10) Discharge planning issues: Start date: 08/13/20 Start time: 09:19 Status: Acute Assessment and plan: case management consultation. will return home with resumption of services, has highest needs. discussed with Dr Muñiz who is in agreement with plan Subjective Subjective Patient reports: no new complaints, feels better and diarrhea Interval history since last seen: Feeling better, appears to be in better spirits. She did have diarrhea x 5 overnight. Will check cdiff, add bio-k. continue plan for echo, antibiotics and follow up with ID. She denies CP, SOB, N/V/D Exam Const General: cooperative and ill appearing chronically Nutritional Appearance: obese Orientation: alert, awake and oriented x3 HENMT Head: normal to inspection, normocephalic and atraumatic Ears: hearing grossly normal bilaterally Mouth: oral mucosae normal and moist mucous membranes Eyes Pupils: PERRL EOM: EOM intact bilaterally Resp Effort & Inspection: normal respiratory effort Auscultation: clear to auscultation bilaterally and diminished lung sounds (bases) bilaterally Cardio Rate: regular rate Rhythm: regular rhythm Heart Sounds: S1 normal and S2 normal GI Inspection: obesity Palpation: soft Auscultation: normal bowel sounds Neuro General: patient alert, patient awake and patient oriented x3 Cranial Nerves: CN's II-XI intact bilaterally Extrem General: normal to inspection, no pedal edema and amputation noted Above the knee: right Objective Last Vital Signs Temp 37.2 C 08/13/20 08:51 Pulse 74 08/13/20 08:51 Resp 20 08/13/20 08:51 BP 150/77 H 08/13/20 08:51 Pulse Ox 95 08/13/20 08:51 Laboratory Results - last 24 hr 08/13/20 08/13/20 07:20 07:20 WBC 7.37 RBC 3.04 L Hgb 8.9 L Hct 27.5 L MCV 90.5 MCH 29.3 MCHC 32.4 RDW 13.7 Plt Count 201 MPV 9.0 Immature Gran % 4.3 Neutrophils % 67.7 Lymphocytes % 14.8 Monocytes % 11.4 Eosinophils % 1.4 Basophils % 0.4 Nucleated RBC % 0 Absolute Neutrophils 4.99 Absolute Lymphocytes 1.09 L Absolute Monocytes 0.84 H Absolute Eosinophils 0.10 Absolute Basophils 0.03 Sodium 138 Potassium 3.2 L Chloride 103 Carbon Dioxide 22.1 Anion Gap 12.9 H BUN 13 Creatinine 0.94 Estimated GFR/1.73 m2 >= 60.00 Glucose 222 H Calcium 8.8 C-Reactive Protein 12.93 H
--- NOTE | 2020-08-13 10:57 | PT.INTREAT ---
Date of service: 08/13/20 Time of Service: 09:10 PT Notes Visit Reasons: Urinary tract infection Inpatient Physical Therapy Treatment Note [facility] Date: 08/13/2020 PRECAUTIONS:Fall, standard, activities as tolerated SUBJECTIVE: Stated she would like to have her w/c here at the hospital. Does not like the recliner chair. Would prefer to stay in her bed if not able to sit in her own w/c. This was discussed with nursing staff and case technician today. Sound like this may not be possible due to lack of private transportation of chair. OBJECTIVE: PAIN: Stomach irritation still an issue today. THEREX: Performed bed exercises today consisting of SLR on the left, SAQs on the left, glut sets, supine hip abd/adduction and marching for 10 reps each. Bilateral UE exercises included yellow t-band horizontal abduction, shoulder flexion within pain free ROM on right and bicep curls on left, ER and lat pull downs for 10 reps each. Declined transfer into recliner due to not feeling comfortable in it. ASSESSMENT: Tolerated today's session fair. Due to old right shoulder injury she performed bicep curls today instead of shoulder flexion. PLAN: Continue to encourage increased mobility and performance of ther exercises for improved ADL function. TREATMENT CODE/TIME: [id number], 9:10 to 9:35 am (25')
[2020-08-13 11:14] LABS: C Diff PCR Negative (Negative)
[2020-08-13] MEDS: levoFLOXacin 750 MG/150 ML BAG 100 MG IVPB (11:51)
[2020-08-13] MEDS: DAPTOmycin 500 MG in Normal Saline 50 ML 100 MG IVPB (14:06)
[2020-08-13 15:15] VITALS: BP 145/58; PULSE 80; RESP 18; TEMP 37.1; O2SAT 95
[2020-08-13 20:32] VITALS: BP 138/85; PULSE 79; RESP 18; TEMP 37.1; O2SAT 95
[2020-08-13] MEDS: Melatonin 3 MG TAB 9 MG PO (20:39)
[2020-08-13] MEDS: Loperamide 2 MG CAP PO (21:44)
[2020-08-14 03:39] VITALS: BP 151/80; PULSE 84; RESP 17; TEMP 37; O2SAT 95
[2020-08-14 06:29] LABS: Abs Immature Grans 0.64 10^3/uL (0.0-0.06); Absolute Eosinophil Count 0.22 10^3/uL (0.0-0.7); HGB 9.4 g/dL (11.2-15.7); MCH 29.1 pg (27.0-33.0); MCHC 32.4 % (32.0-36.0); MCV 89.8 fL (80-95); Platelet Count 222 10^3/uL (130-400); RBC 3.23 10^6/uL (3.93-5.22); RDW 13.7 % (11.7-14.6); RDW-SD 44.9 fL; WBC 7.33 10^3/uL (4.4-10.8)
[2020-08-14 06:36] LABS: Anion Gap 12.1 mmol/L (3-11); BUN 16 mg/dL (7-18); CO2 23.9 mmol/L (21.0-32.0); CREATININE 0.97 mg/dL (0.55-1.02); Calcium 9.4 mg/dL (8.5-10.1); Chloride 101 mmol/L (98-107); Estimated GFR 59.19 (mL/min/1.73m2); Glucose 225 mg/dL (74-106); Potassium 3.4 mmol/L (3.5-5.1); Sodium 137 mmol/L (136-145)
[2020-08-14 06:54] LABS: Absolute Monocyte Count 0.88 10^3/uL (0.1-0.8)
[2020-08-14 06:55] LABS: Diff Comment Manual Differential
--- NOTE | 2020-08-14 07:28 | DI.US_ITS ---
APPROVED REPORT EXAM: Comprehensive 2D, Doppler, and color-flow Echocardiogram Patient Location: In-Patient Room/Bed: [address] [employer] Chain Operator: Monika Mendez RDCS (AE) Indications: Fever, r/o endocarditis Other Information Technically limited study due to body habitus. Conclusion This is a technically limited study. Left Ventricle : The left ventricle is normal size. The left ventricular systolic function is normal. The left ventricular ejection fraction is within the normal range. There is normal left ventricular wall thickness. There is normal LV segmental wall motion. The left ventricular diastolic function is normal. LVEF is 50-55%. Right Ventricle : Right ventricle is not well visualized. Right ventricular systolic function could n ot be assessed. Atria : Left atrium is not well visualized. Right atrium is not well visualized. Valves: There are no hemodynamically significant valvular lesions nor any vegetations visualized. Great Vessels : The aortic root is normal in size. The ascending aorta is borderline Aortic arch is n ot well visualized. dilated. The IVC was not visualized. Please see remainder of study for further details. Wall motion Left Ventricle The left ventricle is normal size. The left ventricular systolic function is normal. The left ventric ular ejection fraction is within the normal range. There is normal left ventricular wall thickness. T here is normal LV segmental wall motion. The left ventricular diastolic function is normal. LVEF is 5 0-55%. Right Ventricle Right ventricle is not well visualized. Right ventricular systolic function could not be assessed. Atria Left atrium is not well visualized. Right atrium is not well visualized. Aortic Valve The aortic valve is normal in structure. Aortic valve is trileaflet. There is no aortic valvular sten osis. No aortic regurgitation is present. There is no aortic valvular vegetation. Mitral Valve The mitral valve is normal in structure. No evidence of mitral valve stenosis. Trace mitral regurgita tion. There is no evidence of mitral valve vegetations. Tricuspid Valve The tricuspid valve is normal in structure. There is no tricuspid valve stenosis. Trace tricuspid reg urgitation. Unable to assess PA pressure. There is no tricuspid valve vegetations. Pulmonic Valve The pulmonary valve is normal in structure. There is no pulmonic valvular stenosis. There is no pulmo shelley valvular regurgitation. There is no pulmonic valve vegetations. Great Vessels The aortic root is normal in size. The ascending aorta is borderline Aortic arch is not well visualiz ed. dilated. The IVC was not visualized. Pericardium Prominent anterior epicardial fat pad is present. 2D Dimensions IVSD d PLAX 0.93 cm F: 0.6-1.0 LV Vol A2C d MOD 91.7 mL LVPW d PLAX 0.93 cm F: 0.6 - 1.0 LV Vol A4C d MOD 67.6 mL LVID d PLAX 4.50 cm F: 3.8 - 5.2 LV EF A4C MOD 54.0 % LVDs 3.15 cm F: 2.2 - 3.5 LV EF A2C MOD 51.2 % Ao Root d 2.54 cm F: 2.7 - 3.3 LV EF Biplane MOD 51.1 % Ao Asc Diam d 3.21 cm F: 2.3 - 3.1 SV 43.45 mL LV EF Teichholz 56.1 % SV Index 20.56 mL/m2 LVEF (Pratt's) 51.06 % F: 54 - 74 LV Volume 62.68 mL F: 46 - 106 LV Volume Index 29.70 mL/m2 F: 29 - 61 LV Vol Biplane MOD 85.1 mL FS 29.10 % M-Mode TAPSE 2.50 cm (M/F) >1.7 LV Diastology MV E' medial 0.122 (>0.07 m/s) E/A Ratio 1.0 LV E/e MED 5.65 (<14) MV E Vmax 0.69 (0.4-1.3 m/s) MV E' lateral 0.111 (>0.1 m/s) MV A Vmax 0.70 (0.4-1.3 m/s) LV E/e LAT 6.15 (<14) MV E/A Ratio 0.98 MV E/E' medial 5.65 MV E/E' lateral 6.20 Aortic Valve LVOT Area 2.79 cm2 AoV Area Vmax 2.06 cm2 LVOT Vmax 0.92 m/s AoV Area/ BSA (Vmax) 0.97 cm2/m2 LVOT Mean Sen. 0.56 m/s ROSHAN Mean Sen. 1.79 cm2 LVOT Peak Grad 3.4 mmHg ROSHAN Mean Sen. Index 0.85 cm2/m2 LVOT Mean Grad 1.5 mmHg LVOT VTI 0.216 m LVOT Diam s 1.85 cm AoV Vmax 1.24 m/s Velocity Ratio 0.74 AoV Mean Sen. 0.86 m/s AoV Peak Grad 6.1 mmHg LVOT SV 60.27 mL AoV Mean Grad 3.3 mmHg AoV VTI 0.280 m AoV Area VTI 2.15 cm2 AoV Area/ BSA (VTI) 1.02 cm/m2 Mitral Valve MV DT 242 (160-240 msec) MV PHT 70 msec MV Area PHT 3.14 cm2 Pulmonary Valve PV Vmax 1.01 (0.5-1.5 m/s) RVOT Peak Gr. 2.36 mmHg PV Peak Grad 4.1 mmHg RVOT Mean Gr. 1.25 mmHg PV Mean Grad 2.4 mmHg RVOT VTI 0.155 m PV VTI 0.227 m RVOT Vmax 0.77 m/s Tricuspid Valve TR Peak Grad 17.6 mmHg TR Vmax 2.10 m/s
[2020-08-14 08:09] LABS: Absolute Lymphocyte Count 1.39 10^3/uL (1.2-3.4)
[2020-08-14 08:10] LABS: Metamyelocytes % 1; Myelocytes % 5; Nucleated RBC 1 %
[2020-08-14 08:11] LABS: Basophilic Stippling Present; Poikilocytes 1+
[2020-08-14 08:17] VITALS: BP 149/82; PULSE 79; RESP 18; TEMP 36.8; O2SAT 95
[2020-08-14] MEDS: Acetaminophen 500 MG TAB 1000 MG PO ×3 (08:23→20:18)
[2020-08-14] MEDS: Ferrous Sulfate 325 MG TAB PO ×2 (08:23→20:19)
[2020-08-14] MEDS: Ascorbic Acid 500 MG TAB PO ×2 (08:23→20:19)
[2020-08-14] MEDS: Enoxaparin 40 MG/0.4 ML SYR SC (08:23)
[2020-08-14] MEDS: Insulin Aspart 300 UNITS/3 ML PEN SC ×3 (08:23→16:42)
[2020-08-14] MEDS: Gabapentin 400 MG CAP PO ×2 (08:24→20:19)
[2020-08-14] MEDS: Loperamide 2 MG CAP PO (08:24)
[2020-08-14] MEDS: Potassium Chloride 20 MEQ TABCR 40 MEQ PO (08:30)
[2020-08-14 09:53] LABS: Transferrin 173 mg/dL (201-352)
[2020-08-14 10:18] LABS: Bilirubin Negative (Negative); Blood Trace-intact (Negative); Clarity Cloudy (Clear); Glucose Negative (Negative); Ketones Trace mg/dL (Negative); Leukocyte Esterase Small (Negative); Nitrite Negative (Negative); Specific Gravity >= 1.030 (1.005-1.025); Urobilinogen 0.2 EU/dL (Up TO 0.2)
--- NOTE | 2020-08-14 10:29 | PT.INTREAT ---
Date of service: 08/14/20 Time of Service: 10:29 PT Notes Visit Reasons: Urinary tract infection Inpatient Physical Therapy Treatment Note [facility] Date: 08/14/2020 PRECAUTIONS:Fall. Standard. Activity as tolerated. SUBJECTIVE: Pushpa stated that it would be the most beneficial for her if her motorized wheelchair can be brought in here for when she discharges home. She comp complains that the recliner chair is not the most comfortable to sit on. She does like the cushion and hopes to take it with her at home. She denies any pain in her R residula limb and is agreeable to doing bed level exercises. Did not want to transfer to the recliner due to low comfort level. She elaborates that her is getting blind and that they do not have a car that they can use for going home. OBJECTIVE: PAIN: No complaints of stomach irritation. Denies any headache. She states that she has not had any diarrhea episodes since last night. THEREX: Tolerated bed level exercises as follows: 1. UE exercises using 1 lb DB: shoulder flexion/extension x 15 shoulder horizontal abduction/adduction x 15 elbow flexion/extension x 15 UE forward punches x 15 2. R LE exercises using 2 lb AW: LAQ x 10 SLR x 10 3. L LE exercises while in L sidelying: hip extension x 15 hip abduction x 15 ASSESSMENT: Tolerated hip extension and hip abduction fairly well. Only able to extend hip to neutral with contracture felt in R hip flexors. Pushpa will highly benefit from transferring using her motorized wheelchair into and out of transport van and will be able to operate said wheelchair via her entrance ramp. technical account manager Coby has been apprised of patient's discharge planning challenge. technical account manager assured that she will relay the message to the assigned day care center director to ensure that patient is able to transition home smoothly. She will continue to benefit from PT to ensure exercise progression as appropriate. PLAN: Continue to encourage increased mobility and performance of therapeutic exercises for improved ADL function. TREATMENT CODE/TIME: [id number] x 34 minutes beginning at 10:29 AM.
[2020-08-14 10:34] LABS: Epithelial Cells Moderate HPF (Negative); Other Cells Few Renal (Negative); WBC >50 HPF (0-5)
[2020-08-14 10:35] LABS: Bacteria Moderate HPF (Negative); C & S Indicated? No/Sq. Contamination; Casts Negative LPF (Negative); Crystals Negative HPF (Negative); Mucus Negative (Negative)
[2020-08-14] MEDS: Cholestyramine/Aspartame PKT 1 EACH PO (10:50)
--- NOTE | 2020-08-14 10:54 | CMPROGNOTE_ITS ---
- If Service Date Differs Date of service: 08/14/20 Time of Service: 10:54 Care Management Progress Note S/O: Pushpa was sitting up in her bed when CM met with her. She was pleasant and engaged in conversation. CM addressed her concern that she did not have her motorized w/c at [facility]. Since there are not any family/friends with the capability to transport the chair, we will not be able to obtain the chair prior to her discharge. CM will coordinate [facility] for transport home, as she needs a mechanical lift to transfer. CM will continue to follow. A: Pushpa is a 55 year old female admitted to [facility] 08/09/20 for UTI, positive blood cultures, with a history of DM, R BKA, and wheelchair bound. P: Pushpa will return home when ready per MD. She will be evaluated by PT/OT to determine recommended services upon discharge. She will resume community based services including a resumption of VNA RN, tag writer and [employer] high/highest support. Pushpa will transport via [facility] coordinated by DAGOBERTO. CM continues to follow.
--- NOTE | 2020-08-14 11:16 | W.PM.PROGNOT ---
Date of Service Date of service: 08/14/20 Time of Service: 11:16 Assessment and Plan Assessment and plan (1) Gram positive bacterial infection: Start date: 08/14/20 Start time: 11:18 Status: Ruled-out Assessment and plan: R/o as contaminiant. She did receive echo without vegetations Conclusion of echo: This is a technically limited study. Left Ventricle : The left ventricle is normal size. The left ventricular systolic function is normal. The left ventricular ejection fraction is within the normal range. There is normal left ventricular wall thickness. There is normal LV segmental wall motion. The left ventricular diastolic function is normal. LVEF is 50-55%. Right Ventricle : Right ventricle is not well visualized. Right ventricular systolic function could not be assessed. Atria : Left atrium is not well visualized. Right atrium is not well visualized. Valves: There are no hemodynamically significant valvular lesions nor any vegetations visualized. Great Vessels : The aortic root is normal in size. The ascending aorta is borderline Aortic arch is not well visualized. dilated. The IVC was not visualized. Please see remainder of study for further details. Discontinue dapto. Switch IV levaquin to PO. If afebrile overnight discharge home tomorrow. Day 6 levaquin, she will need total course 14 days. 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 as above (3) UTI (urinary tract infection): Start date: 08/14/20 Start time: :22 Status: Acute Assessment and plan: Day 6 levaquin. Positive blood culture contaminate, as above Repeat bc negative Afebrile since 08/11 See above (4) Acute kidney injury: Start date: 08/14/20 Start time: :22 Status: Resolved Assessment and plan: resolved. Bun Creatinine normalized. (5) Anemia: Start date: 08/14/20 Start time: :22 Status: Chronic Assessment and plan: h/h low, iron studies showing Low iron levels with low TIBC Started on Iron with vitamin C H/H stable No signs of bleeding. Hematest stools negative, will discontinue (6) Type 2 diabetes mellitus with obesity: Start date: 08/14/20 Start time: 11:22 Status: Acute Assessment and plan: continue diabetic diet, home medications, sliding scale coverage ac/hs A1C 7.0 defer to PCP for outpatient follow up (7) Amputated right leg: Start date: 08/14/20 Start time: Status: Acute Assessment and plan: stable, routine care. PT/OT to evaluate (8) Hyperlipidemia: Start date: 08/14/20 Start time: Status: Acute Assessment and plan: continue rosuvastatin (9) Overactive bladder: Start date: 08/14/20 Start time: Status: Acute Assessment and plan: stable, continue oxybutynin (10) Chronic pain syndrome: Start date: 08/14/20 Start time: Status: Acute Assessment and plan: will stick to home pain regimen, apap and gabapentin. (11) Discharge planning issues: Start date: 08/14/20 Start time: Status: Acute Assessment and plan: case management consultation. will return home with resumption of services, has highest needs. discussed with Dr Muñiz who is in agreement with plan Subjective Subjective Patient reports: no new complaints and feels better Interval history since last seen: Feeling better. Improving symptoms. Echo without vegetations. Positive bc contaminant, stop dapto, switch levaquin to PO. Will discharge home tomorrow if afebrile overnight. Will need longer course of treatment due to pyleo. Exam Const General: cooperative and ill appearing chronically Nutritional Appearance: obese Orientation: alert, awake and oriented x3 HENMT Head: normal to inspection, normocephalic and atraumatic Ears: hearing grossly normal bilaterally Mouth: oral mucosae normal and moist mucous membranes Eyes Pupils: PERRL EOM: EOM intact bilaterally Resp Effort & Inspection: normal respiratory effort Auscultation: clear to auscultation bilaterally and diminished lung sounds (bases) bilaterally Cardio Rate: regular rate Rhythm: regular rhythm Heart Sounds: S1 normal and S2 normal GI Inspection: obesity Palpation: soft Auscultation: normal bowel sounds General: CVA tenderness (improving) on the left Neuro General: patient alert, patient awake and patient oriented x3 Cranial Nerves: CN's II-XI intact bilaterally Extrem General: normal to inspection, no pedal edema and amputation noted Above the knee: right Objective Last Vital Signs Temp 36.8 C 08/14/20 08:17 Pulse 79 08/14/20 08:17 Resp 18 08/14/20 08:17 BP 149/82 H 08/14/20 08:17 Pulse Ox 95 08/14/20 08:17 Laboratory Results - last 24 hr 08/11/20 08/13/20 08/14/20 06:05 09:52 06:12 WBC RBC Hgb Hct MCV MCH MCHC RDW Plt Count MPV Immature Gran % Neutrophils % Lymphocytes % Monocytes % Eosinophils % Basophils % Metamyelocytes % Myelocytes % Nucleated RBC % Absolute Neutrophils Absolute Lymphocytes Absolute Monocytes Absolute Eosinophils Absolute Basophils RBC Morphology Poikilocytosis Basophilic Stippling Sodium 137 Potassium 3.4 L Chloride 101 Carbon Dioxide 23.9 Anion Gap 12.1 H BUN 16 Creatinine 0.97 Estimated GFR/1.73 m2 59.19 Glucose 225 H Calcium 9.4 Transferrin 173 L Urine Color Urine Clarity Urine pH Ur Specific [place] Urine Protein Urine Ketones Urine Blood Urine Nitrite Urine Bilirubin Urine Urobilinogen Ur Leukocyte Esterase Urine RBC Urine WBC Ur Epithelial Cells Urine Crystals Urine Bacteria Urine Casts Urine Mucus Urine Other Ur Culture Indicated? Urine Glucose Stl C.difficile Tox PCR Negative 08/14/20 08/14/20 06:12 10:05 WBC 7.33 RBC 3.23 L Hgb 9.4 L Hct 29.0 L MCV 89.8 MCH 29.1 MCHC 32.4 RDW 13.7 Plt Count 222 MPV 9.0 Immature Gran % [place] Neutrophils % 60.0 Lymphocytes % 19.0 Monocytes % 12.0 Eosinophils % 3.0 Basophils % 0.0 Metamyelocytes % 1 Myelocytes % 5 Nucleated RBC % 1 Absolute Neutrophils 4.40 Absolute Lymphocytes 1.39 Absolute Monocytes 0.88 H Absolute Eosinophils 0.22 Absolute Basophils 0.00 RBC Morphology See below Poikilocytosis 1+ Basophilic Stippling Present Sodium Potassium Chloride Carbon Dioxide Anion Gap BUN Creatinine Estimated GFR/1.73 m2 Glucose Calcium Transferrin Urine Color Yellow Urine Clarity Cloudy Urine pH 6.0 Ur Specific [place] >= 1.030 H Urine Protein 100 H Urine Ketones Trace H Urine Blood Trace-intact H Urine Nitrite Negative Urine Bilirubin Negative Urine Urobilinogen 0.2 Ur Leukocyte Esterase Small H Urine RBC Not Applicable Urine WBC >50 H Ur Epithelial Cells Moderate Urine Crystals Negative Urine Bacteria Moderate Urine Casts Negative Urine Mucus Negative Urine Other Few renal Ur Culture Indicated? No/sq. contamination Urine Glucose Negative Stl C.difficile Tox PCR
[2020-08-14] MEDS: traMADol 50 MG TAB PO (13:18)
[2020-08-14] MEDS: levoFLOXacin 500 MG, levoFLOXacin 250 MG 750 MG PO (13:19)
[2020-08-14 15:35] VITALS: BP 124/74; PULSE 83; RESP 18; TEMP 36.4; O2SAT 94
--- NOTE | 2020-08-14 15:49 | PT.INTREAT ---
Date of service: 08/14/20 Time of Service: 15:49 PT Notes Visit Reasons: Urinary tract infection Inpatient Physical Therapy Treatment Note [facility] Date: 08/14/2020 PRECAUTIONS: Non-Ambulatory SUBJECTIVE: Pushpa is agreeable to participating in PT. OBJECTIVE: PAIN: Patient c/o pain with pressure to R hip area during quad stretch BED MOBILITY/TRANSFERS Rolling L/R: S THEREX: Patient was instructed in several B LE strengthening exercises, in a long-sitting position, as per flow sheet. Also performed quad stretching to R LE 2 x 20 seconds, c/o R hip pain with pressure. PLAN: Continue with ther ex. TREATMENT CODE/TIME: 15 minutes; 63439
[2020-08-14 19:00] VITALS: BP 141/76; PULSE 85; RESP 18; TEMP 36.6; O2SAT 96
[2020-08-14] MEDS: Melatonin 3 MG TAB 9 MG PO (20:19)
[2020-08-14 23:55] VITALS: BP 152/75; PULSE 79; RESP 18; TEMP 36.6; O2SAT 96
[2020-08-15 06:48] LABS: Abs Immature Grans 0.93 10^3/uL (0.0-0.06); Absolute Basophil Count 0.09 10^3/uL (0.0-0.2); Absolute Eosinophil Count 0.26 10^3/uL (0.0-0.7); HCT 31.2 % (36.0-46.0); MCHC 32.1 % (32.0-36.0); MCV 90.4 fL (80-95); MPV 9.2 fL (8.0-11.0); Nucleated RBC 0 %; RBC 3.45 10^6/uL (3.93-5.22); RDW 13.9 % (11.7-14.6); RDW-SD 45.3 fL; WBC 8.52 10^3/uL (4.4-10.8)
[2020-08-15 06:54] LABS: Anion Gap 9.7 mmol/L (3-11); BUN 19 mg/dL (7-18); C-Reactive Protein 4.22 mg/dL (0.0-0.3); CO2 25.3 mmol/L (21.0-32.0); CREATININE 0.98 mg/dL (0.55-1.02); Calcium 9.6 mg/dL (8.5-10.1); Chloride 101 mmol/L (98-107); Glucose 198 mg/dL (74-106); Potassium 3.7 mmol/L (3.5-5.1); Sodium 136 mmol/L (136-145)
[2020-08-15 07:18] VITALS: BP 152/78; PULSE 78; RESP 17; TEMP 36.1; O2SAT 96
[2020-08-15 07:32] LABS: Platelet Count 261 10^3/uL (130-400)
[2020-08-15 07:33] LABS: Absolute Lymphocyte Count 2.13 10^3/uL (1.2-3.4); Absolute Monocyte Count 0.85 10^3/uL (0.1-0.8); Absolute Neutrophil Count 4.86 10^3/uL (1.2-6.7); Bands % 2; Diff Comment Manual Differential; Hypochromasia 1+; Metamyelocytes % 1; Myelocytes % 3
[2020-08-15 07:34] LABS: Poikilocytes 1+
[2020-08-15 07:37] LABS: Procalcitonin 0.2 ng/mL
[2020-08-15] MEDS: Acetaminophen 500 MG TAB 1000 MG PO (07:52)
[2020-08-15] MEDS: Gabapentin 400 MG CAP PO (07:52)
[2020-08-15] MEDS: Enoxaparin 40 MG/0.4 ML SYR SC (07:52)
[2020-08-15] MEDS: Ferrous Sulfate 325 MG TAB PO (07:53)
[2020-08-15] MEDS: Ascorbic Acid 500 MG TAB PO (07:53)
[2020-08-15] MEDS: Insulin Aspart 300 UNITS/3 ML PEN SC ×2 (07:53→11:58)
[2020-08-15] MEDS: levoFLOXacin 500 MG, levoFLOXacin 250 MG 750 MG PO (10:46)
--- NOTE | 2020-08-15 11:40 | W.PM.DS.N ---
Date of service: 08/15/20 Time of Service: 11:40 DS: Diagnosis Discharge Diagnosis (1) Sepsis: Status: Resolved (2) Pyelonephritis: Status: Acute Asessment and Plan: urine C&S positive for E. 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 (7) Amputated right leg: Status: Chronic (8) Hyperlipidemia: Status: Chronic (9) Overactive bladder: Status: Chronic (10) Chronic pain syndrome: Status: Chronic (11) COVID-19 ruled out by laboratory testing: Status: Ruled-out Discharge Plan Disposition Patient Disposition: HOME W/HOME HEALTH SERVICE Condition: Stable Discharge Details Reason For Visit: UTI Admit Date/Time: 08/11/20 10:00 Admit Provider: Parrish Merino Attending Provider: Parrish Merino Primary Care Provider: Joshua Nunes Hospital Course Hospital Course: Ms Kelly is a 55 year old female with PMHx of IDDM2, HTN, dislipidemia, ambulatory dysfunction s/p RLE AKA, who was treated on [facility] hospitalist service fron 08/09/2020 until 08/15/2020 for sepsis due to pyelonephritis caused by E. Coli. 1 blood culture out of 4 came back positive for Rothia spp, which in her clinical scenario is consistent with contamination. Repeat blood cultures were negative. Clinically, the patient has been steadily improving on levofloxacin. She had a negative ultrasound of her kidneys on 08/11/2020. She is ready for discharge home today with a 7 day course of levofloxacin to complete 2 weeks of antibiotics. She is going home with resumption of home health nursing. Care for patient as well as completion of her discharge summary took 40 minutes on day of discharge. Home Meds and New Rx's Prescriptions: New ascorbic acid (vitamin C) [Vitamin C] 500 mg Tablet 500 mg PO BID Qty: 60 RF: 0 ferrous sulfate 325 mg (65 mg iron) Tablet 325 mg PO BID Qty: 60 RF: 0 levofloxacin 750 mg Tablet 750 mg PO DAILY@1000 Qty: 7 RF: 0 Lactobacillus acidophilus [Acidophilus] Capsule 1,000 mmu cells PO DAILY Qty: 30 RF: 0 Continued Zyrtec 10 mg capsule 10 mg PO DAILY Qty: 90 RF: 4 fenofibrate nanocrystallized [Tricor] 48 mg tablet 48 mg PO BID Qty: 180 RF: 4 (DME) pen needle, diabetic [BD Ultra-Fine Dorie Pen Needle] 32 gauge x 5/32 needle 1 ea Sub-Q QID Qty: 360 RF: 6 prochlorperazine maleate [Compazine] 10 mg tablet 10 mg PO Q8H PRN (Reason: nausea and vomiting) Qty: 4 RF: 0 promethazine 25 mg tablet 25 mg PO Q6H PRN (Reason: nausea and vomiting) Qty: 10 RF: 0 melatonin 10 mg capsule 10 mg PO HS PRNRF: 0 (DME) blood-glucose meter [PlayyOnuch UltraMini] 1 EACH kit 1 ea Miscellaneous ONCE Qty: 1 RF: 0 acetaminophen [Tylenol Extra Strength] 500 MG tablet 2 tab PO TID RF: 0 (DME) Blood Glucose Test strip See Dose Instructions .ROUTE .MEDSUPPLY Qty: 400 RF: 5 (DME) ONETOUCH ULTRA TEST STRIPS strip 0 .Route .MEDSUPPLY Qty: 400 RF: 4 (DME) lancets [[place] CapitalTouch UltraSoft Lancets] Misc 1 ea Miscellaneous 2-3x/day Qty: 300 RF: 0 metoprolol succinate 25 mg tablet extended release 24 hr 25 mg PO DAILY Qty: 28 RF: 5 metformin 500 mg tablet 500 mg PO BID Qty: 56 RF: 5 lisinopril 10 mg tablet 10 mg PO DAILY Qty: 28 RF: 5 ondansetron 8 mg tablet,disintegrating 8 mg PO Q8H PRN (Reason: nausea and vomiting) Qty: 20 RF: 0 famotidine 40 mg tablet 40 mg PO DAILY Qty: 90 RF: 3 Lantus Solostar U-100 Insulin 100 unit/mL (3 mL) insulin pen 80 unit subcut QAM Qty: 5 RF: 12 cholecalciferol (vitamin D3) 25 mcg (1,000 unit) capsule 1,000 unit PO DAILY Qty: 28 RF: 5 multivitamin Tablet 1 tab PO DAILY Qty: 28 RF: 5 oxybutynin chloride 5 mg tablet 5 mg PO BID Qty: 56 RF: 5 rosuvastatin [Crestor] 10 mg tablet 10 mg PO HS Qty: 28 RF: 5 ibuprofen 600 mg tablet 600 mg PO BID PRN (Reason: pain) Qty: 180 RF: 4 bupropion HCl [Wellbutrin XL] 300 mg tablet extended release 24 hr 300 mg PO DAILY Qty: 28 RF: 5 gabapentin 800 mg tablet 800 mg PO BID Qty: 180 RF: 3 insulin aspart U-100 [Novolog Flexpen U-100 Insulin] 100 unit/mL (3 mL) insulin pen 20 unit Sub-Q 0800,1200,1700 Qty: 3 RF: 5 Discharge Instructions Instructions: Levofloxacin (By mouth), Kidney Infection (DC) Additional Instructions: Finish your antibiotics as prescribed. Return to the hospital with any fever, bleeding, chest pain, or shortness of breath. Care Plan Goals: Resumption of home health nursing. Stand Alone Forms: Nursing Discharge Form Referrals: Joshua Nunes DO [Primary Care Provider] - Activity:: Activity as Tolerated Equipment/Supplies:: No Equipment Needed Diet:: As Tolerated Discharge Orders Discharge Orders: Discharge Order (Routine); Ordered 08/15/20 Ordered By: Melanie Lund DS: Summary Status at Discharge Functional status at discharge: wheelchair bound Overall status at discharge: patient is progressing back to baseline Mental Status: mental status grossly normal Speech and Movement: speech and movement normal Mood: congruent mood Affect: normal affect Exam Narrative Exam Narrative: General: Obese female, A&Ox3, looks well HEENT: EOMI, MMM Heart: RRR, no m/r/g Lungs: CTAB Abdomen: soft, nontender, nondistended Extremities: s/p RLE AKA; LLE without edema/clubbing/cyanosis. Psych Mental Status: mental status grossly normal Speech and Movement: speech and movement normal Mood: congruent mood Affect: normal affect DS: Data Vitals/I&O Vitals and I&O: Vital Signs Temperature 36.1 C L 08/15/20 07:18 Temperature Source Temporal Artery Scan 08/15/20 07:18 Pulse 78 08/15/20 07:18 Pulse Rhythm Regular 08/15/20 07:59 Respiratory Rate 17 08/15/20 07:18 Respiratory Effort Non-Labored 08/15/20 07:59 Respiratory Depth Normal 08/15/20 07:59 Respiratory Pattern Normal 08/15/20 07:59 Blood Pressure 152/78 H 08/15/20 07:18 Blood Pressure Position Supine 08/09/20 10:26 Pulse Oximetry 96 08/15/20 07:18 Oxygen Delivery Method Room Air 08/15/20 07:18 Oxygen Flow Rate 0 08/15/20 07:18 Pain Level 8 08/15/20 07:52 Comment 08/14/20 03:39 Intake & Output 08/14/20 08/14/20 08/15/20 11:59 23:59 11:59 Intake Total 480 / 580 100 / 580 670 / 670 Balance 480 / 580 100 / 580 670 / 670 Intake: Oral 480 / 580 100 / 580 670 / 670 Other: Urine Color Yellow Yellow Yellow Urine Appearance Clear Clear Clear Urine Odor Normal Normal Normal Stool Size Smear Stool Characteristics Soft Voiding Methods Diaper Diaper Diaper Incontinent Incontinent Incontinent Data Completed and Pending Completed studies during hospitalization [Text1]: US abdomen 08/09/2020: No evidence of cholelithiasis. No evidence of acute cholecystitis. CT abdomen/pelvis 08/09/2020: Findings suggesting recently passed right ureteral stone with mild residual right hydronephrosis and hydroureter. In the setting of apparent infectious process, possibility of right pyelonephritis is also raised. US renal 08/11/2020: No evidence of hydronephrosis. Echo: This is a technically limited study. Left Ventricle : The left ventricle is normal size. The left ventricular systolic function is normal. The left ventricular ejection fraction is within the normal range. There is normal left ventricular wall thickness. There is normal LV segmental wall motion. The left ventricular diastolic function is normal. LVEF is 50-55%. Right Ventricle : Right ventricle is not well visualized. Right ventricular systolic function could not be assessed. Atria : Left atrium is not well visualized. Right atrium is not well visualized. Valves: There are no hemodynamically significant valvular lesions nor any vegetations visualized. Great Vessels : The aortic root is normal in size. The ascending aorta is borderline Aortic arch is not well visualized. dilated. The IVC was not visualized. Labs on day of discharge: Labs from last 24 hours 08/15/20 08/15/20 08/15/20 06:15 06:15 06:15 WBC 8.52 RBC 3.45 L Hgb 10.0 L Hct 31.2 L MCV 90.4 MCH 29.0 MCHC 32.1 RDW 13.9 Plt Count 261 MPV 9.2 Immature Gran % 0.0 Neutrophils % 55.0 Band Neutrophils % 2 Lymphocytes % 25.0 Monocytes % 10.0 Eosinophils % 3.0 Basophils % 1.0 Metamyelocytes % 1 Myelocytes % 3 Nucleated RBC % 0 Absolute Neutrophils 4.86 Absolute Lymphocytes 2.13 Absolute Monocytes 0.85 H Absolute Eosinophils 0.26 Absolute Basophils 0.09 RBC Morphology See below Hypochromasia 1+ Poikilocytosis 1+ Sodium 136 Potassium 3.7 Chloride 101 Carbon Dioxide 25.3 Anion Gap 9.7 BUN 19 H Creatinine 0.98 Estimated GFR/1.73 m2 58.50 Glucose 198 H Calcium 9.6 C-Reactive Protein 4.22 H Procalcitonin 0.2 Preliminary micro results at discharge 08/11/20 11:25 Blood Culture - Preliminary Blood NO GROWTH 72 HOURS 08/11/20 10:15 Blood Culture - Preliminary Blood NO GROWTH 72 HOURS [facility] Medical History Amputated right leg Immobility Wheelchair bound uses Marilyn lift for any transfers. Surgical History Dilation and curettage (06/25/18) with diagnostic hysteroscopy. aoc Fracture, Open Treatment left leg; trimalleolar fx-screw and fixation plate Replacement of total knee joint (~1998) right Family History Mother No problems noted. Father No problems noted. Sister No problems noted. Sister No problems noted. Sister No problems noted. Brother No problems noted. Grandfather No problems noted. Grandfather No problems noted. Grandmother No problems noted. Grandmother No problems noted. Son No problems noted. Social History Smoking/Tobacco Use Status: Former Tobacco Use Alcohol Intake: former Drug use: Never Substance use type: does not use Do you feel safe at home: Yes Do you feel safe in your relationship?: Yes
--- NOTE | 2020-08-15 13:11 | PT.INTREAT ---
Date of service: 08/15/20 Time of Service: 13:11 PT Notes Visit Reasons: Urinary tract infection Inpatient Physical Therapy Treatment Note [facility] Date: 08/14/2020 PRECAUTIONS: Non-Ambulatory SUBJECTIVE: Pushpa is agreeable to participating in PT. OBJECTIVE: PAIN: Patient c/o pain with pressure to R hip area during quad stretch BED MOBILITY/TRANSFERS Rolling L/R: S THEREX: Patient was instructed in several resisted B UE strengthening exercises, in a long-sitting position, as per flow sheet. She c/o B UE fatigue. Performed quad stretching to R LE 2 x 20 seconds, c/o R hip pain with pressure. PLAN: Continue with ther ex. TREATMENT CODE/TIME: 15 minutes; [id number]
--- NOTE | 2020-08-15 14:30 | PDOC.CMDIS ---
- If Service Date Differs Date of service: 08/15/20 Time of Service: 14:30 LACE Index Scoring Tool - Questions: Length of Stay (in days): 4 - 6 Acuity (Admit via E.D.?): Yes Comorbidities: Diabetes w/o Complication, Any Tumor E.D. Visits: 1 - Answers: Total Score: 11 Risk of Readmission: High Risk Care Management Discharge Reason for Hospitalization: UTI Discharge Plan: Pushpa will return home with a resumption of HH services. CM called HC and discussed the resumption of her care. CM coordinated transportation home via [employer]. She will follow up with her PCP and discharge plan of care. She is happy to be returning home. Patient/Family Education Needs: Review discharge instructions regarding activity levels and medications, discussion of self care needs and goals of care. Services Needed at Discharge: Home Health Care Services ([facility]), Transportation ([facility])
--- NOTE | 2020-08-15 15:28 | PT.INDS ---
Date of service: 08/15/20 Time of Service: 15:28 PT Notes Visit Reasons: Urinary tract infection Physical Therapy Inpatient Discharge Summary Date: 08/15/2020 Dates of Summary: 08/10/2020 through This is a clinical summary of care provided on the duration of dates listed above. No charge was made in the completion of this documentation. Referring Doctor: Julia Miles NP PT Orders: PT CONSULT: Eval/Treat Precautions: Fall. Standard. Non-ambulatory. Activity as tolerated. Patient Profile/Admitting Diagnosis: Pushpa is a 55-year-old lady with type II DM and right transfemoral limb loss who presented to the ED on 08/09/2020 with chief complaints of fatigue, generalized weakness, and diarrhea. She is diagnosed with urinary tract infection, hyperlipidemia, and overactive bladder. PMHX: Medical History (Updated 08/09/20 @ 14:20 by Julia Miles NP) Amputated right leg Immobility Wheelchair bound uses Marilyn lift for any transfers Surgical History Dilation and curettage (06/25/18) with diagnostic hysteroscopy. aoc Fracture, Open Treatment left leg; trimalleolar fx-screw and fixation plate Replacement of total knee joint (~1998) right Social History/Home Situation: Lives with in a private home in [place], [place]. Receives home health aide every day at least twice a day for all self-care, meals, medication preapration. Mobilizes indoors and outdoors using motorized wheelchair. Does all transfers using mechanical lift. Equipment Owned/DME: Motorized wheelchair, mechanical lift Subjective: NT. See most recent FLIGHT ENGINEER PERFORMANCE QUALIFIED notes. Objective: General Observation: NT. See most recent FLIGHT ENGINEER PERFORMANCE QUALIFIED notes. Mental Status: NT. See most recent FLIGHT ENGINEER PERFORMANCE QUALIFIED notes. Pain: NT. See most recent FLIGHT ENGINEER PERFORMANCE QUALIFIED notes. ROM: Right Upper Extremity: Shoulder Flexion WFL. Shoulder abduction WFL. Elbow flexion WFL. Wrist flexion WFL. Opening and closing of hand WFL. Left Upper Extremity: Shoulder flexion only has less than 50% available range. Shoulder abduction only has less than 50% available range. Elbow flexion fixed at about 90 degrees. Wrist flexion WFL. Opening and closing of hand WFL. Right Lower Extremity: Hip flexion allows 60 degrees. Hip extension only to neutral. Hip abduction allows about 20 degrees. Left Lower Extremity: Hip flexion allows 60 degrees. Hip abduction allows 20 degrees. Knee flexion allows 90 degrees. Ankle dorsiflexion only to neutral. Ankle plantarflexion allows 10 degrees. Strength: Right Upper Extremity: Shoulder flexors 3+/5. Shoulder abductors 3+/5. Elbow flexors 4-/5. Elbow extensors 3+/5. Multiple Knife Edge Trimmer Operator strong. Left Upper Extremity: Shoulder flexors 3-/5. Shoulder abductors 3-/5. Elbow flexors 1/5. Elbow extensors 1/5. Multiple Knife Edge Trimmer Operator strong. Right Lower Extremity: Hip flexors 3-/5. Hip abductors 3-/5. Knee flexors 3-/5. Left Lower Extremity: Hip flexors 3-/5. Hip abductors 3-/5. Knee flexors 3-/5. Knee extensors 3-/5. Ankle dorsiflexors 3-/5. Ankle plantarflexors 3-/5. Sensation: Intact as to pain and pressure on bilateral lower extremities. Bed Mobility/Transfers: Rolling moderate assist Supine to sit mechanical lift only Sit to supine mechanical lift only Sit to stand mechanical lift only Stand to sit mechanical lift only Bed to chair mechanical lift only Chair to bed mechanical lift only Gait: Non-ambulatory Balance: Static Sitting: NT Dynamic Sitting: NT Static Standing: NT Dynamic Standing: NT Assessment: Pushpa has been non-ambulatory for over 7 years now and uses a motorized wheelchair for all mobility tasks. She has caregivers at home who has been helping her with all self-care tasks, bathing, and dressing. She is agreeable to doing strengthenng exercises for her UE, LE and core while she is here. Patient continues to present with clinical signs and symptoms consistent with current/admitting diagnoses that have resulted to mobility limitations, gait instability, generalized weakness, and impairment of motor control as demonstrated by the following impairment level findings: 1. Decreased strength to B UE/LE major muscle groups 2. Impaired sitting/standing balance 3. Impaired activity tolerance 4. Limitation of joint range of motion in L shoulder and B hips Impairments are continuing to contribute to the following functional limitations: 1. Dependent bed mobility skills 2. Increased dependence with transfers 3. Inability to safely ambulate without assistive device and physical assistance 4. Increase completion time for mobility ADL performance 5. Increased fall risk 6. Inability to negotiate steps alone safely Goals: Goals X3 sessions 1. Patient will demonstrate 100% mastery of B UE, LE, and core exercises prior to home discharge. NOT MET. CONTIUE WITH HH PT DISCHARGE RECOMMENDATIONS: Resume HH services as previously. HH PT for exercise progression. TREATMENT CODE/TIME: ND Thank you for the opportunity to participate in the care of this patient. Maricarmen Jordan PT, DPT, CLT [facility] [place], [place]
== END 2020-08-15 14:17 | disposition home health service (06) | DRG 690 ==
LOC: ER 14:53 → MS 15:29
PROVIDERS: Nurse Practitioner Acute Care; Nurse Practitioner Family; Admitting Provider Internal Medicine; Emergency Provider Physician Assistant; PCP Emergency Medicine; Visit Provider Internal Medicine
DX: N13.6 Pyonephrosis (principal); Z68.41 Body mass index [BMI] 40.0-44.9, adult; N17.9 Acute kidney failure, unspecified; Z11.59 Encounter for screening for other viral diseases; B96.20 Unspecified Escherichia coli [E. coli] as the cause of diseases classified elsewhere; E11.9 Type 2 diabetes mellitus without complications; E66.9 Obesity, unspecified; D64.9 Anemia, unspecified; E78.5 Hyperlipidemia, unspecified; N32.81 Overactive bladder; G89.4 Chronic pain syndrome; Z89.611 Acquired absence of right leg above knee; Z79.4 Long term (current) use of insulin; Z99.3 Dependence on wheelchair
CPT/HCPCS: 36410; 36415; 76770; 80048; 80053; 84145; 87040; 87077; 87493; 93005; 96361; 96365; 96375; 97110; 97163; 97166; 97530; 97535; 99220; 99233; 99239; 99285; J1650; U0003; 74177; 76705; 81003; 81015; 82607; 82728; 82746; 83036; 83540; 83550; 83735; 84466; 84484; 85025; 85610; 85730; 86140; 87086; 87186; 93010; 93306; G0378; J0131; J0878; J1200; J1956; J2405; J3370; J3490

== ENCOUNTER 2020-10-06 22:04 | Outpatient (REF) | payer MEDICAID, SELFPAY ==
[2020-10-09 14:18] LABS: COVID-19 RT-PCR Result NEGATIVE (Negative)
== END 2020-10-06 22:24 ==
LOC: LBN 22:04
PROVIDERS: PCP Emergency Medicine; Visit Provider Emergency Medicine
DX: Z11.59 Encounter for screening for other viral diseases (principal)
CPT/HCPCS: U0003

== ENCOUNTER 2021-01-17 14:53 | Outpatient (CLI) | payer MEDICAID, SELFPAY ==
--- NOTE | 2021-01-17 14:52 | DI.RAD_ITS ---
EXAM: XR SHOULDER RT COMPLETE 2+V CLINICAL HISTORY: right shoulder pain. TECHNIQUE: 2D digital imaging was performed. COMPARISON: No exams were available for comparison FINDINGS: Limited two view study of the right shoulder reveals no evidence of fracture or dislocation. However , there is diminution of the subacromial space. This may be associated with rotator cuff pathology. AC joint appears unremarkable on the single view. No osseous lesions seen. IMPRESSION: DATA REPOSITORY: RADIATION DOSE DELIVERED:
== END 2021-01-17 14:54 | disposition home or self-care (01) ==
LOC: DIORS 14:54
PROVIDERS: PCP Emergency Medicine; Referring Provider Emergency Medicine; Visit Provider Student in an Organized Health Care Education/Training Program
DX: M25.511 Pain in right shoulder (principal)
CPT/HCPCS: 73030

== ENCOUNTER 2021-02-06 08:31 | Inpatient (IN) | payer MEDICAID, SELFPAY ==
[2021-02-06 08:36] VITALS: BP 150/51; PULSE 76; RESP 18; TEMP 36.6; O2SAT 95
--- NOTE | 2021-02-06 08:45 | RT.EKG_ITS ---
APPROVED REPORT Exam: Resting ECG Patient Location: E HR:68 bpm ECG Measurements Heart Rate 68 AXIS MS 166 P 18 QRSd 96 QRS 2 QT 435 T 33 QTc 465 Conclusion Sinus rhythm...normal P axis, V-rate 60- 99 Abnormal T,V2-V4, previously noted
--- NOTE | 2021-02-06 08:47 | ED.GENADUL_ITS ---
Discharge Plan Disposition Patient Disposition: [facility] INPATIENT Condition: Stable Discharge Details Chief Complaint: Nausea/Vomit/Diar Clinical Impression: UTI (urinary tract infection), Lactic acidosis, Hyperglycemia Primary Care Provider: Joshua Nunes ED Provider: Tho Carcamo Home Meds and New Rx's Prescriptions: No Action (DME) pen needle, diabetic [BD Ultra-Fine Dorie Pen Needle] 32 gauge x 5/32 needle 1 ea Sub-Q QID Qty: 360 RF: 6 prochlorperazine maleate [Compazine] 10 mg tablet 10 mg PO Q8H PRN (Reason: nausea and vomiting) Qty: 4 RF: 0 promethazine 25 mg tablet 25 mg PO Q6H PRN (Reason: nausea and vomiting) Qty: 10 RF: 0 melatonin 10 mg capsule 10 mg PO HS PRNRF: 0 (DME) blood-glucose meter [Anyad[employer] Education[employer] UltraMini] 1 EACH kit 1 ea Miscellaneous ONCE Qty: 1 RF: 0 acetaminophen [Tylenol Extra Strength] 500 MG tablet 2 tab PO TID RF: 0 (DME) ByteActiveTOUCH ULTRA TEST STRIPS strip 0 .Route .MEDSUPPLY Qty: 400 RF: 4 (DME) lancets [Quat-ETouch UltraSoft Lancets] Misc 1 ea Miscellaneous 2-3x/day Qty: 300 RF: 0 ondansetron 8 mg tablet,disintegrating 8 mg PO Q8H PRN (Reason: nausea and vomiting) Qty: 20 RF: 0 ibuprofen 600 mg tablet 600 mg PO BID PRN (Reason: pain) Qty: 180 RF: 4 insulin aspart U-100 [Novolog Flexpen U-100 Insulin] 100 unit/mL (3 mL) insulin pen 20 unit Sub-Q 0800,1200,1700 Qty: 3 RF: 5 nystatin 100,000 unit/gram powder 1 applic Topical DAILY Qty: 60 RF: 2 ascorbic acid (vitamin C) [Vitamin C] 500 mg tablet 500 mg PO BID Qty: 180 RF: 3 bupropion HCl [Wellbutrin XL] 300 mg tablet extended release 24 hr 300 mg PO DAILY Qty: 90 RF: 5 Zyrtec 10 mg capsule 10 mg PO DAILY Qty: 90 RF: 4 cholecalciferol (vitamin D3) 25 mcg (1,000 unit) capsule 1,000 unit PO DAILY Qty: 90 RF: 5 fenofibrate nanocrystallized [Tricor] 48 mg tablet 48 mg PO BID Qty: 180 RF: 4 gabapentin 800 mg tablet 800 mg PO BID Qty: 180 RF: 3 multivitamin Tablet 1 tab PO DAILY Qty: 90 RF: 5 oxybutynin chloride 5 mg tablet 5 mg PO BID Qty: 180 RF: 5 ferrous sulfate 325 mg (65 mg iron) tablet 325 mg PO BID Qty: 60 RF: 3 Lactobacillus acidophilus [Acidophilus] Capsule 1,000 mmu cells PO DAILY Qty: 30 RF: 3 lisinopril 10 mg tablet 10 mg PO DAILY Qty: 90 RF: 5 metformin 500 mg tablet 500 mg PO BID Qty: 180 RF: 5 metoprolol succinate 25 mg tablet extended release 24 hr 25 mg PO DAILY Qty: 90 RF: 5 rosuvastatin [Crestor] 10 mg tablet 10 mg PO HS Qty: 90 RF: 5 famotidine 40 mg tablet 40 mg PO DAILY Qty: 90 RF: 3 (DME) Blood Glucose Test Strip See Dose Instructions .ROUTE .MEDSUPPLY Qty: 400 RF: 5 Lantus Solostar U-100 Insulin 100 unit/mL (3 mL) insulin pen 80 unit subcut QAM Qty: 5 RF: 12 levofloxacin 750 mg Tablet 750 mg PO DAILY@1000 Qty: 7 RF: 0 Medical Decision Making 55-year-old female presents from home via EMS. She is wheelchair-bound diabetic who describes 3 days of malaise, nausea, vomiting, intermittent loose and watery stool. She is not had a cough or fever, no recent antibiotics. States that her blood glucoses have been high. She has unremarkable pulse and blood pressure, afebrile and interactive. Her exam is fairly unrevealing. Differential diagnosis includes dehydration, metabolic derangements, urinary tract infection, must consider C. difficile although she has not had recent antibiotics. IV access established, screening lab work, lactate, blood cultures and urinalysis obtained. CBC with white count 6, hematocrit 34, platelets 270, sodium 135, potassium 4.5, chloride 96, bicarb 26, BUN 28, creatinine 1.1. Magnesium low at 1.5. Glucose elevated 317. Lactic acid 2.9. Given the differential diagnosis, patient referred for CT images of the abdomen and pelvis as well as chest x-ray. These are notable for nonobstructing renal calculi, no evidence of enteritis. Chest x-ray unremarkable. Urinalysis positive for nitrites, leuk esterase. Consistent with UTI. Given her diabetes, poor mobility at home, elevated glucose, elevated lactic acid, will initiate parenteral antibiotics and I do feel she will benefit from admission. HPI General Mode of arrival: ambulatory . Date/Time Provider Initiated Documentation: 02/06/21 08:33 . Limitations to Documentation: no limitations . Information obtained by: patient . History of Present Illness 55 year old F presents to the emergency department with the chief complaint of Nausea, vomiting, diarrhea, elevated glucose, and is localized to the abdomen. Patient reports no radiation. Patient started experiencing this day(s) and it has been intermittent. No relieving factors improve symptom(s), No exacerbating factors reported . Patient notes loss of appetite and nausea/vomiting; denies chest pain, cough and fever/chills. Patient did receive the following treatments prior to arrival, none Related Data Home Medications Medication Instructions Recorded Confirmed blood-glucose meter [OneTouch #1 kit 10/28/13 11/21/20 UltraMini] acetaminophen [Tylenol Extra 2 tab PO TID 03/09/15 11/21/20 Strength] pen needle, diabetic 32 gauge x #360 pen 12/21/19 11/21/20 prochlorperazine maleate 10 mg 10 mg PO Q8H PRN #4 tab 12/21/19 11/21/20 tablet promethazine 25 mg tablet 25 mg PO Q6H PRN #10 tab 12/21/19 11/21/20 lancets #300 ea 12/23/19 11/21/20 ondansetron 8 mg disintegrating 8 mg PO Q8H PRN #20 tab 02/08/20 11/21/20 tablet ibuprofen 600 mg tablet 600 mg PO BID PRN #180 tab-cap 06/02/20 11/21/20 melatonin 10 mg capsule 10 mg PO HS PRN 06/20/20 11/21/20 insulin aspart U-100 100 unit/mL 20 unit SUB-Q 0800,1200,1700 #3 ml 08/08/20 11/21/20 (3 mL) subcutaneous pen levofloxacin 750 mg PO DAILY@1000 #7 tab 08/15/20 11/21/20 nystatin 100,000 unit/gram topical 1 applic TOPICAL DAILY #60 applic 09/26/20 11/21/20 powder ascorbic acid (vitamin C) 500 mg 500 mg PO BID #180 tab 11/15/20 11/21/20 tablet bupropion HCl 300 mg 24 hr tablet, 300 mg PO DAILY #90 tab-cap 11/15/20 11/21/20 extended release cetirizine 10 mg capsule 10 mg PO DAILY #90 tab-cap 11/15/20 11/21/20 cholecalciferol (vitamin D3) 25 1,000 unit PO DAILY #90 cap 11/15/20 11/21/20 mcg (1,000 unit) capsule fenofibrate nanocrystallized 48 mg 48 mg PO BID #180 tab 11/15/20 11/21/20 tablet gabapentin 800 mg tablet 800 mg PO BID #180 tab-cap 11/15/20 11/21/20 multivitamin 1 tab PO DAILY #90 tab-cap 11/15/20 11/21/20 oxybutynin chloride 5 mg tablet 5 mg PO BID #180 tab-cap 11/15/20 11/21/20 Lactobacillus acidophilus 1,000 mmu cells PO DAILY #30 cap 12/18/20 ferrous sulfate 325 mg (65 mg 325 mg PO BID #60 tab 12/18/20 iron) tablet lisinopril 10 mg tablet 10 mg PO DAILY #90 tab-cap 12/19/20 metformin 500 mg tablet 500 mg PO BID #180 tab-cap 12/19/20 metoprolol succinate 25 mg 25 mg PO DAILY #90 tab 12/19/20 tablet,extended release 24 hr rosuvastatin 10 mg tablet 10 mg PO HS #90 tab-cap 12/19/20 famotidine 40 mg tablet 40 mg PO DAILY #90 tab 01/12/21 blood sugar diagnostic #400 each 01/26/21 insulin glargine 100 unit/mL (3 80 unit SUBCUT QAM #5 box 01/26/21 mL) subcutaneous pen Previous Rx's Medication Instructions Recorded pen needle, diabetic 32 gauge x #360 pen 12/21/19 prochlorperazine maleate 10 mg 10 mg PO Q8H PRN #4 tab 12/21/19 tablet promethazine 25 mg tablet 25 mg PO Q6H PRN #10 tab 12/21/19 lancets #300 ea 12/23/19 ondansetron 8 mg disintegrating 8 mg PO Q8H PRN #20 tab 02/08/20 tablet ibuprofen 600 mg tablet 600 mg PO BID PRN #180 tab-cap 06/02/20 insulin aspart U-100 100 unit/mL 20 unit SUB-Q 0800,1200,1700 #3 ml 08/08/20 (3 mL) subcutaneous pen levofloxacin 750 mg PO DAILY@1000 #7 tab 08/15/20 nystatin 100,000 unit/gram topical 1 applic TOPICAL DAILY #60 applic 09/26/20 powder ascorbic acid (vitamin C) 500 mg 500 mg PO BID #180 tab 11/15/20 tablet bupropion HCl 300 mg 24 hr tablet, 300 mg PO DAILY #90 tab-cap 11/15/20 extended release cetirizine 10 mg capsule 10 mg PO DAILY #90 tab-cap 11/15/20 cholecalciferol (vitamin D3) 25 1,000 unit PO DAILY #90 cap 11/15/20 mcg (1,000 unit) capsule fenofibrate nanocrystallized 48 mg 48 mg PO BID #180 tab 11/15/20 tablet gabapentin 800 mg tablet 800 mg PO BID #180 tab-cap 11/15/20 multivitamin 1 tab PO DAILY #90 tab-cap 11/15/20 oxybutynin chloride 5 mg tablet 5 mg PO BID #180 tab-cap 11/15/20 Lactobacillus acidophilus 1,000 mmu cells PO DAILY #30 cap 12/18/20 ferrous sulfate 325 mg (65 mg 325 mg PO BID #60 tab 12/18/20 iron) tablet lisinopril 10 mg tablet 10 mg PO DAILY #90 tab-cap 12/19/20 metformin 500 mg tablet 500 mg PO BID #180 tab-cap 12/19/20 metoprolol succinate 25 mg 25 mg PO DAILY #90 tab 12/19/20 tablet,extended release 24 hr rosuvastatin 10 mg tablet 10 mg PO HS #90 tab-cap 12/19/20 famotidine 40 mg tablet 40 mg PO DAILY #90 tab 01/12/21 blood sugar diagnostic #400 each 01/26/21 insulin glargine 100 unit/mL (3 80 unit SUBCUT QAM #5 box 01/26/21 mL) subcutaneous pen Allergies Allergy/AdvReac Type Severity Reaction Status Date / Time vancomycin Allergy Intermediate Hives, Verified 02/06/21 08:40 Puritis, Red Man syndrome cefazolin Allergy HIVES Verified 02/06/21 08:40 oxacillin [Oxacillin] Allergy HIVES Verified 02/06/21 08:40 Penicillins Allergy HIVES Verified 02/06/21 08:40 gemfibrozil AdvReac INCREASED Verified 02/06/21 08:40 LFT'S morphine AdvReac NAUSEA Verified 02/06/21 08:40 General Stated Complaint: Nausea/Vomit/Diar DANIAL: 3 Review of Systems Narrative: No recent antibiotics, no known sick contacts, no chest pain or cough, no fever chills. See HPI, 8 systems reviewed and otherwise negative [facility] Medical History Amputated right leg Immobility Wheelchair bound uses Marilyn lift for any transfers. Right shoulder pain Surgical History (Updated 10/30/20 @ 22:24 by Cheryl Correia MD) Dilation and curettage (06/25/18) with diagnostic hysteroscopy. aoc Fracture, Open Treatment left leg; trimalleolar fx-screw and fixation plate History of robot-assisted laparoscopic hysterectomy 07/28/18. with BSO. Grade 1. Stage 1. 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 Father No problems noted. Sister No problems noted. Sister No problems noted. Sister No problems noted. Brother No problems noted. Grandfather No problems noted. Grandfather No problems noted. Grandmother No problems noted. Grandmother No problems noted. Son No problems noted. Social History Smoking/Tobacco Use Status: Former Tobacco Use Smoking risk assessment performed?: Yes Alcohol Intake: former Drug use: Never Substance use type: does not use Household members: spouse, children and other Details: previously lived alone with nursing support. Not happy having family back. Number of Children: 1 Education Level: high school Sexually active: No Current gender identity: female Do you feel safe at home: Yes Do you feel safe in your relationship?: Yes Exam Narrative Exam Narrative: GEN: awake, alert, oriented 3. Pleasant, well groomed, interactive. HEAD: Normocephalic, atraumatic ENT: Mucous membranes dry, oropharynx unremarkable, External ear exam unremarkable EYES: PERRL, EOMI NECK: Full ROM, no JIM, no menigismus CHEST/RESP: Nontender, clear to auscultation bilateral, no wheeze/rhonchi/rales CARDIOVASCULAR: RRR, no murmur, rub carlito. 2+ Rad pulse bilateral ABDOMEN: Soft, nontender, no mass. +Bowel sounds EXT: Right lower leg amputation, left leg warm, pink, dry, status post left great toe amputation. Neuro: Grossly normal neurologic exam, conversant, interactive. Psych: Speech fluent, thoughts congruent, affect normal Course Vital Signs Vital signs: Vital Signs Temperature 36.6 C 02/06/21 08:36 Pulse 76 02/06/21 08:36 Respiratory Rate 18 02/06/21 08:36 Blood Pressure 150/51 H 02/06/21 08:36 Pulse Oximetry 95 02/06/21 08:36 Temperature 36.6 C 02/06/21 08:36 Temperature Source Skin 02/06/21 08:36 Pulse 76 02/06/21 08:36 Respiratory Rate 18 02/06/21 08:36 Respiratory Effort Non-Labored 02/06/21 08:38 Blood Pressure 150/51 H 02/06/21 08:36 Blood Pressure Position Supine 02/06/21 08:36 Pulse Oximetry 95 02/06/21 08:36 Oxygen Delivery Method Room Air 02/06/21 08:36 Oxygen Flow Rate 0 02/06/21 08:36 Pain Level 10 02/06/21 08:36 Lab/Test Results Lab/Test Results: 02/06/21 08:44 Blood Blood Culture - Pending 02/06/21 08:44 Blood Blood Culture - Pending
[2021-02-06 09:07] LABS: Lactate 2.9 mmol/L (0.6-1.4)
[2021-02-06 09:08] LABS: Abs Immature Grans 0.09 10^3/uL (0.0-0.06); Absolute Basophil Count 0.03 10^3/uL (0.0-0.2); Absolute Eosinophil Count 0.04 10^3/uL (0.0-0.7); Absolute Lymphocyte Count 0.97 10^3/uL (1.2-3.4); Absolute Monocyte Count 0.47 10^3/uL (0.1-0.8); Absolute Neutrophil Count 5.36 10^3/uL (1.2-6.7); Basophils % 0.4; Eosinophils % 0.6; HCT 34.8 % (36.0-46.0); Immature Grans % 1.3; Lymphocytes % 13.9; MCH 29.6 pg (27.0-33.0); MCHC 31.6 % (32.0-36.0); MCV 93.8 fL (80-95); MPV 9.5 fL (8.0-11.0); Monocytes % 6.8; Nucleated RBC 0 %; Platelet Count 270 10^3/uL (130-400); RBC 3.71 10^6/uL (3.93-5.22); RDW 13.2 % (11.7-14.6); RDW-SD 45.1 fL; WBC 6.96 10^3/uL (4.4-10.8)
[2021-02-06 09:32] LABS: ALT 31 U/L (14-59); AST 25 U/L (15-37); Albumin 3.9 g/dL (3.4-5.0); Alkaline Phosphatase 66 U/L (46-116); Anion Gap 12.3 mmol/L (3-11); BUN 28 mg/dL (7-18); Bilirubin, Total 0.4 mg/dL (0.2-1.0); CO2 26.7 mmol/L (21.0-32.0); CREATININE 1.1 mg/dL (0.55-1.02); Calcium 9.7 mg/dL (8.5-10.1); Chloride 96 mmol/L (98-107); Glucose 317 mg/dL (74-106); Magnesium 1.5 mg/dL (1.8-2.4); Potassium 4.5 mmol/L (3.5-5.1); Sodium 135 mmol/L (136-145); Total Protein 7.4 g/dL (6.4-8.2)
[2021-02-06] MEDS: Normal Saline 1,000 ML 1000 ML IV (09:32)
[2021-02-06] MEDS: Ondansetron 4 MG/2 ML VIAL IVP (09:34)
--- NOTE | 2021-02-06 09:45 | DI.RAD_ITS ---
EXAM: XR CHEST 2V PA LATERAL CLINICAL HISTORY: n/v, diabetes TECHNIQUE: 2D digital imaging was performed. COMPARISON: CR XR CHEST 2V PA LATERAL from 09/21/2018 FINDINGS: The heart is not enlarged. The lungs are clear and well expanded. No pleural effusion seen. Mediastin al contours appear intact. IMPRESSION: Normal chest. RADIATION DOSE DELIVERED: Total DLP
[2021-02-06 09:57] LABS: Troponin I < 0.05 ng/mL (<0.06)
--- NOTE | 2021-02-06 10:20 | DI.CT_ITS ---
EXAM: CT ABDOMEN PELVIS W INDICATION: n/v, diarrhea, elev lactate. COMPARISON: CT CT ABDOMEN PELVIS W from 08/09/2020 TECHNIQUE: FINDINGS: CT examination of the abdomen and pelvis was performed with a bolus infusion of 100 cc of Omnipaque 3 50. Images obtained through the lung bases are unremarkable. The liver is mildly enlarged with typical appearance of hepatic steatosis.. Gallbladder and bile ducts are CT normal. Pancreas appears normal. Spleen is unremarkable in appearance. Adrenals appear normal. There [id number] left renal nonobstructing calculi. No evidence of hydronephrosis on either side. Ti ny lower pole nonobstructing right renal calculus is also noted. Couple of small apparent left renal cysts are noted. No solid renal mass identified. Abdominal aorta is of normal diameter and no major vascular abnormality is seen. Note is made of an IVC filter in position. No abdominal wall hernia. No abdominal or pelvic adenopathy. Uterus is atrophic or absent. Appendix is normal. No evidence of diverticulitis or bowel obstruction. IMPRESSION: Bilateral nonobstructing renal calculi. No evidence of acute intra-abdominal process. RADIATION DOSE DELIVERED: 1,414.52mGy.cm Total DLP 1,414.52mGy.cm Total DLP RADIATION OPTIMIZATION: All CT scans at this facility use at least one of these dose optimization te chniques: automated exposure control; mA and/or kV adjustment per patient size (includes targeted exa ms where dose is matched to clinical indication); or iterative reconstruction.
[2021-02-06] MEDS: Omnipaque 350 MG/ML 100 ML BTL IJ (10:21)
[2021-02-06] MEDS: Normal Saline - Diluent 50 ML VIAL IV (10:21)
[2021-02-06 11:12] LABS: Bilirubin Negative (Negative); Blood Trace-intact (Negative); Clarity Sl Cloudy (Clear); Glucose 500 mg/dL (Negative); Ketones Trace mg/dL (Negative); Leukocyte Esterase Trace (Negative); Nitrite Positive (Negative); Urobilinogen 0.2 EU/dL (Up TO 0.2); pH 6.5 (5-8)
[2021-02-06] MEDS: MAGNESIUM SULFATE 2 GM/50 ML BAG IVPB (11:26)
[2021-02-06 11:32] LABS: Bacteria Many HPF (Negative); C & S Indicated? Yes; Casts Negative LPF (Negative); Crystals Negative HPF (Negative); Epithelial Cells Few HPF (Negative); Mucus Negative (Negative); WBC 20-50 HPF (0-5)
[2021-02-06 11:33] LABS: COVID-19 PCR Negative (Negative)
[2021-02-06] MEDS: CIPROFLOXACIN 400 MG/200 ML BAG 200 MG IVPB (11:48)
[2021-02-06 13:21] VITALS: BP 161/83; PULSE 90; RESP 18; TEMP 36.6; O2SAT 98
[2021-02-06 13:58] VITALS: BP 161/83; PULSE 90; RESP 17; TEMP 36.6; O2SAT 98
[2021-02-06] MEDS: Heparin 5,000 UNITS/ML VIAL 5000 UNITS SC ×2 (14:55→22:49)
[2021-02-06] MEDS: Normal Saline 1,000 ML 150 ML IV ×2 (14:57→21:10)
[2021-02-06 15:31] VITALS: BP 151/80; PULSE 93; RESP 18; TEMP 36.1; O2SAT 96
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
[2021-02-06] MEDS: Insulin Aspart 300 UNITS/3 ML PEN SC ×2 (17:16→22:48)
[2021-02-06 18:24] LABS: Lactate 3.1 mmol/L (0.6-1.4)
[2021-02-06 19:45] VITALS: BP 155/69; PULSE 74; RESP 20; TEMP 36.6; O2SAT 95
[2021-02-06] MEDS: Oxybutynin 5 MG TAB PO (21:03)
[2021-02-06] MEDS: Fenofibrate, Micronized 48 MG TAB PO (21:03)
[2021-02-06] MEDS: Ascorbic Acid 500 MG TAB PO (21:03)
[2021-02-06] MEDS: Gabapentin 800 MG TAB PO (21:03)
[2021-02-06] MEDS: Ferrous Sulfate 325 MG TAB PO (21:04)
[2021-02-06] MEDS: Normal Saline Flush 10 ML SYR IVP (22:50)
[2021-02-06] MEDS: Mylanta Suspension 30 ML CUP PO (22:50)
[2021-02-06] MEDS: Melatonin 3 MG TAB 9 MG PO (22:51)
[2021-02-06] MEDS: Rosuvastatin 10 MG TAB PO (22:51)
[2021-02-06 23:09] VITALS: BP 115/58; PULSE 72; RESP 12; TEMP 37; O2SAT 96
[2021-02-07] MEDS: CIPROFLOXACIN 400 MG/200 ML BAG 200 MG IVPB ×2 (00:53→12:12)
[2021-02-07 02:44] VITALS: BP 117/60; PULSE 70; RESP 18; TEMP 36.3; O2SAT 96
[2021-02-07] MEDS: Normal Saline 1,000 ML 150 ML IV ×2 (04:32→11:22)
[2021-02-07] MEDS: Heparin 5,000 UNITS/ML VIAL 5000 UNITS SC ×3 (05:47→21:50)
[2021-02-07 05:48] LABS: Lactate 1.7 mmol/L (0.6-1.4)
[2021-02-07 05:50] LABS: Abs Immature Grans 0.05 10^3/uL (0.0-0.06); Absolute Basophil Count 0.02 10^3/uL (0.0-0.2); Absolute Eosinophil Count 0.12 10^3/uL (0.0-0.7); Absolute Lymphocyte Count 1.37 10^3/uL (1.2-3.4); Absolute Monocyte Count 0.55 10^3/uL (0.1-0.8); Absolute Neutrophil Count 3.04 10^3/uL (1.2-6.7); Basophils % 0.4; Eosinophils % 2.3; HCT 29.9 % (36.0-46.0); HGB 9.4 g/dL (11.2-15.7); Lymphocytes % 26.6; MCH 30.3 pg (27.0-33.0); MCHC 31.4 % (32.0-36.0); MCV 96.5 fL (80-95); MPV 9.1 fL (8.0-11.0); Monocytes % 10.7; Nucleated RBC 0 %; Platelet Count 197 10^3/uL (130-400); RDW 13.3 % (11.7-14.6); RDW-SD 46.5 fL; WBC 5.15 10^3/uL (4.4-10.8)
[2021-02-07] MEDS: Acetaminophen 325 MG TAB 650 MG PO ×2 (05:55→21:50)
[2021-02-07 05:58] LABS: Anion Gap 9.1 mmol/L (3-11); BUN 21 mg/dL (7-18); CO2 25.9 mmol/L (21.0-32.0); CREATININE 0.9 mg/dL (0.55-1.02); Calcium 8.2 mg/dL (8.5-10.1); Chloride 102 mmol/L (98-107); Glucose 244 mg/dL (74-106); Sodium 137 mmol/L (136-145)
[2021-02-07 07:54] VITALS: BP 126/58; PULSE 75; RESP 19; TEMP 37; O2SAT 93
[2021-02-07] MEDS: Insulin Glargine 300 UNITS/3 ML PEN 80 UNITS SC (08:22)
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
[2021-02-07] MEDS: Insulin Aspart 300 UNITS/3 ML PEN SC ×2 (08:23→12:11)
[2021-02-07] MEDS: Insulin Aspart 300 UNITS/3 ML PEN 20 UNITS SC ×3 (08:24→17:13)
[2021-02-07] MEDS: Nystatin POWDER 15 GM JAR TP (08:25)
[2021-02-07] MEDS: Cholecalciferol (Vitamin D3) 1,000 UNIT TAB 1000 UNITS PO (08:26)
[2021-02-07] MEDS: Metoprolol CR 25 MG TABCR PO (08:26)
[2021-02-07] MEDS: Ascorbic Acid 500 MG TAB PO ×2 (08:26→20:55)
[2021-02-07] MEDS: Lactobacillus Acidophilus CAP 1 CAP PO (08:26)
[2021-02-07] MEDS: Lisinopril 10 MG TAB PO (08:27)
[2021-02-07] MEDS: Fenofibrate, Micronized 48 MG TAB PO ×2 (08:27→20:55)
[2021-02-07] MEDS: Ferrous Sulfate 325 MG TAB PO ×2 (08:27→20:55)
[2021-02-07] MEDS: Cetirizine 10 MG TAB PO (08:27)
[2021-02-07] MEDS: Gabapentin 800 MG TAB PO ×2 (08:28→20:55)
[2021-02-07] MEDS: Ondansetron O.D.T. 4 MG TABEF 8 MG PO (08:28)
[2021-02-07] MEDS: buPROPion-XL 150 MG TABCR 300 MG PO (08:28)
[2021-02-07] MEDS: Famotidine 20 MG TAB 40 MG PO (08:28)
[2021-02-07] MEDS: Oxybutynin 5 MG TAB PO ×2 (08:28→20:55)
[2021-02-07] MEDS: Multivitamin TAB 1 TAB PO (08:29)
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
[2021-02-07 11:39] VITALS: BP 131/64; PULSE 73; RESP 18; TEMP 37; O2SAT 95
[2021-02-07 17:07] VITALS: BP 117/68; PULSE 77; RESP 18; TEMP 37; O2SAT 94
--- NOTE | 2021-02-07 19:31 | W.PM.PROGNOT ---
Date of Service Date of service: 02/07/21 Time of Service: 19:32 Assessment and Plan Assessment and plan (1) UTI (urinary tract infection): Status: Acute Assessment and plan: Present on admission, associated with nephrolithiasis. GNR >100,000 CFU Continue empiric cipro. D/c IVF. (2) Lactic acidosis: Status: Acute Assessment and plan: May also be related to being on metformin, but certainly dehydration from infection is a consideration. Hold metformin; lactate better. D/c IVF (3) Nausea, vomiting, and diarrhea: Status: Resolved Assessment and plan: No evidence of acute GI process on CT. Prn zofran, IVF. Diet as tolerated. (4) Hypomagnesemia: Status: Acute Assessment and plan: Repleted. Recheck in am. 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 Plan for discharge tomorrow Subjective Subjective Interval history since last seen: Feels a little better. No n/v/diarrhea. Denies dizziness, chest pain. We discussed her going home tomorrow. Exam Narrative Exam Narrative: General: pleasant middle-aged obese female, A&Ox3, nontoxic appearing HEENT: EOMI, MMM Heart: RRR, no m/r/g Lungs: CTAB GI: soft, nontender, nondistended Extremities: s/p R AKA; LLE w/o edema, clubbing/cyanosis, or lesions on foot. Objective Last Vital Signs Temp 37.0 C 02/07/21 17:07 Pulse 77 02/07/21 17:07 Resp 18 02/07/21 17:07 BP 117/68 02/07/21 17:07 Pulse Ox 94 02/07/21 17:07 Laboratory Results - last 24 hr 02/07/21 02/07/21 02/07/21 05:30 05:30 05:30 WBC 5.15 RBC 3.10 L Hgb 9.4 L Hct 29.9 L MCV 96.5 H MCH 30.3 MCHC 31.4 L RDW 13.3 Plt Count 197 MPV 9.1 Immature Gran % 1.0 Neutrophils % 59.0 Lymphocytes % 26.6 Monocytes % 10.7 Eosinophils % 2.3 Basophils % 0.4 Nucleated RBC % 0 Absolute Neutrophils 3.04 Absolute Lymphocytes 1.37 Absolute Monocytes 0.55 Absolute Eosinophils 0.12 Absolute Basophils 0.02 VBG Lactate 1.7 H Sodium 137 Potassium 4.0 Chloride 102 Carbon Dioxide 25.9 Anion Gap 9.1 BUN 21 H D Creatinine 0.9 Estimated GFR/1.73 m2 >= 60.00 Glucose 244 H Calcium 8.2 L Magnesium 2.0
[2021-02-07 20:48] VITALS: BP 124/60; PULSE 74; RESP 16; TEMP 36.9; O2SAT 96
[2021-02-07] MEDS: Normal Saline Flush 10 ML SYR IVP (20:55)
[2021-02-07 21:12] VITALS: BP 128/75; PULSE 76; RESP 17; TEMP 36.9; O2SAT 95
[2021-02-07] MEDS: Melatonin 3 MG TAB 9 MG PO (21:50)
[2021-02-07] MEDS: Rosuvastatin 10 MG TAB PO (21:51)
[2021-02-07] MEDS: Ibuprofen 600 MG TAB PO (21:51)
[2021-02-08 00:34] VITALS: BP 107/53; PULSE 77; RESP 18; TEMP 37; O2SAT 93
[2021-02-08] MEDS: Normal Saline Flush 10 ML SYR IVP ×2 (00:59→13:55)
[2021-02-08] MEDS: CIPROFLOXACIN 400 MG/200 ML BAG 200 MG IVPB ×2 (00:59→12:14)
[2021-02-08 04:34] VITALS: BP 128/63; PULSE 67; RESP 14; TEMP 36.3; O2SAT 94
[2021-02-08] MEDS: Heparin 5,000 UNITS/ML VIAL 5000 UNITS SC ×3 (05:44→22:03)
[2021-02-08 07:53] LABS: Abs Immature Grans 0.08 10^3/uL (0.0-0.06); Absolute Basophil Count 0.03 10^3/uL (0.0-0.2); Absolute Eosinophil Count 0.23 10^3/uL (0.0-0.7); Absolute Lymphocyte Count 1.47 10^3/uL (1.2-3.4); Absolute Monocyte Count 0.41 10^3/uL (0.1-0.8); Absolute Neutrophil Count 2.58 10^3/uL (1.2-6.7); Basophils % 0.6; Eosinophils % 4.8; HCT 30.8 % (36.0-46.0); HGB 9.7 g/dL (11.2-15.7); Immature Grans % 1.7; Lymphocytes % 30.6; MCH 30.3 pg (27.0-33.0); MCHC 31.5 % (32.0-36.0); MCV 96.3 fL (80-95); MPV 9.1 fL (8.0-11.0); Monocytes % 8.5; Neutrophils % 53.8; Nucleated RBC 0 %; Platelet Count 194 10^3/uL (130-400); RDW 13.3 % (11.7-14.6); RDW-SD 46.6 fL
[2021-02-08 07:55] VITALS: BP 148/76; PULSE 68; RESP 18; TEMP 36.4; O2SAT 95
[2021-02-08 08:03] LABS: BUN 19 mg/dL (7-18); Calcium 8.6 mg/dL (8.5-10.1); Chloride 104 mmol/L (98-107); Estimated GFR 57.15 (mL/min/1.73m2); Glucose 220 mg/dL (74-106); Potassium 4.1 mmol/L (3.5-5.1); Sodium 137 mmol/L (136-145)
[2021-02-08] MEDS: Insulin Aspart 300 UNITS/3 ML PEN SC ×3 (08:08→22:02)
[2021-02-08] MEDS: Insulin Glargine 300 UNITS/3 ML PEN 80 UNITS SC (08:13)
[2021-02-08] MEDS: Cholecalciferol (Vitamin D3) 1,000 UNIT TAB 1000 UNITS PO (09:42)
[2021-02-08] MEDS: buPROPion-XL 150 MG TABCR 300 MG PO (09:42)
[2021-02-08] MEDS: Fenofibrate, Micronized 48 MG TAB PO ×2 (09:42→20:01)
[2021-02-08] MEDS: Ascorbic Acid 500 MG TAB PO ×2 (09:43→20:02)
[2021-02-08] MEDS: Metoprolol CR 25 MG TABCR PO (09:43)
[2021-02-08] MEDS: Gabapentin 800 MG TAB PO ×2 (09:43→20:00)
[2021-02-08] MEDS: Lactobacillus Acidophilus CAP 1 CAP PO (09:43)
[2021-02-08] MEDS: Cetirizine 10 MG TAB PO (09:43)
[2021-02-08] MEDS: Famotidine 20 MG TAB 40 MG PO (09:43)
[2021-02-08] MEDS: Oxybutynin 5 MG TAB PO ×2 (09:43→20:00)
[2021-02-08] MEDS: Multivitamin TAB 1 TAB PO (09:44)
[2021-02-08] MEDS: Insulin Aspart 300 UNITS/3 ML PEN 20 UNITS SC ×3 (09:44→17:10)
[2021-02-08] MEDS: Ferrous Sulfate 325 MG TAB PO ×2 (09:44→20:02)
[2021-02-08] MEDS: Lisinopril 10 MG TAB PO (09:44)
[2021-02-08] MEDS: Nystatin POWDER 15 GM JAR TP (09:45)
--- NOTE | 2021-02-08 10:17 | CMPROGNOTE_ITS ---
- If Service Date Differs Date of service: 02/08/21 Time of Service: 10:17 Care Management Progress Note S/O:Pushpa was sitting up in bed when CM met with her. She stated that she is feeling better and would like to go home. CM explained that the provider verbalized that she would like to have her urine culture finalized first so she could be sure she was on the right antibiotic. Pushpa indicated she understood. Later this afternoon a discussion was held about discharging her but as it was p ast 4 pm, caregivers could not be arranged for her until tomorrow at 1:00pm. The plan will be for her to go home tomorrow morning. A: Pushpa is a 55 year old woman admitted on 02/06/21 with UTI and gastroenteritis P:Pushpa will be discharged home with a resumption of home health services. She will follow up with her community providers and transport via [facility] w/c van. CM will continue to support Pushpa and assess for discharge planning needs.
[2021-02-08 11:50] VITALS: BP 133/68; PULSE 58; RESP 18; TEMP 36.6; O2SAT 96
[2021-02-08] MEDS: Acetaminophen 325 MG TAB 650 MG PO ×2 (13:45→20:01)
[2021-02-08 15:27] VITALS: BP 140/60; PULSE 77; RESP 17; TEMP 36.9; O2SAT 95
--- NOTE | 2021-02-08 17:35 | W.PM.PROGNOT ---
Date of Service Date of service: 02/08/21 Time of Service: 17:35 Assessment and Plan Assessment and plan (1) UTI (urinary tract infection): Status: Acute Assessment and plan: Present on admission, associated with nephrolithiasis. GNR x2 >100,000 CFU, responding to empiric cipro. Await speciation/sensitivities. Continue empiric cipro. (2) Lactic acidosis: Status: Resolved Assessment and plan: May also be related to being on metformin, but certainly dehydration from infection is a consideration. Hold metformin. (3) Nausea, vomiting, and diarrhea: Status: Resolved Assessment and plan: No evidence of acute GI process on CT. Prn zofran, IVF. Diet as tolerated. (4) Hypomagnesemia: Status: Acute Assessment and plan: Repleted. Recheck in am. 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 Plan for discharge tomorrow Subjective Subjective Interval history since last seen: Feels better today and would like to go home. However, her caregivers are not available until tomorrow. Denies dizziness, chest pain, shortness of breath, nausea. Had back pain (chronic) this morning, much better now. Exam Narrative Exam Narrative: General: pleasant middle-aged obese female, A&Ox3, looks better HEENT: EOMI, MMM Heart: RRR, no m/r/g Lungs: CTAB GI: soft, nontender, nondistended Extremities: s/p R AKA; LLE w/o edema, clubbing/cyanosis, or lesions on foot. Objective Last Vital Signs Temp 36.9 C 02/08/21 15:27 Pulse 77 02/08/21 15:27 Resp 17 02/08/21 15:27 BP 140/60 02/08/21 15:27 Pulse Ox 95 02/08/21 15:27 Laboratory Results - last 24 hr 02/08/21 02/08/21 07:40 07:40 WBC 4.80 RBC 3.20 L Hgb 9.7 L Hct 30.8 L MCV 96.3 H MCH 30.3 MCHC 31.5 L RDW 13.3 Plt Count 194 MPV 9.1 Immature Gran % 1.7 Neutrophils % 53.8 Lymphocytes % 30.6 Monocytes % 8.5 Eosinophils % 4.8 Basophils % 0.6 Nucleated RBC % 0 Absolute Neutrophils 2.58 Absolute Lymphocytes 1.47 Absolute Monocytes 0.41 Absolute Eosinophils 0.23 Absolute Basophils 0.03 Sodium 137 Potassium 4.1 Chloride 104 Carbon Dioxide 26.0 Anion Gap 7.0 BUN 19 H Creatinine 1.0 Estimated GFR/1.73 m2 57.15 Glucose 220 H Calcium 8.6 Magnesium 2.0
[2021-02-08 19:11] VITALS: BP 119/57; PULSE 82; RESP 18; TEMP 37; O2SAT 96
[2021-02-08] MEDS: Rosuvastatin 10 MG TAB PO (22:01)
[2021-02-09] MEDS: CIPROFLOXACIN 400 MG/200 ML BAG 200 MG IVPB (00:15)
[2021-02-09] MEDS: Normal Saline Flush 10 ML SYR IVP (00:16)
[2021-02-09 00:25] VITALS: PULSE 84; RESP 20; TEMP 36.7; O2SAT 96
[2021-02-09 00:42] VITALS: BP 105/52
[2021-02-09 03:48] VITALS: BP 107/58; PULSE 84; RESP 18; TEMP 37.1; O2SAT 97
[2021-02-09] MEDS: Heparin 5,000 UNITS/ML VIAL 5000 UNITS SC (06:16)
[2021-02-09 08:17] VITALS: BP 126/66; PULSE 82; RESP 18; TEMP 36.8; O2SAT 96
[2021-02-09] MEDS: Lisinopril 10 MG TAB PO (08:18)
[2021-02-09] MEDS: Lactobacillus Acidophilus CAP 1 CAP PO (08:18)
[2021-02-09] MEDS: buPROPion-XL 150 MG TABCR 300 MG PO (08:18)
[2021-02-09] MEDS: Cholecalciferol (Vitamin D3) 1,000 UNIT TAB 1000 UNITS PO (08:18)
[2021-02-09] MEDS: Famotidine 20 MG TAB 40 MG PO (08:19)
[2021-02-09] MEDS: Fenofibrate, Micronized 48 MG TAB PO (08:19)
[2021-02-09] MEDS: Ferrous Sulfate 325 MG TAB PO (08:19)
[2021-02-09] MEDS: Gabapentin 800 MG TAB PO (08:19)
[2021-02-09 08:20] VITALS: O2SAT 96
[2021-02-09] MEDS: Multivitamin TAB 1 TAB PO (08:20)
[2021-02-09] MEDS: Oxybutynin 5 MG TAB PO (08:20)
[2021-02-09] MEDS: Cetirizine 10 MG TAB PO (08:20)
[2021-02-09] MEDS: Ascorbic Acid 500 MG TAB PO (08:20)
[2021-02-09] MEDS: Metoprolol CR 25 MG TABCR PO (08:20)
[2021-02-09] MEDS: Insulin Aspart 300 UNITS/3 ML PEN SC ×2 (08:21→11:53)
[2021-02-09] MEDS: Insulin Aspart 300 UNITS/3 ML PEN 20 UNITS SC ×2 (08:21→11:53)
[2021-02-09] MEDS: Insulin Glargine 300 UNITS/3 ML PEN 80 UNITS SC (08:22)
[2021-02-09] MEDS: Nystatin POWDER 15 GM JAR TP (08:23)
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
--- NOTE | 2021-02-09 13:39 | CMDISCH_ITS ---
- If Service Date Differs Date of service: 02/09/21 Time of Service: 13:39 LACE Index Scoring Tool - Questions: Length of Stay (in days): 3 Acuity (Admit via E.D.?): Yes Comorbidities: Diabetes w/o Complication E.D. Visits: 3 - Answers: Total Score: 10 Risk of Readmission: High Risk Care Management Discharge Reason for Hospitalization: UTI Discharge Plan: Pushpa will be discharged home with a resumption of home health services. She will follow up with her community providers and transport via ambulance coordinated by CM through [employer]. Patient/Family Education Needs: Review of discharge instructions, follow up agustín n, limitations, Ask Me Three Services Needed at Discharge: Home Health Care Services
== END 2021-02-09 12:36 | disposition home or self-care (01) | DRG 690 ==
LOC: ER 12:41 → MS 13:09
PROVIDERS: Family Medicine; Admitting Provider Internal Medicine; Emergency Provider Emergency Medicine; PCP Emergency Medicine; Visit Provider Internal Medicine
DX: N39.0 Urinary tract infection, site not specified (principal); E87.2 Acidosis; Z20.822 Contact with and (suspected) exposure to COVID-19; N20.0 Calculus of kidney; E83.42 Hypomagnesemia; R19.7 Diarrhea, unspecified; R11.2 Nausea with vomiting, unspecified; Z79.84 Long term (current) use of oral hypoglycemic drugs; Z68.38 Body mass index [BMI] 38.0-38.9, adult; E78.5 Hyperlipidemia, unspecified; Z87.440 Personal history of urinary (tract) infections; Z89.611 Acquired absence of right leg above knee; G89.4 Chronic pain syndrome; Z86.718 Personal history of other venous thrombosis and embolism; Z85.42 Personal history of malignant neoplasm of other parts of uterus; F32.9 Major depressive disorder, single episode, unspecified; E11.69 Type 2 diabetes mellitus with other specified complication; M90.8 Osteopathy in diseases classified elsewhere; G47.00 Insomnia, unspecified; E66.01 Morbid (severe) obesity due to excess calories; N32.81 Overactive bladder; Z66 Do not resuscitate; I10 Essential (primary) hypertension; B96.20 Unspecified Escherichia coli [E. coli] as the cause of diseases classified elsewhere
CPT/HCPCS: 36415; 51701; 80048; 80053; 87040; 87077; 87635; 93005; 96361; 96365; 96366; 96368; 96375; 97110; 97162; 97530; 99223; 99232; 99239; 99285; 71046; 74177; 81003; 81015; 83605; 83735; 84484; 85025; 87086; 87186; 93010; J0744; J1644; J2405; J3490

== ENCOUNTER 2021-02-11 18:34 | Emergency (ER) | payer MEDICAID, SELFPAY ==
[2021-02-11 18:37] VITALS: BP 157/56; PULSE 76; RESP 18; TEMP 36.6; O2SAT 97
--- NOTE | 2021-02-11 18:45 | DI.RAD_ITS ---
EXAM: XR PORTABLE CHEST AP CLINICAL HISTORY: fever, nausea and vomit. TECHNIQUE: 2D digital imaging was performed. COMPARISON: Prior chest x-ray 02/06/2021 FINDINGS: Heart size is normal. The mediastinum is not widened. Lungs are clear. No infiltrates nor obvious pleural effusions. Mild elevation right hemidiaphragm is again noted. Intramedullary jero noted in the left humeral head -neck. IMPRESSION: No acute pulmonary findings on this single AP portable view of the chest. DATA REPOSITORY: RADIATION DOSE DELIVERED: All CT scans at this facility use at least one of these dose optimization techniques: automated exposure control; mA and/or kV adjustment per patient size (includes targeted e xams where dose is matched to clinical indication); or iterative reconstruction.
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
[2021-02-11] MEDS: Normal Saline Flush 10 ML SYR IVP (19:35)
[2021-02-11] MEDS: Normal Saline 1,000 ML 1000 ML IV (19:41)
[2021-02-11 19:44] LABS: Lactate 1.9 mmol/L (0.6-1.4)
[2021-02-11] MEDS: Ondansetron 4 MG/2 ML VIAL IVP (19:44)
[2021-02-11 19:45] LABS: BE (Venous) 2 mmol/L (-2-3); HCO3 (Venous) 26 mmol/L (23-28); O2 Sat (Venous) 93 %; TCO2 (Venous) 24 mmol/L (24-29); pCO2 (Venous) 41 mmHg (41-51); pH (Venous) 7.41 (7.31-7.41); pO2 (Venous) 60 mmHg
[2021-02-11 19:47] LABS: Abs Immature Grans 0.12 10^3/uL (0.0-0.06); Absolute Basophil Count 0.03 10^3/uL (0.0-0.2); Absolute Eosinophil Count 0.15 10^3/uL (0.0-0.7); Absolute Lymphocyte Count 1.51 10^3/uL (1.2-3.4); Absolute Neutrophil Count 5.76 10^3/uL (1.2-6.7); Basophils % 0.4; Eosinophils % 1.8; HCT 36.6 % (36.0-46.0); HGB 11.4 g/dL (11.2-15.7); Immature Grans % 1.5; Lymphocytes % 18.3; MCH 29.4 pg (27.0-33.0); MCHC 31.1 % (32.0-36.0); MCV 94.3 fL (80-95); MPV 9.2 fL (8.0-11.0); Monocytes % 8.5; Neutrophils % 69.5; Nucleated RBC 0 %; Platelet Count 301 10^3/uL (130-400); RBC 3.88 10^6/uL (3.93-5.22); RDW 13.7 % (11.7-14.6); RDW-SD 46.7 fL; WBC 8.27 10^3/uL (4.4-10.8)
[2021-02-11 20:02] LABS: ALT 45 U/L (14-59); AST 40 U/L (15-37); Albumin 3.9 g/dL (3.4-5.0); Alkaline Phosphatase 78 U/L (46-116); BUN 25 mg/dL (7-18); Bilirubin, Direct 0.2 mg/dL (0.0-0.2); Bilirubin, Total 0.4 mg/dL (0.2-1.0); Calcium 10.1 mg/dL (8.5-10.1); Chloride 97 mmol/L (98-107); Estimated GFR 57.15 (mL/min/1.73m2); Glucose 182 mg/dL (74-106); Potassium 4.2 mmol/L (3.5-5.1); Sodium 136 mmol/L (136-145); Total Protein 7.8 g/dL (6.4-8.2)
--- NOTE | 2021-02-11 20:21 | DI.VRAD_ITS ---
PROCEDURE INFORMATION: Exam: XR Chest Exam date and time: 02/11/2021 7:57 PM Age: 55 years old Clinical indication: Fever and other: Nausea and vomiting; Patient HX: Fever, nausea and vomiting TECHNIQUE: Imaging protocol: XR of the chest. Views: 1 view. COMPARISON: CR XR CHEST 2V PA LATERAL 02/06/2021 10:19 AM FINDINGS: Lungs: Lungs are adequately inflated. No focal consolidation or pulmonary edema. Pleural spaces: No pleural effusion. No pneumothorax. Heart/Mediastinum: Cardiomediastinal contours within normal limits. Diaphragm: Slight asymmetric elevation of the right hemidiaphragm, similar to comparison. Bones/joints: Partially visualized fixation hardware within the proximal left humerus, not evaluated. No acute osseous finding. IMPRESSION: No acute cardiopulmonary finding. Dictated and Authenticated by: Sanchez Mistry MD. Ordering:ALLIE Lares MD
[2021-02-11] MEDS: Normal Saline - Diluent 50 ML VIAL IV (20:40)
[2021-02-11] MEDS: Omnipaque 350 MG/ML 100 ML BTL IJ (20:40)
--- NOTE | 2021-02-11 20:40 | DI.CT_ITS ---
EXAM: CT ABDOMEN PELVIS W CLINICAL HISTORY: abd pain, vomiting. TECHNIQUE: Imaging Protocol: Axial computed tomography images with coronal and sagittal reformatted images were created and reviewed CONTRAST MATERIAL: Intravenous: Omnipaque 100cc Oral: None COMPARISON: CT CT ABDOMEN PELVIS W from 02/06/2021 FINDINGS: VISUALIZED LUNG BASES: There is mild subpleural infiltrate in the lower most aspect of what appears t o be lateral segment of the right middle lobe, similar to previous and not associated with pleural ef fusion.. ABDOMEN: There is no ascites. LIVER: The liver is again noted to be hypodense implying steatosis. Liver size is slightly prominent . However, there are no ominous discrete focal hepatic lesions identified. GALLBLADDER/BILIARY: No obvious gallbladder pathology. CBD is not dilated. PANCREAS: No evidence of pancreatic mass nor dilatation of the pancreatic duct. SPLEEN: Spleen is not enlarged. No obvious intrasplenic lesions. Splenic and portal veins are paten t. ADRENALS: There are no significant adrenal masses. KIDNEYS:There is a small 3 millimeter calculus in the lower pole of the right kidney noted, slightly larger than previous but unchanged in position remaining nonobstructive. There is a 3 millimeter non obstructive calculus again noted in the middle pole of the left kidney. There is also a larger calcu samira in the left kidney measuring 6 x 5 millimeters at the junction of the inferior pole infundibulum and renal pelvis. This was previously within the renal pelvis. Mild dilatation of the collecting sy stem above this level. There is a 11 millimeter cyst in the lateral cortex of the left kidney. No s olid renal masses. No calculi nor hydronephrosis.. ABDOMINAL AORTA: Abdominal aorta is not enlarged. LYMPH NODES:There is no retroperitineal nor paraaortic adenopathy. ABDOMINAL WALL/GI: No evidence of significant anterior abdominal wall hernia. No bowel obstruction. IVC: There is an IVC filter again noted. The superior tip is located 3 centimetres below entrance of the left renal vein into the IVC. No evidence of Harmony op BC hematoma. There is no evidence of thro mbosis within the IVC above the nor below the filter level. PELVIS: GI: No evidence of appendicitis.Sigmoid is redundant, reaching the right-side of the pelvis. No evid ence of significant sigmoid diverticular disease. LYMPH NODES: There is no intrapelvic nor inguinal adenopathy. REPRODUCTIVE: Uterus is surgically absent. There are no abnormal adnexal masses nor free fluid. URINARY BLADDER: Urinary bladder wall is thickened uniformly, possibly related to under distension or other pathology such as chronic cystitis. No overt diverticuli evident. The bladder is not distend ed. OSSEOUS: Hardware is again noted in both hips. Fracture deformity of the anterior aspect of the left pubic ramus is again noted as is a healed fract ure in the inferior pubic stray miss on the opposite-right side. There is ankylosis of the right sac roiliac joint noted. There are no lytic osseous lesions evident. IMPRESSION: 1. Bilateral renal calculi as described above the largest calculus is in the left kidney measuring 6 x 5 millimeters at the junction of the renal pelvis and inferior pole infundibulum. There is mild di latation above this level. No gross hydronephrosis. Other bilateral renal calculi are smaller and n onobstructive. 2. IVC filter is again noted. No evidence of intraluminal thrombosis within the IVC at and above and below the IVC filter position. 3. Hepatic steatosis and hepatomegaly. No discrete ominous focal hepatic lesions identified. No dil atation of the biliary tree, both intra and extrahepatic. 4. Urinary bladder wall is uniformly thickened, either due to under distention or chronic cystitis. 5. Hardware in both hips again noted. Multiple pelvic fractures are unchanged. RADIATION DOSE DELIVERED: 1,601.57mGy.cm Total DLP DATA REPOSITORY: All CT scans at this facility are submitted to the National Radiology Data Registry (NRDR) Dose Index Registry (DIR) with the [employer] ([employer]). RADIATION OPTIMIZATION: All CT scans at this facility use at least one of these dose optimization te chniques: automated exposure control; mA and/or kV adjustment per patient size (includes targeted exa ms where dose is matched to clinical indication); or iterative reconstruction.
--- NOTE | 2021-02-11 20:56 | DI.VRAD_ITS ---
PROCEDURE INFORMATION: Exam: CT Abdomen And Pelvis With Contrast Exam date and time: 02/11/2021 8:15 PM Age: 55 years old Clinical indication: Abdominal pain; Generalized TECHNIQUE: Imaging protocol: Computed tomography of the abdomen and pelvis with contrast. Radiation optimization: All CT scans at this facility use at least one of these dose optimization techniques: automated exposure control; mA and/or kV adjustment per patient size (includes targeted exams where dose is matched to clinical indication); or iterative reconstruction. Contrast material: OMNIPAQUE 350; Contrast volume: 100 ml; Contrast route: INTRAVENOUS (IV); COMPARISON: CT ABDOMEN PELVIS W 02/06/2021 10:16 AM FINDINGS: Lungs: Lung bases are clear. Liver: Diffuse hypoattenuation of the liver consistent with Paddock steatosis. Liver is enlarged with right hepatic lobe measuring up to approximately 22.3 cm craniocaudad. No mass. Gallbladder and bile ducts: Unremarkable. No calcified stones. No ductal dilation. Pancreas: No mass. No pancreatic ductal dilation or peripancreatic inflammatory stranding. Spleen: No splenomegaly. No mass. Adrenal glands: No adrenal mass. Kidneys and ureters: Few subcentimeter hypodensities in the left kidney are too small to characterize, no imaging follow-up necessary. No hydronephrosis. There is 3-4 mm nonobstructive nephrolith within the inferior left renal pole collecting system with additional nonobstructive 3 mm nephrolith within the upper interpolar region. Ureters are normal in course and caliber. Stomach and bowel: Unremarkable. No obstruction. No mucosal thickening. Appendix: Within normal limits. Intraperitoneal space: No free air. No significant fluid collection. Vasculature: IVC filter is noted within the abdominal IVC. There are mild scattered atherosclerotic calcifications of the abdominal aorta and its major branches, no abdominal aortic aneurysm. Lymph nodes: No pathologically enlarged lymph nodes. Urinary bladder: Bladder is decompressed limiting evaluation, otherwise without focal abnormality. Reproductive: Uterus is absent. Bones/joints: Postsurgical changes of right hip arthroplasty and proximal left femoral internal fixation. There are posttraumatic changes of the medial left superior and inferior pubic rami as well as the left pubic bone. No acute fracture. Soft tissues: There is punctate fat containing periumbilical hernia. Within the anterolateral bilateral lower quadrant abdominal weathers there are soft tissue density ovoid densities measuring up to 1.5 cm in diameter there were not present on comparison exam, suspect possible injection sites given short interval development, correlate clinically. IMPRESSION: 1. No acute CT finding of the abdomen or pelvis. 2. Hepatomegaly with hepatic steatosis. 3. Additional nonacute findings as discussed. Dictated and Authenticated by: Sanchez Mistry MD. Ordering:ROD Lovett MD
[2021-02-11 21:04] VITALS: BP 151/51; PULSE 79; TEMP 36.5; O2SAT 99
[2021-02-11 21:22] LABS: Bilirubin Negative (Negative); Blood Moderate (Negative); Clarity Clear (Clear); Glucose Negative (Negative); Ketones Negative (Negative); Leukocyte Esterase Trace (Negative); Nitrite Negative (Negative); Specific Gravity 1.015 (1.005-1.025); Urobilinogen 0.2 EU/dL (Up TO 0.2)
[2021-02-11 21:26] LABS: Bacteria Negative HPF (Negative); C & S Indicated? No/Sq. Contamination; Casts Negative LPF (Negative); Crystals Negative HPF (Negative); Epithelial Cells Moderate HPF (Negative); Mucus Negative (Negative); Other Cells Negative (Negative)
[2021-02-11 22:47] VITALS: BP 145/57; PULSE 95; RESP 18; O2SAT 97
== END 2021-02-11 22:57 | disposition home or self-care (01) ==
PROVIDERS: Emergency Medicine; Emergency Provider Emergency Medicine; PCP Emergency Medicine
DX: R11.2 Nausea with vomiting, unspecified (principal); R10.9 Unspecified abdominal pain
CPT/HCPCS: 36415; 80053; 82805; 87040; 96361; 96374; 99285; 71045; 74177; 81003; 81015; 82248; 83605; 85025; 99283; J2405; J3490

== ENCOUNTER 2021-03-03 09:55 | Emergency (ER) | payer MEDICAID, SELFPAY ==
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
[2021-03-03 09:58] VITALS: BP 136/50; PULSE 85; RESP 16; TEMP 36.7; O2SAT 97
[2021-03-03] MEDS: Insulin Aspart 100 UNITS/ML UNIT 20 UNITS SC (10:39)
[2021-03-03] MEDS: Insulin Glargine 100 UNITS/ML UNIT 80 UNITS SC (10:39)
[2021-03-03 10:44] LABS: Bilirubin Negative (Negative); Blood Moderate (Negative); Clarity Sl Cloudy (Clear); Glucose Negative (Negative); Ketones Negative (Negative); Leukocyte Esterase Small (Negative); Nitrite Positive (Negative); Specific Gravity >= 1.030 (1.005-1.025); Urobilinogen 0.2 EU/dL (Up TO 0.2); pH 5.5 (5-8)
--- NOTE | 2021-03-03 10:49 | NUR.NOTE ---
Nursing Note: PT IN NAD. RESP EVEN AND UNLABORED. PROVIDED WITH ICE CHIPS.
[2021-03-03 10:53] LABS: Bacteria Many HPF (Negative); C & S Indicated? Yes; WBC >50 HPF (0-5)
[2021-03-03] MEDS: Ciprofloxacin 500 MG TAB PO (10:56)
--- NOTE | 2021-03-03 11:54 | NUR.NOTE ---
Nursing Note: PT IN NAD. AWAITING RCT FOR TRANSFER.
== END 2021-03-03 12:32 | disposition home or self-care (01) ==
PROVIDERS: Emergency Provider Physician Assistant; PCP Emergency Medicine
DX: E11.65 Type 2 diabetes mellitus with hyperglycemia (principal); N39.0 Urinary tract infection, site not specified
CPT/HCPCS: 36416; 82962; 87077; 99283; 81003; 81015; 87086; 87186; J1815

== ENCOUNTER 2021-03-23 19:36 | Outpatient (REF) | payer MEDICAID, SELFPAY ==
[2021-03-23 18:49] LABS: HCT 33.6 % (36.0-46.0); HGB 10.5 g/dL (11.2-15.7); MCH 29.8 pg (27.0-33.0); MCHC 31.3 % (32.0-36.0); MCV 95.5 fL (80-95); MPV 10.1 fL (8.0-11.0); Platelet Count 278 10^3/uL (130-400); RBC 3.52 10^6/uL (3.93-5.22); RDW-SD 48.6 fL; WBC 6.87 10^3/uL (4.4-10.8)
[2021-03-23 18:51] LABS: Anion Gap 13.1 mmol/L (3-11); BUN 34 mg/dL (7-18); CO2 22.9 mmol/L (21.0-32.0); CREATININE 1.4 mg/dL (0.55-1.02); Calcium 9.4 mg/dL (8.5-10.1); Chloride 105 mmol/L (98-107); Cholesterol 203 mg/dL (<200); Estimated GFR 38.76 (mL/min/1.73m2); Glucose 161 mg/dL (74-106); HDL Cholesterol 38 mg/dL (40-60); Potassium 4.8 mmol/L (3.5-5.1); Sodium 141 mmol/L (136-145); TSH 0.38 uIU/mL (0.36-3.74)
[2021-03-23 19:00] LABS: Triglyceride 974 mg/dL (<150)
[2021-03-23 19:10] LABS: LDL CHOLESTEROL 55 mg/dL (<100)
== END 2021-03-23 19:37 | disposition home or self-care (01) ==
LOC: LBN 19:36
PROVIDERS: PCP Emergency Medicine; Visit Provider Emergency Medicine
DX: E11.9 Type 2 diabetes mellitus without complications (principal); D64.9 Anemia, unspecified; E66.8 Other obesity; I10 Essential (primary) hypertension; E03.9 Hypothyroidism, unspecified
CPT/HCPCS: 80048; 80061; 83721; 85027; 83036; 84443

== ENCOUNTER 2021-04-21 19:52 | Emergency (ER) | payer MEDICAID, SELFPAY ==
[2021-04-21] VITALS (12 sets, daily range): BP systolic 90–149; BP diastolic 50–75; PULSE 91–103; RESP 16–25; TEMP 38–38.7; O2SAT 96–97
--- NOTE | 2021-04-21 20:15 | RT.EKG_ITS ---
APPROVED REPORT Exam: Resting ECG Reason for Exam: confusion Patient Location: E HR:96 bpm ECG Measurements Heart Rate 96 AXIS CA 133 P 25 QRSd 93 QRS -7 QT 335 T 6 QTc 424 Conclusion Sinus rhythm...normal P axis, V-rate 60- 99 Nonspecific T abnormalities, anterior leads...T <-0.10mV, V2-V4 I have reviewed and interpreted ECG and agree with software generated interpretation. There are no significant changes compared to prior EKG performed on 02/06/2021 at 09:48.
--- NOTE | 2021-04-21 20:15 | DI.RAD_ITS ---
Exam(s) XR CHEST 2V PA LATERAL EXAM: XR CHEST 2V PA LATERAL CLINICAL HISTORY: fever. TECHNIQUE: 2D digital imaging was performed. COMPARISON: CR,XR XR PORTABLE CHEST AP from 02/11/2021 FINDINGS: Heart size is normal. The mediastinum is not widened. Lungs are clear. No infiltrates nor pleural effusions. IMPRESSION: No acute pulmonary findings. DATA REPOSITORY: RADIATION DOSE DELIVERED:
[2021-04-21 20:33] LABS: Lactate 2.4 mmol/L (0.6-1.4)
[2021-04-21 20:35] LABS: BE (Venous) -4 mmol/L (-2-3); HCO3 (Venous) 22 mmol/L (23-28); O2 Sat (Venous) 89 %; TCO2 (Venous) 20 mmol/L (24-29); pCO2 (Venous) 38 mmHg (41-51); pH (Venous) 7.36 (7.31-7.41); pO2 (Venous) 53 mmHg
[2021-04-21 20:38] LABS: Abs Immature Grans 0.08 10^3/uL (0.0-0.06); Absolute Basophil Count 0.04 10^3/uL (0.0-0.2); Absolute Eosinophil Count 0.18 10^3/uL (0.0-0.7); Absolute Lymphocyte Count 0.87 10^3/uL (1.2-3.4); Basophils % 0.3; Eosinophils % 1.5; HCT 34.3 % (36.0-46.0); HGB 10.7 g/dL (11.2-15.7); Immature Grans % 0.7; Lymphocytes % 7.4; MCH 30.2 pg (27.0-33.0); MCHC 31.2 % (32.0-36.0); MCV 96.9 fL (80-95); MPV 9.6 fL (8.0-11.0); Monocytes % 7.4; Neutrophils % 82.7; Nucleated RBC 0 %; Platelet Count 225 10^3/uL (130-400); RBC 3.54 10^6/uL (3.93-5.22); RDW 13.8 % (11.7-14.6); RDW-SD 49.5 fL; WBC 11.82 10^3/uL (4.4-10.8)
[2021-04-21 20:39] LABS: Bilirubin Negative (Negative); Blood Moderate (Negative); Clarity Cloudy (Clear); Glucose 100 mg/dL (Negative); Ketones Negative (Negative); Leukocyte Esterase Large (Negative); Nitrite Positive (Negative); Specific Gravity 1.025 (1.005-1.025); Urobilinogen 0.2 EU/dL (Up TO 0.2); pH 5.5 (5-8)
[2021-04-21 20:40] LABS: Absolute Monocyte Count 0.87 10^3/uL (0.1-0.8); Absolute Neutrophil Count 9.78 10^3/uL (1.2-6.7)
[2021-04-21 20:47] LABS: RBC 20-50 HPF (0-2); WBC >50 HPF (0-5)
[2021-04-21 20:48] LABS: Bacteria Packed HPF (Negative); C & S Indicated? Yes
[2021-04-21 20:53] LABS: ALT 26 U/L (14-59); AST 18 U/L (15-37); Albumin 3.7 g/dL (3.4-5.0); Alkaline Phosphatase 60 U/L (46-116); Anion Gap 12.9 mmol/L (3-11); BUN 26 mg/dL (7-18); Bilirubin, Total 0.3 mg/dL (0.2-1.0); CO2 21.1 mmol/L (21.0-32.0); CREATININE 1.2 mg/dL (0.55-1.02); Calcium 9.2 mg/dL (8.5-10.1); Chloride 106 mmol/L (98-107); Glucose 195 mg/dL (74-106); Magnesium 1.5 mg/dL (1.8-2.4); Sodium 140 mmol/L (136-145); Total Protein 7.2 g/dL (6.4-8.2)
[2021-04-21 20:54] LABS: Troponin I < 0.05 ng/mL (<0.06)
[2021-04-21] MEDS: Acetaminophen 500 MG TAB 1000 MG PO (20:54)
[2021-04-21] MEDS: Lactated Ringers 1,000 ML 1000 ML IV (20:56)
[2021-04-21 21:01] LABS: Source Nasal/Nares
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
[2021-04-21] MEDS: levoFLOXacin 750 MG/150 ML BAG 100 MG IVPB (21:48)
[2021-04-21 21:52] LABS: COVID-19 PCR Negative (Negative)
[2021-04-21] MEDS: MAGNESIUM SULFATE 1 GM/100 ML BAG IVPB (22:04)
--- NOTE | 2021-04-21 22:08 | DI.VRAD_ITS ---
PROCEDURE INFORMATION: Exam: XR Chest Exam date and time: 04/21/2021 8:21 PM Age: 55 years old Clinical indication: Fever TECHNIQUE: Imaging protocol: XR of the chest. Views: 2 views. COMPARISON: CR XR PORTABLE CHEST AP 02/11/2021 7:52 PM FINDINGS: Lungs: Patchy atelectatic changes left lower lobe of the lung. There is no evidence of focal pulmonary consolidation. The pulmonary vasculature is normal. Pleural spaces: There is no evidence of pneumothorax. There are no pleural effusions present. Heart/Mediastinum: The heart is mildly enlarged. The cardiac silhouette is within normal limits. The mediastinum is normal. Bones/joints: The spine, sternum, ribs, and pectoral girdles show no evidence of acute abnormality Soft tissues: There are no soft tissue masses or calcifications. IMPRESSION: No definitive active cardiopulmonary disease. Dictated and Authenticated by: Melo Fleming MD. Ordering:VICKI Medina MD
== END 2021-04-21 22:30 ==
PROVIDERS: Emergency Provider Physician Assistant; PCP Emergency Medicine
DX: A41.9 Sepsis, unspecified organism (principal); N39.0 Urinary tract infection, site not specified; R65.20 Severe sepsis without septic shock
CPT/HCPCS: 36415; 51701; 80053; 82805; 87040; 87077; 87635; 93005; 96361; 96365; 96368; 99291; 71046; 81003; 81015; 83605; 83735; 84484; 85025; 87086; 87186; 93010; J1956; J3475

== ENCOUNTER 2021-06-18 19:34 | Inpatient (IN) | payer MEDICAID, SELFPAY ==
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
[2021-06-18 19:41] VITALS: BP 182/70; PULSE 110; RESP 18; TEMP 38.7; O2SAT 94
[2021-06-18] MEDS: ACETAMINOPHEN 1,000 MG/100 ML BTL 400 MG IVPB (20:14)
[2021-06-18] MEDS: Normal Saline 500 ML IV (20:14)
[2021-06-18] MEDS: Ondansetron 4 MG/2 ML VIAL IVP (20:14)
[2021-06-18 20:16] LABS: Lactate 2.3 mmol/L (0.6-1.4)
[2021-06-18 20:22] LABS: Abs Immature Grans 0.08 10^3/uL (0.0-0.06); Absolute Basophil Count 0.03 10^3/uL (0.0-0.2); Absolute Eosinophil Count 0.09 10^3/uL (0.0-0.7); Basophils % 0.2; Eosinophils % 0.7; HCT 34.9 % (36.0-46.0); HGB 10.9 g/dL (11.2-15.7); Immature Grans % 0.6; Lymphocytes % 3.9; MCH 29.8 pg (27.0-33.0); MCHC 31.2 % (32.0-36.0); MCV 95.4 fL (80-95); MPV 9.5 fL (8.0-11.0); Monocytes % 3.9; Neutrophils % 90.7; Nucleated RBC 0 %; Platelet Count 219 10^3/uL (130-400); RBC 3.66 10^6/uL (3.93-5.22); RDW 13.7 % (11.7-14.6); RDW-SD 47.9 fL; WBC 12.75 10^3/uL (4.4-10.8)
[2021-06-18 20:23] LABS: Absolute Neutrophil Count 11.56 10^3/uL (1.2-6.7)
[2021-06-18 20:32] LABS: Source Nasal/Nares
[2021-06-18 20:32] LABS: ALT 37 U/L (14-59); AST 25 U/L (15-37); Albumin 3.8 g/dL (3.4-5.0); Alkaline Phosphatase 63 U/L (46-116); Anion Gap 13.3 mmol/L (3-11); BUN 25 mg/dL (7-18); Bilirubin, Total 0.4 mg/dL (0.2-1.0); CO2 19.7 mmol/L (21.0-32.0); CREATININE 1.2 mg/dL (0.55-1.02); Calcium 9.3 mg/dL (8.5-10.1); Chloride 104 mmol/L (98-107); Estimated GFR 46.14 (mL/min/1.73m2); Glucose 282 mg/dL (74-106); Potassium 5.2 mmol/L (3.5-5.1); Sodium 137 mmol/L (136-145); Total Protein 7.4 g/dL (6.4-8.2)
[2021-06-18 20:58] LABS: Bilirubin Negative (Negative); Blood Large (Negative); Clarity Cloudy (Clear); Glucose Negative (Negative); Ketones Trace mg/dL (Negative); Leukocyte Esterase Large (Negative); Nitrite Positive (Negative); Specific Gravity >= 1.030 (1.005-1.025); Urobilinogen 0.2 EU/dL (Up TO 0.2); pH 5.5 (5-8)
--- NOTE | 2021-06-18 21:00 | RT.EKG_ITS ---
APPROVED REPORT Exam: Resting ECG Reason for Exam: hyperkalemia Patient Location: E HR:110 bpm ECG Measurements Heart Rate 110 AXIS SC 149 P 58 QRSd 95 QRS -9 QT 341 T -8 QTc 461 Conclusion Sinus tachycardia...rate> 99 Nonspecific T abnormalities, anterior leads...T <-0.10mV, V2-V4. No STEMI. No significant change from previous EKG. I have reviewed and interpreted ECG and agree with software generated interpretation.
[2021-06-18 21:08] LABS: Bacteria Many HPF (Negative); C & S Indicated? Yes; Casts Negative LPF (Negative); Crystals Negative HPF (Negative); Epithelial Cells Few HPF (Negative); Mucus Trace (Negative); WBC >50 HPF (0-5)
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
[2021-06-18 21:29] LABS: COVID-19 PCR Negative (Negative)
[2021-06-18] MEDS: CIPROFLOXACIN 400 MG/200 ML BAG 200 MG IVPB (21:48)
[2021-06-18 21:53] VITALS: BP 138/62; PULSE 109; RESP 18; TEMP 37.9; O2SAT 95
[2021-06-18] MEDS: Normal Saline Flush 10 ML SYR IVP (23:08)
[2021-06-18] MEDS: Normal Saline 1,000 ML 80 ML IV (23:08)
[2021-06-18 23:15] VITALS: BP 130/79; PULSE 109; RESP 18; TEMP 38.3; O2SAT 96
[2021-06-18 23:17] VITALS: BP 130/79; PULSE 109; RESP 18; TEMP 38.3; O2SAT 96
--- NOTE | 2021-06-19 | DI.US_ITS ---
Exam(s) US RENAL EXAM: US RENAL CLINICAL HISTORY: urosepsis; r/o pyelonephritis TECHNIQUE: Ultrasound performed using standard protocol. COMPARISON: US US ECHOCARDIOGRAM from 08/14/2020 FINDINGS: The kidneys are normal in size and shape, right kidney measures 10.2 x 5.5 x 6.7 cm and left kidney m easures 11.3 x 6.1 x 7.1 cm. There is no renal mass, hydronephrosis, or nephrolithiasis. Urinary bladder contains 132 cc of urine, the patient was unable to void. Ureteral jets were visuali zed bilaterally. No intrinsic bladder abnormality seen. IMPRESSION: Negative renal ultrasound. Patient was unable to void. DATA REPOSITORY:
[2021-06-19 03:23] VITALS: BP 133/74; PULSE 124; RESP 19; TEMP 38.6; O2SAT 94
[2021-06-19] MEDS: Normal Saline Flush 10 ML SYR IVP (03:23)
[2021-06-19] MEDS: Acetaminophen 325 MG TAB 650 MG PO ×3 (03:23→13:29)
[2021-06-19] MEDS: Ondansetron 4 MG/2 ML VIAL IVP ×2 (03:23→13:34)
[2021-06-19 05:31] VITALS: BP 102/67; PULSE 116; RESP 20; TEMP 38.9; O2SAT 96
[2021-06-19 06:15] VITALS: TEMP 37
[2021-06-19] MEDS: Ferrous Sulfate 325 MG TAB PO ×2 (08:13→19:50)
[2021-06-19] MEDS: Oxybutynin 5 MG TAB PO ×3 (08:14→19:50)
[2021-06-19] MEDS: Gabapentin 800 MG TAB PO ×2 (08:14→19:50)
[2021-06-19] MEDS: Famotidine 20 MG TAB 40 MG PO (08:14)
[2021-06-19] MEDS: Metoprolol CR 25 MG TABCR PO (08:14)
[2021-06-19] MEDS: Cetirizine 10 MG TAB PO (08:14)
[2021-06-19] MEDS: Fenofibrate, Micronized 48 MG TAB PO ×2 (08:14→19:49)
[2021-06-19] MEDS: buPROPion-XL 150 MG TABCR 300 MG PO (08:14)
[2021-06-19] MEDS: Lisinopril 10 MG TAB PO (08:14)
[2021-06-19] MEDS: Insulin Glargine 300 UNITS/3 ML PEN 40 UNITS SC ×2 (08:15→19:58)
[2021-06-19] MEDS: Insulin Aspart 300 UNITS/3 ML PEN SC ×4 (08:15→17:01)
[2021-06-19] MEDS: CIPROFLOXACIN 400 MG/200 ML BAG 200 MG IVPB ×2 (09:25→21:04)
[2021-06-19 09:38] LABS: Anion Gap 12.5 mmol/L (3-11); BUN 29 mg/dL (7-18); CO2 19.5 mmol/L (21.0-32.0); CREATININE 1.7 mg/dL (0.55-1.02); Calcium 8.6 mg/dL (8.5-10.1); Chloride 102 mmol/L (98-107); Estimated GFR 30.87 (mL/min/1.73m2); Glucose 378 mg/dL (74-106); Potassium 5.1 mmol/L (3.5-5.1); Sodium 134 mmol/L (136-145)
--- NOTE | 2021-06-19 10:35 | PHA.REVIEW ---
Pharmacy Admission Review - Admission Clinical Review (Last Reviewed 06/18/21 @ 21:26 by Walter Hernadez MD) UTI (urinary tract infection) (Acute) Sepsis (Acute) Vomiting (Acute) Altered mental status (Acute) vancomycin Allergy (Intermediate, Verified 06/18/21 19:44) Hives, Puritis, Red Man syndrome cefazolin Allergy (Verified 06/18/21 19:44) HIVES oxacillin [Oxacillin] Allergy (Verified 06/18/21 19:44) HIVES Penicillins Allergy (Verified 06/18/21 19:44) HIVES gemfibrozil Adverse Reaction (Verified 06/18/21 19:44) INCREASED LFT'S morphine Adverse Reaction (Verified 06/18/21 19:44) NAUSEA Resuscitation Status Full Code Height 5 ft 4 in Weight 101 kg - Renal Dosing Renal Dosing: BUN 29 mg/dL (7-18) H 06/19/21 08:50 Creatinine 1.7 mg/dL (0.55-1.02) H 06/19/21 08:50 Medications needing adjustments: Reviewed (CrCl~41.7 ml/min (adjusted BW), bupropion max dose 150mg/day recommended for CrCl 15-60 ml/min) - Anticoagulation Anticoagulation: Hgb 10.9 g/dL (11.2-15.7) L 06/18/21 20:03 Hct 34.9 % (36.0-46.0) L 06/18/21 20:03 Plt Count 219 10^3/uL (130-400) 06/18/21 20:03 Creatinine 1.7 mg/dL (0.55-1.02) H 06/19/21 08:50 DVT Prophylaxis: Intervened (not ordered - will notify ) Therapeutic Anticoagulation: N/A (No mention of DVT prophylaxis in H&P, history of DVT in PMH) - Opiate Usage Evaluate Pain Scale/Pains Meds: N/A - Relevant Labs Sodium 134 mmol/L (136-145) L 06/19/21 08:50 Potassium 5.1 mmol/L (3.5-5.1) 06/19/21 08:50 Chloride 102 mmol/L (98-107) 06/19/21 08:50 Electrolytes, C-Reactive P, ESR: Reviewed - DM Control DM Control: Glucose 378 mg/dL (74-106) H 06/19/21 08:50 Finger Stick Blood Glucose 342 Finger Stick Blood Glucose 342 Finger Stick Blood Glucose 342 Finger Stick Blood Glucose 342 Finger Stick Blood Glucose 301 Finger Stick Blood Glucose 301 Insulin Dosing: Reviewed (BG elevated, aspart sliding scale and glargine ordered. Home glargine rx says 80U daily -- will monitor to see if 40u BID as its ordered here is more effective at controlling BG which I suspect it will be) - Heart Failure/RI EF%, SANTI's, B-Blockers, Diuretics: Reviewed (Pt takes lisinopril and metoprolol) - BP Control BP Control: Blood Pressure 102/67 Blood Pressure 133/74 Blood Pressure 130/79 Blood Pressure 130/79 If elevated: N/A - Qtc Review If Elevated: N/A (QTc 461 upon admission, no current adjustments needed.) - IV to PO Switch IV Medications: Reviewed - Home Meds Home Med List reviewed: Reviewed Relevent Home Meds Not ordered & why?: Metformin (ss insulin ordered), ascorbic acid, Vitamin D3, acidophilus; of note: uses 20u of aspart with meals per home rx, oxybutynin rx states BID but med rec says TID -- will ask RN to clarify - Current meds Current Medication Order Review: Reviewed - Comments Comments/Follow Ups: Monitor BG, labs, and changes in current medications. Watch for culture results. Antibiotic Activity - Pharmacy Antibiotic Review Pharmacy Antibiotic Activity: Reviewed, no change (Waiting for cultures, pt on ciprofloxacin)
--- NOTE | 2021-06-19 11:02 | CHAPLAIN ---
Pushpa was sitting up in bed watching tv when I visited. She asked for help with the tv remote and for more water. When I asked if she's is in touch with any family or friends she told me no, and that she doesn't have any family to be in touch with. According to the ED note, she has a spouse and son who live with her, but previously she lived by herself. Pushpa was polite and pleasant but didn't seem to want a longer conversation.
[2021-06-19] MEDS: Ibuprofen 600 MG TAB PO (11:14)
[2021-06-19] MEDS: Normal Saline 1,000 ML 80 ML IV (11:15)
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
--- NOTE | 2021-06-19 12:36 | W.PM.PROGNOT ---
Date of Service Date of service: 06/19/21 Time of Service: 12:36 Assessment and Plan Assessment and plan (1) Sepsis: Status: Acute Assessment and plan: Patient seems to be responding to ciprofloxacin. We will continue the current course. If she was continuing to spike fevers and remained encephalopathic that I would broaden her antibiotics to a Carbapenem. I will check a renal ultrasound to evaluate for obstructive uropathy since no imaging was done last night. We will continue IV fluids but change to LR. Patient appears to be eating and drinking but in light of her continued NEHA I will keep him IV fluids for today and if she continues good oral intake we will discontinue her IV fluids. Qualifiers: Sepsis type: sepsis due to unspecified organism Sepsis acute organ dysfunction status: with acute organ dysfunction Severe sepsis acute organ dysfunction type: acute renal failure Acute renal failure type: with acute tubular necrosis Severe sepsis shock status: without septic shock Qualified Code(s): A41.9 - Sepsis, unspecified organism; R65.20 - Severe sepsis without septic shock; N17.0 - Acute kidney failure with tubular necrosis (2) Complicated UTI (urinary tract infection): Status: Acute Assessment and plan: As above (3) Acute kidney injury (NEHA) with acute tubular necrosis (ATN): Status: Acute (4) Altered mental status: Status: Resolved Assessment and plan: Acute delirium has resolved and was secondary to sepsis Qualifiers: Altered mental status type: delirium Qualified Code(s): R41.0 - Disorientation, unspecified (5) Nausea & vomiting: Status: Acute Assessment and plan: Secondary to sepsis and is since resolved. Qualifiers: Vomiting type: unspecified Vomiting Intractability: non-intractable Qualified Code(s): R11.2 - Nausea with vomiting, unspecified (6) Lactic acidosis: Status: Acute Assessment and plan: As of this morning her blood lactate remained elevated. For that reason we will continue IV hydration along with parenteral antibiotics including ciprofloxacin and monitor her levels. (7) DVT prophylaxis: Status: Acute Assessment and plan: patient was not started on DVT prophylaxis on admisson. I have added enoxaparin 30 mg SC daily (8) Discharge planning issues: Status: Acute Assessment and plan: upon resolution of her bacteremia and NEHA, she will return home w/ resumption of her home health services. Subjective Subjective Interval history since last seen: 56-year-old female with a frequent UTI, morbid obesity, diabetes, chronic pain syndrome, R AKA presents for confusion, vomiting, and fever. Evaluation in the ER included routine labs occluding CBC which demonstrated leukocytosis of 12,750 along with a stable anemia hemoglobin 10.9 g. BMP demonstrated acute kidney injury with elevated BUN of 29 creatinine 1.7. Patient has chronic kidney disease with a baseline creatinine of between 1.0 and 1.4. Urinalysis was suspicious for UTI with cloudy urine with specific gravity greater than 1.030 with 30 mg/dL protein, trace of ketones, large amount of blood, positive nitrites, large leukocyte esterase, 10-20 red cells and greater than 50 white cells and many bacteria. On arrival to the emergency department she was hypertensive blood pressure 182/70 however since that time her blood pressures dropped into the low normal range of 102/67. She was tachycardic on admission at 110 bpm has remained tachycardic this morning at 116 bpm. She has not been hypoxemic. This morning she states that she feels better not having any chills or rigors denies any shortness of breath or abdominal pain or nausea or vomiting. Initially she denied any pain but on exam she has some right flank pain. Urine blood cultures are coming back positive for GNR and her urine culture results are pending. She was started on Cipro and iv fluids. she is no longer confused and her nausea has resolved. In fact she is sititng up in bed watching TV and eating her lunch. Exam Narrative Exam Narrative: Obese female sitting up in bed watching TV eating her lunch she is alert and oriented. She appears to be in no distress and does not appear to be toxic Neck is obese no overt JVD normal carotid pulses Lungs are clear to auscultation Heart is regular rate and rhythm without appreciable murmur rub Abdomen soft nontender she has a well-healed midline scar from previous laparotomy Lower extremities she is status post right AKA with a well-healed stump. Left leg is without peripheral cyanosis or edema she has normal pedal pulses she is missing her left great toe. Objective Last Vital Signs Temp 37.0 C 06/19/21 06:15 Pulse 116 H 06/19/21 05:31 Resp 20 06/19/21 05:31 BP 102/67 06/19/21 05:31 Pulse Ox 96 06/19/21 05:31 Laboratory Results - last 24 hr 06/18/21 06/18/21 06/18/21 20:03 20:03 20:03 WBC 12.75 H RBC 3.66 L Hgb 10.9 L Hct 34.9 L MCV 95.4 H MCH 29.8 MCHC 31.2 L RDW 13.7 Plt Count 219 MPV 9.5 Immature Gran % 0.6 Neutrophils % 90.7 Lymphocytes % 3.9 Monocytes % 3.9 Eosinophils % 0.7 Basophils % 0.2 Nucleated RBC % 0 Absolute Neutrophils 11.56 H Absolute Lymphocytes 0.50 L Absolute Monocytes 0.50 Absolute Eosinophils 0.09 Absolute Basophils 0.03 VBG Lactate 2.3 H* Sodium 137 Potassium 5.2 H Chloride 104 Carbon Dioxide 19.7 L Anion Gap 13.3 H BUN 25 H Creatinine 1.2 H Estimated GFR/1.73 m2 46.14 Glucose 282 H Calcium 9.3 Total Bilirubin 0.4 AST 25 ALT 37 Alkaline Phosphatase 63 Total Protein 7.4 Albumin 3.8 Urine Color Urine Clarity Urine pH Ur Specific [place] Urine Protein Urine Ketones Urine Blood Urine Nitrite Urine Bilirubin Urine Urobilinogen Ur Leukocyte Esterase Urine RBC Urine WBC Ur Epithelial Cells Urine Crystals Urine Bacteria Urine Casts Urine Mucus Ur Culture Indicated? Urine Glucose COVID-19 Source SARS-CoV-2 (PCR) 06/18/21 06/18/21 06/19/21 20:25 20:47 08:50 WBC RBC Hgb Hct MCV MCH MCHC RDW Plt Count MPV Immature Gran % Neutrophils % Lymphocytes % Monocytes % Eosinophils % Basophils % Nucleated RBC % Absolute Neutrophils Absolute Lymphocytes Absolute Monocytes Absolute Eosinophils Absolute Basophils VBG Lactate Sodium 134 L Potassium 5.1 Chloride 102 Carbon Dioxide 19.5 L Anion Gap 12.5 H BUN 29 H Creatinine 1.7 H Estimated GFR/1.73 m2 30.87 Glucose 378 H Calcium 8.6 Total Bilirubin AST ALT Alkaline Phosphatase Total Protein Albumin Urine Color Yellow Urine Clarity Cloudy Urine pH 5.5 Ur Specific [place] >= 1.030 H Urine Protein 30 H Urine Ketones Trace H Urine Blood Large H Urine Nitrite Positive H Urine Bilirubin Negative Urine Urobilinogen 0.2 Ur Leukocyte Esterase Large H Urine RBC 10-20 H Urine WBC >50 H Ur Epithelial Cells Few Urine Crystals Negative Urine Bacteria Many Urine Casts Negative Urine Mucus Trace Ur Culture Indicated? Yes Urine Glucose Negative COVID-19 Source Nasal/Nares SARS-CoV-2 (PCR) Negative
[2021-06-19 13:29] VITALS: TEMP 38.8
[2021-06-19] MEDS: Lactated Ringers 1,000 ML 85 ML IV (13:34)
[2021-06-19 15:38] LABS: Lactate 2.1 mmol/L (0.6-1.4)
[2021-06-19 15:41] VITALS: BP 93/57; PULSE 91; RESP 18; TEMP 37.6; O2SAT 94
[2021-06-19] MEDS: Enoxaparin 30 MG/0.3 ML SYR SC (15:57)
[2021-06-19 16:09] LABS: Procalcitonin 22.1 ng/mL
[2021-06-19] MEDS: Rosuvastatin 10 MG TAB PO (19:50)
[2021-06-20] VITALS (16 sets, daily range): BP systolic 100–146; BP diastolic 63–75; PULSE 90–101; RESP 16–18; TEMP 37.6–39.7; O2SAT 94–99
[2021-06-20] MEDS: Acetaminophen 325 MG TAB 650 MG PO ×4 (00:48→23:33)
[2021-06-20] MEDS: Ondansetron 4 MG/2 ML VIAL IVP ×3 (00:51→12:54)
[2021-06-20] MEDS: Lactated Ringers 1,000 ML 85 ML IV (03:23)
[2021-06-20] MEDS: Oxybutynin 5 MG TAB PO ×3 (07:22→19:54)
[2021-06-20] MEDS: buPROPion-XL 150 MG TABCR 300 MG PO (07:22)
[2021-06-20] MEDS: Fenofibrate, Micronized 48 MG TAB PO ×2 (07:22→19:54)
[2021-06-20] MEDS: Gabapentin 800 MG TAB PO ×2 (07:23→19:54)
[2021-06-20] MEDS: Famotidine 20 MG TAB 40 MG PO (07:23)
[2021-06-20] MEDS: Cetirizine 10 MG TAB PO (07:23)
[2021-06-20] MEDS: Lisinopril 10 MG TAB PO (07:23)
[2021-06-20] MEDS: Ferrous Sulfate 325 MG TAB PO ×2 (07:23→19:54)
[2021-06-20] MEDS: Metoprolol CR 25 MG TABCR PO (07:23)
[2021-06-20] MEDS: Normal Saline Flush 10 ML SYR IVP ×2 (07:34→12:54)
[2021-06-20] MEDS: Insulin Glargine 300 UNITS/3 ML PEN 40 UNITS SC ×2 (07:58→20:46)
[2021-06-20] MEDS: Insulin Aspart 300 UNITS/3 ML PEN SC ×5 (07:58→17:14)
[2021-06-20] MEDS: Enoxaparin 30 MG/0.3 ML SYR SC (07:59)
[2021-06-20 08:43] LABS: Abs Immature Grans 0.16 10^3/uL (0.0-0.06); Absolute Basophil Count 0.03 10^3/uL (0.0-0.2); Absolute Lymphocyte Count 0.43 10^3/uL (1.2-3.4); Absolute Monocyte Count 0.73 10^3/uL (0.1-0.8); Absolute Neutrophil Count 11.25 10^3/uL (1.2-6.7); Basophils % 0.2; HGB 8.6 g/dL (11.2-15.7); Immature Grans % 1.3; Lymphocytes % 3.4; MCH 29.7 pg (27.0-33.0); MCHC 31.9 % (32.0-36.0); MCV 93.1 fL (80-95); MPV 9.5 fL (8.0-11.0); Monocytes % 5.8; Neutrophils % 89.3; Nucleated RBC 0 %; Platelet Count 161 10^3/uL (130-400); RDW 13.8 % (11.7-14.6); RDW-SD 47.1 fL
[2021-06-20 08:55] LABS: Anion Gap 10.5 mmol/L (3-11); BUN 34 mg/dL (7-18); CO2 20.5 mmol/L (21.0-32.0); CREATININE 1.8 mg/dL (0.55-1.02); Calcium 8.2 mg/dL (8.5-10.1); Chloride 98 mmol/L (98-107); Glucose 276 mg/dL (74-106); Potassium 4.7 mmol/L (3.5-5.1); Sodium 129 mmol/L (136-145)
[2021-06-20] MEDS: CIPROFLOXACIN 400 MG/200 ML BAG 200 MG IVPB (09:02)
[2021-06-20 09:05] LABS: C-Reactive Protein > 25.00 mg/dL (0.0-0.3)
--- NOTE | 2021-06-20 10:00 | DI.RAD_ITS ---
Exam(s) XR PORTABLE CHEST AP EXAM: XR PORTABLE CHEST AP CLINICAL HISTORY: fever. TECHNIQUE: 2D digital imaging was performed. COMPARISON: CR,XR XR CHEST 2V PA LATERAL from 04/21/2021 FINDINGS: Heart size is normal. The mediastinum is not widened. Lungs are clear. No infiltrates nor obvious pleural effusions. IMPRESSION: No acute pulmonary findings on this single AP portable view of the chest. DATA REPOSITORY: RADIATION DOSE DELIVERED: All CT scans at this facility use at least one of these dose optimization techniques: automated exposure control; mA and/or kV adjustment per patient size (includes targeted e xams where dose is matched to clinical indication); or iterative reconstruction.
--- NOTE | 2021-06-20 10:49 | CMPROGNOTE_ITS ---
- If Service Date Differs Date of service: 06/20/21 Time of Service: 10:50 Care Management Progress Note S/O: Pushpa was sitting up in bed when CM met with her. She reported that she is still feeling very sleepy today. She did not remember the encounter with CM yesterday. She reported that she still has caregivers 3x a day through [facility], which is provided by her [facility] Hig[employer] needs benefit. CM will inform [facility] when Pushpa is ready for discharge in order for her services to resume. Pushpa also s tated that she does not have her wheelchair at [facility], as she was transported via ambulance. CM will coordinate her transport to return when ready for discharge. CM will continue to follow. A: Pushpa is a 56 year old female admitted to [facility] on 06/18/21 with a UTI. P: Pushpa will be discharged home with a resumption of home health services, when medically cleared by . She will follow up with her community providers and transport via [facility] w/c van. CM will continue to support Pushpa and assess for discharge planning needs.
--- NOTE | 2021-06-20 10:49 | PDOC.CMPRO ---
- If Service Date Differs Date of service: 06/20/21 Time of Service: 10:50 Care Management Progress Note S/O: Pushpa was sitting up in bed when CM met with her. She reported that she is still feeling very sleepy today. She did not remember the encounter with CM yesterday. She reported that she still has caregivers 3x a day through [facility], which is provided by her [facility] Highest needs benefit. CM will inform [facility] when Pushpa is ready for discharge in order for her services to resume. Pushpa also stated that she does not have her wheelchair at [facility], as she was transported via ambulance. CM will coordinate her transport to return when ready for discharge. CM will continue to follow. A: Pushpa is a 56 year old female admitted to [facility] on 06/18/21 with a UTI. P: Pushpa will be discharged home with a resumption of home health services, when medically cleared by MD. She will follow up with her community providers and transport via [facility] w/c van. CM will continue to support Pushpa and assess for discharge planning needs.
--- NOTE | 2021-06-20 13:04 | W.PM.PROGNOT ---
Date of Service Date of service: 06/20/21 Time of Service: 13:04 Assessment and Plan Assessment and plan (1) Sepsis: Status: Acute Assessment and plan: Yesterday, she appeared much better and seemed to be responding to her treatment but today looks more ill and not eating and w/ persistent fevers w/ no other identifiable source other than her UTI. She has no signs of pyelonephritis and urine culture growing Klebsiella which should be sensitive to Cipro. I will switch to Meropenem for now. I checked an CXR to rule out pneumonia d/t her emesis. CXR is clear. Blood culture is also positive for gram negativ rods. Qualifiers: Sepsis type: sepsis due to unspecified organism Sepsis acute organ dysfunction status: with acute organ dysfunction Severe sepsis acute organ dysfunction type: acute renal failure Acute renal failure type: with acute tubular necrosis Severe sepsis shock status: without septic shock Qualified Code(s): A41.9 - Sepsis, unspecified organism; R65.20 - Severe sepsis without septic shock; N17.0 - Acute kidney failure with tubular necrosis (2) Complicated UTI (urinary tract infection): Status: Acute Assessment and plan: As above (3) Acute kidney injury (NEHA) with acute tubular necrosis (ATN): Status: Acute (4) Altered mental status: Status: Resolved Assessment and plan: Acute delirium has resolved and was secondary to sepsis Qualifiers: Altered mental status type: delirium Qualified Code(s): R41.0 - Disorientation, unspecified (5) Nausea & vomiting: Status: Acute Assessment and plan: Secondary to sepsis and is since resolved. Qualifiers: Vomiting type: unspecified Vomiting Intractability: non-intractable Qualified Code(s): R11.2 - Nausea with vomiting, unspecified (6) Lactic acidosis: Status: Resolved Assessment and plan: blood lactate now normal at 2.1. (7) DVT prophylaxis: Status: Acute Assessment and plan: patient was not started on DVT prophylaxis on admisson. I have added enoxaparin 30 mg SC daily (8) Discharge planning issues: Status: Acute Assessment and plan: upon resolution of her bacteremia and NEHA, she will return home w/ resumption of her home health services. Subjective Subjective Interval history since last seen: Patient w/ persistent fevers, nausea and vomiting. No abdominal pain. Renal US negative for pyelonephritis, stones or hydronephrosis or abscess. Urine culture + for Kebsiella pneumoniae which is resistant to ampicillin and intermediate to nitrofurantoin but sensitive to everything else. She is on day # 3 Cipro 400 mg IV Q12h. Given that she continues w/ fevers up to 39.7 C, I will now switch her to meropenem even though her sensitivities suggest she ought to respond to quinolones (Cipro or Levaquin). She has allergies to PCN and cephalosporins but no anaphylaxis. I have resumed her iv fluids and increased the rate to compensate for her fevers and ongoing fluid loss from emesis. Exam Narrative Exam Narrative: Ill, toxic appearing female who appears plethoric, no respiratory distress Lungs: clear Heart: regular, no murmur Abdomen: soft, nondistended, nontenders Leg (left): no calf or thigh edema; normal pedal pulses. Objective Last Vital Signs Temp 39.7 C H 06/20/21 12:22 Pulse 97 H 06/20/21 07:14 Resp 18 06/20/21 07:14 BP 115/72 06/20/21 07:14 Pulse Ox 96 06/20/21 07:14 Laboratory Results - last 24 hr 06/19/21 06/20/21 06/20/21 15:30 08:28 08:28 WBC 12.60 H RBC 2.90 L Hgb 8.6 L D Hct 27.0 L D MCV 93.1 MCH 29.7 MCHC 31.9 L RDW 13.8 Plt Count 161 MPV 9.5 Immature Gran % 1.3 Neutrophils % 89.3 Lymphocytes % 3.4 Monocytes % 5.8 Eosinophils % 0.0 Basophils % 0.2 Nucleated RBC % 0 Absolute Neutrophils 11.25 H Absolute Lymphocytes 0.43 L Absolute Monocytes 0.73 Absolute Eosinophils 0.00 Absolute Basophils 0.03 VBG Lactate 2.1 H Sodium 129 L Potassium 4.7 Chloride 98 Carbon Dioxide 20.5 L Anion Gap 10.5 BUN 34 H Creatinine 1.8 H Estimated GFR/1.73 m2 28.90 Glucose 276 H D Calcium 8.2 L C-Reactive Protein > 25.00 H Procalcitonin 22.1 Reviewed Pertinent PMH: Yes Objective Narrative Objective Narrative: labs and renal US reviewed and discussed w/ patient
[2021-06-20] MEDS: ACETAMINOPHEN 1,000 MG/100 ML BTL 400 MG IVPB (13:27)
[2021-06-20] MEDS: Normal Saline 500 ML 30 ML IVPB (14:14)
[2021-06-20] MEDS: MEROPENEM 1 GM in Normal Saline 100 ML IVPB (14:14)
[2021-06-20] MEDS: Lactated Ringers 1,000 ML 150 ML IV ×2 (16:06→22:34)
[2021-06-20] MEDS: Rosuvastatin 10 MG TAB PO (19:54)
[2021-06-20] MEDS: Naproxen 500 MG TAB PO (20:35)
--- NOTE | 2021-06-21 | DI.RAD_ITS ---
Exam(s) XR SHOULDER RT COMPLETE 2+V EXAM: XR SHOULDER RT COMPLETE 2+V CLINICAL HISTORY: chronic right shoulder pain. TECHNIQUE: 2D digital imaging was performed. COMPARISON: CR XR SHOULDER RT COMPLETE 2+V from 01/17/2021 FINDINGS: No evidence of fracture or dislocation or abnormal soft tissue calcifications. Some degenerative lesli nge in the glenohumeral joint is noted with a osteophyte on the inferior articular surface of the hum eral head. AC joint appears unremarkable. Bone density is age-appropriate. No osseous lesions evid ent. IMPRESSION: DATA REPOSITORY: RADIATION DOSE DELIVERED:
[2021-06-21 01:00] VITALS: TEMP 37.3
[2021-06-21] MEDS: MEROPENEM 1 GM in Normal Saline 100 ML IVPB ×2 (02:39→14:28)
[2021-06-21 03:14] VITALS: BP 103/60; PULSE 88; RESP 18; TEMP 37.3; O2SAT 95
[2021-06-21] MEDS: Lactated Ringers 1,000 ML 150 ML IV ×3 (05:44→22:24)
[2021-06-21 07:52] VITALS: BP 105/66; PULSE 83; RESP 16; TEMP 37.1; O2SAT 95
[2021-06-21] MEDS: Insulin Aspart 300 UNITS/3 ML PEN SC ×6 (08:35→17:43)
[2021-06-21] MEDS: buPROPion-XL 150 MG TABCR 300 MG PO (08:36)
[2021-06-21] MEDS: Enoxaparin 30 MG/0.3 ML SYR SC (08:36)
[2021-06-21] MEDS: Ferrous Sulfate 325 MG TAB PO ×2 (08:37→22:26)
[2021-06-21] MEDS: Cetirizine 10 MG TAB PO (08:37)
[2021-06-21] MEDS: Gabapentin 800 MG TAB PO ×2 (08:37→22:26)
[2021-06-21] MEDS: Metoprolol CR 25 MG TABCR PO (08:37)
[2021-06-21] MEDS: Fenofibrate, Micronized 48 MG TAB PO ×2 (08:37→22:26)
[2021-06-21] MEDS: Famotidine 20 MG TAB 40 MG PO (08:37)
[2021-06-21] MEDS: Oxybutynin 5 MG TAB PO ×3 (08:37→22:26)
[2021-06-21] MEDS: Insulin Glargine 300 UNITS/3 ML PEN 40 UNITS SC ×2 (08:41→22:43)
--- NOTE | 2021-06-21 10:25 | CMPROGNOTE_ITS ---
- If Service Date Differs Date of service: 06/21/21 Time of Service: 10:25 Care Management Progress Note S/O: Pushpa was sitting up in bed when CM met with her. She reported that she is feeling better today, and her fever has subsided. She asked CM for a word search book, which CM provided. CM discussed her discharge plan, which is to return home with a resumption of HH support. She reported that she does not have any further needs at this time. CM will continue to follow. A: Pushpa is a 56 year old female admitted to [facility] on 06/18/21 with a UTI. P: Pushpa will be discharged home with a resumption of home health services, when medically cleared by . She will follow up with her community providers and transport via [facility] w/c van. CM will continue to support Pushpa and assess for discharge planning needs.
--- NOTE | 2021-06-21 12:48 | PGE_ITS ---
Date of Service Date of service: 06/21/21 Time of Service: 12:48 Assessment and Plan Assessment and plan (1) Sepsis: Status: Acute Assessment and plan: clinically she looks improved. Unfortunately I did not order her labs for today, but she no longer appears toxic and is no longer nauseated nor having any vomiting. She is afebrile since last night. I will keep her on the meropenem even though she ought to have responded to the Cipro. Images of her kidneys showed no nidus of infection, i.e. no stones, no abscess and no pyelonephritis; I also checked CXR yesterday d/t her emesis to be sure she did not suffer aspiration pneumonitis. CXR was clear and she is not hypoxemic. Qualifiers: Acute renal failure type: with acute tubular necrosis Sepsis acute organ dysfunction status: with acute organ dysfunction Sepsis type: sepsis due to unspecified organism Severe sepsis acute organ dysfunction type: acute renal failure Severe sepsis shock status: without septic shock Qualified Code(s): A41.9 - Sepsis, unspecified organism; R65.20 - Severe sepsis without septic shock; N17.0 - Acute kidney failure with tubular necrosis (2) Complicated UTI (urinary tract infection): Status: Acute Assessment and plan: I am concerned that perhaps she is not adequately voiding however PVR difficult as she is often incontinent. 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 When she was admitted the windows application administrator reduced her Lantus in half at 40 units daily from 80 units. I have since increased her dose but split it in bid dosing. FBS this a.m. was 187 and lunch time has been 231. I also have her on Novolog reisistant sliding scale and CHO coverage w/ 2units per 10 gm CHO. I will increase her Lantus by 5 units twice a day to 45 units bid. I will also increase her meal coverage. (5) Altered mental status: Status: Resolved Assessment and plan: Acute delirium has resolved and was secondary to sepsis Qualifiers: Altered mental status type: delirium Qualified Code(s): R41.0 - Disorientation, unspecified (6) Nausea & vomiting: Status: Resolved Assessment and plan: Secondary to sepsis and is since resolved. Qualifiers: Vomiting Intractability: non-intractable Vomiting type: unspecified Qualified Code(s): R11.2 - Nausea with vomiting, unspecified (7) Lactic acidosis: Status: Resolved Assessment and plan: blood lactate now normal at 2.1. (8) DVT prophylaxis: Status: Acute Assessment and plan: patient was not started on DVT prophylaxis on admisson. I have added enoxaparin 30 mg SC daily (9) Right shoulder pain: Status: Chronic Assessment and plan: will get xray of her shoulder to see if she has evidence for arthritis or calcific tendinits; trial of volataren gel; if not improving then I will have her see ortho as outpatient Qualifiers: Chronicity: chronic Qualified Code(s): M25.511 - Pain in right shoulder; G89.29 - Other chronic pain (10) Discharge planning issues: Status: Acute Assessment and plan: upon resolution of her bacteremia and NEHA, she will return home w/ resumption of her home health services. Subjective Subjective Interval history since last seen: Patient denies any nausea or vomiting today. She is currently afebrile this morning. Last fever was last night at 11:30 PM she had a fever 38.7. Rest her vital signs are stable. She has no hypotension and no tachycardia and her oxygen saturations normal at 95% room air. She feels that she is improving her only complaint is right shoulder pain which has been a chronic issue for her. She speculated that she may have a rotator cuff injury. She denies any recent falls. She currently on meropenem day #2. She previously was on ciprofloxacin.She has Klebsiella bacteremia and Klebsiella in her urine. I will get a repeat blood culture in the morning. Told her she can't go home until we are sure that the bacteremia is cleared. I will get repeat blood cultures today now that she is afebrile. Exam Narrative Exam Narrative: Pleasant, obese female sitting up in her bed just having finished her lunch; she is alert and oriented and watching TV. She no longer looks toxic Lungs: clear Heart: regular rate and rhythm; no murmur Abdomen: soft and nondistended and nontender Flank: nontender Right shoulder: normal ROM; no visible swelling but tender w/ abduction Objective Last Vital Signs Temp 37.1 C 06/21/21 07:52 Pulse 83 06/21/21 07:52 Resp 16 06/21/21 07:52 BP 105/66 06/21/21 07:52 Pulse Ox 95 06/21/21 07:52
[2021-06-21] MEDS: Acetaminophen 325 MG TAB 650 MG PO ×2 (13:18→22:25)
[2021-06-21] MEDS: Normal Saline 500 ML 30 ML IVPB (14:27)
[2021-06-21 14:37] LABS: Absolute Basophil Count 0.02 10^3/uL (0.0-0.2); Absolute Eosinophil Count 0.07 10^3/uL (0.0-0.7); Absolute Lymphocyte Count 0.52 10^3/uL (1.2-3.4); Absolute Monocyte Count 0.51 10^3/uL (0.1-0.8); Absolute Neutrophil Count 5.64 10^3/uL (1.2-6.7); Basophils % 0.3; HCT 26.1 % (36.0-46.0); HGB 8.3 g/dL (11.2-15.7); Immature Grans % 1.5; Lymphocytes % 7.6; MCH 29.5 pg (27.0-33.0); MCHC 31.8 % (32.0-36.0); MCV 92.9 fL (80-95); MPV 10.1 fL (8.0-11.0); Monocytes % 7.4; Neutrophils % 82.2; Nucleated RBC 0 %; Platelet Count 190 10^3/uL (130-400); RBC 2.81 10^6/uL (3.93-5.22); RDW 13.9 % (11.7-14.6); RDW-SD 47.9 fL; WBC 6.86 10^3/uL (4.4-10.8)
[2021-06-21 14:52] LABS: Anion Gap 10.5 mmol/L (3-11); BUN 26 mg/dL (7-18); CO2 22.5 mmol/L (21.0-32.0); CREATININE 1.5 mg/dL (0.55-1.02); Calcium 8.7 mg/dL (8.5-10.1); Chloride 104 mmol/L (98-107); Estimated GFR 35.67 (mL/min/1.73m2); Glucose 264 mg/dL (74-106); Potassium 4.4 mmol/L (3.5-5.1); Sodium 137 mmol/L (136-145)
[2021-06-21 16:10] VITALS: BP 122/81; PULSE 94; RESP 20; TEMP 37.7; O2SAT 95
--- NOTE | 2021-06-21 16:10 | CHAPLAIN ---
Pushpa was sitting up in bed when I visited. She was doing a Bible word search. We had a casual conversation, which included her nurse as well. Pushpa was pleasant and seemed to both want to engage in a conversation, but also responded with quick, short answers. She seems comfortable being here.
[2021-06-21] MEDS: Diclofenac 1% Gel 100 GM TUBE TP ×2 (16:50→22:25)
[2021-06-21] MEDS: Normal Saline Flush 10 ML SYR IVP (22:25)
[2021-06-21] MEDS: Melatonin 3 MG TAB 9 MG PO (22:26)
[2021-06-21] MEDS: traZODone 50 MG TAB PO (22:26)
[2021-06-21] MEDS: Rosuvastatin 10 MG TAB PO (22:27)
[2021-06-21 23:47] VITALS: BP 138/72; PULSE 90; RESP 18; TEMP 37; O2SAT 93
[2021-06-22] MEDS: MEROPENEM 1 GM in Normal Saline 100 ML IVPB ×2 (01:48→14:57)
[2021-06-22 07:24] LABS: Abs Immature Grans 0.15 10^3/uL (0.0-0.06); Absolute Basophil Count 0.03 10^3/uL (0.0-0.2); Absolute Eosinophil Count 0.28 10^3/uL (0.0-0.7); Absolute Lymphocyte Count 0.91 10^3/uL (1.2-3.4); Absolute Monocyte Count 0.71 10^3/uL (0.1-0.8); Absolute Neutrophil Count 4.89 10^3/uL (1.2-6.7); Basophils % 0.4; HCT 26.5 % (36.0-46.0); HGB 8.4 g/dL (11.2-15.7); Immature Grans % 2.2; Lymphocytes % 13.1; MCH 29.4 pg (27.0-33.0); MCHC 31.7 % (32.0-36.0); MCV 92.7 fL (80-95); MPV 9.9 fL (8.0-11.0); Monocytes % 10.2; Neutrophils % 70.1; Nucleated RBC 0 %; Platelet Count 217 10^3/uL (130-400); RBC 2.86 10^6/uL (3.93-5.22); RDW 13.8 % (11.7-14.6); RDW-SD 47.5 fL; WBC 6.97 10^3/uL (4.4-10.8)
[2021-06-22 07:40] LABS: Anion Gap 9.2 mmol/L (3-11); BUN 22 mg/dL (7-18); CO2 26.8 mmol/L (21.0-32.0); CREATININE 1.4 mg/dL (0.55-1.02); Calcium 8.7 mg/dL (8.5-10.1); Chloride 106 mmol/L (98-107); Estimated GFR 38.62 (mL/min/1.73m2); Glucose 175 mg/dL (74-106); Potassium 4.5 mmol/L (3.5-5.1); Sodium 142 mmol/L (136-145)
[2021-06-22 07:51] VITALS: BP 135/75; PULSE 86; RESP 20; TEMP 36.1; O2SAT 85
[2021-06-22 08:00] LABS: C-Reactive Protein > 25.00 mg/dL (0.0-0.3)
[2021-06-22 08:01] LABS: Procalcitonin 5.6 ng/mL
[2021-06-22] MEDS: Famotidine 20 MG TAB 40 MG PO (08:10)
[2021-06-22] MEDS: Cetirizine 10 MG TAB PO (08:10)
[2021-06-22] MEDS: buPROPion-XL 150 MG TABCR 300 MG PO (08:10)
[2021-06-22] MEDS: Metoprolol CR 25 MG TABCR PO (08:10)
[2021-06-22] MEDS: Oxybutynin 5 MG TAB PO ×3 (08:10→20:10)
[2021-06-22] MEDS: Fenofibrate, Micronized 48 MG TAB PO ×2 (08:10→20:09)
[2021-06-22] MEDS: Ferrous Sulfate 325 MG TAB PO ×2 (08:10→20:10)
[2021-06-22] MEDS: Gabapentin 800 MG TAB PO ×2 (08:10→20:10)
[2021-06-22] MEDS: Diclofenac 1% Gel 100 GM TUBE TP ×4 (08:10→20:12)
[2021-06-22] MEDS: Insulin Aspart 300 UNITS/3 ML PEN SC ×6 (08:11→17:07)
[2021-06-22] MEDS: Enoxaparin 30 MG/0.3 ML SYR SC (08:11)
[2021-06-22] MEDS: Insulin Glargine 300 UNITS/3 ML PEN 40 UNITS SC (08:12)
[2021-06-22] MEDS: Acetaminophen 325 MG TAB 650 MG PO ×2 (09:54→20:10)
[2021-06-22] MEDS: Normal Saline Flush 10 ML SYR IVP ×2 (14:58→20:12)
--- NOTE | 2021-06-22 15:11 | W.PM.PROGNOT ---
Date of Service Date of service: 06/22/21 Time of Service: 15:12 Assessment and Plan Assessment and plan (1) Sepsis: Status: Acute Assessment and plan: Clinically improving since she was put on meropenem. Continue meropenem until we are sure that repeat blood culture shows no growth. Once the repeat blood cultures comes back negative she can be discharged home on oral antibiotics. I would treat her with fosfomycin 3 g p.o. every 3 days Qualifiers: Sepsis type: sepsis due to unspecified organism Sepsis acute organ dysfunction status: with acute organ dysfunction Severe sepsis acute organ dysfunction type: acute renal failure Acute renal failure type: with acute tubular necrosis Severe sepsis shock status: without septic shock Qualified Code(s): A41.9 - Sepsis, unspecified organism; R65.20 - Severe sepsis without septic shock; N17.0 - Acute kidney failure with tubular necrosis (2) Complicated UTI (urinary tract infection): Status: Acute Assessment and plan: Post void bladder volumes are low. PVRs discontinued. Continue meropenem as above. (3) Acute kidney injury (NEHA) with acute tubular necrosis (ATN): Status: Acute Assessment and plan: Repeat BUN and creatinine continue to improve. BUN is down to 22 creatinine 1.4. It appears that her baseline creatinine is around 1.2-1.4. Although it has been as low as 0.9 earlier this spring. This time I think she is euvolemic and does not need any further IV fluids. (4) DM manif NEC type II: Status: Chronic Assessment and plan: Lantus increased to 45 units twice a day. Continue to monitor blood sugars. Continue insulin resistant sliding scale along with carbohydrate coverage. (5) Nausea & vomiting: Status: Resolved Assessment and plan: Secondary to sepsis and is since resolved. Qualifiers: Vomiting type: unspecified Vomiting Intractability: non-intractable Qualified Code(s): R11.2 - Nausea with vomiting, unspecified (6) DVT prophylaxis: Status: Acute Assessment and plan: patient was not started on DVT prophylaxis on admisson. I have added enoxaparin 30 mg SC daily (7) Right shoulder pain: Status: Chronic Assessment and plan: Shoulder x-ray from yesterday showed no fracture dislocation nor any abnormal soft tissue calcifications. There are some degenerative changes in the glenohumeral joint with an osteophyte on the inferior articular surface the humeral head. AC joint appears unremarkable. Qualifiers: Chronicity: chronic Qualified Code(s): M25.511 - Pain in right shoulder; G89.29 - Other chronic pain (8) Discharge planning issues: Status: Acute Assessment and plan: upon resolution of her bacteremia and NEHA, she will return home w/ resumption of her home health services. Subjective Subjective Interval history since last seen: Patient is feeling markedly better. She is remained afebrile. Her last fever was on the evening of June 20. Repeat blood culture is pending at this time. I told the patient that once her repeat blood culture shows no growth she can go home on oral antibiotics. Although her Klebsiella pneumoniae urosepsis was reportedly sensitive to ciprofloxacin and levofloxacin her fever spikes did not resolve until she was put on meropenem. I called microbiology and they could not give me any information regarding local resistance patterns on Klebsiella. I suspect that this was a resistant organism even now her sensitivities allegedly were sensitive to quinolones. I think when she is discharged I would consider putting her on fosfomycin 3 g p.o. every 3 days x3 doses. I told her she would probably go home in the morning. She denies any nausea or vomiting she has been eating well and taking in adequate fluids. She does have problems with not always sensing when she has to void and she wears depends. I suggested that she got a see a urologist for follow-up. She reports having UTIs 6 months of the year. Exam Narrative Exam Narrative: Middle-age female sitting up in bed watching TV pleasant alert and oriented person place time circumstance. Lungs are clear to auscultation Heart regular rate and rhythm Abdomen soft nontender normal active bowel sounds nontender. Objective Last Vital Signs Temp 36.1 C L 06/22/21 07:51 Pulse 86 06/22/21 07:51 Resp 20 06/22/21 07:51 BP 135/75 06/22/21 07:51 Pulse Ox 85 L 06/22/21 07:51 Laboratory Results - last 24 hr 06/22/21 06/22/21 06/22/21 06:35 06:35 06:35 WBC 6.97 RBC 2.86 L Hgb 8.4 L Hct 26.5 L MCV 92.7 MCH 29.4 MCHC 31.7 L RDW 13.8 Plt Count 217 MPV 9.9 Immature Gran % 2.2 Neutrophils % 70.1 Lymphocytes % 13.1 Monocytes % 10.2 Eosinophils % 4.0 Basophils % 0.4 Nucleated RBC % 0 Absolute Neutrophils 4.89 Absolute Lymphocytes 0.91 L Absolute Monocytes 0.71 Absolute Eosinophils 0.28 Absolute Basophils 0.03 Sodium 142 Potassium 4.5 Chloride 106 Carbon Dioxide 26.8 Anion Gap 9.2 BUN 22 H Creatinine 1.4 H Estimated GFR/1.73 m2 38.62 Glucose 175 H D Calcium 8.7 C-Reactive Protein > 25.00 H Procalcitonin 5.6
[2021-06-22 15:42] VITALS: BP 134/69; PULSE 78; RESP 16; TEMP 37.3; O2SAT 93
--- NOTE | 2021-06-22 16:23 | CMPROGNOTE_ITS ---
- If Service Date Differs Date of service: 06/22/21 Time of Service: 16:23 Care Management Progress Note S/O: Pushpa was sitting up in bed when CM met with her. She reported that she is feeling better today. Per report, she will return home once her blood cultures are negative. They are currently still pending. She will likely have a new prescription for oral antibiotics upon discharge. CM called to inform them of her potential discharge over the weekend, as she has caregivers 3x/day provided by [facility]. She will require EMS transport via [facility] upon discharge. CM will continue to follow. A: Pushpa is a 56 year old female admitted to [facility] on 06/18/21 with a UTI. P: Pushpa will be discharged home with a resumption of home health services, when medically cleared by . She will follow up with her community providers and transport via EMS, [facility]. CM will continue to support Pushpa and assess for discharge planning needs.
[2021-06-22] MEDS: Rosuvastatin 10 MG TAB PO (20:10)
[2021-06-22] MEDS: Insulin Glargine 300 UNITS/3 ML PEN 45 UNITS SC (21:33)
[2021-06-22 23:56] VITALS: BP 134/69; PULSE 78; RESP 20; TEMP 36.8; O2SAT 98
[2021-06-23] MEDS: MEROPENEM 1 GM in Normal Saline 100 ML IVPB (02:35)
[2021-06-23] MEDS: Normal Saline 500 ML 30 ML IVPB (02:36)
[2021-06-23] MEDS: Normal Saline Flush 10 ML SYR IVP ×2 (02:36→03:55)
[2021-06-23] MEDS: Acetaminophen 325 MG TAB 650 MG PO (05:03)
[2021-06-23 07:41] VITALS: BP 144/78; PULSE 81; RESP 17; TEMP 36.6; O2SAT 92
[2021-06-23 08:01] LABS: Abs Immature Grans 0.35 10^3/uL (0.0-0.06); Absolute Basophil Count 0.05 10^3/uL (0.0-0.2); Absolute Eosinophil Count 0.35 10^3/uL (0.0-0.7); Absolute Monocyte Count 0.94 10^3/uL (0.1-0.8); Absolute Neutrophil Count 4.96 10^3/uL (1.2-6.7); Basophils % 0.6; Eosinophils % 4.5; HCT 26.5 % (36.0-46.0); HGB 8.2 g/dL (11.2-15.7); Immature Grans % 4.5; Lymphocytes % 14.2; MCHC 30.9 % (32.0-36.0); MCV 93.6 fL (80-95); MPV 9.2 fL (8.0-11.0); Monocytes % 12.1; Neutrophils % 64.1; Nucleated RBC 0 %; Platelet Count 230 10^3/uL (130-400); RBC 2.83 10^6/uL (3.93-5.22); RDW 13.7 % (11.7-14.6); RDW-SD 47.7 fL; WBC 7.75 10^3/uL (4.4-10.8)
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
[2021-06-23 08:23] LABS: Diff Comment RBC Morph Reviewed; RBC Morphology Normal
[2021-06-23 08:43] LABS: Anion Gap 7.4 mmol/L (3-11); BUN 20 mg/dL (7-18); C-Reactive Protein 12.15 mg/dL (0.0-0.3); CO2 27.6 mmol/L (21.0-32.0); CREATININE 1.3 mg/dL (0.55-1.02); Calcium 8.6 mg/dL (8.5-10.1); Chloride 105 mmol/L (98-107); Estimated GFR 42.07 (mL/min/1.73m2); Glucose 121 mg/dL (74-106); Potassium 4.6 mmol/L (3.5-5.1); Sodium 140 mmol/L (136-145)
[2021-06-23] MEDS: buPROPion-XL 150 MG TABCR 300 MG PO (09:13)
[2021-06-23] MEDS: Cetirizine 10 MG TAB PO (09:14)
[2021-06-23] MEDS: Ferrous Sulfate 325 MG TAB PO (09:14)
[2021-06-23] MEDS: Gabapentin 800 MG TAB PO (09:14)
[2021-06-23] MEDS: Metoprolol CR 25 MG TABCR PO (09:14)
[2021-06-23] MEDS: Famotidine 20 MG TAB 40 MG PO (09:14)
[2021-06-23] MEDS: Oxybutynin 5 MG TAB PO (09:14)
[2021-06-23] MEDS: Fenofibrate, Micronized 48 MG TAB PO (09:14)
[2021-06-23] MEDS: Diclofenac 1% Gel 100 GM TUBE TP ×2 (09:15→12:29)
[2021-06-23] MEDS: Enoxaparin 30 MG/0.3 ML SYR SC (09:15)
[2021-06-23] MEDS: Insulin Aspart 300 UNITS/3 ML PEN SC (09:18)
[2021-06-23] MEDS: Insulin Glargine 300 UNITS/3 ML PEN 45 UNITS SC (09:24)
== END 2021-06-23 13:58 | disposition home health service (06) | DRG 871 ==
LOC: ER 21:45 → MS 22:37
PROVIDERS: Internal Medicine; Admitting Provider General Practice; Emergency Provider Physician Assistant; PCP Emergency Medicine; Visit Provider General Practice
DX: A41.59 Other Gram-negative sepsis (principal); N17.0 Acute kidney failure with tubular necrosis; N39.0 Urinary tract infection, site not specified; F05 Delirium due to known physiological condition; R65.20 Severe sepsis without septic shock; E11.65 Type 2 diabetes mellitus with hyperglycemia; R11.2 Nausea with vomiting, unspecified; M25.511 Pain in right shoulder; G89.29 Other chronic pain; B96.1 Klebsiella pneumoniae [K. pneumoniae] as the cause of diseases classified elsewhere; Z79.4 Long term (current) use of insulin; Z89.611 Acquired absence of right leg above knee; Z87.11 Personal history of peptic ulcer disease; D64.9 Anemia, unspecified; F32.9 Major depressive disorder, single episode, unspecified; E66.01 Morbid (severe) obesity due to excess calories; Z68.38 Body mass index [BMI] 38.0-38.9, adult; N32.81 Overactive bladder; Z86.718 Personal history of other venous thrombosis and embolism; E78.5 Hyperlipidemia, unspecified; M17.11 Unilateral primary osteoarthritis, right knee; Z20.822 Contact with and (suspected) exposure to COVID-19
CPT/HCPCS: 36415; 76770; 80048; 80053; 84145; 87040; 87077; 87635; 93005; 96361; 96365; 96375; 99285; 71045; 73030; 81003; 81015; 83605; 85025; 86140; 87086; 87186; 93010; 99219; 99225; 99231; 99232; 99238; G0378; J0131; J0744; J1650; J2405

== ENCOUNTER 2021-06-29 16:49 | Outpatient (REF) | payer MEDICAID, SELFPAY ==
[2021-06-29 21:07] LABS: Anion Gap 10.5 mmol/L (3-11); BUN 26 mg/dL (7-18); CO2 25.5 mmol/L (21.0-32.0); CREATININE 1.2 mg/dL (0.55-1.02); Chloride 106 mmol/L (98-107); Estimated GFR 46.14 (mL/min/1.73m2); Glucose 122 mg/dL (74-106); Potassium 4.5 mmol/L (3.5-5.1); Sodium 142 mmol/L (136-145)
== END 2021-06-29 16:50 | disposition home or self-care (01) ==
LOC: LBN 16:49
PROVIDERS: Internal Medicine; PCP Emergency Medicine; Visit Provider Emergency Medicine
DX: N17.0 Acute kidney failure with tubular necrosis (principal)
CPT/HCPCS: 80048

== ENCOUNTER 2021-07-06 19:52 | Outpatient (REF) | payer MEDICAID, SELFPAY ==
[2021-07-06 21:14] LABS: Bilirubin Negative (Negative); Blood Trace-intact (Negative); Clarity Cloudy (Clear); Glucose Negative (Negative); Ketones Negative (Negative); Leukocyte Esterase Large (Negative); Nitrite Positive (Negative); Urobilinogen 0.2 EU/dL (Up TO 0.2); pH 5.5 (5-8)
[2021-07-06 21:32] LABS: WBC >50 HPF (0-5)
[2021-07-06 21:33] LABS: Bacteria Packed HPF (Negative); C & S Indicated? Yes; Crystals Negative HPF (Negative); Epithelial Cells Moderate HPF (Negative)
== END 2021-07-06 19:53 | disposition home or self-care (01) ==
LOC: LBN 19:52
PROVIDERS: PCP Emergency Medicine; Visit Provider Emergency Medicine
DX: N39.0 Urinary tract infection, site not specified (principal); N17.9 Acute kidney failure, unspecified
CPT/HCPCS: 87077; 81003; 81015; 87086; 87186

== ENCOUNTER 2021-07-24 15:19 | Outpatient (REF) | payer MEDICAID, SELFPAY ==
[2021-07-24 20:46] LABS: Abs Immature Grans 0.03 10^3/uL (0.0-0.06); Absolute Basophil Count 0.04 10^3/uL (0.0-0.2); Absolute Eosinophil Count 0.37 10^3/uL (0.0-0.7); Absolute Lymphocyte Count 1.49 10^3/uL (1.2-3.4); Absolute Monocyte Count 0.44 10^3/uL (0.1-0.8); Absolute Neutrophil Count 2.82 10^3/uL (1.2-6.7); Basophils % 0.8; Eosinophils % 7.1; HCT 31.6 % (36.0-46.0); HGB 9.9 g/dL (11.2-15.7); Immature Grans % 0.6; Lymphocytes % 28.7; MCHC 31.3 % (32.0-36.0); MCV 95.8 fL (80-95); MPV 10.5 fL (8.0-11.0); Monocytes % 8.5; Neutrophils % 54.3; Nucleated RBC 0 %; Platelet Count 307 10^3/uL (130-400); RDW 14.4 % (11.7-14.6); RDW-SD 50.1 fL; WBC 5.19 10^3/uL (4.4-10.8)
[2021-07-24 21:04] LABS: Iron 88 ug/dL (50-170); Total Iron Binding Capacity 398 ug/dL (250-450); Transferrin Sat 22 % (15-50)
[2021-07-24 21:33] LABS: Ferritin 163 ng/mL (8-252)
[2021-07-24 21:35] LABS: Folate > 20.0 ng/mL (8.6-20.0)
== END 2021-07-24 15:20 | disposition home or self-care (01) ==
LOC: LBN 15:19
PROVIDERS: PCP Emergency Medicine; Visit Provider Emergency Medicine
DX: D64.9 Anemia, unspecified (principal); E11.69 Type 2 diabetes mellitus with other specified complication; E66.9 Obesity, unspecified
CPT/HCPCS: 82728; 82746; 83036; 83540; 83550; 85025

== ENCOUNTER 2021-07-31 18:08 | Outpatient (REF) | payer MEDICAID, SELFPAY ==
[2021-07-31 21:39] LABS: Bilirubin Negative (Negative); Blood Negative (Negative); Clarity Sl Cloudy (Clear); Glucose Negative (Negative); Ketones Negative (Negative); Leukocyte Esterase Large (Negative); Nitrite Negative (Negative); Specific Gravity >= 1.030 (1.005-1.025); Urobilinogen 0.2 EU/dL (Up TO 0.2)
[2021-07-31 21:49] LABS: Bacteria Many HPF (Negative); C & S Indicated? Yes; Crystals Many Calcium Oxalate HPF (Negative); WBC >50 HPF (0-5)
== END 2021-07-31 18:09 | disposition home or self-care (01) ==
LOC: LBN 18:08
PROVIDERS: PCP Emergency Medicine; Visit Provider Emergency Medicine
DX: N39.0 Urinary tract infection, site not specified (principal)
CPT/HCPCS: 87077; 81003; 81015; 87086; 87186

== ENCOUNTER 2021-09-01 20:42 | Outpatient (REF) | payer MEDICAID, SELFPAY ==
[2021-09-01 21:04] LABS: Bilirubin Negative (Negative); Blood Trace-intact (Negative); Clarity Cloudy (Clear); Glucose Negative (Negative); Ketones Negative (Negative); Leukocyte Esterase Large (Negative); Nitrite Negative (Negative); Specific Gravity >= 1.030 (1.005-1.025); Urobilinogen 0.2 EU/dL (Up TO 0.2)
[2021-09-01 21:09] LABS: Bacteria Many HPF (Negative); C & S Indicated? C&S Done As Ordered; WBC >50 HPF (0-5)
== END 2021-09-01 20:43 | disposition home or self-care (01) ==
LOC: LBN 20:42
PROVIDERS: PCP Emergency Medicine; Visit Provider Emergency Medicine
DX: R30.0 Dysuria (principal)
CPT/HCPCS: 81003; 81015; 87086

== ENCOUNTER 2021-09-03 14:23 | Outpatient (REF) | payer MEDICAID, SELFPAY ==
[2021-09-03 16:55] LABS: Bilirubin Negative (Negative); Blood Small (Negative); Clarity Cloudy (Clear); Glucose Negative (Negative); Ketones Negative (Negative); Leukocyte Esterase Large (Negative); Nitrite Positive (Negative); Specific Gravity >= 1.030 (1.005-1.025); Urobilinogen 0.2 EU/dL (Up TO 0.2); pH 5.5 (5-8)
[2021-09-03 17:17] LABS: WBC >50 HPF (0-5)
[2021-09-03 17:18] LABS: Bacteria Packed HPF (Negative); C & S Indicated? Yes
== END 2021-09-03 14:24 | disposition home or self-care (01) ==
LOC: LBN 14:23
PROVIDERS: PCP Emergency Medicine; Visit Provider Emergency Medicine
DX: N32.81 Overactive bladder (principal)
CPT/HCPCS: 81003; 81015; 87086; 87186

== ENCOUNTER 2022-01-24 15:02 | Outpatient (REF) | payer MEDICAID, SELFPAY | END 2022-01-24 15:03 | disposition home or self-care (01) | LOC: LBN 15:02 | PROVIDERS: PCP Family Medicine; Visit Provider Emergency Medicine | DX: Z87.440 Personal history of urinary (tract) infections (principal) | CPT/HCPCS: 87077; 87086; 87186 ==

== ENCOUNTER 2022-03-06 12:02 | Outpatient (REF) | payer MEDICAID, SELFPAY ==
[2022-03-06 16:57] LABS: Anion Gap 10.3 mmol/L (3-11); BUN 33 mg/dL (7-18); CO2 19.7 mmol/L (21.0-32.0); CREATININE 1.7 mg/dL (0.55-1.02); Chloride 106 mmol/L (98-107); Estimated GFR 30.87 (mL/min/1.73m2); Glucose 88 mg/dL (74-106); Sodium 136 mmol/L (136-145)
[2022-03-06 17:07] LABS: Potassium 6.4 mmol/L (3.5-5.1)
== END 2022-03-06 12:03 | disposition home or self-care (01) ==
LOC: LBN 12:02
PROVIDERS: PCP Family Medicine
DX: N39.0 Urinary tract infection, site not specified (principal); N17.9 Acute kidney failure, unspecified; N13.2 Hydronephrosis with renal and ureteral calculous obstruction
CPT/HCPCS: 80048

== ENCOUNTER 2022-03-06 18:36 | Emergency (ER) | payer MEDICAID, SELFPAY ==
[2022-03-06] VITALS (90 sets, daily range): BP systolic 81–175; BP diastolic 39–124; PULSE 63–77; RESP 9–22; TEMP 36.8; O2SAT 88–97
--- NOTE | 2022-03-06 18:30 | RT.EKG_ITS ---
APPROVED REPORT Exam: Resting ECG Reason for Exam: high potassium Patient Location: E HR:69 bpm ECG Measurements Heart Rate 69 AXIS UT 169 P 26 QRSd 95 QRS 4 QT 374 T 17 QTc 401 Conclusion Sinus rhythm...normal P axis, V-rate 60- 99 Low voltage, precordial leads...precordial leads <1.0mV Nonspecific T abnormalities, anterior leads...T <-0.10mV, V2-V4 sinus rhythm, normal intervals; t wave inversions III V1-V3 unchanged from prior
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
[2022-03-06 19:29] LABS: Abs Immature Grans 0.04 10^3/uL (0.0-0.06); Absolute Basophil Count 0.06 10^3/uL (0.0-0.2); Absolute Eosinophil Count 0.46 10^3/uL (0.0-0.7); Absolute Lymphocyte Count 2.05 10^3/uL (1.2-3.4); Absolute Monocyte Count 0.65 10^3/uL (0.1-0.8); Absolute Neutrophil Count 3.27 10^3/uL (1.2-6.7); Basophils % 0.9; HCT 34.6 % (36.0-46.0); HGB 10.8 g/dL (11.2-15.7); Immature Grans % 0.6; Lymphocytes % 31.4; MCH 29.8 pg (27.0-33.0); MCHC 31.2 % (32.0-36.0); MCV 96 fL (80-95); MPV 10.6 fL (8.0-11.0); Neutrophils % 50.1; Platelet Count 289 10^3/uL (130-400); RBC 3.62 10^6/uL (3.93-5.22); RDW-SD 49.1 fL; WBC 6.53 10^3/uL (4.4-10.8)
[2022-03-06 19:36] LABS: Diff Comment Agrees w/ Instrument; RBC Morphology Normal
[2022-03-06 19:52] LABS: ALT 26 U/L (14-59); AST 26 U/L (15-37); Albumin 3.9 g/dL (3.4-5.0); Alkaline Phosphatase 53 U/L (46-116); Anion Gap 11.7 mmol/L (3-11); BUN 34 mg/dL (7-18); Bilirubin, Total 0.1 mg/dL (0.2-1.0); CO2 20.3 mmol/L (21.0-32.0); CREATININE 1.9 mg/dL (0.55-1.02); Calcium 8.7 mg/dL (8.5-10.1); Chloride 104 mmol/L (98-107); Estimated GFR 27.15 (mL/min/1.73m2); Glucose 126 mg/dL (74-106); Potassium 5.8 mmol/L (3.5-5.1); Sodium 136 mmol/L (136-145); Total Protein 7.1 g/dL (6.4-8.2)
--- NOTE | 2022-03-06 20:40 | NUR.NOTE ---
tolerating PO fluids Nursing Note:
[2022-03-06] MEDS: Normal Saline 1,000 ML 1000 ML IV (21:22)
[2022-03-06 22:53] LABS: Anion Gap 8.6 mmol/L (3-11); BUN 33 mg/dL (7-18); CO2 20.4 mmol/L (21.0-32.0); CREATININE 1.9 mg/dL (0.55-1.02); Calcium 8.2 mg/dL (8.5-10.1); Chloride 106 mmol/L (98-107); Estimated GFR 27.15 (mL/min/1.73m2); Glucose 104 mg/dL (74-106); Potassium 5.4 mmol/L (3.5-5.1); Sodium 135 mmol/L (136-145)
== END 2022-03-06 23:45 | disposition home or self-care (01) ==
PROVIDERS: Emergency Provider Emergency Medicine; PCP Family Medicine
DX: E87.5 Hyperkalemia (principal); E11.22 Type 2 diabetes mellitus with diabetic chronic kidney disease; N18.9 Chronic kidney disease, unspecified
CPT/HCPCS: 36415; 80048; 80053; 93005; 96360; 99284; 85025; 93010; 99283

== ENCOUNTER 2022-03-11 18:37 | Outpatient (REF) | payer MEDICAID, SELFPAY ==
[2022-03-11 22:09] LABS: Hemoglobin A1C 6.4 % (<5.7)
[2022-03-11 22:28] LABS: ALT 32 U/L (14-59); AST 20 U/L (15-37); Albumin 3.9 g/dL (3.4-5.0); Alkaline Phosphatase 56 U/L (46-116); Anion Gap 10.7 mmol/L (3-11); BUN 23 mg/dL (7-18); Bilirubin, Total 0.2 mg/dL (0.2-1.0); CO2 23.3 mmol/L (21.0-32.0); CREATININE 1.2 mg/dL (0.55-1.02); Chloride 108 mmol/L (98-107); Cholesterol 239 mg/dL (<200); Estimated GFR 46.14 (mL/min/1.73m2); Glucose 188 mg/dL (74-106); HDL Cholesterol 48 mg/dL (40-60); Sodium 142 mmol/L (136-145); Total Protein 6.9 g/dL (6.4-8.2); Triglyceride 561 mg/dL (<150)
[2022-03-11 22:56] LABS: LDL CHOLESTEROL 105 mg/dL (<100)
== END 2022-03-11 18:38 | disposition home or self-care (01) ==
LOC: LBN 18:37
PROVIDERS: PCP Family Medicine; Visit Provider Family Medicine
DX: E11.21 Type 2 diabetes mellitus with diabetic nephropathy (principal); I10 Essential (primary) hypertension; E87.5 Hyperkalemia; N18.9 Chronic kidney disease, unspecified
CPT/HCPCS: 80053; 80061; 83721; 83036

== ENCOUNTER 2022-03-12 22:25 | Outpatient (REF) | payer MEDICAID, SELFPAY ==
[2022-03-12 14:41] LABS: Anion Gap 12.8 mmol/L (3-11); BUN 22 mg/dL (7-18); CO2 21.2 mmol/L (21.0-32.0); CREATININE 1.1 mg/dL (0.55-1.02); Calcium 8.8 mg/dL (8.5-10.1); Chloride 105 mmol/L (98-107); Estimated GFR 51.02 (mL/min/1.73m2); Glucose 93 mg/dL (74-106); Potassium 5.2 mmol/L (3.5-5.1); Sodium 139 mmol/L (136-145)
== END 2022-03-12 22:26 | disposition home or self-care (01) ==
LOC: NCHCN 22:25
PROVIDERS: PCP Family Medicine; Visit Provider Nurse Practitioner Family
DX: E11.22 Type 2 diabetes mellitus with diabetic chronic kidney disease (principal); D63.1 Anemia in chronic kidney disease; N17.9 Acute kidney failure, unspecified
CPT/HCPCS: 80048

== ENCOUNTER 2022-06-19 19:36 | Outpatient (REF) | payer MEDICAID, SELFPAY | END 2022-06-19 19:37 | disposition home or self-care (01) | LOC: LBN 19:36 | PROVIDERS: PCP Nurse Practitioner Family; Visit Provider Nurse Practitioner Family | DX: R30.0 Dysuria (principal) | CPT/HCPCS: 87077; 87086; 87186 ==

== ENCOUNTER 2022-07-09 15:35 | Outpatient (REF) | payer MEDICAID, SELFPAY | END 2022-07-09 15:36 | disposition home or self-care (01) | LOC: LBN 15:35 | PROVIDERS: PCP Nurse Practitioner Family; Visit Provider Urology | DX: R82.998 Other abnormal findings in urine (principal); R30.0 Dysuria | CPT/HCPCS: 87077; 87086; 87186 ==

== ENCOUNTER 2022-08-12 13:31 | Outpatient (REF) | payer MEDICAID, SELFPAY ==
[2022-08-12 14:07] LABS: Bilirubin Negative (Negative); Blood Negative (Negative); Clarity Cloudy (Clear); Glucose Negative (Negative); Ketones Negative (Negative); Leukocyte Esterase Small (Negative); Nitrite Positive (Negative); Specific Gravity 1.025 (1.005-1.025); Urobilinogen 0.2 EU/dL (Up TO 0.2); pH 5.5 (5-8)
[2022-08-12 14:16] LABS: Bacteria Moderate HPF (Negative); C & S Indicated? C&S Done As Ordered; Casts Negative LPF (Negative); Crystals Negative HPF (Negative); Epithelial Cells Moderate HPF (Negative); Mucus Negative (Negative); RBC Negative HPF (0-2)
== END 2022-08-12 13:32 | disposition home or self-care (01) ==
LOC: LBN 13:31
PROVIDERS: PCP Nurse Practitioner Family; Visit Provider Nurse Practitioner Family
DX: N18.9 Chronic kidney disease, unspecified (principal); N39.0 Urinary tract infection, site not specified
CPT/HCPCS: 87077; 81003; 81015; 87086; 87186

== ENCOUNTER 2022-08-24 09:22 | Emergency (ER) | payer MEDICAID, SELFPAY ==
[2022-08-24 09:27] VITALS: BP 135/48; PULSE 81; RESP 17; TEMP 36.5; O2SAT 97
--- NOTE | 2022-08-24 10:00 | DI.CT_ITS ---
Exam(s) CT RENAL COLIC WO EXAM: CT RENAL COLIC WO CLINICAL HISTORY: LLQ pain, nausea, r/o acute process. TECHNIQUE: Imaging Protocol: Axial computed tomography images with coronal and sagittal reformatted images were created and reviewed CONTRAST MATERIAL: Intravenous: none Oral: None COMPARISON: CT CT ABDOMEN PELVIS W from 02/11/2021 FINDINGS: VISUALIZED LUNG BASES: Small 3 millimeter nodule in the left lung base is unchanged from February 2021.. No other lung base findings nor pleural effusions. ABDOMEN: There is no ascites. LIVER: Liver is hypodense, implying steatosis, as previously present. Also liver size somewhat promi nent, similar to previous. There are no obvious focal hepatic lesions evident on this noninfused angel dy. GALLBLADDER/BILIARY: No obvious gallbladder pathology. CBD is not dilated. PANCREAS: No evidence of pancreatic mass nor dilatation of the pancreatic duct. SPLEEN: Spleen size upper normal. ADRENALS: There are no significant adrenal masses. KIDNEYS:There is a left ureteral double pigtail stent in place extending from the level of the renal pelvis down into the urinary bladder. There are calculi in noted at the mid and lower poles of the l eft kidney. There are no obvious calculi seen along the course of the left ureteral stent nor within the urinary bladder. No significant hydronephrosis although there is some mild perinephric streakin g on the left side evident. There are no calculi nor other significant focal findings in the opposit e-right kidney. No hydronephrosis nor hydroureter evident on the right although distal ureter is dif ficult to assess because of beam hardening artifact from right hip prosthesis.. ABDOMINAL AORTA: Abdominal aorta is not enlarged. IVC: IVC filter again noted. Its superior tip is approximately 3.5 cm below the left renal vein IVC entrance. There is no evidence of hematoma around the IVC. LYMPH NODES: There is no retroperitoneal nor paraaortic adenopathy. ABDOMINAL WALL: No evidence of significant anterior abdominal wall nor inguinal hernia. GI: There is no evidence of bowel obstruction, free air, nor abscess. PELVIS: LYMPH NODES: There is no intrapelvic nor inguinal adenopathy. GI: Retrocecal appendix with no evidence of acute appendicitis.No evidence of sigmoid diverticulitis. URINARY BLADDER: Partially obscured by beam hardening artifact from bilateral hip hardware. REPRODUCTIVE: Uterus is atrophic or surgically absent. No abnormal adnexal masses. OSSEOUS: Right hip prosthesis. Left hip screws. Chronic posttraumatic deformity of the pelvis noted . Multiple healed fracture sites. No acute fractures evident. IMPRESSION: 1. Left ureteral stent in place. Minimal hydronephrosis. There are calculi in the left kidney but n ot seen along the course of the left ureteral stent nor in the urinary bladder. No calculi in the ri ght side. There is mild streaking in the left perinephric region. Non seen on the right side. 2. Hepatomegaly and hepatic steatosis. 3. IVC filter again noted. Small nodule in the left lung base is unchanged from the prior study. There are no pleural effusions . RADIATION DOSE DELIVERED: 1,376.92mGy.cm Total DLP DATA REPOSITORY: All CT scans at this facility are submitted to the National Radiology Data Registry (NRDR) Dose Index Registry (DIR) with the [employer] (A[employer]). RADIATION OPTIMIZATION: All CT scans at this facility use at least one of these dose optimization te chniques: automated exposure control; mA and/or kV adjustment per patient size (includes targeted exa ms where dose is matched to clinical indication); or iterative reconstruction.
[2022-08-24 10:02] LABS: Abs Immature Grans 0.06 10^3/uL (0.0-0.06); Absolute Basophil Count 0.04 10^3/uL (0.0-0.2); Absolute Eosinophil Count 0.14 10^3/uL (0.0-0.7); Absolute Lymphocyte Count 1.13 10^3/uL (1.2-3.4); Absolute Monocyte Count 1.04 10^3/uL (0.1-0.8); Absolute Neutrophil Count 6.87 10^3/uL (1.2-6.7); Basophils % 0.4; Eosinophils % 1.5; HCT 34.9 % (36.0-46.0); Immature Grans % 0.6; Lymphocytes % 12.2; MCH 29.4 pg (27.0-33.0); MCHC 31.5 % (32.0-36.0); MCV 93 fL (80-95); Monocytes % 11.2; Neutrophils % 74.1; Platelet Count 213 10^3/uL (130-400); RBC 3.74 10^6/uL (3.93-5.22); RDW 14.1 % (11.7-14.6); RDW-SD 48.2 fL; WBC 9.28 10^3/uL (4.4-10.8)
--- NOTE | 2022-08-24 10:04 | ED.GENADUL_ITS ---
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 Status: mental status grossly normal Speech and Movement: speech and movement normal Affect: normal affect Course Vital Signs Vital signs: Vital Signs Temperature 97.7 F 08/24/22 09:27 Pulse 81 08/24/22 09:27 Respiratory Rate 17 08/24/22 09:27 Blood Pressure 135/48 L 08/24/22 09:27 Pulse Oximetry 97 08/24/22 09:27 Temperature 97.7 F 08/24/22 09:27 Temperature Source Temporal Artery Scan 08/24/22 09:27 Pulse 81 08/24/22 09:27 Respiratory Rate 17 08/24/22 09:27 Respiratory Effort Non-Labored 08/24/22 09:29 Blood Pressure 135/48 L 08/24/22 09:27 Blood Pressure Position Sitting 08/24/22 09:27 Pulse Oximetry 97 08/24/22 09:27 Oxygen Delivery Method Room Air 08/24/22 09:27 Oxygen Flow Rate 0 10/22/22 09:27 Pain Level 6 08/24/22 09:46 Lab/Test Results Lab/Test Results: Laboratory Tests Range/Units 08/24/22 09:52 WBC (4.4-10.8) 10^3/uL 9.28 RBC (3.93-5.22) 10^6/uL 3.74 L Hgb (11.2-15.7) g/dL 11.0 L Hct (36.0-46.0) % 34.9 L MCV (80-95) fL 93 MCH (27.0-33.0) pg 29.4 MCHC (32.0-36.0) % 31.5 L RDW (11.7-14.6) % 14.1 Plt Count (130-400) 10^3/uL 213 MPV (8.0-11.0) fL 9.0 Immature Gran % 0.6 Neutrophils % 74.1 Lymphocytes % 12.2 Monocytes % 11.2 Eosinophils % 1.5 Basophils % 0.4 Nucleated RBC % (0.0-0.3) % 0.0 Absolute Neutrophils (1.2-6.7) 10^3/uL 6.87 H Absolute Lymphocytes (1.2-3.4) 10^3/uL 1.13 L Absolute Monocytes (0.1-0.8) 10^3/uL 1.04 H Absolute Eosinophils (0.0-0.7) 10^3/uL 0.14 Absolute Basophils (0.0-0.2) 10^3/uL 0.04
[2022-08-24 10:17] LABS: ALT 25 U/L (14-59); AST 24 U/L (15-37); Albumin 3.5 g/dL (3.4-5.0); Alkaline Phosphatase 55 U/L (46-116); BUN 17 mg/dL (7-18); Bilirubin, Total 0.4 mg/dL (0.2-1.0); CREATININE 1.3 mg/dL (0.55-1.02); Chloride 102 mmol/L (98-107); Estimated GFR 47.37 (mL/min/1.73m2); Glucose 158 mg/dL (74-106); Sodium 137 mmol/L (136-145); Total Protein 7.2 g/dL (6.4-8.2)
--- NOTE | 2022-08-24 11:07 | DI.VRAD_ITS ---
PROCEDURE INFORMATION: Exam: CT Abdomen And Pelvis Without Contrast Exam date and time: 08/24/2022 10:38 AM Age: 57 years old Clinical indication: Other: Llq pain, nausea, R/O acute process; Patient HX: Stent placement for kidney stone 08/22/2022 TECHNIQUE: Imaging protocol: Computed tomography of the abdomen and pelvis without contrast. Radiation optimization: All CT scans at this facility use at least one of these dose optimization techniques: automated exposure control; mA and/or kV adjustment per patient size (includes targeted exams where dose is matched to clinical indication); or iterative reconstruction. COMPARISON: CT ABDOMEN PELVIS W 02/11/2021 8:35 PM FINDINGS: Lungs: Minimal atelectasis is seen at the lung bases. There is a small 4 mm pulmonary nodule in the left lower lobe which was also seen on the patient's prior exam. Liver: The liver is enlarged. Superior to inferior extent of the right lobe of the liver is over 19 cm. There is fatty infiltration of the liver. The left hepatic lobe is long and stretches into the left upper quadrant. Gallbladder and bile ducts: No evidence of cholelithiasis. No biliary ductal dilatation. Pancreas: No discrete pancreatic mass or pancreatic ductal dilatation. Spleen: No intra splenic abnormality is identified. Adrenal glands: Unremarkable. Kidneys and ureters: Left ureteral stent is noted. There are left renal calculi. Largest measures approximately 7 mm in diameter at the lower pole of the left kidney. there is mild left hydroureteronephrosis. There is inflammation in the left perinephric and Harmony ureteral fat. No definite calculi are noted along the course of the left ureteral stent. No right renal calculi are identified. There is mild right pelvocaliectasis. No ureteral calculi are the visualized, evaluation of the distal right ureter is degraded by artifact from the patient's right hip replacement. There is trace fluid, stranding noted adjacent to the left pre renal fascial and left pericolic gutter but no discrete or drainable fluid collection, abscess or free intraperitoneal air is identified. Stomach and bowel: Non-opacified loops of bowel are unremarkable. No evidence of bowel obstruction, mass or pneumatosis. Appendix: No findings to suggest acute appendicitis Intraperitoneal space: No free air or focal collections. See above. The Vasculature: Vascular calcification is noted within the abdominal aorta which is nonaneurysmal. The caval filter is seen in the infrarenal IVC. Lymph nodes: Small retroperitoneal nodes are noted which are not enlarged by size criteria. Urinary bladder: No bladder calculi identified. Reproductive: Apparent prior hysterectomy. Limited evaluation due to artifact from hip replacement. Bones/joints: Right hip replacement is noted. Three hip pins are noted on the left. There are findings consistent with mild levoconvex lumbar scoliosis. There is mild lumbar spondylosis, degenerative disc disease. Degenerative changes are seen in the SI joints particularly on the right. No new or acute bony abnormality is identified. There is remote deformity of the left aspect of the pubic symphysis. Soft tissues: Nonspecific edema is noted within the subcutaneous fat. Other findings: The exam mildly degraded by motion IMPRESSION: 1. Exam degraded by patient motion, artifact from right hip replacement/left hip pins. 2. Left ureteral stent is noted with mild left hydroureteronephrosis. Left renal calculi are noted but no definite calculi are identified along the course of the left ureteral stent. 3. Mild right pelvocaliectasis but no right renal or ureteral calculi 4. Inflammation in the left perinephric, Harmony ureteral fat. Trace fluid adjacent to the left pre renal fossa and pericolic gutter but no discrete or drainable collection or abscess. 5. No bladder calculi 6. Hepatomegaly. Fatty liver. 7. Small nodule left lung base also seen on the patient's prior exam. Dictated and Authenticated by: Estefania Garcia MD. Ordering:HAWA Barlow MD
[2022-08-24] MEDS: Normal Saline 250 ML 500 ML IV (12:02)
[2022-08-24] MEDS: Ketorolac 30 MG/ML VIAL IVP (12:04)
[2022-08-24] MEDS: Ondansetron 4 MG/2 ML VIAL IVP (12:04)
[2022-08-24] MEDS: ACETAMINOPHEN 1,000 MG/100 ML BTL 400 MG IVPB (12:04)
[2022-08-24 12:30] LABS: Bilirubin Small (Negative); Blood Large (Negative); Clarity Cloudy (Clear); Glucose Negative (Negative); Ketones Negative (Negative); Leukocyte Esterase Large (Negative); Nitrite Positive (Negative); Specific Gravity 1.025 (1.005-1.025); Urobilinogen 0.2 EU/dL (Up TO 0.2)
[2022-08-24 12:37] LABS: RBC >50 HPF (0-2); WBC >50 HPF (0-5)
[2022-08-24 12:38] LABS: C & S Indicated? Yes
[2022-08-24] MEDS: levoFLOXacin 500 MG, levoFLOXacin 250 MG 750 MG PO (13:10)
[2022-08-24] MEDS: traMADol 50 MG TAB PO (13:11)
== END 2022-08-24 13:46 | disposition home or self-care (01) ==
PROVIDERS: Emergency Provider Physician Assistant; PCP Nurse Practitioner Family
DX: N39.0 Urinary tract infection, site not specified (principal); I10 Essential (primary) hypertension; E11.9 Type 2 diabetes mellitus without complications; N13.2 Hydronephrosis with renal and ureteral calculous obstruction; Z46.6 Encounter for fitting and adjustment of urinary device; Z79.4 Long term (current) use of insulin; Z79.84 Long term (current) use of oral hypoglycemic drugs; Z87.891 Personal history of nicotine dependence
CPT/HCPCS: 36415; 80053; 96374; 96375; 99284; 74176; 81003; 81015; 85025; 87086; J0131; J1885; J2405

== ENCOUNTER 2022-08-26 20:17 | Emergency (ER) | payer MEDICAID, SELFPAY ==
[2022-08-26 20:53] VITALS: BP 156/68; PULSE 70; RESP 15; TEMP 37; O2SAT 95
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
[2022-08-26 21:26] LABS: Abs Immature Grans 0.07 10^3/uL (0.0-0.06); Absolute Basophil Count 0.02 10^3/uL (0.0-0.2); Absolute Eosinophil Count 0.15 10^3/uL (0.0-0.7); Absolute Lymphocyte Count 0.88 10^3/uL (1.2-3.4); Absolute Monocyte Count 1.14 10^3/uL (0.1-0.8); Absolute Neutrophil Count 6.55 10^3/uL (1.2-6.7); Basophils % 0.2; Eosinophils % 1.7; HCT 32.6 % (36.0-46.0); HGB 10.4 g/dL (11.2-15.7); Immature Grans % 0.8; MCH 29.2 pg (27.0-33.0); MCHC 31.9 % (32.0-36.0); MCV 92 fL (80-95); MPV 9.7 fL (8.0-11.0); Monocytes % 12.9; Neutrophils % 74.4; RBC 3.56 10^6/uL (3.93-5.22); RDW 13.4 % (11.7-14.6); RDW-SD 45.3 fL; WBC 8.81 10^3/uL (4.4-10.8)
[2022-08-26 21:28] LABS: Diff Comment PLT Morph Reviewed; RBC Morphology Normal
[2022-08-26] MEDS: Ondansetron 4 MG/2 ML VIAL IVP (21:30)
[2022-08-26] MEDS: levoFLOXacin 750 MG/150 ML BAG 100 MG IVPB (21:32)
[2022-08-26 21:44] LABS: ALT 26 U/L (14-59); AST 37 U/L (15-37); Albumin 3.2 g/dL (3.4-5.0); Alkaline Phosphatase 60 U/L (46-116); Anion Gap 5.5 mmol/L (3-11); BUN 19 mg/dL (7-18); Bilirubin, Total 0.3 mg/dL (0.2-1.0); CO2 27.5 mmol/L (21.0-32.0); CREATININE 1.2 mg/dL (0.55-1.02); Calcium 9.2 mg/dL (8.5-10.1); Chloride 99 mmol/L (98-107); Estimated GFR 52.14 (mL/min/1.73m2); Glucose 117 mg/dL (74-106); Magnesium 1.3 mg/dL (1.8-2.4); Potassium 3.7 mmol/L (3.5-5.1); Sodium 132 mmol/L (136-145); Total Protein 7.3 g/dL (6.4-8.2)
[2022-08-26 22:31] VITALS: BP 156/47; PULSE 87; RESP 15; O2SAT 96
[2022-08-26 22:33] VITALS: RESP 15
[2022-08-26] MEDS: Ondansetron O.D.T. 4 MG TABEF, 3 TABS/BTL PO (22:42)
== END 2022-08-26 22:52 | disposition home or self-care (01) ==
PROVIDERS: Emergency Provider Registered Nurse Emergency; PCP Nurse Practitioner Family
DX: R11.2 Nausea with vomiting, unspecified (principal); N39.0 Urinary tract infection, site not specified
CPT/HCPCS: 36415; 80053; 96365; 96375; 99284; 83735; 85025; 99283; J1956; J2405

== ENCOUNTER 2022-09-02 18:06 | Outpatient (REF) | payer MEDICAID, SELFPAY ==
[2022-09-02 20:08] LABS: HCT 34.3 % (36.0-46.0); HGB 10.2 g/dL (11.2-15.7); MCH 28.3 pg (27.0-33.0); MCHC 29.7 % (32.0-36.0); MCV 95 fL (80-95); MPV 10.1 fL (8.0-11.0); Platelet Count 343 10^3/uL (130-400); RDW 13.5 % (11.7-14.6); RDW-SD 47.8 fL; WBC 9.37 10^3/uL (4.4-10.8)
[2022-09-02 20:11] LABS: Anion Gap 10.3 mmol/L (3-11); BUN 24 mg/dL (7-18); CO2 23.7 mmol/L (21.0-32.0); CREATININE 1.4 mg/dL (0.55-1.02); Calcium 9.3 mg/dL (8.5-10.1); Chloride 104 mmol/L (98-107); Estimated GFR 43.34 (mL/min/1.73m2); Glucose 109 mg/dL (74-106); Potassium 4.5 mmol/L (3.5-5.1); Sodium 138 mmol/L (136-145)
[2022-09-02 20:40] LABS: Hemoglobin A1C 6.4 % (<5.7)
== END 2022-09-02 18:07 | disposition home or self-care (01) ==
LOC: LBN 18:06
PROVIDERS: PCP Nurse Practitioner Family; Visit Provider Family Medicine
DX: D64.9 Anemia, unspecified (principal); E11.21 Type 2 diabetes mellitus with diabetic nephropathy
CPT/HCPCS: 80048; 85027; 83036

== ENCOUNTER 2022-12-19 14:58 | Outpatient (REF) | payer MEDICAID, SELFPAY ==
[2022-12-19 12:56] LABS: Bilirubin Negative (Negative); Blood Small (Negative); Clarity Sl Cloudy (Clear); Glucose Negative (Negative); Ketones Negative (Negative); Leukocyte Esterase Moderate (Negative); Nitrite Positive (Negative); Specific Gravity >= 1.030 (1.005-1.025); Urobilinogen 0.2 EU/dL (Up TO 0.2); pH 5.5 (5-8)
[2022-12-19 13:04] LABS: Bacteria Moderate HPF (Negative); Crystals Negative HPF (Negative); Epithelial Cells Moderate HPF (Negative); Mucus Trace (Negative)
[2022-12-19 13:05] LABS: C & S Indicated? No/Sq. Contamination; Casts Negative LPF (Negative)
== END 2022-12-19 14:59 | disposition home or self-care (01) ==
LOC: LBN 14:58
PROVIDERS: PCP Nurse Practitioner Family; Visit Provider Nurse Practitioner Family
DX: R31.9 Hematuria, unspecified (principal)
CPT/HCPCS: 81003; 81015

== ENCOUNTER 2022-12-25 16:50 | Outpatient (REF) | payer MEDICAID, SELFPAY ==
[2022-12-25 17:08] LABS: Bilirubin Negative (Negative); Blood Negative (Negative); Clarity Cloudy (Clear); Glucose Negative (Negative); Ketones Negative (Negative); Leukocyte Esterase Large (Negative); Nitrite Negative (Negative); Specific Gravity >= 1.030 (1.005-1.025); Urobilinogen 0.2 mg/dL (Up to 0.2); pH 5.5 (5-8)
[2022-12-25 17:13] LABS: Bacteria Many HPF (Negative); C & S Indicated? No/Sq. Contamination; Casts Negative LPF (Negative); Crystals Few Calcium Oxalate HPF (Negative); Epithelial Cells Many HPF (Negative); Mucus Negative (Negative); RBC 0-2 HPF (0-2); WBC 20-50 HPF (0-5)
== END 2022-12-25 16:51 | disposition home or self-care (01) ==
LOC: LBN 16:50
PROVIDERS: PCP Nurse Practitioner Family; Visit Provider Nurse Practitioner Family
DX: N39.0 Urinary tract infection, site not specified (principal)
CPT/HCPCS: 81003; 81015

== ENCOUNTER 2022-12-27 15:39 | Outpatient (REF) | payer MEDICAID, SELFPAY ==
[2022-12-27 13:09] LABS: HCT 36.4 % (36.0-46.0); HGB 11.3 g/dL (11.2-15.7); MCH 28.8 pg (27.0-33.0); MCV 93 fL (80-95); MPV 9.8 fL (8.0-11.0); Platelet Count 298 10^3/uL (130-400); RBC 3.92 10^6/uL (3.93-5.22); RDW 13.2 % (11.7-14.6); RDW-SD 44.9 fL; WBC 6.56 10^3/uL (4.4-10.8)
[2022-12-27 13:30] LABS: ALT 28 U/L (14-59); AST 23 U/L (15-37); Albumin 3.8 g/dL (3.4-5.0); Alkaline Phosphatase 63 U/L (46-116); Anion Gap 10.2 mmol/L (3-11); BUN 27 mg/dL (7-18); Bilirubin, Total 0.2 mg/dL (0.2-1.0); CO2 23.8 mmol/L (21.0-32.0); CREATININE 1.8 mg/dL (0.55-1.02); Calcium 9.3 mg/dL (8.5-10.1); Chloride 102 mmol/L (98-107); Estimated GFR 32.06 (mL/min/1.73m2); Glucose 182 mg/dL (74-106); Potassium 5.6 mmol/L (3.5-5.1); Sodium 136 mmol/L (136-145)
== END 2022-12-27 15:40 | disposition home or self-care (01) ==
LOC: NCHCN 15:39
PROVIDERS: PCP Nurse Practitioner Family; Visit Provider Nurse Practitioner Family
DX: R41.82 Altered mental status, unspecified (principal); E11.21 Type 2 diabetes mellitus with diabetic nephropathy; D64.9 Anemia, unspecified
CPT/HCPCS: 80053; 85027

== ENCOUNTER 2023-01-27 15:44 | Outpatient (REF) | payer MEDICAID, SELFPAY ==
[2023-01-27 16:46] LABS: Bilirubin Negative (Negative); Blood Trace-lysed (Negative); Clarity Cloudy (Clear); Glucose Negative (Negative); Ketones Negative (Negative); Leukocyte Esterase Moderate (Negative); Nitrite Positive (Negative); Specific Gravity >= 1.030 (1.005-1.025); Urobilinogen 0.2 mg/dL (Up to 0.2); pH 5.5 (5-8)
[2023-01-27 16:53] LABS: RBC 0-2 HPF (0-2)
[2023-01-27 16:54] LABS: Bacteria Many HPF (Negative); C & S Indicated? Yes; Casts Negative LPF (Negative); Crystals Negative HPF (Negative); Epithelial Cells Few HPF (Negative); Mucus Negative (Negative)
== END 2023-01-27 15:45 | disposition home or self-care (01) ==
LOC: LBN 15:44
PROVIDERS: PCP Nurse Practitioner Family; Visit Provider Nurse Practitioner Family
DX: N39.0 Urinary tract infection, site not specified (principal)
CPT/HCPCS: 87077; 81003; 81015; 87086; 87186

== ENCOUNTER 2023-05-04 19:14 | Emergency (ER) | payer MEDICAID, SELFPAY ==
[2023-05-04] VITALS (51 sets, daily range): BP systolic 84–163; BP diastolic 47–62; PULSE 75–83; RESP 13–21; TEMP 36.6; O2SAT 94–99
[2023-05-04 19:43] LABS: Abs Immature Grans 0.17 10^3/uL (0.0-0.06); Absolute Eosinophil Count 0.16 10^3/uL (0.0-0.7); Absolute Neutrophil Count 11.33 10^3/uL (1.2-6.7); Basophils % 0.4; Eosinophils % 1.2; HCT 38.3 % (36.0-46.0); Immature Grans % 1.3; Lymphocytes % 7.4; MCH 29.1 pg (27.0-33.0); MCHC 31.3 % (32.0-36.0); MCV 93 fL (80-95); MPV 9.1 fL (8.0-11.0); Monocytes % 5.4; Neutrophils % 84.3; Platelet Count 324 10^3/uL (130-400); RBC 4.12 10^6/uL (3.93-5.22); RDW 13.6 % (11.7-14.6); RDW-SD 46.5 fL; WBC 13.44 10^3/uL (4.4-10.8)
[2023-05-04 19:46] LABS: Absolute Basophil Count 0.05 10^3/uL (0.0-0.2); Absolute Lymphocyte Count 0.99 10^3/uL (1.2-3.4); Absolute Monocyte Count 0.73 10^3/uL (0.1-0.8)
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
[2023-05-04 20:04] LABS: ALT 23 U/L (14-59); AST 20 U/L (15-37); Albumin 3.8 g/dL (3.4-5.0); Alkaline Phosphatase 65 U/L (46-116); Anion Gap 11.3 mmol/L (3-11); BUN 31 mg/dL (7-18); Bilirubin, Total 0.3 mg/dL (0.2-1.0); CO2 24.7 mmol/L (21.0-32.0); CREATININE 1.4 mg/dL (0.55-1.02); Calcium 9.5 mg/dL (8.5-10.1); Chloride 103 mmol/L (98-107); Estimated GFR 43.34 (mL/min/1.73m2); Glucose 240 mg/dL (74-106); Magnesium 1.4 mg/dL (1.8-2.4); Potassium 4.8 mmol/L (3.5-5.1); Sodium 139 mmol/L (136-145); Total Protein 7.8 g/dL (6.4-8.2)
[2023-05-04] MEDS: Normal Saline 1,000 ML 1000 ML IV (20:14)
[2023-05-04] MEDS: MAGNESIUM SULFATE 2 GM/50 ML BAG IVPB (20:43)
[2023-05-04 20:58] LABS: Bilirubin Negative (Negative); Blood Small (Negative); Clarity Clear (Clear); Glucose Negative (Negative); Ketones Negative (Negative); Leukocyte Esterase Small (Negative); Nitrite Positive (Negative); Specific Gravity 1.025 (1.005-1.025); Urobilinogen 0.2 mg/dL (Up to 0.2)
--- NOTE | 2023-05-04 21:13 | NUR.NOTE ---
Nursing Note: SHAISTA from home, pt is bed bound. Her caregiver became concerned when she became increasingly confused and had a high glucose. The caregiver did not give her her 5pm meds including insulin. The pt has numerous sores and skin breakdown on her buttocks and groin, the pt stated she had UTI and they placed a cade in her. The pt is also c/o loose stool, pt has large amount incont of stool. Pt is pleasantly confused, able to answer most questions.
[2023-05-04 21:15] LABS: *AMPHETAMINES SCREEN URINE Negative (Negative); *BARBITURATES SCREEN URINE Negative (Negative); *BENZODIAZEPINES SCREEN URINE Negative (Negative); Cannabinoids THC Negative (Negative); Cocaine Screen,Urine Negative (Negative); METHADONE URINE SCREEN Negative (Negative); OPIATES URINE SCREEN Negative (Negative)
[2023-05-04 21:19] LABS: Tricyclic Antidepressants Negative (Negative)
[2023-05-04 21:21] LABS: Bacteria Many HPF (Negative); C & S Indicated? Yes; Casts Negative LPF (Negative); Crystals Moderate Uric Acid HPF (Negative); Epithelial Cells Rare HPF (Negative); Mucus Negative (Negative); Other Cells Rare Transitional (Negative)
[2023-05-04] MEDS: levoFLOXacin 500 MG, levoFLOXacin 250 MG 750 MG PO (21:48)
== END 2023-05-04 22:46 | disposition home or self-care (01) ==
LOC: ER 21:44
PROVIDERS: Emergency Provider Nurse Practitioner Acute Care; PCP Family Medicine
DX: N39.0 Urinary tract infection, site not specified (principal); E11.9 Type 2 diabetes mellitus without complications; R41.82 Altered mental status, unspecified; E83.42 Hypomagnesemia
CPT/HCPCS: 36416; 80053; 80307; 82962; 87077; 96365; 96366; 99284; 81003; 81015; 83735; 85025; 87086; 87186

== ENCOUNTER 2023-07-09 18:15 | Outpatient (REF) | payer MEDICAID, SELFPAY ==
[2023-07-09 18:42] LABS: Hemoglobin A1C 5.8 % (<5.7)
== END 2023-07-09 18:16 | disposition home or self-care (01) ==
LOC: LBN 18:15
PROVIDERS: PCP Family Medicine; Visit Provider Family Medicine
DX: E11.9 Type 2 diabetes mellitus without complications (principal); E66.01 Morbid (severe) obesity due to excess calories
CPT/HCPCS: 83036

== ENCOUNTER 2023-10-09 09:36 | Emergency (ER) | payer MEDICAID, SELFPAY ==
[2023-10-09 09:44] VITALS: BP 136/64; PULSE 80; RESP 16; TEMP 36.5; O2SAT 96
--- NOTE | 2023-10-09 09:45 | DI.RAD_ITS ---
Exam(s) XR FOOT LT COMPLETE XR ANKLE LT COMPLETE EXAM: XR ANKLE LT COMPLETE CLINICAL HISTORY: pain medially after injury TECHNIQUE: 2D digital imaging was performed. Three views. COMPARISON: CR LEFT ANKLE COMPLETE from 10/20/2014 CR XR FOOT LT COMPLETE from 10/09/2023 FINDINGS: Exam limited by suboptimal positioning of the foot. BONES: No acute fracture is present. No bony destructive lesion is seen. No change in fixation plate along distal fibula. Screws again noted medial malleolus. Bones are osteoporotic. Mutation of the great toe. JOINTS:The ankle mortise is normally aligned. SOFT TISSUE: Diffuse swelling. IMPRESSION: Postsurgical changes. Osteoporosis. Soft tissue swelling. DATA REPOSITORY: RADIATION DOSE DELIVERED:
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
== END 2023-10-09 11:34 | disposition home or self-care (01) ==
PROVIDERS: Emergency Provider Physician Assistant; PCP Family Medicine
DX: S90.02XA Contusion of left ankle, initial encounter (principal); M81.0 Age-related osteoporosis without current pathological fracture; W22.01XA Walked into wall, initial encounter; Y93.89 Activity, other specified; Y92.018 Other place in single-family (private) house as the place of occurrence of the external cause
CPT/HCPCS: 99283; 73610; 73630

== ENCOUNTER 2023-12-04 09:32 | Emergency (ER) | payer MEDICAID, SELFPAY ==
[2023-12-04 09:30] VITALS: BP 111/34; PULSE 75; RESP 18; TEMP 36.6; O2SAT 94
--- NOTE | 2023-12-04 10:00 | DI.CT_ITS ---
Exam(s) CT CHEST/ABD/PEL W EXAM: CT CHEST/ABD/PEL W CLINICAL HISTORY: fall, abd tender, left rib pain. TECHNIQUE: Imaging Protocol: Axial computed tomography images with coronal and sagittal reformatted images were created and reviewed CONTRAST MATERIAL: Intravenous: Omnipaque 350 Contrast volume:100 ml Oral: None COMPARISON: CT CT RENAL COLIC WO from 08/24/2022 FINDINGS: CHEST: LUNGS: No evidence of lung contusion or infiltrates. No pleural effusions. No pneumothorax. No inc idental nodule seen in the lung olson.. MEDIASTINUM: No evidence of sternal fracture nor mediastinal hematoma. No hilar nor mediastinal gil opathy. Thyroid nodules noted. CARDIAC: Heart size is normal. There is no pericardial effusion.Thoracic aorta appears unremarkable. OSSEOUS: Ru noted in the left humerus. No scapular fractures evident. No clavicle fractures eviden t. No rib fractures evident. No transverse process fractures evident.No vertebral fractures evident . No sternal fractures.. ABDOMEN: There is no ascites. No evidence of mesenteric nor bowel wall hematoma. LIVER: Intact. No laceration. No lesions. No dilated intrahepatic ducts. GALLBLADDER/BILIARY: None CBD is not dilated. PANCREAS: No evidence of pancreatic mass nor dilatation of the pancreatic duct. SPLEEN: Intact. Normal size. No laceration. No lesions. Splenic and portal veins are patent. ADRENALS: No masses. No hemorrhage. KIDNEYS: No lacerations nor subcapsular hematomas. No calculi nor hydronephrosis nor in the ureter. Two small cortical cysts noted anteriorly in the left kidney measuring up to 1.2 cm. These benign f indings do not require further imaging workup. There are no solid renal masses. ABDOMINAL AORTA: Intact. Some atherosclerosis but no aneurysm. Common iliac arteries also appear un remarkable. IVC: There is an IVC filter in place there are no obvious intraluminal filling defects in the region of the IVC filter. LYMPH NODES: There is no retroperitoneal nor paraaortic adenopathy. ABDOMINAL WALL: No evidence of significant anterior abdominal wall nor inguinal hernia. No prominent subcutaneous bruising nor fluid collections in the subcutaneous fat. GI: There is no evidence of bowel obstruction. PELVIS: LYMPH NODES: There is no intrapelvic nor inguinal adenopathy. GI: No evidence of appendicitis.No evidence of sigmoid diverticulitis. URINARY BLADDER: There is a Kent catheter in the urinary bladder. Bladder is not distended. REPRODUCTIVE: Uterus surgically absent. No abnormal adnexal masses and no free fluid in the pelvis. OSSEOUS: There is a right hip prosthesis. There is left hip hardware-screws and the intramedullary r od in the left femur. There are left-sided pelvic deformity but no acute pelvic fractures. This is probably related to prior trauma. IMPRESSION: 1. No acute significant trauma sequelae in the chest, abdomen, and pelvis. 2. There is an IVC filter in place. 3. There is a Kent catheter in the urinary bladder and the bladder is collapsed around the Kent. 4. Hardware is described above in both hips and the left humerus No acute fractures evident. Called by myself to ER physician RADIATION DOSE DELIVERED: 1,942.35mGy.cm Total DLP DATA REPOSITORY: All CT scans at this facility are submitted to the National Radiology Data Registry (NRDR) Dose Index Registry (DIR) with the [employer] ([employer]). RADIATION OPTIMIZATION: All CT scans at this facility use at least one of these dose optimization te chniques: automated exposure control; mA and/or kV adjustment per patient size (includes targeted exa ms where dose is matched to clinical indication); or iterative reconstruction.
[2023-12-04 10:32] LABS: Abs Immature Grans 0.05 10^3/uL (0.0-0.06); Absolute Basophil Count 0.03 10^3/uL (0.0-0.2); Absolute Lymphocyte Count 1.69 10^3/uL (1.2-3.4); Absolute Neutrophil Count 4.36 10^3/uL (1.2-6.7); Basophils % 0.4; Eosinophils % 4.3; HCT 38.1 % (36.0-46.0); Immature Grans % 0.7; Lymphocytes % 24.4; MCH 29.1 pg (27.0-33.0); MCHC 31.5 % (32.0-36.0); MCV 92 fL (80-95); Monocytes % 7.2; Platelet Count 259 10^3/uL (130-400); RBC 4.13 10^6/uL (3.93-5.22); RDW 13.5 % (11.7-14.6); RDW-SD 45.7 fL; WBC 6.93 10^3/uL (4.4-10.8)
[2023-12-04 10:47] LABS: ALT 32 U/L (14-59); AST 17 U/L (15-37); Albumin 3.7 g/dL (3.4-5.0); Alkaline Phosphatase 59 U/L (46-116); Anion Gap 12.6 mmol/L (3-11); BUN 29 mg/dL (7-18); Bilirubin, Total 0.3 mg/dL (0.2-1.0); CO2 25.4 mmol/L (21.0-32.0); CREATININE 1.2 mg/dL (0.55-1.02); Calcium 9.4 mg/dL (8.5-10.1); Chloride 104 mmol/L (98-107); Estimated GFR 51.82 (mL/min/1.73m2); Glucose 159 mg/dL (74-106); Lipase 37 U/L (16-77); Potassium 4.4 mmol/L (3.5-5.1); Sodium 142 mmol/L (136-145); Total Protein 7.4 g/dL (6.4-8.2)
[2023-12-04] MEDS: Omnipaque 350 MG/ML 500 ML BTL-Imaging package 100 ML IJ (11:10)
--- NOTE | 2023-12-04 11:38 | DI.RAD_ITS ---
Exam(s) XR KNEE LT 3V AP,LAT,RODERICK EXAM: XR KNEE LT 3V AP,LAT,RODERICK CLINICAL HISTORY: fall, ttp lateral. TECHNIQUE: 2D digital imaging was performed. COMPARISON: No exams were available for comparison FINDINGS: 3 views There is a long intramedullary jero noted in the femur. Healed fracture site in the femur is partiall y included in the field of view. There is no evidence of fracture of knee nor joint space narrowing. No obvious joint effusion. IMPRESSION: No acute osseous findings in the knee. Long intramedullary jero in the femur noted. DATA REPOSITORY: RADIATION DOSE DELIVERED:
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
== END 2023-12-04 13:34 | disposition home or self-care (01) ==
LOC: ER 12:28
PROVIDERS: Emergency Provider Student in an Organized Health Care Education/Training Program; PCP Family Medicine
DX: S20.211A Contusion of right front wall of thorax, initial encounter (principal); R10.9 Unspecified abdominal pain; S80.02XA Contusion of left knee, initial encounter; E11.22 Type 2 diabetes mellitus with diabetic chronic kidney disease; N18.9 Chronic kidney disease, unspecified; D63.1 Anemia in chronic kidney disease; Z79.84 Long term (current) use of oral hypoglycemic drugs; Z79.4 Long term (current) use of insulin; Z87.891 Personal history of nicotine dependence; V00.811A Fall from moving wheelchair (powered), initial encounter
CPT/HCPCS: 73562; 74177; 80053; 83690; 99285; 71260; 85025; 99284

== ENCOUNTER 2024-01-28 11:56 | Emergency (ER) | payer MEDICAID, SELFPAY ==
[2024-01-28 10:41] VITALS: BP 122/57; PULSE 82; RESP 15; TEMP 36.7; O2SAT 98
--- NOTE | 2024-01-28 14:30 | DI.RAD_ITS ---
Exam(s) XR SACRUM COCCYX EXAM: XR SACRUM COCCYX CLINICAL HISTORY: pain s/p fall. TECHNIQUE: 2D digital imaging was performed. Three images were obtained. COMPARISON: CR RIGHT HIP COMPLETE from 01/07/2014 FINDINGS: BONES: No acute fracture is present. No bony destructive lesion is seen. Old pubic rami fractures. T he patient has a left total hip replacement. Sideplate and screws are seen in the proximal left femu r. The bones are osteopenic. JOINTS: No dislocation present. SOFT TISSUE: Normal. IMPRESSION: No acute fracture or dislocation. DATA REPOSITORY: RADIATION DOSE DELIVERED:
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
--- NOTE | 2024-01-28 14:42 | DI.RAD_ITS ---
Exam(s) XR HIP RT AP LAT ONLY EXAM: XR HIP RT AP LAT ONLY CLINICAL HISTORY: pain s/p fall. TECHNIQUE: 2D digital imaging was performed. Three images were obtained. AP, lateral and oblique vi ews were obtained. COMPARISON: CR RIGHT HIP COMPLETE from 01/07/2014 FINDINGS: BONES: There are stable post operative changes of a right total hip replacement present. No fracture or dislocation. There is an old healed right pubic rami fracture. The bones are osteopenic. JOINTS: The orthopedic hardware is in good position. No evidence of hardware loosening. SOFT TISSUE: Normal. IMPRESSION: 1. Stable right total hip replacement. 2. No acute fracture or dislocation. DATA REPOSITORY: RADIATION DOSE DELIVERED:
[2024-01-28] MEDS: Acetaminophen 500 MG TAB 1000 MG PO (16:05)
== END 2024-01-28 18:23 | disposition home or self-care (01) ==
PROVIDERS: Emergency Provider Emergency Medicine; PCP Family Medicine
DX: S30.0XXA Contusion of lower back and pelvis, initial encounter (principal); S70.01XA Contusion of right hip, initial encounter; E11.9 Type 2 diabetes mellitus without complications; Z89.611 Acquired absence of right leg above knee; Z96.641 Presence of right artificial hip joint; Z79.4 Long term (current) use of insulin; Z79.84 Long term (current) use of oral hypoglycemic drugs
CPT/HCPCS: 99283; 72220; 73502

== ENCOUNTER 2024-07-20 19:52 | Outpatient (REF) | payer MEDICAID, SELFPAY ==
[2024-07-20 15:21] LABS: Bilirubin Negative (Negative); Blood Large (Negative); Clarity Sl Cloudy (Clear); Glucose Negative (Negative); Ketones Negative (Negative); Leukocyte Esterase Moderate (Negative); Nitrite Positive (Negative); Specific Gravity 1.015 (1.005-1.025); Urobilinogen 0.2 mg/dL (Up to 0.2); pH 5.5 (5-8)
[2024-07-20 15:32] LABS: Bacteria Many HPF (Negative); C & S Indicated? No/Sq. Contamination; Crystals Negative HPF (Negative); Epithelial Cells Many HPF (Negative); Mucus Trace (Negative); WBC 20-50 HPF (0-5)
== END 2024-07-20 19:53 | disposition home or self-care (01) ==
LOC: LBN 19:52
PROVIDERS: PCP Family Medicine; Visit Provider Family Medicine
DX: R82.90 Unspecified abnormal findings in urine (principal)
CPT/HCPCS: 81003; 81015

== ENCOUNTER 2024-09-01 10:18 | Inpatient (IN) | payer MEDICAID, SELFPAY ==
[2024-09-01] VITALS (43 sets, daily range): BP systolic 126–178; BP diastolic 23–80; PULSE 82–115; RESP 14–27; TEMP 37.4–38.5; O2SAT 91–100
--- NOTE | 2024-09-01 10:45 | DI.CT_ITS ---
Exam(s) CT PELVIC W EXAM: CT PELVIC W CLINICAL HISTORY: sacral decubitus with cellulits to rt thigh medial. TECHNIQUE: Imaging Protocol: Axial computed tomography images with coronal and sagittal reformatted images were created and reviewed. CONTRAST MATERIAL: Intravenous: Omnipaque 350 Contrast volume:100 mL Oral: / no COMPARISON: CR XR KNEE LT 3V AP,LAT,RODERICK from 12/04/[address] CHEST/ABD/PEL W from 12/04/2023 CR XR HIP RT AP LAT ONLY from 01/28/2024 FINDINGS: Bladder: Decompressed by Kent catheter. Bowel: No obstruction or bowel wall thickening. Peritoneal cavity: No ascites, collection or mesenteric inflammatory response. Reproductive: Unremarkable. Vasculature: No evidence of aortic or iliac artery aneurysm. Bones: No evidence of acute fracture or bony destruction. Old fracture deformities of the bilateral pubic symphysis. Above the knee amputation on the right. Right hip prosthesis. Intramedullary jero noted in left femur. Old fracture of the distal 3rd of the left femoral shaft. Soft tissues: Subcutaneous edema in the soft tissues of the medial upper left thigh. No evidence of abscess. Edema seen in the soft tissues in left posterior gluteal region. Mildly enlarged, reactive lymph nodes in the left groin. IMPRESSION: Cellulitis of the left posterior gluteal region extending into the left upper thigh. No evidence of abscess. No bony destruction. RADIATION DOSE DELIVERED: 805.59mGy.cm Total DLP DATA REPOSITORY: All CT scans at this facility are submitted to the National Radiology Data Registry (NRDR) Dose Index Registry (DIR) with the [employer] ([employer]). RADIATION OPTIMIZATION: All CT scans at this facility use at least one of these dose optimization te chniques: automated exposure control; mA and/or kV adjustment per patient size (includes targeted exa ms where dose is matched to clinical indication); or iterative reconstruction.
[2024-09-01 10:54] LABS: Abs Immature Grans 0.15 10^3/uL (0.0-0.06); Absolute Basophil Count 0.05 10^3/uL (0.0-0.2); Absolute Eosinophil Count 0.03 10^3/uL (0.0-0.7); Absolute Lymphocyte Count 0.91 10^3/uL (1.2-3.4); Absolute Neutrophil Count 14.18 10^3/uL (1.2-6.7); Basophils % 0.3 %; Eosinophils % 0.2 %; HCT 35.6 % (36.0-46.0); HGB 11.6 g/dL (11.2-15.7); Immature Grans % 0.9 %; Lymphocytes % 5.5 %; MCHC 32.6 % (32.0-36.0); MCV 92 fL (80-95); MPV 8.9 fL (8.0-11.0); Monocytes % 7.4 %; Neutrophils % 85.7 %; Platelet Count 255 10^3/uL (130-400); RBC 3.87 10^6/uL (3.93-5.22); RDW 13.5 % (11.7-14.6); RDW-SD 45.3 fL; WBC 16.55 10^3/uL (4.4-10.8)
[2024-09-01 10:55] LABS: Absolute Monocyte Count 1.22 10^3/uL (0.1-0.8)
[2024-09-01 11:00] LABS: Lactate 1.7 mmol/L (0.6-1.4)
[2024-09-01] MEDS: CLINDAMYCIN 900 MG/50 ML BAG 50 MG IVPB (11:01)
[2024-09-01 11:18] LABS: ALT 30 U/L (14-59); AST 18 U/L (15-37); Albumin 3.5 g/dL (3.4-5.0); Alkaline Phosphatase 66 U/L (46-116); Anion Gap 9.7 mmol/L (3-11); BUN 22 mg/dL (7-18); Bilirubin, Total 0.43 mg/dL (0.2-1.0); CO2 26.3 mmol/L (21.0-32.0); CREATININE 1.2 mg/dL (0.55-1.02); Calcium 9.3 mg/dL (8.5-10.1); Chloride 102 mmol/L (98-107); Glucose 164 mg/dL (74-106); Potassium 4.4 mmol/L (3.5-5.1); Sodium 138 mmol/L (136-145); Total Protein 7.3 g/dL (6.4-8.2)
[2024-09-01 11:35] LABS: Bilirubin Negative (Negative); Blood Small (Negative); Clarity Cloudy (Clear); Glucose Negative (Negative); Ketones Negative (Negative); Leukocyte Esterase Moderate (Negative); Nitrite Positive (Negative); Specific Gravity 1.025 (1.005-1.025); Urobilinogen 0.2 mg/dL (Up to 0.2); pH 5.5 (5-8)
[2024-09-01 11:46] LABS: C & S Indicated? Yes; WBC >50 HPF (0-5)
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
[2024-09-01] MEDS: Omnipaque 350 MG/ML 100 ML BTL IJ (12:42)
[2024-09-01] MEDS: Normal Saline - Diluent 50 ML VIAL IJ (12:45)
[2024-09-01] MEDS: levoFLOXacin 750 MG/150 ML BAG 100 MG IVPB (13:14)
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
[2024-09-01 15:33] LABS: Magnesium 1.3 mg/dL (1.8-2.4)
[2024-09-01 15:47] LABS: TSH (W/Ref FT4) 1.02 uIU/mL (0.36-3.74)
[2024-09-01 15:59] LABS: Source Nasal/Nares
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
[2024-09-01 16:33] LABS: COVID-19 PCR Negative (Negative)
[2024-09-01] MEDS: Insulin Aspart 300 UNITS/3 ML PEN SC ×2 (17:48→21:17)
[2024-09-01] MEDS: Enoxaparin 40 MG/0.4 ML SYR SC (17:49)
[2024-09-01] MEDS: metroNIDAZOLE 500 MG/100 ML BAG 100 MG IVPB (17:49)
[2024-09-01] MEDS: Metoprolol 12.5 MG TAB PO (17:49)
[2024-09-01] MEDS: Trimethobenzamide 200 MG/2 ML VIAL IM (18:10)
[2024-09-01] MEDS: Acetaminophen 325 MG TAB PO (19:09)
[2024-09-01] MEDS: DAPTOmycin 500 MG in Normal Saline 50 ML 100 MG IVPB (19:27)
--- NOTE | 2024-09-01 19:27 | NUR.NOTE ---
Nursing Note: Pt arrived to unit from ED at 1637, A&Ox3, HR and BP elevated but taken while pt vomiting. Tigan given per JAN for nausea. Stage 1 & 2 noted to buttocks, cleansed, mepilex and barrier cream applied. Rash noted to LLE outlined by ED. IV abx infusing per JAN. Called ED multiple times for Dapto, administered flagyl while waiting for callback. Tele applied. Pt denies pain. No s/sx of distress noted, pt no longer nauseous. Phone and call boggs within reach, bed locked in lowest position, bed alarm on.
[2024-09-01] MEDS: risperiDONE 0.5 MG TAB PO (20:51)
[2024-09-01] MEDS: Oxybutynin 5 MG TAB PO (20:51)
[2024-09-01] MEDS: Fenofibrate, Micronized 48 MG TAB PO (20:51)
[2024-09-01] MEDS: Ascorbic Acid 500 MG TAB PO (20:51)
[2024-09-01] MEDS: Docusate Sodium 100 MG CAP PO (20:51)
[2024-09-01] MEDS: Ferrous Sulfate 325 MG TAB PO (20:51)
[2024-09-01] MEDS: Gabapentin 800 MG TAB PO (20:52)
[2024-09-02] VITALS (7 sets, daily range): BP systolic 108–187; BP diastolic 51–83; PULSE 81–96; RESP 14–18; TEMP 36.9–38.3; O2SAT 93–98
[2024-09-02 01:45] LABS: MRSA PCR Negative (Negative)
[2024-09-02] MEDS: Trimethobenzamide 200 MG/2 ML VIAL IM (01:54)
[2024-09-02] MEDS: metroNIDAZOLE 500 MG/100 ML BAG 100 MG IVPB ×2 (02:27→08:29)
[2024-09-02] MEDS: Metoprolol 12.5 MG TAB PO ×3 (02:28→17:05)
[2024-09-02] MEDS: Acetaminophen 325 MG TAB PO ×3 (05:29→22:52)
[2024-09-02 07:11] LABS: HGB 10.9 g/dL (11.2-15.7); MCH 29.9 pg (27.0-33.0); MCV 90 fL (80-95); MPV 8.7 fL (8.0-11.0); Platelet Count 235 10^3/uL (130-400); RBC 3.65 10^6/uL (3.93-5.22); RDW 13.6 % (11.7-14.6); WBC 20.76 10^3/uL (4.4-10.8)
[2024-09-02 07:28] LABS: ALT 29 U/L (14-59); AST 20 U/L (15-37); Alkaline Phosphatase 71 U/L (46-116); Anion Gap 12.5 mmol/L (3-11); BUN 22 mg/dL (7-18); Bilirubin, Total 0.58 mg/dL (0.2-1.0); CO2 24.5 mmol/L (21.0-32.0); CREATININE 1.2 mg/dL (0.55-1.02); Calcium 9.1 mg/dL (8.5-10.1); Chloride 98 mmol/L (98-107); Glucose 216 mg/dL (74-106); Magnesium 1.3 mg/dL (1.8-2.4); Potassium 3.8 mmol/L (3.5-5.1); Sodium 135 mmol/L (136-145); Total Protein 7.1 g/dL (6.4-8.2)
[2024-09-02] MEDS: Fenofibrate, Micronized 48 MG TAB PO ×2 (08:30→22:52)
[2024-09-02] MEDS: Gabapentin 800 MG TAB PO ×2 (08:30→22:52)
[2024-09-02] MEDS: buPROPion-XL 150 MG TABCR 300 MG PO (08:30)
[2024-09-02] MEDS: DULoxetine 30 MG CAP 60 MG PO (08:30)
[2024-09-02] MEDS: Tamsulosin 0.4 MG CAPCR PO (08:31)
[2024-09-02] MEDS: Cholecalciferol (Vitamin D3) 1,000 UNIT TAB 1000 UNITS PO (08:31)
[2024-09-02] MEDS: Multivitamin TAB 1 TAB PO (08:31)
[2024-09-02] MEDS: Famotidine 20 MG TAB 40 MG PO (08:31)
[2024-09-02] MEDS: Ferrous Sulfate 325 MG TAB PO ×2 (08:32→22:52)
[2024-09-02] MEDS: Ascorbic Acid 500 MG TAB PO ×2 (08:32→22:51)
[2024-09-02] MEDS: Docusate Sodium 100 MG CAP PO ×2 (08:32→22:52)
[2024-09-02] MEDS: Oxybutynin 5 MG TAB PO ×3 (08:32→22:52)
[2024-09-02] MEDS: Normal Saline Flush 10 ML SYR IVP ×3 (08:32→23:53)
[2024-09-02] MEDS: Cetirizine 10 MG TAB PO (08:32)
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
[2024-09-02] MEDS: Insulin Aspart 300 UNITS/3 ML PEN SC ×3 (12:23→22:53)
[2024-09-02] MEDS: metroNIDAZOLE 500 MG/100 ML BAG 200 MG IVPB ×2 (14:13→22:31)
[2024-09-02] MEDS: Enoxaparin 40 MG/0.4 ML SYR SC (17:05)
[2024-09-02] MEDS: DAPTOmycin 500 MG in Normal Saline 50 ML 100 MG IVPB (17:56)
--- NOTE | 2024-09-02 18:42 | PGE_ITS ---
Date of Service Date of service: 09/02/24 Time of Service: 18:42 Assessment and Plan Assessment and plan (1) Sepsis: Start date: 09/01/24 Status: Acute Assessment and plan: This is a 59-year-old lady who presented with sepsis and source being her left thigh with cellulitis and surrounding rash and possibly urine now with gram-negative jero growing in urine culture. She continues with elevated WBC and fever despite initiation of antibiotic therapy though she clinically appears improved. The rash is improving and not vesicular. Continue IV antibiotic therapy with combination of daptomycin, meropenem and Flagyl. Follow-up ID on gram-negative jero in urine culture urine to guide antibiotic therapy and converted to oral antibiotics with Levaquin being a possibility. Blood cultures thus far are negative. Patient continued with elevated WBC and fever which is concerning. She clinically appears improved. She is a DNR/DNI. Qualifiers: Sepsis type: sepsis due to unspecified organism Sepsis acute organ dysfunction status: without acute organ dysfunction Qualified Code(s): A41.9 - Sepsis, unspecified organism (2) Cellulitis of left leg: Start date: 09/01/24 Status: Acute Assessment and plan: IV antibiotics as above with follow-up cultures and adjustment of antibiotics as needed. Clinically rash is improving. Patient has significant allergies limiting choices. (3) Recurrent urinary tract infection: Status: Chronic Assessment and plan: Follow-up on positive urine culture with gram-negative jero for ID and sensitivi ties. She does have chronic indwelling Kent catheter. (4) Decubitus ulcer, stage III: Status: Chronic Assessment and plan: Presently stage I ulcer over left buttock crease with no open wound but diffuse erythema over perianal area and sacral area extending onto the left thigh. The left thigh rash is more the area of cellulitis with almost hemorrhagic appearance now resolving quickly. Wound care has been consulted. Qualifiers: Pressure injury location: thigh Laterality: left Qualified Code(s): L89.223 - Pressure ulcer of left hip, stage 3 (5) MRSA (methicillin resistant Staphylococcus aureus): Status: Chronic Assessment and plan: MRSA swab was negative which is reassuring but no change in antibiotic therapy with patient continued with fever and elevated WBC. Await ID and sensitivities of urine culture and follow-up on blood cultures. (6) Morbid obesity: Status: Chronic Assessment and plan: This complicates her skin care with the patient being bedridden. (7) Depression: Status: Chronic Assessment and plan: Continue outpatient medical therapy. Qualifiers: Depression Type: other depression Qualified Code(s): F32.89 - Other specified depressive episodes (8) Chronic pain syndrome: Status: Chronic Assessment and plan: Continue outpatient medical therapy. (9) Hyperlipemia: Status: Chronic Assessment and plan: Continue outpatient medical therapy. Qualifiers: Hyperlipidemia type: mixed hyperlipidemia Qualified Code(s): E78.2 - Mixed hyperlipidemia (10) Type 2 diabetes mellitus with obesity: Status: Chronic Assessment and plan: Will hold usual outpatient medical therapy with patient have glucometer measurements before meals and at bedtime with moderate insulin sliding scale coverage while hospitalized. Subjective Subjective Interval history since last seen: This is a 59-year-old lady who is improving on IV antibiotic therapy for cellulitis of her left thigh and buttock area with rash improving, less fever or chills and less discomfort over the leg. She did have a positive urine culture for gram-negative jero which is pending ID and sensitivity. She is a total lift to move out of bed and skin care is ongoing. Wound care was consulted. Patient offers no new complaints and is eating and drinking fairly well. Overall she feels better. She is a DNR/DNI. Exam Narrative Exam Narrative: General: Patient appears older than stated age, morbidly obese lying in bed without obvious right AKA limiting movement. She is alert and oriented x 3. She is in no acute distress. HEENT: Normocephalic, eyes with pupils equal and react to light symmetrically, extraocular movement intact and sclera anicteric. Oropharynx with moist mucosa and edentulous. Neck: Supple without JVD. Back: Stooped posture without CVA tenderness. Lungs: Fair aeration and clear to auscultation percussion with no focalizing rales or rhonchi. Heart: Regular rate and rhythm with no appreciable murmur or gallop and distant heart sounds. Abdomen: Obese contour, soft and nontender to palpation no palpable hepatosplenomegaly. Bowel sounds positive all quadrants. Genitalia/rectal: External exam reveals erythematous folds of her skin over the labia majora and into the buttocks without deep ulceration with stage I ulcer noted, surrounding erythema around the anus and sacrum area without skin breakdown is improved and receding from black and markings, no vaginal discharge and Kent catheter in place. Extremities: Obese extremities with nonpitting edema left lower extremity and nodular and nonvesicular almost hemorrhagic in appearance. Rash over the left upper medial thigh from the groin extending over the dorsum of the leg almost in a dermatomal pattern less intense and receding from black pen marking. No vesiculation and less papular texture. Right AKA stump is clean. No clubbing or cyanosis. Skin: Skin breakdown as described over buttocks and sacral area with rash over left superior thigh. Otherwise normal color, warm and dry. Neuro: Cranial nerves II through XII gross intact, no focalizing motor deficits. No tremor. Patient does have slight dysarthria with speech which appears to be secondary to previous lacerations about her mouth. Psych: Flattened affect with depressed mood. No abnormal thought processes. Remote and recent memory intact. Objective Last Vital Signs Temp 38.0 C H 09/02/24 15:36 Pulse 92 H 09/02/24 15:36 Resp 16 09/02/24 15:36 BP 122/51 L 09/02/24 15:36 Pulse Ox 94 09/02/24 15:36 Laboratory Results - last 24 hr 09/01/24 09/01/24 09/02/24 00:28 20:57 07:00 WBC 20.76 H RBC 3.65 L Hgb 10.9 L Hct 33.0 L MCV 90 MCH 29.9 MCHC 33.0 RDW 13.6 Plt Count 235 MPV 8.7 Sodium 135 L Potassium 3.8 Chloride 98 Carbon Dioxide 24.5 Anion Gap 12.5 H BUN 22 H Creatinine 1.2 H Est GFR (CKD-EPI 2020) 51.50 Glucose 216 H Calcium 9.1 Magnesium 1.3 L Total Bilirubin 0.58 AST 20 ALT 29 Alkaline Phosphatase 71 Total Protein 7.1 Albumin 3.0 L MRSA (TEM-PCR) Negative Cancelled Time Spent with Patient Time Spent with Patient: 35-49 minutes Time was spent: preparing to see the patient(eg.review tests), obtaining and/or reviewing separately otained hiistory, ordering medications,tests, procedures, indepentently interpreting results and care coordination
[2024-09-02] MEDS: risperiDONE 0.5 MG TAB PO (22:52)
[2024-09-02] MEDS: Melatonin 3 MG TAB 9 MG PO (22:52)
[2024-09-03] VITALS (7 sets, daily range): BP systolic 96–148; BP diastolic 42–77; PULSE 84–109; RESP 15–17; TEMP 36.4–37.7; O2SAT 92–99
[2024-09-03] MEDS: MAGNESIUM SULFATE 4 GM/100 ML BAG IV_INF (03:22)
[2024-09-03] MEDS: Normal Saline Flush 10 ML SYR IVP ×4 (03:24→21:28)
[2024-09-03] MEDS: metroNIDAZOLE 500 MG/100 ML BAG 100 MG IVPB ×3 (04:42→22:54)
[2024-09-03 07:08] LABS: HCT 32.4 % (36.0-46.0); HGB 10.3 g/dL (11.2-15.7); MCH 29.3 pg (27.0-33.0); MCHC 31.8 % (32.0-36.0); MCV 92 fL (80-95); MPV 8.8 fL (8.0-11.0); Platelet Count 224 10^3/uL (130-400); RBC 3.51 10^6/uL (3.93-5.22); RDW 13.7 % (11.7-14.6); RDW-SD 46.5 fL; WBC 11.09 10^3/uL (4.4-10.8)
[2024-09-03 07:37] LABS: ALT 24 U/L (14-59); AST 17 U/L (15-37); Albumin 2.7 g/dL (3.4-5.0); Alkaline Phosphatase 70 U/L (46-116); Anion Gap 10.7 mmol/L (3-11); BUN 20 mg/dL (7-18); Bilirubin, Total 0.34 mg/dL (0.2-1.0); CO2 26.3 mmol/L (21.0-32.0); CREATININE 1.3 mg/dL (0.55-1.02); Calcium 9.1 mg/dL (8.5-10.1); Chloride 105 mmol/L (98-107); Estimated GFR 46.78 (mL/min/1.73m2); Glucose 189 mg/dL (74-106); Magnesium 2.9 mg/dL (1.8-2.4); Potassium 3.6 mmol/L (3.5-5.1); Sodium 142 mmol/L (136-145); Total Protein 6.7 g/dL (6.4-8.2)
[2024-09-03] MEDS: DULoxetine 30 MG CAP 60 MG PO (07:52)
[2024-09-03] MEDS: Gabapentin 800 MG TAB PO ×2 (07:52→21:27)
[2024-09-03] MEDS: Tamsulosin 0.4 MG CAPCR PO (07:52)
[2024-09-03] MEDS: Fenofibrate, Micronized 48 MG TAB PO ×2 (07:53→21:26)
[2024-09-03] MEDS: Famotidine 20 MG TAB PO (07:53)
[2024-09-03] MEDS: buPROPion-XL 150 MG TABCR 300 MG PO (07:54)
[2024-09-03] MEDS: Ascorbic Acid 500 MG TAB PO ×2 (07:54→21:26)
[2024-09-03] MEDS: Oxybutynin 5 MG TAB PO ×3 (07:55→21:27)
[2024-09-03] MEDS: Multivitamin TAB 1 TAB PO (07:56)
[2024-09-03] MEDS: Cholecalciferol (Vitamin D3) 1,000 UNIT TAB 1000 UNITS PO (07:56)
[2024-09-03] MEDS: Cetirizine 10 MG TAB PO (07:56)
[2024-09-03] MEDS: Docusate Sodium 100 MG CAP PO ×2 (07:57→21:27)
[2024-09-03] MEDS: Ferrous Sulfate 325 MG TAB PO ×2 (07:57→21:27)
[2024-09-03] MEDS: Insulin Aspart 300 UNITS/3 ML PEN SC ×4 (07:58→22:53)
[2024-09-03] MEDS: Metoprolol 12.5 MG TAB PO ×2 (10:26→17:59)
--- NOTE | 2024-09-03 11:45 | CMPROGNOTE_ITS ---
Date of service: 09/03/24 Time of Service: 11:45 Care Management Progress Note Progress Note Text Progress Note Text: Pushpa was sitting up in a chair when CM met with her. She was a bit reserved at first but as the conversation progressed, she engaged more fully with CM. Pushpa talked about her early years living in [place] and was interested to learn that she and CM lived in the same area. She shared that she and her moved to [place] more than 30 years ago when she got with her son. She admitted to loving [place] life and is happy that she made the move. Pushpa has [facility] highest needs and her medical case worker is Mercedes Fairbanks. Pushpa informed CM that she just loves Mercedes and that she has always been very helpful. Clinically Pushpa is improving. Her WBC has decreased to 11 from a high of 20.76 yesterday,and her vital signs are stable. Her HR remains mostly in the 90s and she has been afebrile all day. Discharge Potential Discharge Needs: PCP F/U Appt Anticipated Barriers to Discharge: None Identified Patient/Family Education Needs: Review discharge instructions, discuss Ask Me Three Transportation: Private vehicle Plan: Anticipate Pushpa phelps discharged home with a resumption of [facility] services (RN, INTERNET MARKETING MANAGER, CAFE SITE ATTENDANT, Case Management) and community supports, including [facility], when medically ready for discharge. [facility] w/c van will be coordinated by CM. CM will follow and continue to support discharge needs. SDOH(Care Management) Screening Will the Patient Participate in the Screening?: Yes Do you worry about having a steady place to live?: no Problems where you live: pests such as bugs, ants or mice In the past 12 months, have you had to go without electric, gas, oil or water in your home?: no Have you or anyone in your house had to go without enough food to eat?: no Has lack of transportation kept you from medical appointments or from doing things needed for daily living?: yes Has anyone in your support network made you feel unsafe for any reason?: no Social Determinants of Health Comments(SDOH Details): Mice in house per pt Pt uses [facility] for appts Health Related Social Needs Health related social needs: inadequate housing(Z59.1) and transportation insecurity(Z59.82)
--- NOTE | 2024-09-03 13:42 | PHACLINREV_ITS ---
Pharmacy Admission Review Admission Clinical Review Admission Pharmacy Review: Cellulitis of left leg (Acute) Sepsis (Acute) vancomycin Allergy (Intermediate, Verified 09/01/24 10:27) Hives, Puritis, Red Man syndrome cefazolin Allergy (Verified 09/01/24 10:27) HIVES oxacillin (Oxacillin) Allergy (Verified 09/01/24 10:27) HIVES Penicillins Allergy (Verified 09/01/24 10:27) HIVES gemfibrozil Adverse Reaction (Verified 09/01/24 10:27) INCREASED LFT'S morphine Adverse Reaction (Verified 09/01/24 10:27) NAUSEA Resuscitation Status DNR/DNI Height 5 ft 4 in Weight 93.1 kg Comments Comments/Follow Ups: Follow up on ondansetron IV to PO - provider was going to change. Switch famotidine back to home dose if renal function improves. Pharmacy Admission Review Renal Dosing Renal Dosing: BUN 20 mg/dL (7-18) H 09/03/24 06:00 Creatinine 1.3 mg/dL (0.55-1.02) H 09/03/24 06:00 Medications needing adjustments: Reviewed (CrCl 50.24 mL/min, BUN decreased from 22 and SCr increased from 1.2) List of meds needing interventions: Current medications are okay Anticoagulation Anticoagulation: Hgb 10.3 g/dL (11.2-15.7) L 09/03/24 06:00 Hct 32.4 % (36.0-46.0) L 09/03/24 06:00 Plt Count 224 10^3/uL (130-400) 09/03/24 06:00 Creatinine 1.3 mg/dL (0.55-1.02) H 09/03/24 06:00 DVT Prophylaxis: Reviewed (Hgb decreased from 10.9) Medications: Enoxaparin (40mg daily) Relevant Labs Relevant Labs: Sodium 142 mmol/L (136-145) 09/03/24 06:00 Potassium 3.6 mmol/L (3.5-5.1) 09/03/24 06:00 Chloride 105 mmol/L (98-107) 09/03/24 06:00 Magnesium 2.9 mg/dL (1.8-2.4) H 09/03/24 06:00 Electrolytes, C-Reactive P, ESR: Reviewed DM Control DM Control: Glucose 189 mg/dL (74-106) H 09/03/24 06:00 Finger Stick Blood Glucose 253 1149 Finger Stick Blood Glucose 253 1135 Finger Stick Blood Glucose 253 1135 Finger Stick Blood Glucose 211 0758 Finger Stick Blood Glucose 211 0742 Finger Stick Blood Glucose 211 0742 DM Control: Reviewed Insulin Dosing, Diabetic Medication: Has order for SS insulin Cardiac Review Cardiac Review: Blood Pressure 120/65 120/65 Blood Pressure 143/60 143/60 Blood Pressure 114/51 114/51 BP, HR, EF%: Reviewed (HR 109) List meds needing interventions: Has order for metoprolol 12.5mg PO q8h QTc Review QTc: Reviewed (405 from 03/06/22 - most recent EKG on file) IV to PO Switch IV Medications: Intervened (daptomycin, meropenem, metronidazole and ondansetron - spoke to provider about ondansetron, said they were going to change the order) Home Meds Home Med List reviewed: Reviewed Relevent Home Meds Not ordered & why?: cyclobenzaprine (PRN), glargine (has or dinora for SS insulin), metformin (has order for SS insulin) Current Meds Current Medication Order Review: Reviewed Pharmacy Antibiotic Review Relevant Labs: WBC 11.09 10^3/uL (4.4-10.8) H 09/03/24 06:00 Temperature 36.4 C Temperature 36.7 C Microbiology 09/01/24 10:50 Blood Culture - Preliminary Blood NO GROWTH 48 HOURS 09/01/24 11:05 Blood Culture - Preliminary Blood NO GROWTH 48 HOURS 09/01/24 11:01 Urine Culture - Final Urine - Reflex from Ua Gram Negative Herminio,Mixed Gram Positive Herminio,Mixed Pharmacy Antibiotic Activity: C/S review and Reviewed, no change Comments: Patient is on meropenem, daptomycin and metronidazole, day 2, for sepsis/cellulitis. Per nursing during morning meeting the rash has spread past initial drawn parameters and patient is complaining of itching. Urine culture growing gram negative and positive herminio. Patient afebrile since yesterday at 2016 and WBC decreased from 20.76. Comments Comments/Follow Ups: Follow up on ondansetron IV to PO - provider was going to change. Switch famotidine back to home dose if renal function improves.
[2024-09-03] MEDS: Alteplase 2 MG VIAL IJ (15:12)
--- NOTE | 2024-09-03 16:48 | CHAPLAIN ---
Pushpa was up in a chair when I visited. She showed me her cellulites on her leg and said that it isn't painful, but it itches. She shared some personal history, telling me that she was from [place], but moved to [place] with her boyfriend when she was and has lived here for many years now. When I asked if she's been in touch with family she said no, but didn't elaborate. According to Care Management notes she has a case management assistant in the community and goes [facility] during the weekdays. Pushpa seems to be comfortable being here and interacting with staff.
[2024-09-03] MEDS: DAPTOmycin 500 MG in Normal Saline 50 ML 100 MG IVPB (18:00)
[2024-09-03] MEDS: Enoxaparin 40 MG/0.4 ML SYR SC (18:00)
--- NOTE | 2024-09-03 18:51 | W.PM.PROGNOT ---
Date of Service Date of service: 09/03/24 Time of Service: 18:51 Assessment and Plan Assessment and plan (1) Cellulitis of left leg: Status: Acute Assessment and plan: Extensive cellulitis with possible sepsis. Blood cultures are no growth at this point. Wound consult is pending. Overall the erythema does appear to be getting administrative support coordinator. Continue on meropenem and metronidazole. She does have history of MRSA. Her midline was clogged and was easily opened up with a very small amount of Ateplase (2) Sepsis: Status: Acute Assessment and plan: Blood cultures are no growth from 09/01/2024. Her urine which came from a chronic Kent is growing gram-negative herminio mixed. At this point the sepsis symptoms appear to be related to the left groin cellulitis. Qualifiers: Sepsis type: sepsis due to unspecified organism Sepsis acute organ dysfunction status: without acute organ dysfunction Qualified Code(s): A41.9 - Sepsis, unspecified organism (3) Recurrent urinary tract infection: Status: Chronic Assessment and plan: Chronic indwelling Kent catheter. Appears to be growing mixed herminio. (4) Type 2 diabetes mellitus with diabetic nephropathy: Status: Acute Assessment and plan: Continue present diabetes meds. (5) MRSA (methicillin resistant Staphylococcus aureus): Status: Chronic Assessment and plan: History of MRSA is affecting antibiotic spectrum. (6) Amputated right leg: Status: Chronic Assessment and plan: Right leg AKA is doing well. (7) Wheelchair bound: Status: Acute Assessment and plan: Patient is completely wheelchair-bound and requires a Marilyn lift for transfers. Subjective Subjective Interval history since last seen: Overall feeling better. The rash in the left upper leg and groin is itchy and somewhat bothersome. She is not having fever or chills. She is seeing the wound nurse today. She seemed in good spirits. Exam Narrative Exam Narrative: On exam she sitting up in her chair. She had 2 fans blowing on her. She displayed a full affect and was alert and interactive. Her breathing was nonlabored. Her lung sounds were clear on the right and left. Her heart sounds were regular without murmur. Her abdomen moderately obese but nontender to palpation. Exam of the left groin region showed rash that is demarcated with blue marker. It is quite scaly and erythematous but not deeply red. There is no drainage or discharge. It is ovoid in shape and does involve the fold of the left inguinal crease down towards the perineum and extends around laterally to her hip 50 cm wide and 25 cm long. The right AKA site looks completely healed and without any evidence of rash. Objective Last Vital Signs Temp 37.7 C H 09/03/24 16:16 Pulse 89 09/03/24 16:16 Resp 16 09/03/24 16:16 BP 118/77 09/03/24 16:16 Pulse Ox 95 09/03/24 16:16 Laboratory Results - last 24 hr 09/03/24 06:00 WBC 11.09 H RBC 3.51 L Hgb 10.3 L Hct 32.4 L MCV 92 MCH 29.3 MCHC 31.8 L RDW 13.7 Plt Count 224 MPV 8.8 Sodium 142 Potassium 3.6 Chloride 105 Carbon Dioxide 26.3 Anion Gap 10.7 BUN 20 H Creatinine 1.3 H Est GFR (CKD-EPI 2020) 46.78 Glucose 189 H Calcium 9.1 Magnesium 2.9 H Total Bilirubin 0.34 AST 17 ALT 24 Alkaline Phosphatase 70 Total Protein 6.7 Albumin 2.7 L Time Spent with Patient Time Spent with Patient: 35-49 minutes Time was spent: preparing to see the patient(eg.review tests), obtaining and/or reviewing separately otained hiistory, ordering medications,tests, procedures, referring, communicating with other health critical care clinical nurse specialist, indepentently interpreting results, counseling the patient and care coordination
[2024-09-03] MEDS: risperiDONE 0.5 MG TAB PO (21:27)
[2024-09-04 01:09] VITALS: BP 130/59; PULSE 78; RESP 16; TEMP 36.9; O2SAT 95
[2024-09-04] MEDS: Metoprolol 12.5 MG TAB PO ×2 (02:44→10:57)
[2024-09-04] MEDS: metroNIDAZOLE 500 MG/100 ML BAG 100 MG IVPB ×2 (04:30→10:58)
[2024-09-04 05:38] VITALS: BP 138/67; PULSE 76; RESP 16; TEMP 36.8; O2SAT 95
[2024-09-04 07:16] LABS: HCT 31.3 % (36.0-46.0); HGB 10.1 g/dL (11.2-15.7); MCH 29.7 pg (27.0-33.0); MCHC 32.3 % (32.0-36.0); MCV 92 fL (80-95); MPV 9.1 fL (8.0-11.0); Platelet Count 241 10^3/uL (130-400); RDW 13.8 % (11.7-14.6); WBC 7.19 10^3/uL (4.4-10.8)
[2024-09-04 07:39] LABS: ALT 23 U/L (14-59); AST 20 U/L (15-37); Albumin 2.6 g/dL (3.4-5.0); Alkaline Phosphatase 70 U/L (46-116); BUN 24 mg/dL (7-18); Bilirubin, Total 0.24 mg/dL (0.2-1.0); CREATININE 1.3 mg/dL (0.55-1.02); Calcium 8.8 mg/dL (8.5-10.1); Chloride 103 mmol/L (98-107); Estimated GFR 46.78 (mL/min/1.73m2); Glucose 245 mg/dL (74-106); Magnesium 1.9 mg/dL (1.8-2.4); Potassium 4.3 mmol/L (3.5-5.1); Sodium 140 mmol/L (136-145); Total Protein 6.5 g/dL (6.4-8.2)
[2024-09-04 07:51] VITALS: BP 120/57; PULSE 86; RESP 14; TEMP 37.2; O2SAT 94
[2024-09-04] MEDS: Insulin Aspart 300 UNITS/3 ML PEN SC ×2 (08:10→11:52)
[2024-09-04] MEDS: Oxybutynin 5 MG TAB PO ×2 (08:11→13:28)
[2024-09-04] MEDS: Cholecalciferol (Vitamin D3) 1,000 UNIT TAB 1000 UNITS PO (08:11)
[2024-09-04] MEDS: Ascorbic Acid 500 MG TAB PO (08:11)
[2024-09-04] MEDS: Gabapentin 800 MG TAB PO (08:12)
[2024-09-04] MEDS: Docusate Sodium 100 MG CAP PO (08:12)
[2024-09-04] MEDS: Ferrous Sulfate 325 MG TAB PO (08:13)
[2024-09-04] MEDS: Cetirizine 10 MG TAB PO (08:13)
[2024-09-04] MEDS: Fenofibrate, Micronized 48 MG TAB PO (08:13)
[2024-09-04] MEDS: Multivitamin TAB 1 TAB PO (08:13)
[2024-09-04] MEDS: DULoxetine 30 MG CAP 60 MG PO (08:13)
[2024-09-04] MEDS: Normal Saline Flush 10 ML SYR IVP (08:14)
[2024-09-04] MEDS: buPROPion-XL 150 MG TABCR 300 MG PO (08:14)
[2024-09-04] MEDS: Famotidine 20 MG TAB PO (08:14)
[2024-09-04] MEDS: Tamsulosin 0.4 MG CAPCR PO (08:14)
[2024-09-04 11:23] VITALS: BP 114/54; PULSE 89; RESP 15; TEMP 37; O2SAT 96
[2024-09-04] MEDS: levoFLOXacin 500 MG TAB PO (11:53)
--- NOTE | 2024-09-04 16:49 | CMDISCH_ITS ---
Date of service: 09/04/24 Time of Service: 14:00 LACE Index Scoring Tool Questions: Length of Stay (in days): 3 Was the patient admitted via the E.D.?: Yes Comorbidities: Any Tumor E.D. Visits: 1 Answers: Total Score: 9 Risk of Readmission: Low Risk Care Management Discharge Plan Reason for Hospitalization: left leg cellulitis Discharge Plan: Pushpa was discharged home today with resumption of HH services, RN and her aides. She was transported via [facility]. She will f/u with her community providers and continue per her plan of care. Patient/Family Education Needs: Review of discharge instructions, activity and f/u plan. Discuss ask me 3 Services Needed at Discharge: Day Care (Attends [facility]) and Home Health Care Services (Pushpa receives HH RN, and also has daily aides) SDOH Health Related Social Needs: Health related social needs inadequate housing(Z59.1), transportation insecurity(Z59.82) Health related social needs: inadequate housing(Z59.1) and transportation insecurity(Z59.82)
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
== END 2024-09-04 15:41 | disposition home or self-care (01) | DRG 872 ==
LOC: ER 14:11 → MS 16:23
PROVIDERS: Admitting Provider Family Medicine; Emergency Provider Student in an Organized Health Care Education/Training Program; PCP Family Medicine; Visit Provider Family Medicine
DX: A41.9 Sepsis, unspecified organism (principal); L03.116 Cellulitis of left lower limb; N39.0 Urinary tract infection, site not specified; E66.01 Morbid (severe) obesity due to excess calories; Z68.35 Body mass index [BMI] 35.0-35.9, adult; F32.89 Other specified depressive episodes; G89.4 Chronic pain syndrome; E78.2 Mixed hyperlipidemia; Z89.611 Acquired absence of right leg above knee; Z99.3 Dependence on wheelchair; Z79.4 Long term (current) use of insulin; E11.22 Type 2 diabetes mellitus with diabetic chronic kidney disease; Z66 Do not resuscitate; L89.321 Pressure ulcer of left buttock, stage 1; R41.89 Other symptoms and signs involving cognitive functions and awareness; D63.1 Anemia in chronic kidney disease; L28.0 Lichen simplex chronicus; Z79.84 Long term (current) use of oral hypoglycemic drugs; Z96.0 Presence of urogenital implants; Z86.14 Personal history of Methicillin resistant Staphylococcus aureus infection
CPT/HCPCS: 36410; 00123; 36415; 51702; 80053; 85027; 87040; 87635; 87641; 96365; 96366; 96367; 96368; 99285; J1650; 72193; 81003; 81015; 83605; 83735; 84443; 85025; 87086; 99223; 99232; 99239; J0737; J0878; J1815; J1836; J1956; J2183; J2997; J3250; J3475; J3490

== ENCOUNTER 2024-10-31 20:42 | Outpatient (REF) | payer MEDICAID, SELFPAY | END 2024-10-31 20:43 | disposition home or self-care (01) | LOC: LBN 20:42 | PROVIDERS: PCP Family Medicine; Visit Provider Family Medicine | DX: N89.8 Other specified noninflammatory disorders of vagina (principal) | CPT/HCPCS: 87480; 87510; 87660 ==

== ENCOUNTER 2024-11-23 18:09 | Outpatient (REF) | payer MEDICAID, SELFPAY ==
[2024-11-23 20:37] LABS: Bilirubin Negative (Negative); Blood Moderate (Negative); Clarity Cloudy (Clear); Glucose Negative (Negative); Ketones Negative (Negative); Leukocyte Esterase Moderate (Negative); Nitrite Positive (Negative); Specific Gravity >= 1.030 (1.005-1.025); Urobilinogen 0.2 mg/dL (Up to 0.2); pH 5.5 (5-8)
[2024-11-23 20:43] LABS: Bacteria Many HPF (Negative); C & S Indicated? C&S Done As Ordered; WBC >50 HPF (0-5)
== END 2024-11-23 18:10 | disposition home or self-care (01) ==
LOC: LBN 18:09
PROVIDERS: PCP Family Medicine; Visit Provider Family Medicine
DX: N39.0 Urinary tract infection, site not specified (principal); B96.29 Other Escherichia coli [E. coli] as the cause of diseases classified elsewhere; R82.89 Other abnormal findings on cytological and histological examination of urine
CPT/HCPCS: 87077; 81003; 81015; 87086; 87186; 87480; 87510; 87660

== ENCOUNTER 2024-11-30 16:52 | Outpatient (REF) | payer MEDICAID, SELFPAY ==
[2024-11-30 18:31] LABS: Hemoglobin A1C 6.6 % (<5.7)
[2024-11-30 18:40] LABS: Vitamin B12 437 pg/mL (193-986)
[2024-12-02 10:51] LABS: Syphilis Serology (RPR) Negative (Negative)
== END 2024-11-30 16:53 | disposition home or self-care (01) ==
LOC: NCHCN 16:52
PROVIDERS: PCP Family Medicine; Visit Provider Family Medicine
DX: R73.9 Hyperglycemia, unspecified (principal); R41.3 Other amnesia
CPT/HCPCS: 82607; 83036; 86592

== ENCOUNTER 2025-01-24 01:51 | Outpatient (CLI) | payer MEDICAID, SELFPAY ==
--- NOTE | 2025-01-24 07:45 | DI.MRI_ITS ---
Exam(s) MR BRAIN WO EXAM: MR BRAIN WO CLINICAL HISTORY: memory loss; hx of TBI,R41.3 TECHNIQUE: Multiplanar multisequence MRI of the brain was performed. COMPARISON: No exams were available for comparison FINDINGS: VENTRICLES AND EXTRA AXIAL SPACES: In the lateral ventricles are markedly dilated. Posterior horns, temporal horns and 4th ventricle are not dilated. There is moderate dilatation of the 3rd ventricle. MIDLINE SHIFT: None. CEREBRAL PARENCHYMA: No focus of restricted diffusion to suggest acute infarct. No space-occupying lesion identified. Metallic artifact noted at the midline of the falx between the frontal horns. Area of the encephalomalacia in the medial and superior right frontal lobe. Moderate atrophy disprop ortionate to the patient's age. Mild scattered foci of high signal in the white matter consistent wi th sequela of chronic microvascular disease. BRAINSTEM/CEREBELLUM: Normal. Calvarium: Postsurgical defects in the bilateral frontal bones. VISUALIZED PARANASAL SINUSES: Clear. MASTOIDS:Clear. Vasculature: Normal flow void. PITUITARY GLAND: Partially empty sella. ORBITS: Unremarkable. IMPRESSION: Evidence of previous surgery with defects in both frontal bones as well as midline frontal metallic a rtifact. Marked ventriculomegaly. Large area of encephalomalacia in the right frontal lobe. Moderate atrophy, disproportionate to the patient's age. DATA REPOSITORY:
== END 2025-01-24 02:11 ==
PROVIDERS: PCP Family Medicine; Visit Provider Family Medicine
DX: G93.89 Other specified disorders of brain (principal); R41.3 Other amnesia
CPT/HCPCS: 70551

== ENCOUNTER 2025-02-10 09:05 | Inpatient (IN) | payer MEDICAID, SELFPAY ==
[2025-02-10] VITALS (18 sets, daily range): BP systolic 109–183; BP diastolic 41–67; PULSE 81–104; RESP 11–26; TEMP 36.5–37; O2SAT 92–99
--- NOTE | 2025-02-10 08:45 | RT.EKG_ITS ---
APPROVED REPORT Exam: Resting ECG Reason for Exam: Sepsis Patient Location: E HR:101 bpm ECG Measurements Heart Rate 101 AXIS NC 149 P 65 QRSd 98 QRS 1 QT 376 T -8 QTc 489 Conclusion Sinus tachycardia, rate 101 [place] QTc prolongation at 489ms No STEMI T wave inversions precordial leads, unchanged from priors
--- NOTE | 2025-02-10 09:15 | DI.CT_ITS ---
Exam(s) CT CHEST/ABD/PEL W EXAM: CT CHEST/ABD/PEL W CLINICAL HISTORY: sepsis, vomiting. TECHNIQUE: Imaging Protocol: Axial computed tomography images with coronal and sagittal reformatted images were created and reviewed. Computer aided detection (CAD) was utilized. CONTRAST MATERIAL: Intravenous: Omnipaque 350 Contrast volume:100 ml Oral: / no COMPARISON: CT CT CHEST/ABD/PEL W from 12/04/2023 FINDINGS: CHEST: Exam is mildly limited by patient arm position. Pulmonary parenchyma: No consolidation. No dominant measurable mass. Tracheobronchial tree: No bronchiectasis. No mucous plugging.No bronchial wall thickening. Pleura: No effusion or pneumothorax. Mediastinum: Within normal limits. Pulmonary arteries: No visible emboli. Cardiovascular: No pericardial effusion. Thoracic aorta non-dilated. Bones: Metallic jero in proximal left humerus. Hardware in forearm. No lytic or blastic lesions.No c ompression fractures. Soft tissues: Unremarkable. ABDOMEN and PELVIS: Streak artifact related to patient arm positioning. Liver: Moderate fatty infiltration. Liver is mildly enlarged. No suspicious mass. Gallbladder and biliary tract: No evidence of stones or wall thickening. No biliary dilatation. Pancreas: Normal density, no abnormal calcifications or inflammatory process. Spleen: Normal. Kidneys: Normal size, contour and axis. No radiodense stones. No obstructive uropathy. No suspicious masses seen. Adrenal glands: No masses seen. Vasculature: Abdominal aorta non-dilated. Atherosclerotic changes. IVC filter in place. Lymph nodes: Within normal limits. Soft tissues: Muscular atrophy, greater on the right side. Bladder: Decompressed by Kent catheter. Bowel: No obstruction or bowel wall thickening. The appendix is normal. Moderate to large quantity of stool. Peritoneal cavity: No ascites. No focal collection. No mesenteric inflammatory response. No free ai r. Bones: Old pelvic fractures. Right hip prosthesis. Hardware intramedullary jero noted in left femur. Reproductive organs: Hysterectomy. IMPRESSION: No acute abnormality in the chest, abdomen or pelvis. RADIATION DOSE DELIVERED: 1,092.11mGy.cm Total DLP DATA REPOSITORY: All CT scans at this facility are submitted to the National Radiology Data Registry (NRDR) Dose Index Registry (DIR) with the [employer] (ACR). RADIATION OPTIMIZATION: All CT scans at this facility use at least one of these dose optimization te chniques: automated exposure control; mA and/or kV adjustment per patient size (includes targeted exa ms where dose is matched to clinical indication); or iterative reconstruction.
[2025-02-10 09:36] LABS: Abs Immature Grans 0.23 10^3/uL (0.0-0.06); Absolute Lymphocyte Count 0.71 10^3/uL (1.2-3.4); Basophils % 0.3 %; HCT 37.9 % (36.0-46.0); HGB 12.2 g/dL (11.2-15.7); Immature Grans % 1.1 %; Lymphocytes % 3.5 %; MCH 29.8 pg (27.0-33.0); MCHC 32.2 % (32.0-36.0); MCV 92 fL (80-95); MPV 8.9 fL (8.0-11.0); Monocytes % 3.9 %; Neutrophils % 91.2 %; Platelet Count 249 10^3/uL (130-400); RDW 13.9 % (11.7-14.6); RDW-SD 46.9 fL; WBC 20.31 10^3/uL (4.4-10.8)
[2025-02-10 09:37] LABS: Absolute Basophil Count 0.06 10^3/uL (0.0-0.2); Absolute Monocyte Count 0.79 10^3/uL (0.1-0.8); Absolute Neutrophil Count 18.52 10^3/uL (1.2-6.7)
[2025-02-10 09:56] LABS: INR 1.1 (0.9-1.1); Prothrombin Time 10.8 sec (9.1-11.1)
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
[2025-02-10 10:04] LABS: ALT 29 U/L (14-59); AST 24 U/L (15-37); Albumin 3.3 g/dL (3.4-5.0); Alkaline Phosphatase 63 U/L (46-116); BUN 21 mg/dL (7-18); Bilirubin, Total 0.6 mg/dL (0.2-1.0); CREATININE 1.3 mg/dL (0.55-1.02); Calcium 9.2 mg/dL (8.5-10.1); Chloride 101 mmol/L (98-107); Estimated GFR 46.78 (mL/min/1.73m2); Glucose 292 mg/dL (74-106); Potassium 4.1 mmol/L (3.5-5.1); Sodium 135 mmol/L (136-145); Total Protein 7.3 g/dL (6.4-8.2); Troponin I 15 ng/L (<or=51)
[2025-02-10 10:14] LABS: Procalcitonin 0.66 ng/mL
[2025-02-10] MEDS: cefTRIAXone 1 GM/50 ML BAG IVPB (10:20)
[2025-02-10] MEDS: Lactated Ringers 1,000 ML 1000 ML IV (10:22)
[2025-02-10] MEDS: Normal Saline - Diluent 50 ML VIAL IJ (11:01)
[2025-02-10] MEDS: Omnipaque 350 MG/ML 100 ML BTL IJ (11:04)
--- NOTE | 2025-02-10 11:09 | NUR.NOTE ---
Nursing Note: patient Rt AKA uses hector lift to transfer at baseline
[2025-02-10] MEDS: metroNIDAZOLE 500 MG/100 ML BAG 100 MG IVPB (11:21)
[2025-02-10 11:26] LABS: Bilirubin Negative (Negative); Blood Negative (Negative); Clarity Turbid (Clear); Glucose Negative (Negative); Ketones Trace mg/dL (Negative); Leukocyte Esterase Moderate (Negative); Nitrite Positive (Negative); Urobilinogen 0.2 mg/dL (Up to 0.2); pH >= 9.0 (5-8)
[2025-02-10 11:46] LABS: WBC 20-50 HPF (0-5)
[2025-02-10 11:47] LABS: Bacteria Packed HPF (Negative); C & S Indicated? No/Sq. Contamination; Epithelial Cells Many HPF (Negative)
[2025-02-10 11:48] LABS: Troponin I 20 ng/L (<or=51)
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
[2025-02-10 12:50] LABS: Troponin I 19 ng/L (<or=51)
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
--- NOTE | 2025-02-10 15:55 | NUR.NOTE ---
Nursing Note: Orders to change chronic cade, pt requests the same size, which is 20fr, needed to get from Urology. Changed cade catheter with sterile technique with very little urine return.
[2025-02-10] MEDS: Enoxaparin 40 MG/0.4 ML SYR SC (16:00)
[2025-02-10] MEDS: Ondansetron 4 MG/2 ML VIAL IVP (16:01)
[2025-02-10] MEDS: Insulin Glargine 300 UNITS/3 ML PEN 45 UNITS SC (16:41)
[2025-02-10] MEDS: Insulin Aspart 300 UNITS/3 ML PEN SC (16:42)
[2025-02-10] MEDS: Acetaminophen 500 MG TAB 1000 MG PO (17:48)
[2025-02-10] MEDS: Gabapentin 800 MG TAB PO (20:28)
[2025-02-10] MEDS: Oxybutynin 5 MG TAB PO (20:28)
[2025-02-10] MEDS: Docusate Sodium 100 MG CAP PO (20:28)
[2025-02-10] MEDS: Fenofibrate, Micronized 48 MG TAB PO (20:28)
[2025-02-10] MEDS: risperiDONE 0.5 MG TAB PO (20:28)
[2025-02-10] MEDS: Normal Saline Flush 10 ML SYR IVP (20:29)
[2025-02-11] VITALS (7 sets, daily range): BP systolic 124–144; BP diastolic 54–67; PULSE 78–88; RESP 15–20; TEMP 36.3–36.7; O2SAT 93–95
[2025-02-11 00:21] LABS: MRSA PCR Negative (Negative)
[2025-02-11 06:48] LABS: Abs Immature Grans 0.07 10^3/uL (0.0-0.06); Absolute Basophil Count 0.04 10^3/uL (0.0-0.2); Absolute Eosinophil Count 0.09 10^3/uL (0.0-0.7); Absolute Lymphocyte Count 1.04 10^3/uL (1.2-3.4); Absolute Monocyte Count 0.77 10^3/uL (0.1-0.8); Absolute Neutrophil Count 7.84 10^3/uL (1.2-6.7); Basophils % 0.4 %; Eosinophils % 0.9 %; HCT 32.8 % (36.0-46.0); HGB 10.7 g/dL (11.2-15.7); Immature Grans % 0.7 %; Lymphocytes % 10.6 %; MCH 29.8 pg (27.0-33.0); MCHC 32.6 % (32.0-36.0); MCV 91 fL (80-95); MPV 8.6 fL (8.0-11.0); Monocytes % 7.8 %; Neutrophils % 79.6 %; Platelet Count 205 10^3/uL (130-400); RBC 3.59 10^6/uL (3.93-5.22); RDW 14.2 % (11.7-14.6); RDW-SD 47.2 fL; WBC 9.85 10^3/uL (4.4-10.8)
[2025-02-11 07:18] LABS: Anion Gap 6.5 mmol/L (3-11); BUN 16 mg/dL (7-18); CO2 28.5 mmol/L (21.0-32.0); Calcium 9.1 mg/dL (8.5-10.1); Chloride 105 mmol/L (98-107); Estimated GFR 64.09 (mL/min/1.73m2); Glucose 176 mg/dL (74-106); Sodium 140 mmol/L (136-145)
[2025-02-11] MEDS: Acetaminophen 500 MG TAB 1000 MG PO ×3 (07:38→20:11)
[2025-02-11] MEDS: Docusate Sodium 100 MG CAP PO ×2 (07:58→19:49)
[2025-02-11] MEDS: Cetirizine 10 MG TAB PO (07:59)
[2025-02-11] MEDS: Oxybutynin 5 MG TAB PO ×3 (07:59→19:49)
[2025-02-11] MEDS: Metoprolol CR 25 MG TABCR PO (07:59)
[2025-02-11] MEDS: Famotidine 20 MG TAB PO (07:59)
[2025-02-11] MEDS: Fenofibrate, Micronized 48 MG TAB PO ×2 (08:00→19:50)
[2025-02-11] MEDS: Gabapentin 800 MG TAB PO ×2 (08:00→19:50)
[2025-02-11] MEDS: DULoxetine 30 MG CAP 60 MG PO (08:00)
[2025-02-11] MEDS: buPROPion-XL 150 MG TABCR 300 MG PO (08:01)
[2025-02-11] MEDS: Normal Saline Flush 10 ML SYR IVP ×4 (08:03→19:49)
[2025-02-11] MEDS: Insulin Glargine 300 UNITS/3 ML PEN 45 UNITS SC ×2 (08:04→17:02)
[2025-02-11] MEDS: Insulin Aspart 300 UNITS/3 ML PEN SC ×3 (08:04→17:02)
[2025-02-11] MEDS: cefTRIAXone 1 GM/50 ML BAG IVPB (10:00)
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
--- NOTE | 2025-02-11 12:16 | W.PM.PROGNOT ---
Date of Service Date of service: 02/11/25 Time of Service: 12:16 Assessment and Plan Assessment and plan (1) Sepsis: Start date: 02/11/25 Start time: 12:24 Assessment and plan: Criteria met with tachycardia HR 93 and tachypnea RR26 with source of infection / UTI Blood C&S pending Urine Cx pending (2) Recurrent urinary tract infection: Start date: 02/11/25 Start time: 12:24 Status: Chronic Assessment and plan: AU positive, Urine Cx still pending at this time One Blood Cx bottle still pending results- other negative at 24 hours Continue ceftriaxone IV In 11/2024 Urine Cx grew klebsiella, E. Coli both sensitive to ceftriaxone Change cade cathether today in the setting of sepsis UTI Chronic indwelling urinary to be continued on d/c - on flomax and And as above (3) Type 2 diabetes mellitus with diabetic nephropathy: Start date: 02/11/25 Start time: 12:24 Status: Chronic Assessment and plan: Continue Gluc AC and HS with SSI Continue home Lantus regimen (4) Hyperlipemia: Start date: 02/11/25 Start time: 12:24 Assessment and plan: Ongoing home medicine regimen with fenofibrate (5) Gastric ulcer: Start date: 02/11/25 Start time: 12:24 Assessment and plan: continue home medicine regimen w pepcid (6) Depression: Start date: 02/11/25 Start time: 12:25 Assessment and plan: Continue home dose wellbutrin (7) Morbid obesity: Start date: 02/11/25 Start time: 12:25 Assessment and plan: Continue heart healthy and carb control diet ongoing Nutrition consult s/p discussion with patient Counselling to be continued outpatient- with discussion re: GLP-1 adequacy (8) Chronic pain syndrome: Start date: 02/11/25 Start time: 12:25 Assessment and plan: Continue home regimen of gabapentin, cymbalta and PRN cyclobezaprine (9) Essential hypertension: Start date: 02/11/25 Start time: 12:25 Status: Acute Assessment and plan: Continue home dose metoprolol (10) CKD (chronic kidney disease): Start date: 02/11/25 Start time: 12:25 Status: Inactive Assessment and plan: Cr remains around baseline - no NEHA BMP in AM (11) Sacral decubitus ulcer, stage III: Start date: 02/11/25 Start time: 12:25 Status: Acute Assessment and plan: Previously reported as a ST III- mepilex to multiple sites Ongoing HH regimen until wound consult completion (12) Amputated right leg: Start date: 02/10/25 Start time: 12:11 Assessment and plan: R AKA- stump intact and as below (13) Phantom pain after amputation of lower extremity: Status: Acute Assessment and plan: On chronic pain medicine regimen- gabapentin, cymbalta and PRN APAP (14) On deep vein thrombosis (DVT) prophylaxis: Start date: 02/11/25 Start time: 12:25 Status: Acute Assessment and plan: on LMWH Discussed with Dr. Morel Subjective Subjective Patient reports: no new complaints, feels better, tolerating liquids well, tolerating a regular diet, voiding w/o difficulty and flatus; denies diarrhea, nausea, vomiting, shortness of breath or fever Exam Narrative Exam Narrative: Constitutional In bed w/o acute distress, obese body habitus Neuro:alert and oriented X3. No neurological focal deficit Resp: Unlabored breathing, clear lung bilaterally Cardio: regular rhythm, S1, S2, no murmur, GI: Abdomen is not distended, soft and non tender Integumentary: skin rash left around Cade catheter attachment to left thigh Extremities: move all 4 ext, R AKA pink- warm Psych: RASS 0, congruent mood and normal affect. Objective Last Vital Signs Temp 36.4 C L 02/11/25 11:33 Pulse 82 02/11/25 11:33 Resp 16 02/11/25 11:33 BP 135/58 L 02/11/25 11:33 Pulse Ox 93 02/11/25 11:33 Laboratory Results - last 24 hr 02/10/25 02/10/25 02/11/25 12:22 22:50 06:35 WBC 9.85 RBC 3.59 L Hgb 10.7 L Hct 32.8 L MCV 91 MCH 29.8 MCHC 32.6 RDW 14.2 Plt Count 205 MPV 8.6 Immature Gran % 0.7 Neutrophils % 79.6 Lymphocytes % 10.6 Monocytes % 7.8 Eosinophils % 0.9 Basophils % 0.4 Nucleated RBC % 0.0 Absolute Neutrophils 7.84 H Absolute Lymphocytes 1.04 L Absolute Monocytes 0.77 Absolute Eosinophils 0.09 Absolute Basophils 0.04 Sodium 140 Potassium 4.0 Chloride 105 Carbon Dioxide 28.5 Anion Gap 6.5 BUN 16 Creatinine 1.0 Est GFR (CKD-EPI 2020) 64.09 Glucose 176 H Calcium 9.1 Troponin I 19 MRSA (TEM-PCR) Negative Time Spent with Patient Time Spent with Patient: >50 minutes Time was spent: preparing to see the patient(eg.review tests), obtaining and/or reviewing separately otained hiistory, ordering medications,tests, procedures, referring, communicating with other health childcare center director, indepentently interpreting results, counseling the patient and care coordination
--- NOTE | 2025-02-11 13:43 | CHAPLAIN ---
Pushpa was in bed when I visited. She was pleasant and easily engaged in a conversation, telling me that she's feeling better but has been very tired and not feeling well since she arrived. She thinks she came to the ED a day or two ago. She said she lives in [place] with her and son. She was with her son, when she moved here from [place]. She said her was moving back for legal reasons, so I followed him her and imported my son, she said. I explained my role and offered support.
[2025-02-11] MEDS: Enoxaparin 40 MG/0.4 ML SYR SC (14:37)
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
[2025-02-11] MEDS: Cyclobenzaprine 10 MG TAB PO (19:49)
[2025-02-11] MEDS: risperiDONE 0.5 MG TAB PO (19:49)
[2025-02-11] MEDS: traZODone 50 MG TAB PO (19:53)
[2025-02-11] MEDS: Melatonin 3 MG TAB 9 MG PO (19:54)
[2025-02-12 03:21] VITALS: BP 138/69; PULSE 75; RESP 19; TEMP 36.4; O2SAT 93
--- NOTE | 2025-02-12 07:08 | W.INDIABCONS ---
Date of service: 02/12/25 Time of Service: 07:08 Diabetes Inpatient Consult Reason for Visit: diabetes mgt/education DESCRIPTION/ASSESSMENT: Mrs Kelly is a 59yo wheelchair-bound female with some signficant health conditions, including hx of R AKA due to DMII (managed with insulin and metformin at home), CKDIII, stage III sacral ulcer. GFR at 64 yesterday. A1c was 6.6% 11/30/24 and recent hx of <7 most of the time. Denies frequent low's but does get into hypoglycemic range occasionally. She takes BID metformin at home with 45u lantus in AM and another 45 PM. she has not teeth but denies difficulty chewing - tends to avoid raw veggies but eats marin and meats and just about everything. She lives at home with and son - reports does most of the cooking. She is currently ordered for home regimen of insulin glargine at `17:00 and TID corrections on moderate sliding scale. Total protein lab wnl yesterday with low albumin. Pt with higher protein needs to to current wound management. estimated energy needs: 2375kcals (suggest 1800 for weight reduction). 114g protein (1.2g/kg) nutrition dx: barriers to chewing related to no dentition as evidenced by pt interview. INTERVENTION: recommend continue current insulin orderwith consideration of adding CHO coverage at corrections times to help cover po intake of carbs as she has a fair to good appetite and does order fair amounts of starch choices at meals (2x canadian toast and piece of regular toast this morning at breakfast). will continue to visit with patient - offer education. Kitchen staff offering high protein ONS for nutrition support Recommend 500mg Vitamin C BID, 220mg Zinc Sulfate for wound healing. Will also offer Expedite collagen/citrulline supplement for wound healing support PLAN: will monitor glucose and nutrition-related labs, weight, po intake Time Spent in Nutritional Counseling and Treatment: 10 min
[2025-02-12 08:02] VITALS: BP 151/64; PULSE 69; RESP 16; TEMP 36.1; O2SAT 94
[2025-02-12] MEDS: Normal Saline Flush 10 ML SYR IVP ×2 (08:29→10:13)
[2025-02-12] MEDS: Insulin Aspart 300 UNITS/3 ML PEN SC ×2 (08:29→12:02)
[2025-02-12] MEDS: Insulin Glargine 300 UNITS/3 ML PEN 45 UNITS SC (08:30)
[2025-02-12] MEDS: Fenofibrate, Micronized 48 MG TAB PO (08:31)
[2025-02-12] MEDS: Oxybutynin 5 MG TAB PO (08:32)
[2025-02-12] MEDS: Docusate Sodium 100 MG CAP PO (08:32)
[2025-02-12] MEDS: Famotidine 20 MG TAB PO (08:33)
[2025-02-12] MEDS: Metoprolol CR 25 MG TABCR PO (08:33)
[2025-02-12] MEDS: Gabapentin 800 MG TAB PO (08:33)
[2025-02-12] MEDS: Cetirizine 10 MG TAB PO (08:33)
[2025-02-12] MEDS: DULoxetine 30 MG CAP 60 MG PO (08:34)
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
[2025-02-12] MEDS: Polyethylene Glycol 3350 17 GM PACKET PO (09:34)
[2025-02-12] MEDS: buPROPion-XL 150 MG TABCR PO (09:34)
[2025-02-12] MEDS: cefTRIAXone 1 GM/50 ML BAG IVPB (09:34)
[2025-02-12] MEDS: Acetaminophen 500 MG TAB 1000 MG PO (10:13)
[2025-02-12 12:02] VITALS: BP 136/55; PULSE 78; RESP 16; TEMP 36.6; O2SAT 96
--- NOTE | 2025-02-12 15:35 | NUR.NOTE ---
charting reviewed by renato Silverman LPN with assessment and findings. Pt was Axox4 this shift, cade to gravity with clear yellow urine, LLE warm and red but consistent with previous shifts findings and no indication of worsening concern, going home on PO bactrim, given 3 doses to aid in bridging over to mail order med delivery. Patient with R AKA, chronic wounds to buttocks which were changed 02/11, pt denies pain, tolerating PO, given meds for BM today but no BM on shift, assisted with hector to wheelchair which is her baseline max level of mobility at home. Pt reports she has home health TID to help with ADLs and meds, medications reviewed with patient along with f/u at PCP, s/s to return for and next dose of antibiotic. Pt leaving with [facility] wheelchair van to home, denies questions or concerns at discharge. PIV removed. All belongings sent with patient and 3 doses of bactrim PO along with insulin pens. Nursing Note:
--- NOTE | 2025-02-12 20:00 | CMDISCH_ITS ---
Date of service: 02/12/25 Time of Service: 13:00 LACE Index Scoring Tool Questions: Length of Stay (in days): 2 Was the patient admitted via the E.D.?: Yes Comorbidities: Diabetes w/o Complication, Mild Liver/Renal Disease and Any Tumor E.D. Visits: 2 Answers: Total Score: 12 Risk of Readmission: High Risk Care Management Discharge Plan Reason for Hospitalization: sepsis, UTI Discharge Plan: Pushpa was discharged home earlier today with resumption of her HH services and her clinical reviewer. She will f/u with her PCP and continue per her plan of care. Pushpa was transported home via [facility] wheelchair van and was met by the lift assist from [employer]. Pushpa's antibiotic will be delivered from [facility] on 02/14. Pharmacy was able to give her enough take home doses to get to that delivery time. Patient/Family Education Needs: review of discharge instructions, activity, limitations and discuss ask me 3. 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
== END 2025-02-12 14:13 | disposition home health service (06) | DRG 871 ==
LOC: ER 12:35 → MS 12:42
PROVIDERS: Family Medicine; Admitting Provider Family Medicine; Emergency Provider Emergency Medicine; PCP Family Medicine; Responsible Provider Nurse Practitioner Acute Care; Visit Provider Family Medicine
DX: A41.9 Sepsis, unspecified organism (principal); L89.153 Pressure ulcer of sacral region, stage 3; N39.0 Urinary tract infection, site not specified; E11.21 Type 2 diabetes mellitus with diabetic nephropathy; E78.5 Hyperlipidemia, unspecified; K25.9 Gastric ulcer, unspecified as acute or chronic, without hemorrhage or perforation; E66.01 Morbid (severe) obesity due to excess calories; Z68.35 Body mass index [BMI] 35.0-35.9, adult; G89.4 Chronic pain syndrome; I12.9 Hypertensive chronic kidney disease with stage 1 through stage 4 chronic kidney disease, or unspecified chronic kidney disease; N18.9 Chronic kidney disease, unspecified; Z89.611 Acquired absence of right leg above knee; Z79.899 Other long term (current) drug therapy; G54.6 Phantom limb syndrome with pain; Z99.3 Dependence on wheelchair; Z87.440 Personal history of urinary (tract) infections; Z96.0 Presence of urogenital implants; R41.3 Other amnesia; G93.89 Other specified disorders of brain; G31.89 Other specified degenerative diseases of nervous system; L28.0 Lichen simplex chronicus; F32.A Depression, unspecified; R60.0 Localized edema; D63.1 Anemia in chronic kidney disease; Z96.651 Presence of right artificial knee joint; Z85.42 Personal history of malignant neoplasm of other parts of uterus; Z79.4 Long term (current) use of insulin; Z86.14 Personal history of Methicillin resistant Staphylococcus aureus infection; Z66 Do not resuscitate; Z91.148 Patient's other noncompliance with medication regimen for other reason; B96.4 Proteus (mirabilis) (morganii) as the cause of diseases classified elsewhere
CPT/HCPCS: 00123; 36415; 74177; 80048; 80053; 84145; 87040; 87077; 87641; 93005; 96365; 96367; 99291; J1650; 71260; 81003; 81015; 83605; 84484; 85025; 85610; 87086; 87186; 93010; 99223; 99233; 99239; J0696; J1815; J1836; J2405; J3490

== ENCOUNTER 2025-04-21 17:59 | Outpatient (REF) | payer MEDICAID, SELFPAY ==
[2025-04-21 18:39] LABS: WBC >50 HPF (0-5)
[2025-04-21 18:40] LABS: Bacteria Packed HPF (Negative); C & S Indicated? C&S Done As Ordered
== END 2025-04-21 18:00 | disposition home or self-care (01) ==
LOC: LBN 17:59
PROVIDERS: PCP Family Medicine; Visit Provider Family Medicine
DX: R30.0 Dysuria (principal); R82.89 Other abnormal findings on cytological and histological examination of urine
CPT/HCPCS: 87077; 81015; 87086; 87186

== ENCOUNTER 2025-05-26 11:58 | Outpatient (REF) | payer MEDICAID, SELFPAY | END 2025-05-26 11:59 | disposition home or self-care (01) | LOC: LBN 11:58 | PROVIDERS: PCP Family Medicine; Visit Provider Obstetrics & Gynecology | DX: N89.8 Other specified noninflammatory disorders of vagina (principal) | CPT/HCPCS: 87480; 87510; 87660 ==

== ENCOUNTER 2025-06-23 22:24 | Outpatient (REF) | payer MEDICAID, SELFPAY ==
[2025-06-23 19:44] LABS: Glucose Negative (Negative)
[2025-06-23 19:53] LABS: C & S Indicated? Yes; RBC 0-2 HPF (0-2)
== END 2025-06-23 22:25 | disposition home or self-care (01) ==
LOC: LBN 22:24
PROVIDERS: PCP Family Medicine; Visit Provider Family Medicine
DX: R30.0 Dysuria (principal); R82.89 Other abnormal findings on cytological and histological examination of urine
CPT/HCPCS: 87077; 81003; 81015; 87086; 87186

== ENCOUNTER 2025-06-29 15:09 | Outpatient (REF) | payer MEDICAID, SELFPAY | END 2025-06-29 15:10 | disposition home or self-care (01) | LOC: LBN 15:09 | PROVIDERS: PCP Family Medicine; Visit Provider Family Medicine | DX: N89.8 Other specified noninflammatory disorders of vagina (principal) | CPT/HCPCS: 87480; 87510; 87660 ==

== ENCOUNTER 2025-07-13 02:34 | Outpatient (CLI) | payer MEDICAID, SELFPAY ==
--- NOTE | 2025-07-13 06:15 | DI.CT_ITS ---
Exam(s) CT ABDOMEN PELVIS W EXAM: CT ABDOMEN PELVIS W CLINICAL HISTORY: concern for stool in urine (seen in cade),fistula,l98.8. TECHNIQUE: Imaging Protocol: Axial computed tomography images with coronal and sagittal reformatted images were created and reviewed CONTRAST MATERIAL: Intravenous: Omnipaque 350 Contrast volume:100 ml Oral: yes COMPARISON: CT CT CHEST/ABD/PEL W from 02/10/2025 FINDINGS: ABDOMEN and PELVIS: Lung Bases: No acute findings. Liver: Enlarged. Hepatic steatosis. No suspicious mass. Gallbladder and biliary tract: No radiodense calculus. No wall thickening or pericholecystic fluid. No biliary dilation. Pancreas: Normal density. No abnormal calcifications or inflammatory process. No evidence of mass. Spleen: Normal. Kidneys: Normal size, contour and axis. No radiodense stones. No obstructive uropathy. No suspicious masses seen. Adrenal glands: No masses seen. Vasculature: Abdominal aorta non-dilated. Parotic changes. IVC filter. Soft tissues: Unremarkable. Bladder: Partially obscured by artifact from femoral hardware. Cade catheter in place. No gross wall thickening. No calculi.No focal mass. Bowel: No obstruction. No bowel wall thickening. Appendix normal. No abnormality is identified of the sigmoid colon. No findings to suggest a colovesical fistula. Peritoneal cavity: No ascites. No focal collection. No mesenteric inflammatory response. No free air. Bones: Old pelvic fractures. Hardware in both proximal femurs. Reproductive organs: Unremarkable. Lymph nodes: No pathologically enlarged lymph nodes. IMPRESSION:: Bladder is mildly obscured by artifact from hardware in the proximal femurs. No findings to suggest colovesical fistula. Cade catheter decompresses the bladder. RADIATION DOSE DELIVERED: 1,451.72mGy.cm Total DLP DATA REPOSITORY: All CT scans at this facility are submitted to the National Radiology Data Registry (NRDR) Dose Index Registry (DIR) with the [employer] (ACR). RADIATION OPTIMIZATION: All CT scans at this facility use at least one of these dose optimization techniques: automated exposure control; mA and/or kV adjustment per patient size (includes targeted exams where dose is matched to clinical indication); or iterative reconstruction.
[2025-07-13] MEDS: Barium Sulfate 2% W/V-Berry Smoothie 450 ML BTL PO ×2 (12:20→14:11)
[2025-07-13 12:51] LABS: Hemoglobin A1C 6.5 % (<5.7)
[2025-07-13 12:54] LABS: Estimated GFR 63.70 (mL/min/1.73m2)
[2025-07-13] MEDS: Normal Saline Flush 10 ML SYR IVP (14:17)
[2025-07-13] MEDS: Normal Saline - Diluent 50 ML VIAL IJ (14:17)
[2025-07-13] MEDS: Omnipaque 350 MG/ML 100 ML BTL IJ (14:18)
== END 2025-07-13 02:54 ==
LOC: DI 02:34
PROVIDERS: PCP Family Medicine; Visit Provider Family Medicine
DX: L98.8 Other specified disorders of the skin and subcutaneous tissue (principal); E11.9 Type 2 diabetes mellitus without complications
CPT/HCPCS: 74177; 82565; 83036; J3490

== ENCOUNTER 2025-07-13 16:04 | Outpatient (REF) | payer MEDICAID, SELFPAY | END 2025-07-13 16:05 | disposition home or self-care (01) | LOC: LBN 16:04 | PROVIDERS: PCP Family Medicine; Visit Provider Obstetrics & Gynecology | DX: R30.0 Dysuria (principal); N89.8 Other specified noninflammatory disorders of vagina | CPT/HCPCS: 87077; 87086; 87186; 87480; 87510; 87660 ==

== ENCOUNTER 2025-08-29 09:10 | Emergency (ER) | payer MEDICAID, SELFPAY ==
[2025-08-29] VITALS (43 sets, daily range): BP systolic 124–180; BP diastolic 42–89; PULSE 65–87; RESP 11–35; TEMP 36.7–37; O2SAT 93–98
--- NOTE | 2025-08-29 09:15 | RT.EKG_ITS ---
APPROVED REPORT Exam: Resting ECG Reason for Exam: chest pain Patient Location: E HR:74 bpm ECG Measurements Heart Rate 74 AXIS CO 165 P 31 QRSd 99 QRS -3 QT 398 T 19 QTc 443 Conclusion Sinus rhythm...normal P axis, V-rate 60- 99 Nonspecific T abnrm, anterolateral leads...T <-0.10mV, I aVL V2-V6 No Occlusion AR
--- NOTE | 2025-08-29 09:15 | DI.CT_ITS ---
Exam(s) CT ABDOMEN PELVIS W EXAM: CT ABDOMEN PELVIS W CLINICAL HISTORY: RUQ tenderness TECHNIQUE: Imaging Protocol: Axial computed tomography images with coronal and sagittal reformatted images were created and reviewed. CONTRAST MATERIAL: Intravenous: Omnipaque 350 Contrast volume:100 mL Oral: No COMPARISON: CT CT CHEST/ABD/PEL W from 12/04/[address] CHEST/ABD/PEL W from 02/10/[address] ABDOMEN PELVIS W from 07/13/2025 FINDINGS: ABDOMEN: Lung Bases: There is interval development of bilateral basilar infiltrates which may represent atelectasis or pneumonia, right greater than left. Liver: Normal density. No measurable mass. Portal, Superior Mesenteric, and Splenic Veins: Unremarkable. Gallbladder and Biliary Tract: No radiodense calculus or dilation. Pancreas: Normal density, no abnormal calcifications or inflammatory process. Spleen: Normal. Adrenals: No masses seen. Kidneys: Normal size, contour and axis. No radiodense stones or obstructive uropathy. There are 2 hypodensity seen in the left kidney. They are too small for further characterization but likely reflect small cysts. Abdominal Aorta: Abdominal portion non-dilated. Atherosclerotic calcification is present. IVC: The IVC filter is stable in position. Bowel: No obstruction or bowel wall thickening. Appendix is unremarkable. Peritoneal Cavity: No ascites, collection or mesenteric inflammatory response. No free air. Lymph Nodes: Within normal limits. Bones: Within normal limits for the patient's age. There are postsurgical changes of a right total hip arthroplasty. There is a intramedullary jero seen in the left femur. Posttraumatic changes are seen in the left pubic bone. Soft Tissues: Moderate fatty atrophy of the right gluteal muscles and the right thigh muscles are noted. PELVIS: Bladder: The urinary bladder is decompressed. There is a Kent catheter present. There is air seen in the urinary bladder likely reflecting the catheter placement. Reproductive Organs: The uterus is absent. Lymph Nodes: Within normal limits. Bones: Within normal limits for the patient's age. IMPRESSION: 1. Interval development of bilateral basilar infiltrates, right greater than left. This may represent atelectasis or pneumonia. 2. No acute abdominal or pelvic process. RADIATION DOSE DELIVERED: 1,624.57mGy.cm Total DLP DATA REPOSITORY: All CT scans at this facility are submitted to the National Radiology Data Registry (NRDR) Dose Index Registry (DIR) with the [employer] (ACR). RADIATION OPTIMIZATION: All CT scans at this facility use at least one of these dose optimization techniques: automated exposure control; mA and/or kV adjustment per patient size (includes targeted exams where dose is matched to clinical indication); or iterative reconstruction.
[2025-08-29] MEDS: ACETAMINOPHEN 1,000 MG/100 ML BAG 400 MG IVPB (10:22)
[2025-08-29] MEDS: Ketorolac 15 MG/ML VIAL IVP (10:22)
[2025-08-29] MEDS: Normal Saline 1,000 ML 1000 ML IV (10:23)
[2025-08-29 10:37] LABS: Abs Immature Grans 0.10 10^3/uL (0.0-0.06); HCT 35.3 % (36.0-46.0); HGB 11.2 g/dL (11.2-15.7); Immature Grans % 1.0 %; MCH 29.1 pg (27.0-33.0); MCHC 31.7 % (32.0-36.0); MCV 92 fL (80-95); MPV 9.0 fL (8.0-11.0); Platelet Count 246 10^3/uL (130-400); RBC 3.85 10^6/uL (3.93-5.22); RDW 13.1 % (11.7-14.6); RDW-SD 43.5 fL; WBC 9.55 10^3/uL (4.4-10.8)
[2025-08-29 10:50] LABS: Glucose Negative (Negative)
[2025-08-29 11:00] LABS: ALT 26 U/L (14-59); AST 13 U/L (15-37); Albumin 3.4 g/dL (3.4-5.0); Alkaline Phosphatase 79 U/L (46-116); Anion Gap 9.2 mmol/L (3-11); BUN 23 mg/dL (7-18); Bilirubin, Total 0.3 mg/dL (0.2-1.0); CO2 29.8 mmol/L (21.0-32.0); Calcium 9.5 mg/dL (8.5-10.1); Chloride 100 mmol/L (98-107); Estimated GFR 63.70 (mL/min/1.73m2); Glucose 198 mg/dL (74-106); Lipase 26 U/L (<78); Magnesium 1.6 mg/dL (1.8-2.4); Potassium 4.8 mmol/L (3.5-5.1); Sodium 139 mmol/L (136-145); Total Protein 7.5 g/dL (6.4-8.2); Troponin I 5 ng/L (<or=51)
[2025-08-29] MEDS: Normal Saline - Diluent 50 ML VIAL IJ (11:17)
[2025-08-29] MEDS: Normal Saline Flush 10 ML SYR IVP (11:18)
[2025-08-29] MEDS: Omnipaque 350 MG/ML 100 ML BTL IJ (11:18)
--- NOTE | 2025-08-29 11:21 | W.ED.GENAD ---
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 [facility] [place] Low risk disease. Recommend yearly pelvic exams at [facility]. Deep venous thrombosis Type 2 diabetes mellitus with obesity Hypomagnesemia Acute kidney injury (NEHA) with acute tubular necrosis (ATN) Anemia Chronic, associate with CKD Kidney stone Recurrent UTI Type 2 diabetes mellitus with diabetic nephropathy Heart murmur 03/2022-systolicm 2019-normal echo with EF of 50 to 55%, no valve abnormality noted Urinary frequency Decubitus ulcer, stage III AMS (altered mental status) Neck pain Acute shoulder pain Hydronephrosis 2020-ultrasound, no hydronephrosis Immobility Wheelchair bound uses Marilyn lift for any transfers. Amputated right leg Surgical History Amputated right leg (10/29/16) Status post total knee replacement History of hysterectomy for cancer 2018 Replacement of total knee joint (~1998) right Fracture, Open Treatment left leg; trimalleolar fx-screw and fixation plate Dilation and curettage (06/25/18) with diagnostic hysteroscopy. [facility] Family History Mother No problems noted. Father No problems noted. Sister No problems noted. Sister No problems noted. Sister No problems noted. Brother No problems noted. Grandfather No problems noted. Grandfather No problems noted. Grandmother No problems noted. Grandmother No problems noted. Son No problems noted. Social History Smoking/Tobacco Use Status: Former Tobacco Use Smoking risk assessment performed?: Yes Alcohol Intake: former Drug use: Never Substance use type: does not use Household members: spouse, children and other Details: previously lived alone with nursing support. Not happy having family back. Housing: house Number of Children: 1 Education Level: high school Sexually active: No Current gender identity: female Do you feel safe at home: Yes Do you feel safe in your relationship?: Yes
[2025-08-29] MEDS: MAGNESIUM SULFATE 2 GM/50 ML BAG IV_INF (12:25)
[2025-08-29] MEDS: Azithromycin 250 MG TAB 500 MG PO (12:26)
== END 2025-08-29 14:00 | disposition home or self-care (01) ==
PROVIDERS: Emergency Provider Physician Assistant; PCP Family Medicine
DX: R10.11 Right upper quadrant pain (principal); J18.9 Pneumonia, unspecified organism; E78.5 Hyperlipidemia, unspecified; E11.40 Type 2 diabetes mellitus with diabetic neuropathy, unspecified; Z86.718 Personal history of other venous thrombosis and embolism; Z79.4 Long term (current) use of insulin; Z79.84 Long term (current) use of oral hypoglycemic drugs; Z99.3 Dependence on wheelchair; Z89.611 Acquired absence of right leg above knee; Z87.891 Personal history of nicotine dependence
CPT/HCPCS: 36415; 80053; 82962; 83690; 93005; 96361; 96374; 96375; 99285; 74177; 81003; 81015; 83605; 83735; 84484; 85025; 93010; J0131; J1885; J3475; J3490

== ENCOUNTER 2025-09-03 09:27 | Emergency (ER) | payer MEDICAID, SELFPAY ==
[2025-09-03] VITALS (35 sets, daily range): BP systolic 165–192; BP diastolic 57–68; PULSE 58–72; RESP 16; TEMP 36.6; O2SAT 95–99
--- NOTE | 2025-09-03 09:30 | DI.CT_ITS ---
Exam(s) CT ABDOMEN PELVIS W EXAM: CT ABDOMEN PELVIS W CLINICAL HISTORY: R. flank pain, RUQ pain. TECHNIQUE: Imaging Protocol: Axial computed tomography images with coronal and sagittal reformatted images were created and reviewed CONTRAST MATERIAL: Intravenous: Omnipaque-350 100cc Oral: None COMPARISON: CT CT ABDOMEN PELVIS W from 08/29/2025 FINDINGS: VISUALIZED LUNG BASES: There has been improvement in the right lung base infiltrate. There presently no infiltrates in lung bases and there are no pleural effusions.. There is no pericardial effusion. No hiatal hernia. ABDOMEN: There is no ascites. LIVER: Mild steatosis. No discrete focal hepatic lesions. No dilated intrahepatic ducts GALLBLADDER/BILIARY: No obvious gallbladder pathology. CBD is not dilated. PANCREAS: No evidence of pancreatic mass nor dilatation of the pancreatic duct. SPLEEN: Spleen size upper normal. No splenic lesions. Splenic and portal veins are patent. ADRENALS: There are no significant adrenal masses. KIDNEYS:Small benign 1 cm cyst noted in the left kidney. Does not require further workup. No solid renal masses. No calculi nor hydronephrosis.. ABDOMINAL AORTA: Calcified but not enlarged. IVC: There is an IVC filter in place. Mildly tilted. No evidence of Harmony IVC hematoma LYMPH NODES:There is no retroperitoneal nor paraaortic adenopathy. ABDOMINAL WALL: No evidence of significant anterior abdominal wall nor inguinal hernia. GI: There is no evidence of bowel obstruction, free air, nor abscess. There is abundant fecal material noted throughout the length of the colon. PELVIS: GI: No evidence of appendicitis.No evidence of sigmoid diverticulitis. LYMPH NODES: There is no intrapelvic nor inguinal adenopathy. REPRODUCTIVE: Uterus surgically absent. No abnormal adnexal masses. URINARY BLADDER: There is Kent catheter in the urinary bladder. Some air in the urinary bladder is most probably from Kent insertion. OSSEOUS: There are bilateral hip hardware consisting of right hip prosthesis and screws in left hip supported by long intramedullary jero in the femur. Deformities in the anterior osseous pelvis from prior fractures. Also healed fracture of the right inferior pubic ramus. IMPRESSION: 1. There is an IVC filter noted 2. There is abundant fecal material throughout the colon. May indicate constipation. No significant diverticular disease. 3. Uterus is surgically absent. No abnormal adnexal masses. 4. Kent catheter in the urinary bladder. 5. Bilateral hip hardware and healed fractures in the pelvis. Preliminary view right report was reviewed. RADIATION DOSE DELIVERED: 1,473.4mGy.cm Total DLP DATA REPOSITORY: All CT scans at this facility are submitted to the National Radiology Data Registry (NRDR) Dose Index Registry (DIR) with the [employer] (A[employer]). RADIATION OPTIMIZATION: All CT scans at this facility use at least one of these dose optimization techniques: automated exposure control; mA and/or kV adjustment per patient size (includes targeted exams where dose is matched to clinical indication); or iterative reconstruction.
[2025-09-03 09:52] LABS: Glucose Negative (Negative)
[2025-09-03] MEDS: Acetaminophen 500 MG TAB 1000 MG PO (09:54)
[2025-09-03] MEDS: Lidocaine 5% Patch 1 PATCH TP (09:54)
[2025-09-03 10:03] LABS: WBC 20-50 HPF (0-5)
[2025-09-03 10:25] LABS: Abs Immature Grans 0.13 10^3/uL (0.0-0.06); HCT 37.5 % (36.0-46.0); HGB 11.7 g/dL (11.2-15.7); Immature Grans % 1.9 %; MCH 29.0 pg (27.0-33.0); MCHC 31.2 % (32.0-36.0); MCV 93 fL (80-95); MPV 8.7 fL (8.0-11.0); Platelet Count 266 10^3/uL (130-400); RBC 4.03 10^6/uL (3.93-5.22); RDW 13.0 % (11.7-14.6); RDW-SD 44.2 fL; WBC 6.70 10^3/uL (4.4-10.8)
[2025-09-03] MEDS: Normal Saline - Diluent 50 ML VIAL IJ (10:44)
[2025-09-03 10:46] LABS: ALT 27 U/L (14-59); AST 12 U/L (15-37); Albumin 3.7 g/dL (3.4-5.0); Alkaline Phosphatase 76 U/L (46-116); Anion Gap 9.0 mmol/L (3-11); BUN 27 mg/dL (7-18); Bilirubin, Total 0.2 mg/dL (0.2-1.0); CO2 30.0 mmol/L (21.0-32.0); Calcium 9.6 mg/dL (8.5-10.1); Chloride 98 mmol/L (98-107); Glucose 177 mg/dL (74-106); Magnesium 1.3 mg/dL (1.8-2.4); Potassium 4.6 mmol/L (3.5-5.1); Sodium 137 mmol/L (136-145); Total Protein 7.8 g/dL (6.4-8.2)
[2025-09-03] MEDS: Normal Saline Flush 10 ML SYR IVP (10:53)
[2025-09-03] MEDS: Omnipaque 350 MG/ML 100 ML BTL IJ (10:55)
--- NOTE | 2025-09-03 11:03 | DI.VRAD_ITS ---
PROCEDURE INFORMATION: Exam: CT Abdomen And Pelvis With Contrast Exam date and time: 09/03/2025 10:40 AM Age: 60 years old Clinical indication: Abdominal pain; Localized; Right lower quadrant (rlq) TECHNIQUE: Imaging protocol: Computed tomography of the abdomen and pelvis with contrast. Contrast material: OMNI 350; Contrast volume: 100 ml; Contrast route: INTRAVENOUS (IV); COMPARISON: CT ABDOMEN PELVIS W 08/29/2025 11:20 AM FINDINGS: Limitations: Images degraded due to artifact caused by metallic hardware. Mild motion artifact. Liver: Hepatic steatosis. Gallbladder and biliary ducts: No radiodense gallbladder calculi seen. Pancreas: No CT evidence for acute pancreatitis. Spleen: No splenomegaly. Adrenal glands: No mass. Kidneys and ureters: Left renal cyst. Distal ureters not well visualized due to extensive artifact in the pelvis. Stomach and bowel: Thickening of the distal stomach commensurate with underdistention. No intestinal obstruction is evident. Retained fecal material throughout the colon. Correlate clinically for history of constipation. Appendix: No evidence of appendicitis. Intraperitoneal space: No free air. Vasculature: Arterial calcifications. Filter in the inferior vena cava. Lymph nodes: Nonspecific mesenteric and retroperitoneal lymph nodes. Urinary bladder: Kent catheter and air in the urinary bladder. Reproductive: No acute findings. Bones/joints: Right hip prosthesis. Left femoral jero. Artifact limits evaluation of the surrounding tissues. 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 Nonacute pelvic bone deformities. Soft tissues: No pertinent acute abnormality seen. IMPRESSION: 1. No acute findings to explain reported symptoms. 2. Nonacute findings as outlined above. Dictated and Authenticated by: Hyun Nicole MD. Orderin [facility]. Anand Estrella MD
[2025-09-03] MEDS: MAGNESIUM SULFATE 2 GM/50 ML BAG IV_INF (11:16)
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
[2025-09-03 12:05] LABS: Glucose Negative (Negative)
[2025-09-03] MEDS: cefTRIAXone 1 GM/50 ML BAG IVPB (13:22)
--- NOTE | 2025-09-05 09:22 | NUR.NOTE ---
Access chart to determine antibiotic on discharge for urine culture. Result given to provider. Nursing Note:
--- NOTE | 2025-09-06 10:23 | NUR.NOTE ---
Access chart to determine antibiotic on discharge for urine culture. Result given to provider. Nursing Note:
== END 2025-09-03 13:30 | disposition home or self-care (01) ==
PROVIDERS: Emergency Provider Emergency Medicine; PCP Family Medicine
DX: T83.511A Infection and inflammatory reaction due to indwelling urethral catheter, initial encounter (principal); E83.42 Hypomagnesemia
CPT/HCPCS: 99284; 99285; 36415; 96368; 80053; 87077; 96365; 96366; 74177; 81003; 81015; 83735; 85025; 87086; 87186; J0696; J3475; J3490

== ENCOUNTER 2025-10-25 18:32 | Outpatient (REF) | payer MEDICAID, SELFPAY ==
[2025-10-25 19:16] LABS: Glucose Negative (Negative)
[2025-10-25 19:24] LABS: RBC 0-2 HPF (0-2); WBC 20-50 HPF (0-5)
== END 2025-10-25 18:33 | disposition home or self-care (01) ==
LOC: LBN 18:32
PROVIDERS: PCP Family Medicine; Visit Provider Family Medicine
DX: R41.82 Altered mental status, unspecified (principal)
CPT/HCPCS: 81003; 81015

== ENCOUNTER 2025-11-01 15:32 | Outpatient (REF) | payer MEDICAID, SELFPAY ==
[2025-11-02 15:23] LABS: Glucose Negative (Negative); WBC 20-50 HPF (0-5)
== END 2025-11-01 15:33 | disposition home or self-care (01) ==
LOC: LBN 15:32
PROVIDERS: PCP Family Medicine; Visit Provider Family Medicine
DX: R82.90 Unspecified abnormal findings in urine (principal); R41.82 Altered mental status, unspecified; Z46.6 Encounter for fitting and adjustment of urinary device; N18.9 Chronic kidney disease, unspecified; Z87.440 Personal history of urinary (tract) infections
CPT/HCPCS: 81003; 81015